=== PATIENT | female | born 1940 | race Caucasian/White ===

== ENCOUNTER 2018-11-09 15:07 | Inpatient (IN) | payer OTHER ==
[~2018-11-09] VITALS: Ht 152.4 cm; Wt 61.7 kg
[2018-11-09 15:10] VITALS: Ht 152.4 cm; Wt 61.7 kg
[2018-11-09] MEDS ORDERED: ONDANSETRON 4 MG INJ IV STA (15:19)
[2018-11-09] MEDS ORDERED: SOD CHLORIDE 0.9% 500 ML IV STA (15:19)
[2018-11-09] MEDS ORDERED: morphine 2 MG INJ IV STA (15:19)
[2018-11-09] MEDS ORDERED: CEFEPIME 2GM/50 ML (PMX) 50 ML IVPB STA (16:02)
[2018-11-09] MEDS ORDERED: VANCOMYCIN 1 GM (PMX) 250 ML IVPB STA (16:02)
[2018-11-09] MEDS ORDERED: APIX5TAB PO (16:21)
[2018-11-09] MEDS ORDERED: METO25TA4 PO (16:21)
[2018-11-09] MEDS ORDERED: CARV6.25 PO (16:21)
[2018-11-09] MEDS ORDERED: ACET-2047 PO (16:21)
[2018-11-09] MEDS ORDERED: GLIP5TAB13 PO (16:21)
[2018-11-09] MEDS ORDERED: ATOR40TA68 PO (16:21)
[2018-11-09] MEDS ORDERED: BISA-57 PO (16:21)
[2018-11-09] MEDS ORDERED: DOCU-159 PO (16:21)
[2018-11-09] MEDS ORDERED: DIPH25CA6 PO (16:21)
[2018-11-09] MEDS ORDERED: FURO-110 PO (16:21)
[2018-11-09] MEDS ORDERED: INSU100I12 SQ (16:21)
[2018-11-09] MEDS ORDERED: LANT3I SC (16:21)
[2018-11-09] MEDS ORDERED: MULT-876 PO (16:21)
[2018-11-09] MEDS ORDERED: HYDR-4011 PO (16:21)
[2018-11-09] MEDS ORDERED: ZINC220T PO (16:26)
[2018-11-09] MEDS ORDERED: SENN-120 PO (16:26)
[2018-11-09] MEDS ORDERED: CHOL100062 PO (16:26)
[2018-11-09] MEDS ORDERED: ACETAMINOPHEN 325 MG TAB PO PRN (17:30)
[2018-11-09] MEDS ORDERED: ONDANSETRON 4 MG INJ IV PRN (17:30)
[2018-11-09] MEDS: SOD CHLORIDE 0.9% 1,000 ML IV SCH ×2 (17:47→18:44)
[2018-11-09] MEDS ORDERED: NACL 0.9% 3 ML SYG IV SCH (18:00)
--- NOTE | 2018-11-09 19:24 | ERD ---
ER Documentation Chief Complaint Chief Complaint [facility]- ncreased heart rate, lower back pain HPI This is a 77-year-old female is brought into the emergency department by EMS from her nursing care facility, [facility]. Over the past several days the patient has been experiencing tachycardia. Her heart rate has been ranging between 110 230 according to nursing staff. The patient is receiving analgesic medication as she has a recent diagnosis of a displaced intertrochanteric fracture of the right femur with no surgical intervention. She is undergoing routine healing. She also has a known history of atrial fibrillation. She has had a nonproductive cough. There is been no fevers or shaking or chills. The patient is currently on Eliquis and denies any shortness of breath at rest or exertion. She was sent to the emergency department by her primary care physician for further evaluation Dr. Deutsch. ROS All systems reviewed and are negative except as per history of present illness. Medications Home Meds Reported Medications Zinc Sulfate* (Zinc Sulfate*) 220 Mg Tablet, 220 MG PO DAILY, TAB 11/09/18 Cholecalciferol* (Vitamin D3*) 1,000 Unit Tablet, 2000 UNIT PO DAILY, TAB 11/09/18 Sennosides* (Senna Lax*) 8.6 Mg Tablet, 1 TAB PO DAILY PRN for CONSTIPATION, TAB 11/09/18 Hydrocodone/Acetaminophen ([place] 5-325 Tablet) 1 Each Tablet, 1 TAB PO Q4 PRN for PAIN LEVEL 7-10, TAB 11/09/18 Multivit-Min/Iron Fum/Folic AC (Qsczg-Wgozmbl-Xsdgflfi Tablet) 1 Each Tablet, 1 TAB PO DAILY, TAB 11/09/18 Metoprolol Tartrate* (Lopressor*) 25 Mg Tablet, 25 MG PO BID, #60 TAB 11/09/18 Furosemide* (Lasix*) 20 Mg Tablet, 20 MG PO DAILY, TAB 11/09/18 Insulin Glargine* (Lantus*) 100 Unit/Ml Soln, 32 UNIT SC DAILY, #1 VIAL 11/09/18 Insulin Lispro (Humalog Kwikpen U-100) 100 Unit/1 Ml Insuln.pen, 1-12 UNIT SQ AC A for PER SLIDING SCALE, EA 11/09/18 Glipizide* (Glipizide*) 5 Mg Tablet, 5 MG PO BID, TAB 11/09/18 Apixaban* (Eliquis*) 5 Mg Tablet, 5 MG PO BID, TAB 11/09/18 Bisacodyl* (Dulcolax*) 5 Mg Tablet.dr, 10 MG PO DAILY PRN for CONSTIPATION, TAB 11/09/18 Docusate Sodium* (Docusate Sodium*) 100 Mg Capsule, 100 MG PO DAILY, #30 CAP 11/09/18 Diphenhydramine Hcl* (Diphenhydramine Hcl*) 25 Mg Capsule, 25 MG PO Q6 PRN for ITCHING, CAP 11/09/18 Carvedilol* (Coreg*) 6.25 Mg Tablet, 6.25 MG PO BID, #60 TAB 11/09/18 Atorvastatin* (Atorvastatin*) 40 Mg Tablet, 40 MG PO QHS, #30 TAB 11/09/18 Acetaminophen* (Acetaminophen*) 650 Mg Tablet, 650 MG PO Q4 PRN for PAIN AND OR ELEVATED TEMP, #30 TAB 11/09/18 Allergies Allergies: Coded Allergies: No Known Allergy (Unverified , 11/09/18) PMhx/Soc Hx Cardiac Disorders: Yes (htn, hypotenstion, cardiomegaly) Hx Miscellaneous Medical Probl: Yes (anemia, acidosis, gastroenteritis,acute kidnbey disease,uti,fall) Hx Alcohol Use: No Hx Substance Use: No Hx Tobacco Use: No Smoking Status: Never smoker Physical Exam Vitals Vital Signs Date Temp Pulse Resp B/P (MAP) Pulse Ox O2 O2 Flow FiO2 Time Delivery Rate 11/09/18 100 22 136/84 97 Room Air 18:58 (101) 11/09/18 95 20 143/74 97 Room Air 18:20 (97) 11/09/18 100 18 134/85 97 Room Air 17:30 (101) 11/09/18 95 18 134/87 96 Room Air 16:18 (103) 11/09/18 98.7 112 24 138/86 97 15:10 (103) Physical Exam Constitutional:Well-developed. Well-nourished. HEENT:Normocephalic. Atraumatic.Pupils were equal round reactive to light. Moist mucous membranes.No tonsillar exudates. Neck: No nuchal rigidity. No lymphadenopathy. No posterior cervical spine tenderness or step-offs. Respiratory: Not using accessory muscles of respiration. No rhonchi. No rales. Very mild wheezing with decreased breath sounds are bilaterally Cardiovascular: Tachycardic with irregular irregular rhythm.No murmurs. No rubs were appreciated.S1, S2 normal. Distal pulses are palpable 2+ bilaterally. GI: Abdomen was soft. Nontender. Non Distended. No pulsatile abdominal masses or bruits. No rebound. No guarding. Bowel sounds were present and normal. Muscle skeletal: Full range of motion of her lower extremities. Patient able to lift the left upper extremity against gravity. Patient unable to lift the right upper extremity against gravity due to intertrochanteric right femur fracture. Compartments are soft of the bilateral lower extremities no asymmetrical calf tenderness. Skin: No petechia, no purpura. No lesions on the palms or the soles of the feet. No maculopapular rash. NEURO: Patient was alert, awake, orientated x3.No facial droop. Gait not observed as patient is unable to ambulate. Result Diagram: 11/09/18 1525 11/09/18 1525 Results 24 hrs Laboratory Tests Test 11/09/18 15:25 White Blood Count 8.4 10^3/ul Red Blood Count 3.36 10^6/ul Hemoglobin 9.1 g/dl Hematocrit 28.8 % Mean Corpuscular Volume 85.7 fl Mean Corpuscular Hemoglobin 27.1 pg Mean Corpuscular Hemoglobin Concent 31.6 g/dl Red Cell Distribution Width 19.1 % Platelet Count 408 10^3/UL Mean Platelet Volume 9.0 fl Immature Granulocytes % 0.500 % Neutrophils % 63.6 % Lymphocytes % 18.5 % Monocytes % 10.8 % Eosinophils % 6.0 % Basophils % 0.6 % Nucleated Red Blood Cells % 0.0 /100WBC Immature Granulocytes # 0.040 10^3/ul Neutrophils # 5.3 10^3/ul Lymphocytes # 1.6 10^3/ul Monocytes # 0.9 10^3/ul Eosinophils # 0.5 10^3/ul Basophils # 0.1 10^3/ul Nucleated Red Blood Cells # 0.0 10^3/ul Prothrombin Time 21.7 Sec Prothrombin Time Ratio 1.7 INR International Normalized Ratio 1.88 Activated Partial Thromboplast Time 58.7 Sec Sodium Level 137 mmol/L Potassium Level 4.9 mmol/L Chloride Level 102 mmol/L Carbon Dioxide Level 28 mmol/L Anion Gap 7 Blood Urea Nitrogen 25 mg/dl Creatinine 1.06 mg/dl Est Glomerular Filtrat Rate mL/min mL/min Glucose Level 137 mg/dl Calcium Level 8.3 mg/dl Total Bilirubin 0.6 mg/dl Direct Bilirubin 0.00 mg/dl Indirect Bilirubin 0.6 mg/dl Aspartate Amino Transf (AST/SGOT) 100 IU/L Alanine Aminotransferase (ALT/SGPT) 76 IU/L Alkaline Phosphatase 171 IU/L Creatine Kinase 24 IU/L Creatine Kinase Index 1.4 Creatinine Kinase MB (Mass) 0.34 ng/ml Troponin I < 0.012 ng/ml B-Type Natriuretic Peptide 3910 PG/ML Total Protein 7.0 g/dl Albumin 3.0 g/dl Globulin 4.00 g/dl Albumin/Globulin Ratio 0.75 Current Medications Medications Dose Sig/Allen Start Time Status Last (Trade) Ordered Route PRN Stop Time Admin Dose Reason Admin Sodium 500 ml @ Q1H STAT 11/09/18 DC 11/09/18 Chloride 500 mls/hr IV 15:19 11/09/18 15:28 16:18 Morphine 2 mg ONCE STAT 11/09/18 DC 11/09/18 Sulfate IV 15:19 11/09/18 15:28 (morphine) 15:22 Ondansetron 4 mg ONCE STAT 11/09/18 DC 11/09/18 HCl (Zofran IV 15:19 11/09/18 15:28 Inj) 15:22 Vancomycin 250 ml @ ONCE STAT 11/09/18 DC 11/09/18 HCl 125 mls/hr IVPB 16:02 11/09/18 17:05 18:01 Cefepime HCl 50 ml @ ONCE STAT 11/09/18 DC 11/09/18 100 mls/hr IVPB 16:02 11/09/18 16:20 16:31 Ondansetron 4 mg ER BRIDGE 11/09/18 DC HCl (Zofran PRN IV 17:30 11/09/18 Inj) NAUSEA/VOMITI 18:06 NG 650 mg ER BRIDGE 11/09/18 DC Acetaminophen PRN PO 17:30 11/09/18 (Tylenol .MILD PAIN 18:04 Tab) 1-3 OR TEMP Sodium 1,000 ml @ [id number] IV 11/09/18 Chloride 75 mls/hr 17:47 IV Flush 3 ml PER 11/09/18 (NS 3 ml) PROTOCOL IV 18:00 Ondansetron 4 mg Q6H PRN 11/09/18 HCl (Zofran IV 18:00 Inj) NAUSEA/VOMITI NG 650 mg Q6H PRN 11/09/18 Acetaminophen PO .PAIN 1-3 18:00 (Tylenol OR TEMP Tab) Morphine 2 mg Q4H PRN 11/09/18 Sulfate IV .PAIN 18:00 (morphine) 7-10 Famotidine 20 mg Q12 IV 11/09/18 (Pepcid Iv) 21:00 Enoxaparin 30 mg DAILY SC 11/10/18 Sodium 09:00 (Lovenox) Cefepime HCl 50 ml @ Q12H IVPB 11/10/18 100 mls/hr 04:00 Procedures/MDM This is an 77-year-old female presented to the emergency department with inte rmittent tachycardia. Patient placed in a chronic monitor continuous pulse oximetry and IV access was established by nursing staff. The patient has atrial fibrillation but initially presented with A. fib with RVR however after receiving IV access the patient was no longer tachycardic and heart rate was 99. 12 Lead EKG tracing ordered and reviewed by myself showed: Irregular regular rhythm at 99 bpm and no arrhythmia. [place] interval normal. QRS duration normal. No ST segment elevation No ST segment depression. No changes consistent with acute ischemia. Patient had chest radiograph reviewed by myself the radiologist which indicated the following: Cardiomegaly with mild pulmonary vascular congestion. Small bilateral pleural effusions with adjacent bibasilar opacities Blood cultures and urine cultures were obtained. The patient's BNP was elevated 2440. The patient was not given Lasix as she was borderline hypotensive. She was given antibiotics which included vancomycin and cefepime. She was not hypoxic. She will be admitted under the care of Dr. Deutsch. I spoke with Dr. Drew who is taking call for Dr. Deutsch. Departure Diagnosis: Primary Impression: Atrial fibrillation Atrial fibrillation type: chronic Qualified Codes: I48.2 - Chronic atrial fibrillation Additional Impressions: Congestive heart failure Heart failure type: unspecified Heart failure chronicity: acute on chronic Qualified Codes: I50.9 - Heart failure, unspecified Pneumonia Pneumonia type: due to unspecified organism Laterality: bilateral Lung location: lower lobe of lung Qualified Codes: J18.1 - Lobar pneumonia, unspecified organism Condition: Serious ORESTES CASTRO MD Nov 09, 2018 19:24
[2018-11-09 20:00] VITALS: PULSE 99
[2018-11-09] MEDS: FAMOTIDINE 20 MG INJ IV SCH (21:30)
[2018-11-09 23:32] VITALS: BP 137/64; PULSE 117; RESP 18
[2018-11-10] VITALS (12 sets, daily range): BP systolic 118–157; BP diastolic 60–85; PULSE 92–135; RESP 18–19
[2018-11-10] MEDS: ACETAMINOPHEN 325 MG TAB PO PRN (00:57)
[2018-11-10] MEDS: CEFEPIME 2GM/50 ML (PMX) 50 ML IVPB SCH ×2 (06:12→16:09)
[2018-11-10] MEDS: SOD CHLORIDE 0.9% 1,000 ML IV SCH ×2 (06:12→16:41)
[2018-11-10] MEDS: morphine 2 MG INJ IV PRN ×4 (08:24→20:31)
[2018-11-10] MEDS: FAMOTIDINE 20 MG INJ IV SCH ×2 (08:24→20:29)
[2018-11-10] MEDS: ENOXAPARIN 30 MG/0.3 ML SYG SC SCH (08:25)
--- NOTE | 2018-11-10 10:53 | PN ---
Date/Time of Note Date/Time of Note DATE: 11/10/18 TIME: 10:52 Assessment/Plan VTE Prophylaxis Risk score (from [facility] [place])>0 risk: 11 SCD applied (from [facility] [place]): No SCD contraindicated: other Pharmacological prophylaxis: LMWH Lines/Catheters IV Catheter Type (from [facility]): [place]ine [place] Assessment/Plan Hospital Course 1) pneumonia - IV antibiotics 2) hypertension - continue meds 3) diabetes -continue medications - monitor blood sugars Result Diagram: 11/10/18 0602 11/10/18 0602 Results 24hrs Laboratory Tests Test 11/09/18 15:25 11/10/18 06:02 White Blood Count 8.4 7.4 Red Blood Count 3.36 L 3.20 L Hemoglobin 9.1 L 8.6 L Hematocrit 28.8 L 27.3 L Mean Corpuscular Volume 85.7 85.3 Mean Corpuscular Hemoglobin 27.1 L 26.9 L Mean Corpuscular Hemoglobin Concent 31.6 L 31.5 L Red Cell Distribution Width 19.1 H 19.2 H Platelet Count 408 379 Mean Platelet Volume 9.0 9.1 Immature Granulocytes % 0.500 H 0.700 H Neutrophils % 63.6 56.4 Lymphocytes % 18.5 20.1 Monocytes % 10.8 11.7 H Eosinophils % 6.0 10.4 H Basophils % 0.6 0.7 Nucleated Red Blood Cells % 0.0 0.0 Immature Granulocytes # 0.040 H 0.050 H Neutrophils # 5.3 4.2 Lymphocytes # 1.6 1.5 Monocytes # 0.9 0.9 Eosinophils # 0.5 0.8 H Basophils # 0.1 0.1 Nucleated Red Blood Cells # 0.0 0.0 Prothrombin Time 21.7 H Prothrombin Time Ratio 1.7 INR International Normalized Ratio 1.88 Activated Partial Thromboplast Time 58.7 H Sodium Level 137 140 Potassium Level 4.9 4.3 Chloride Level 102 106 Carbon Dioxide Level 28 29 Anion Gap 7 5 Blood Urea Nitrogen 25 H 20 Creatinine 1.06 H 1.03 H Est Glomerular Filtrat Rate mL/min Glucose Level 137 79 # Calcium Level 8.3 L 8.4 Total Bilirubin 0.6 0.7 Direct Bilirubin 0.00 0.00 Indirect Bilirubin 0.6 0.7 Aspartate Amino Transf (AST/SGOT) 100 H 99 H Alanine Aminotransferase (ALT/SGPT) 76 H 80 H Alkaline Phosphatase 171 H 154 H Creatine Kinase 24 Creatine Kinase Index 1.4 Creatinine Kinase MB (Mass) 0.34 Troponin I < 0.012 B-Type Natriuretic Peptide 3910 H Total Protein 7.0 6.1 Albumin 3.0 L 2.7 L Globulin 4.00 H 3.40 H Albumin/Globulin Ratio 0.75 0.79 Hemoglobin A1c 6.1 H Subjective 24 Hr Interval Summary Free Text/Dictation Patient with hypertension, hypercholesterolemia, diabetes mellitus comes from senior living where she was found to have tachycardia. Evaluatioin in the emergency found that she had pneumonia and so patient is admitted for further treatment. Exam/Review of Systems Exam Vitals Vital Signs Date Temp Pulse Resp B/P (MAP) Pulse Ox O2 O2 Flow FiO2 Time Delivery Rate 11/10/18 113 08:01 11/10/18 97.5 18 132/72 95 07:18 (92) 11/09/18 Room Air 18:58 Intake and Output 11/09/18 11/09/18 11/10/18 1515:00 23:00 07:00 IntakeIntake Total 250 ml BalanceBalance 250 ml Constitutional: well developed Head: normocephalic, atraumatic Neck: supple Respiratory: diminished breath sounds Cardiovascular: regular rate and rhythm Gastrointestinal: soft, non-tender Extremities: normal pulses Results Results 24hrs Laboratory Tests Test 11/09/18 15:25 11/10/18 06:02 White Blood Count 8.4 7.4 Red Blood Count 3.36 L 3.20 L Hemoglobin 9.1 L 8.6 L Hematocrit 28.8 L 27.3 L Mean Corpuscular Volume 85.7 85.3 Mean Corpuscular Hemoglobin 27.1 L 26.9 L Mean Corpuscular Hemoglobin Concent 31.6 L 31.5 L Red Cell Distribution Width 19.1 H 19.2 H Platelet Count 408 379 Mean Platelet Volume 9.0 9.1 Immature Granulocytes % 0.500 H 0.700 H Neutrophils % 63.6 56.4 Lymphocytes % 18.5 20.1 Monocytes % 10.8 11.7 H Eosinophils % 6.0 10.4 H Basophils % 0.6 0.7 Nucleated Red Blood Cells % 0.0 0.0 Immature Granulocytes # 0.040 H 0.050 H Neutrophils # 5.3 4.2 Lymphocytes # 1.6 1.5 Monocytes # 0.9 0.9 Eosinophils # 0.5 0.8 H Basophils # 0.1 0.1 Nucleated Red Blood Cells # 0.0 0.0 Prothrombin Time 21.7 H Prothrombin Time Ratio 1.7 INR International Normalized Ratio 1.88 Activated Partial Thromboplast Time 58.7 H Sodium Level 137 140 Potassium Level 4.9 4.3 Chloride Level 102 106 Carbon Dioxide Level 28 29 Anion Gap 7 5 Blood Urea Nitrogen 25 H 20 Creatinine 1.06 H 1.03 H Est Glomerular Filtrat Rate mL/min Glucose Level 137 79 # Calcium Level 8.3 L 8.4 Total Bilirubin 0.6 0.7 Direct Bilirubin 0.00 0.00 Indirect Bilirubin 0.6 0.7 Aspartate Amino Transf (AST/SGOT) 100 H 99 H Alanine Aminotransferase (ALT/SGPT) 76 H 80 H Alkaline Phosphatase 171 H 154 H Creatine Kinase 24 Creatine Kinase Index 1.4 Creatinine Kinase MB (Mass) 0.34 Troponin I < 0.012 B-Type Natriuretic Peptide 3910 H Total Protein 7.0 6.1 Albumin 3.0 L 2.7 L Globulin 4.00 H 3.40 H Albumin/Globulin Ratio 0.75 0.79 Hemoglobin A1c 6.1 H Medications Medication Current Medications Sodium Chloride 1,000 ml @ 75 mls/hr [id number] IV Last administered on 11/10/18at 06:12; Admin Dose 75 MLS/HR; Start 11/09/18 at 17:47 IV Flush (NS 3 ml) 3 ml PER PROTOCOL IV ; Start 11/09/18 at 18:00 Ondansetron HCl (Zofran Inj) 4 mg Q6H PRN IV NAUSEA/VOMITING; Start 11/09/18 at 18:00 Acetaminophen (Tylenol Tab) 650 mg Q6H PRN PO .PAIN 1-3 OR TEMP Last administered on 11/10/18at 00:57; Admin Dose 650 MG; Start 11/09/18 at 18:00 Morphine Sulfate (morphine) 2 mg Q4H PRN IV .PAIN 7-10 Last administered on 11/10/18at 08:24; Admin Dose 2 MG; Start 11/09/18 at 18:00 Famotidine (Pepcid Iv) 20 mg Q12 IV Last administered on 11/10/18at 08:24; Admin Dose 20 MG; Start 11/09/18 at 21:00 Enoxaparin Sodium (Lovenox) 30 mg DAILY SC Last administered on 11/10/18at 08:25; Admin Dose 30 MG; Start 11/10/18 at 09:00 Cefepime HCl 50 ml @ 100 mls/hr Q12H IVPB Last administered on 11/10/18at 06:12; Admin Dose 100 MLS/HR; Start 11/10/18 at 04:00 Atorvastatin Calcium (Lipitor) 40 mg QHS PO ; Start 11/10/18 at 21:00; Status UNV Bisacodyl (Dulcolax) 10 mg DAILY PRN PO CONSTIPATION; Start 11/10/18 at 11:00; Status UNV Carvedilol (Coreg) 6.25 mg BID PO ; Start 11/10/18 at 21:00; Status UNV Cholecalciferol (Vitamin D) 2,000 unit DAILY PO ; Start 11/11/18 at 09:00; Status UNV TENNILLE PEREIRA Nov 10, 2018 10:53
[2018-11-10] MEDS ORDERED: GLUCAGON 1 MG INJ IM PRN (11:30)
[2018-11-10] MEDS ORDERED: DEXTROSE 50% 50 ML SYRINGE IV PRN ×2 (11:30)
[2018-11-10] MEDS ORDERED: GLUCOSE GEL 15 GRAM TUBE BUCCAL PRN (11:30)
[2018-11-10] MEDS ORDERED: GLUCOSE GEL 15 GRAM TUBE PO PRN ×2 (11:30)
[2018-11-10] MEDS: glipiZIDE 5 MG TAB PO SCH (16:44)
[2018-11-10] MEDS: METOPROLOL 25 MG TAB PO SCH (20:30)
[2018-11-10] MEDS ORDERED: ATORVASTATIN 40 MG TAB PO SCH (21:00)
[2018-11-10] MEDS: SENNA TAB PO PRN (23:38)
[2018-11-11] VITALS (10 sets, daily range): BP systolic 116–150; BP diastolic 64–89; PULSE 96–115; RESP 17–22
[2018-11-11] MEDS: ONDANSETRON 4 MG INJ IV PRN (01:44)
[2018-11-11] MEDS ORDERED: ACCU-CHEK XX SCH (02:00)
[2018-11-11] MEDS: ACCU-CHEK XX SCH (02:00)
[2018-11-11] MEDS: CEFEPIME 2GM/50 ML (PMX) 50 ML IVPB SCH ×2 (03:37→15:30)
[2018-11-11] MEDS: FAMOTIDINE 20 MG INJ IV SCH (08:13)
[2018-11-11] MEDS: SOD CHLORIDE 0.9% 1,000 ML IV SCH (08:13)
[2018-11-11] MEDS: DOCUSATE SODIUM 100 MG CAP PO SCH (08:14)
[2018-11-11] MEDS: ZINC SULFATE 220 MG CAP PO SCH (08:14)
[2018-11-11] MEDS: FUROSEMIDE 20 MG TAB PO SCH (08:14)
[2018-11-11] MEDS: CHOLECALCIFEROL 1,000 UNIT TAB PO SCH (08:15)
[2018-11-11] MEDS: METOPROLOL 25 MG TAB PO SCH ×2 (08:15→20:45)
[2018-11-11] MEDS: glipiZIDE 5 MG TAB PO SCH (08:15)
[2018-11-11] MEDS: ENOXAPARIN 30 MG/0.3 ML SYG SC SCH (08:16)
[2018-11-11] MEDS: morphine 2 MG INJ IV PRN (09:09)
[2018-11-11] MEDS: INSULIN GLARGINE [LANTus] (100 UNITS/ML) SYG SC SCH (09:11)
--- NOTE | 2018-11-11 16:54 | PN ---
Date/Time of Note Date/Time of Note DATE: 11/11/18 TIME: 16:52 Assessment/Plan VTE Prophylaxis Risk score (from [facility] [place])>0 risk: 16 SCD applied (from [facility] [place]): Yes Pharmacological prophylaxis: apixaban Lines/Catheters IV Catheter Type (from [facility]): Peripheral IV Urinary Cath still in place: No Assessment/Plan Hospital Course The patient is a 77-year-old female was brought from [facility] for tachycardia. Patient was significantly diminished air entry bilaterally, currently is awake alert continues on supplemental oxygen. Assessment/Plan -Pneumonia, continue antibiotics, breathing treatment. -Atrial fibrillation, continue Eliquis and metoprolol -Transaminitis -Hypertension -Congestive heart failure, follow-up on 2D echo. -Cardiomegaly -Diabetes mellitus type 2 with hemoglobin A1c of 6.1. Continue Lantus and NovoLog. -Obesity with BMI of 35.3 Further recommendations based on clinical course. Plan of care discussed with Dr. Deutsch. Result Diagram: 11/10/18 0602 11/10/18 0602 Results 24hrs Laboratory Tests Test 11/10/18 20:58 11/11/18 01:56 11/11/18 07:51 11/11/18 11:46 Bedside Glucose 111 85 81 80 Test 11/11/18 13:11 11/11/18 13:18 11/11/18 13:27 11/11/18 16:48 Bedside Glucose 54 L 57 L 230 H 100 Exam/Review of Systems Exam Vitals Vital Signs Date Temp Pulse Resp B/P (MAP) Pulse Ox O2 O2 Flow FiO2 Time Delivery Rate 11/11/18 97.4 103 21 150/84 99 15:10 (106) 11/10/18 Room Air 15:57 Intake and Output 11/10/18 11/10/18 11/11/18 1515:00 23:00 07:00 IntakeIntake Total 800 ml 75 ml BalanceBalance 800 ml 75 ml Constitutional: alert, oriented Head: normocephalic Respiratory: diminished breath sounds Cardiovascular: irregular rhythm Gastrointestinal: soft, non-tender Musculoskeletal: nl extremities to inspection Extremities: normal pulses Results Results 24hrs Laboratory Tests Test 11/10/18 20:58 11/11/18 01:56 11/11/18 07:51 11/11/18 11:46 Bedside Glucose 111 85 81 80 Test 11/11/18 13:11 11/11/18 13:18 11/11/18 13:27 11/11/18 16:48 Bedside Glucose 54 L 57 L 230 H 100 Medications Medication Current Medications IV Flush (NS 3 ml) 3 ml PER PROTOCOL IV ; Start 11/09/18 at 18:00 Ondansetron HCl (Zofran Inj) 4 mg Q6H PRN IV NAUSEA/VOMITING Last administered on 11/11/18 01:44; Admin Dose 4 MG; Start 11/09/18 at 18:00 Acetaminophen (Tylenol Tab) 650 mg Q6H PRN PO .PAIN 1-3 OR TEMP Last administer ed on 11/10/18 00:57; Admin Dose 650 MG; Start 11/09/18 at 18:00 Morphine Sulfate (morphine) 2 mg Q4H PRN IV .PAIN 7-10 Last administered on 11/11/18 09:09; Admin Dose 2 MG; Start 11/09/18 at 18:00 Cefepime HCl 50 ml @ 100 mls/hr Q12H IVPB Last administered on 11/11/18 15:30; Admin Dose 100 MLS/HR; Start 11/10/18 at 04:00 Bisacodyl (Dulcolax) 10 mg DAILY PRN PO CONSTIPATION; Start 11/10/18 at 11:00 Cholecalciferol (Vitamin D) 2,000 unit DAILY PO Last administered on 11/11/18 08:15; Admin Dose 2,000 UNIT; Start 11/11/18 at 09:00 Docusate Sodium (Colace) 100 mg DAILY PO Last administered on 11/11/18 08:14; Admin Dose 100 MG; Start 11/11/18 at 09:00 Furosemide (Lasix) 20 mg DAILY PO Last administered on 11/11/18 08:14; Admin Dose 20 MG; Start 11/11/18 at 09:00 Insulin Glargine (Lantus) 32 units DAILY SC Last administered on 11/11/18 09:11; Admin Dose 32 UNITS; Start 11/11/18 at 09:00 Metoprolol Tartrate (Lopressor) 25 mg BID PO Last administered on 11/11/18 08:15; Admin Dose 25 MG; Start 11/10/18 at 21:00 Senna (Senokot) 1 tab DAILY PRN PO CONSTIPATION Last administered on 11/10/18at 23:38; Admin Dose 1 TAB; Start 11/10/18 at 11:00 Zinc Sulfate (Zinc Sulfate) 220 mg DAILY PO Last administered on 11/11/18at 08:14; Admin Dose 220 MG; Start 11/11/18 at 09:00 Diagnostic Test (Pha) (Accu-Chek) 1 ea 02 XX Last administered on 11/11/18at 02:00; Admin Dose 1 EA; Start 11/11/18 at 02:00 Miscellaneous Information 1 ea NOTE XX ; Start 11/10/18 at 11:30 Glucose (Glutose) 15 gm Q15M PRN PO DECREASED GLUCOSE; Start 11/10/18 at 11:30 Glucose (Glutose) 22.5 gm Q15M PRN PO DECREASED GLUCOSE; Start 11/10/18 at 11:30 Dextrose (D50w Syringe) 25 ml Q15M PRN IV DECREASED GLUCOSE Last administered on 11/11/18at 13:22; Admin Dose 25 ML; Start 11/10/18 at 11:30 Dextrose (D50w Syringe) 50 ml Q15M PRN IV DECREASED GLUCOSE; Start 11/10/18 at 11:30 Glucagon (Glucagen) 1 mg Q15M PRN IM DECREASED GLUCOSE; Start 11/10/18 at 11:30 Glucose (Glutose) 15 gm Q15M PRN BUCCAL DECREASED GLUCOSE; Start 11/10/18 at 11: 30 Atorvastatin Calcium (Lipitor) 20 mg QHS PO ; Start 11/11/18 at 21:00 Apixaban (Eliquis) 5 mg BID PO ; Start 11/11/18 at 21:00 Insulin Aspart (Novolog Insulin Pen) NOVOLOG *MILD* ALGORITHM WITH MEALS BEDTIME SC ; Start 11/11/18 at 17:55 JAYY SMITH Nov 11, 2018 16:54
[2018-11-11] MEDS: INSULIN ASPART [NOVOLOG] 3 ML PEN SC SCH ×2 (17:06→21:00)
[2018-11-11] MEDS: ATORVASTATIN 20 MG TAB PO SCH (20:44)
[2018-11-11] MEDS: APIXABAN 5 MG TABLET PO SCH (20:44)
[2018-11-11] MEDS ORDERED: FUROSEMIDE 40 MG INJ IV ONE (21:00)
[2018-11-11] MEDS: LORAZEPAM 0.5 MG TAB PO PRN (21:00)
[2018-11-12] VITALS (13 sets, daily range): BP systolic 126–154; BP diastolic 63–84; PULSE 100–113; RESP 16–20
[2018-11-12] MEDS ORDERED: ACCU-CHEK XX SCH (02:00)
[2018-11-12] MEDS: ACCU-CHEK XX SCH (02:33)
[2018-11-12] MEDS: CEFEPIME 2GM/50 ML (PMX) 50 ML IVPB SCH ×2 (03:45→16:21)
[2018-11-12] MEDS: LORAZEPAM 0.5 MG TAB PO PRN ×2 (06:21→18:24)
[2018-11-12] MEDS: ACETAMINOPHEN 325 MG TAB PO PRN (06:27)
[2018-11-12] MEDS: INSULIN ASPART [NOVOLOG] 3 ML PEN SC SCH ×4 (07:55→20:30)
[2018-11-12] MEDS: ZINC SULFATE 220 MG CAP PO SCH (08:41)
[2018-11-12] MEDS: FUROSEMIDE 20 MG TAB PO SCH (08:41)
[2018-11-12] MEDS: APIXABAN 5 MG TABLET PO SCH ×2 (08:41→20:28)
[2018-11-12] MEDS: CHOLECALCIFEROL 1,000 UNIT TAB PO SCH (08:41)
[2018-11-12] MEDS: DOCUSATE SODIUM 100 MG CAP PO SCH (08:41)
[2018-11-12] MEDS: METOPROLOL 25 MG TAB PO SCH (08:41)
[2018-11-12] MEDS: INSULIN GLARGINE [LANTus] (100 UNITS/ML) SYG SC SCH (08:41)
--- NOTE | 2018-11-12 16:13 | CONS ---
DATE OF ADMISSION: 11/09/2018 DATE OF CONSULTATION: 11/12/2018 TYPE OF CONSULTATION: Infectious disease. REASON FOR CONSULTATION: Antibiotic management. HISTORY OF PRESENT ILLNESS: Karishma Lopez is a 77-year-old female brought in by youth support worker s from convalescent home with increased heart rate and low back pain. Over the past several days, agustin mckeon has been experiencing tachycardia with heart rates between 110 and 230. She has a recent diagnosis of displaced intertrochanteric fracture of the right femur with no surgical intervention. She has a known history of atrial fibrillation and has a nonproductive cough. No fever or shaking chills. Agustin mckeon is on Eliquis. Denies any shortness of breath at rest or exertion. Her past problems include: 1. Hypertension. 2. Cardiomegaly. 3. Gastroenteritis. 4. Anemia. 5. Acute renal disease. 6. History of UTI. 7. Falls. PAST MEDICAL HISTORY: As outlined. FAMILY HISTORY: Noncontributory. SOCIAL HISTORY: She does not smoke, drink or abuse drugs. ALLERGIES: NONE TO PENICILLIN, SULFA OR FOODS. MEDICATIONS: Per chart. REVIEW OF SYSTEMS: Noncontributory. ANCILLARY LABORATORY DATA: White count of 8.4, H and H 9.1 and 28.8, platelet count 408,000. BUN an d creatinine is 25/1.06. Random blood glucose of 137. She has 64% neutrophils. PHYSICAL EXAMINATION: GENERAL: The patient is well-developed, well-nourished, in no acute distress. VITAL SIGNS: Stable. She is afebrile. SKIN: Without generalized rash. HEENT: Within normal limits. NECK: Supple. LYMPH NODES: None palpable. CHEST: Decreased breath sounds at the bases. HEART: Tachycardic with irregularly irregular rhythm. ABDOMEN: Soft, nontender without organosplenomegaly or masses. EXTREMITIES: Without cyanosis, clubbing or edema. She is unable to lift right lower extremities aga inst gravity due to intertrochanteric right femoral fracture. RECTAL AND GENITAL: Deferred. NEUROLOGIC: No focal neurological abnormality. HOSPITAL COURSE: Blood cultures are negative. MRSA screen is negative. White count on 11/10/2018 w as 7.2. The patient was placed on cefepime. Chest x-ray shows small bilateral pleural effusions wit h adjacent bibasilar opacities, cardiomegaly with mild pulmonary vascular congestion. She is thought to have pneumonitis though x-ray is not diagnostic for this; however she also has a problem with her right lower extremity with difficulty moving. We will continue her on cefepime. I will dictate my findings to Dr. Enriquez. Dictated By: CHAU MA MD, JD/NTS Conf#: [id number] DID#: [id number] CC: ELISABETH ENRIQUEZ MD;*EndCC*
[2018-11-12] MEDS ORDERED: DILTIAZEM 25 MG INJ IV PRN (16:30)
[2018-11-12] MEDS ORDERED: DIGOXIN 500 MCG INJ IV ONE (16:30)
[2018-11-12] MEDS ORDERED: FUROSEMIDE 20 MG INJ IV SCH (18:00)
[2018-11-12] MEDS: FUROSEMIDE 20 MG INJ IV SCH (18:26)
--- NOTE | 2018-11-12 19:18 | CONS ---
DATE OF ADMISSION: 11/09/2018 DATE OF CONSULTATION: 11/12/2018 TYPE OF CONSULTATION: Cardiology. REASON FOR CONSULTATION: Atrial fibrillation with rapid ventricular response. REQUESTING PHYSICIAN: Elisabeth Deutsch MD HISTORY OF PRESENT ILLNESS: Ms. Lopez is a 77-year-old female with a history of atrial fibrillat ion, hypertension, diabetes mellitus who was initially admitted 11/09/2018 with complaints of shortne ss of breath. Upon arrival in the emergency department, temperature 98.1, blood pressure 137/64, pul se 117, respiratory rate 18, satting 92%. The patient's labs were notable for white blood cell count of 8.4, hemoglobin 9.1, platelet count of 408, a sodium of 137, potassium 4.9, creatinine 1.0, BUN 2 5, AST 100, ALT 76. Troponin negative. BNP of 3910. The patient's electrocardiogram revealed atria l fibrillation at a rate of 99, normal axis with low voltage QRS and nonspecific ST abnormalities dif fusely. The patient subsequently admitted to the floor, and since admit to the floor, has additional ly undergone a chest x-ray that revealed cardiomegaly with mild pulmonary vascular congestion, small bilateral effusion with adjacent bibasilar opacities. The patient has been started on Eliquis, metop rolol for heart rate control and given Lasix diuresis and antibiotics with cefepime for possible pneu monia. ALLERGIES: NO KNOWN DRUG ALLERGIES. SOCIAL HISTORY: No current tobacco, ETOH or illicit drug use. FAMILY HISTORY: No sudden cardiac or early CAD. REVIEW OF SYSTEMS: As above in the HPI. CONSTITUTIONAL: No fevers, chills. PULMONARY: Shortness of breath. CARDIOVASCULAR: Atrial fibrillation, atrial flutter, rapid ventricular response. GASTROINTESTINAL: No vomiting. GENITOURINARY: No hematuria. MUSCULOSKELETAL: Degenerative joint disease. PSYCHIATRIC: The patient has depression. NEUROLOGIC: No documented history of CVA. ENDOCRINE: Diabetes mellitus. PHYSICAL EXAMINATION: VITAL SIGNS: Temperature 98.2, blood pressure 154/80, pulse 105, respiratory rate 20, satting 100%. GENERAL: The patient is alert, awake, in no acute distress. NECK: JVP approximately 9 cm of water. CHEST: Decreased breath sounds at bases bilaterally. HEART: Irregularly irregular, tachycardic, I/ systolic murmur. ABDOMEN: Positive bowel sounds, soft. EXTREMITIES: No significant pitting edema, 1+ pulses bilateral posterior tibial. LABORATORY DATA: Most recently from 11/10/2018, white blood cell count 7.4, platelet count of 379, h emoglobin 6.1. AST 99, ALT 80, INR 1.88. IMAGING STUDIES: As above in the HPI. No further imaging studies for my review at this time. ELECTROCARDIOGRAM: As above in the HPI. No further electrocardiograms for my review at this time. IMPRESSION: 1. Atrial fibrillation/atrial flutter with rapid ventricular response. 2. Hypertension, controlled. 3. Congestive heart failure, question systolic versus diastolic, likely acute on chronic. 4. Coagulopathy secondary to Eliquis. 5. Mild renal insufficiency. 6. Increased liver function tests. 7. Increased BNP. 8. Congestive heart failure. 9. Anemia, mild, worsening. RECOMMENDATIONS: 1. At this time, we would maintain patient on telemetry monitoring to follow rhythm and rate control closely. 2. We would double the patient's beta reji in order to improve heart rate and blood pressure cont rol. 3. Continue the patient's Eliquis for prevention of thromboembolic complications in the setting of e levated CHADS-VASc score and therefore benefit from systemic anticoagulation if possible. 4. Continue the patient's statin therapy and adjust it according to a fasting lipid panel to be chec ked. 5. Complete a rule out for myocardial infarction to ensure the patient's constellation of symptoms a re not the results of an acute coronary syndromes or acute myocardial infarction. 6. Continue the patient's antibiotics and follow up all culture data. We will get a sputum culture. Follow the patient's blood sugars closely and adjust insulin therapy as necessary. 7. Check a 2D echo for this patient's ejection fraction, wall motion, and major valve abnormalities. Thank you for allowing me to take part in the care of this patient. I will continue to follow along very closely with you with further recommendations to be made as the patient progresses through [facility] clinical course. Dictated By: CASSIE LLANES/PABLO Conf#: [id number] DID#: [id number] CC: ELISABETH DEUTSCH MD;*EndCC*
[2018-11-12] MEDS: METOPROLOL 50 MG TAB PO SCH (20:29)
[2018-11-12] MEDS: ATORVASTATIN 20 MG TAB PO SCH (20:29)
[2018-11-12] MEDS: MUPIROCIN 2% 22 GM OINT TOP SCH (21:49)
--- NOTE | 2018-11-12 23:38 | PN ---
Date/Time of Note Date/Time of Note DATE: 11/12/18 TIME: 23:34 Assessment/Plan VTE Prophylaxis Risk score (from Ns)>0 risk: 14 SCD applied (from [facility] [place] Yes Pharmacological prophylaxis: apixaban Lines/Catheters IV Catheter Type (from [facility]): [place] Urinary Cath still in place: No Assessment/Plan Hospital Course Pt with diminished lungs sounds, continues on supplemental oxygen, gets agitated at times, s/p Lasix. Assessment/Plan The patient is a 77-year-old female was brought from [facility] for tachycardia. -Pneumonia, continue antibiotics, breathing treatment. -Atrial fibrillation, continue Eliquis and metoprolol -Transaminitis -Hypertension -Congestive heart failure, follow-up on 2D echo. -Cardiomegaly MRSA of nares, Bactroban, contact isolation. -Diabetes mellitus type 2 with hemoglobin A1c of 6.1. Continue Lantus and NovoLog. -Obesity with BMI of 35.3 Further recommendations based on clinical course. Plan of care discussed with Dr. Deutsch. Result Diagram: 11/10/18 0602 11/12/18 1728 Results 24hrs Laboratory Tests Test 11/12/18 01:54 11/12/18 08:16 11/12/18 08:38 11/12/18 08:53 Bedside Glucose 76 67 L 87 103 Test 11/12/18 12:21 11/12/18 17:04 11/12/18 17:28 11/12/18 20:30 Bedside Glucose 78 136 138 Sodium Level 137 Potassium Level 4.0 Chloride Level 101 Carbon Dioxide Level 30 Anion Gap 6 Blood Urea Nitrogen 17 Creatinine 1.02 H Est Glomerular Filtrat Rate mL/min Glucose Level 148 Calcium Level 8.4 Troponin I < 0.012 Exam/Review of Systems Exam Vitals Vital Signs Date Temp Pulse Resp B/P (MAP) Pulse Ox O2 O2 Flow FiO2 Time Delivery Rate 11/12/18 98.5 106 20 126/84 100 23:27 (98) 11/12/18 Nasal 2.0 20:00 Cannula Intake and Output 11/11/18 11/11/18 11/12/18 1515:00 23:00 07:00 IntakeIntake Total 400 ml 350 ml BalanceBalance 400 ml 350 ml Exam Constitutional: alert, oriented Head: normocephalic Respiratory: diminished breath sounds Cardiovascular: irregular rhythm Gastrointestinal: soft, non-tender Musculoskeletal: nl extremities to inspection Extremities: normal pulses Results Results 24hrs Laboratory Tests Test 11/12/18 01:54 11/12/18 08:16 11/12/18 08:38 11/12/18 08:53 Bedside Glucose 76 67 L 87 103 Test 11/12/18 12:21 11/12/18 17:04 11/12/18 17:28 11/12/18 20:30 Bedside Glucose 78 136 138 Sodium Level 137 Potassium Level 4.0 Chloride Level 101 Carbon Dioxide Level 30 Anion Gap 6 Blood Urea Nitrogen 17 Creatinine 1.02 H Est Glomerular Filtrat Rate mL/min Glucose Level 148 Calcium Level 8.4 Troponin I < 0.012 Medications Medication Current Medications IV Flush (NS 3 ml) 3 ml PER PROTOCOL IV ; Start 11/09/18 at 18:00 Ondansetron HCl (Zofran Inj) 4 mg Q6H PRN IV NAUSEA/VOMITING Last administered on 11/11/18 01:44; Admin Dose 4 MG; Start 11/09/18 at 18:00 Acetaminophen (Tylenol Tab) 650 mg Q6H PRN PO .PAIN 1-3 OR TEMP Last administered on 11/12/18 06:27; Admin Dose 650 MG; Start 11/09/18 at 18:00 Morphine Sulfate (morphine) 2 mg Q4H PRN IV .PAIN 7-10 Last administered on 11/11/18 09:09; Admin Dose 2 MG; Start 11/09/18 at 18:00 Bisacodyl (Dulcolax) 10 mg DAILY PRN PO CONSTIPATION; Start 11/10/18 at 11:00 Cholecalciferol (Vitamin D) 2,000 unit DAILY PO Last administered on 11/12/18 08:41; Admin Dose 2,000 UNIT; Start 11/11/18 at 09:00 Docusate Sodium (Colace) 100 mg DAILY PO Last administered on 11/12/18 08:41; Admin Dose 100 MG; Start 11/11/18 at 09:00 Insulin Glargine (Lantus) 32 units DAILY SC Last administered on 11/11/18 09:11; Admin Dose 32 UNITS; Start 11/11/18 at 09:00 Senna (Senokot) 1 tab DAILY PRN PO CONSTIPATION Last administered on 11/10/18 23:38; Admin Dose 1 TAB; Start 11/10/18 at 11:00 Zinc Sulfate (Zinc Sulfate) 220 mg DAILY PO Last administered on 11/12/18 08:41; Admin Dose 220 MG; Start 11/11/18 at 09:00 Diagnostic Test (Pha) (Accu-Chek) 1 ea 02 XX Last administered on 11/12/18 02:33; Admin Dose 1 EA; Start 11/11/18 at 02:00 Miscellaneous Information 1 ea NOTE XX ; Start 11/10/18 at 11:30 Glucose (Glutose) 15 gm Q15M PRN PO DECREASED GLUCOSE; Start 11/10/18 at 11:30 Glucose (Glutose) 22.5 gm Q15M PRN PO DECREASED GLUCOSE; Start 11/10/18 at 11:30 Dextrose (D50w Syringe) 25 ml Q15M PRN IV DECREASED GLUCOSE Last administered on 11/11/18at 13:22; Admin Dose 25 ML; Start 11/10/18 at 11:30 Dextrose (D50w Syringe) 50 ml Q15M PRN IV DECREASED GLUCOSE; Start 11/10/18 at 11:30 Glucagon (Glucagen) 1 mg Q15M PRN IM DECREASED GLUCOSE; Start 11/10/18 at 11:30 Glucose (Glutose) 15 gm Q15M PRN BUCCAL DECREASED GLUCOSE; Start 11/10/18 at 11:30 Atorvastatin Calcium (Lipitor) 20 mg QHS PO Last administered on 11/12/18 20:29; Admin Dose 20 MG; Start 11/11/18 at 21:00 Apixaban (Eliquis) 5 mg BID PO Last administered on 11/12/18at 20:28; Admin Dose 5 MG; Start 11/11/18 at 21:00 Insulin Aspart (Novolog Insulin Pen) NOVOLOG *MILD* ALGORITHM WITH MEALS BEDTI ME SC ; Start 11/11/18 at 17:55 Lorazepam (Ativan) 0.5 mg Q6H PRN PO ANXIETY Last administered on 11/12/18 18:24; Admin Dose 0.5 MG; Start 11/11/18 at 21:00 Metoprolol Tartrate (Lopressor) 50 mg BID PO Last administered on 11/12/18 20:29; Admin Dose 50 MG; Start 11/12/18 at 21:00 Diltiazem HCl (Cardizem Iv) 5 mg Q4 PRN IV HR>110 Hold SBP<100; Start 11/12/18 at 16:30 Furosemide (Lasix) 20 mg BID DIURETICS IV Last administered on 11/12/18at 18:26; Admin Dose 20 MG; Start 11/12/18 at 18:00 Cefepime HCl 50 ml @ 100 mls/hr Q12H IVPB ; Start 11/13/18 at 04:00 Mupirocin (Bactroban) 1 applic BID TOP Last administered on 11/12/18at 21:49; Admin Dose 1 APPLIC; Start 11/12/18 at 21:00 JAYY SMITH Nov 12, 2018 23:38
[2018-11-13] VITALS (12 sets, daily range): BP systolic 126–171; BP diastolic 65–85; PULSE 87–117; RESP 18–20
[2018-11-13] MEDS ORDERED: METHYLPREDNISOLONE 125 MG INJ IV ONE
[2018-11-13] MEDS: LEVALBUTEROL (NEB) 0.63 MG/3 ML AMP HHN SCH ×4 (00:09→19:49)
[2018-11-13] MEDS ORDERED: LEVALBUTEROL (NEB) 0.63 MG/3 ML AMP ONE (00:09)
[2018-11-13] MEDS: LORAZEPAM 0.5 MG TAB PO PRN ×2 (01:44→21:59)
[2018-11-13] MEDS: ACCU-CHEK XX SCH (02:00)
[2018-11-13] MEDS: CEFEPIME 1GM/50 ML (PMX) 50 ML IVPB SCH ×2 (03:32→15:33)
[2018-11-13] MEDS: FUROSEMIDE 20 MG INJ IV SCH ×2 (06:25→17:35)
[2018-11-13] MEDS: INSULIN ASPART [NOVOLOG] 3 ML PEN SC SCH ×4 (07:52→20:22)
[2018-11-13] MEDS: MUPIROCIN 2% 22 GM OINT TOP SCH ×2 (08:57→21:03)
[2018-11-13] MEDS: ZINC SULFATE 220 MG CAP PO SCH (08:58)
[2018-11-13] MEDS: METOPROLOL 50 MG TAB PO SCH ×2 (08:58→21:01)
[2018-11-13] MEDS: DOCUSATE SODIUM 100 MG CAP PO SCH (08:58)
[2018-11-13] MEDS: APIXABAN 5 MG TABLET PO SCH ×2 (08:59→21:02)
[2018-11-13] MEDS: CHOLECALCIFEROL 1,000 UNIT TAB PO SCH (08:59)
[2018-11-13] MEDS: INSULIN GLARGINE [LANTus] (100 UNITS/ML) SYG SC SCH (09:05)
--- NOTE | 2018-11-13 13:31 | CONS ---
Assessment/Plan Assessment/Plan Hospital Course (Demo Recall) IMPRESSION: 1. Atrial fibrillation/atrial flutter still with rapid ventricular response.- neg trop x 3 2. Hypertension, controlled. 3. Congestive heart failure, question systolic versus diastolic, likely acute on chronic. 4. Coagulopathy secondary to Eliquis. 5. Mild renal insufficiency. 6. Increased liver function tests. 7. Increased BNP. 8. Congestive heart failure. 9. Anemia, mild, worsening. 10. 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 -Will f/u echo -Contneu abx's and f/u cx data Consultation Date/Type/Reason Admit Date/Time Nov 09, 2018 at 17:20 Initial Consult Date 11/12/18 Type of Consult Cardiology Reason for Consultation AF Requesting Provider: ELISABETH ENRIQUEZ MD Date/Time of Note DATE: 11/13/18 TIME: 13:26 Exam/Review of Systems Vital Signs Vitals Vital Signs Date Temp Pulse Resp B/P (MAP) Pulse Ox O2 O2 Flow FiO2 Time Delivery Rate 11/13/18 103 12:00 11/13/18 98.3 20 132/85 99 11:06 (101) 11/13/18 Nasal 2.0 09:00 Cannula Intake and Output 11/12/18 11/12/18 11/13/18 1515:00 23:00 07:00 IntakeIntake Total 350 ml 450 ml BalanceBalance 350 ml 450 ml Exam Exam Review of Systems: CONSTITUTIONAL: No fevers, chills. PULMONARY: No sob CARDIOVASCULAR: No chest pain/palpitations GASTROINTESTINAL:c/o abd pain GENITOURINARY: No hematuria/dysuria. MUSCULOSKELETAL: No myagias/arthalgias. PSYCHIATRIC: The patient denies depression. NEUROLOGIC: No weakness Constitutional: alert, oriented Psych: no complaints Head: normocephalic ENMT: mucosa pink and moist Neck: supple, jvd (9 cm water) Respiratory: diminished breath sounds Cardiovascular: regular rate and rhythm Gastrointestinal: soft, non-tender Musculoskeletal: muscle tone (normal) Extremities: edema (none) Labs Result Diagram: 11/13/18 0540 11/13/18 0540 Results 24hrs Laboratory Tests Test 11/12/18 17:04 11/12/18 17:28 11/12/18 20:30 11/13/18 00:36 Bedside Glucose 136 138 Sodium Level 137 Potassium Level 4.0 Chloride Level 101 Carbon Dioxide Level 30 Anion Gap 6 Blood Urea Nitrogen 17 Creatinine 1.02 H Est Glomerular Filtrat Rate mL/min Glucose Level 148 Calcium Level 8.4 Troponin I < 0.012 < 0.012 Test 11/13/18 05:40 11/13/18 07:24 11/13/18 11:28 White Blood Count 6.7 Red Blood Count 3.45 L Hemoglobin 9.3 L Hematocrit 29.4 L Mean Corpuscular Volume 85.2 Mean Corpuscular 27.0 L Hemoglobin Mean Corpuscular 31.6 L Hemoglobin Concent Red Cell Distribution 18.6 H Width Platelet Count 363 Mean Platelet Volume 9.3 Immature Granulocytes % 0.500 H Neutrophils % 89.8 H Lymphocytes % 7.7 L Monocytes % 1.5 Eosinophils % 0.2 Basophils % 0.3 Nucleated Red Blood 0.0 Cells % Immature Granulocytes # 0.030 Neutrophils # 6.0 Lymphocytes # 0.5 L Monocytes # 0.1 L Eosinophils # 0.0 Basophils # 0.0 Nucleated Red Blood 0.0 Cells # Sodium Level 140 Potassium Level 4.4 Chloride Level 102 Carbon Dioxide Level 33 H Anion Gap 5 Blood Urea Nitrogen 17 Creatinine 0.90 Est Glomerular Filtrat Rate mL/min Glucose Level 185 Calcium Level 8.4 Phosphorus Level 3.8 Magnesium Level 1.9 Total Bilirubin 0.7 Direct Bilirubin 0.00 Indirect Bilirubin 0.7 Aspartate Amino 119 H Transf (AST/SGOT) Alanine 101 H Aminotransferase (ALT/SG PT) Alkaline Phosphatase 171 H Troponin I < 0.012 Total Protein 6.6 Albumin 2.9 L Globulin 3.70 H Albumin/Globulin Ratio 0.78 Triglycerides Level 82 Cholesterol Level 84 L LDL Cholesterol, 40 Calculated HDL Cholesterol 28 L Cholesterol/HDL Ratio 3.0 Thyroid Stimulating < 0.015 L Hormone (TSH) Bedside Glucose 194 332 H Medications Medications Current Medications IV Flush (NS 3 ml) 3 ml PER PROTOCOL IV ; Start 11/09/18 at 18:00 Ondansetron HCl (Zofran Inj) 4 mg Q6H PRN IV NAUSEA/VOMITING Last administered on 11/11/18at 01:44; Admin Dose 4 MG; Start 11/09/18 at 18:00 Acetaminophen (Tylenol Tab) 650 mg Q6H PRN PO .PAIN 1-3 OR TEMP Last administered on 11/12/18 06:27; Admin Dose 650 MG; Start 11/09/18 at 18:00 Morphine Sulfate (morphine) 2 mg Q4H PRN IV .PAIN 7-10 Last administered on 11/11/18 09:09; Admin Dose 2 MG; Start 11/09/18 at 18:00 Bisacodyl (Dulcolax) 10 mg DAILY PRN PO CONSTIPATION; Start 11/10/18 at 11:00 Cholecalciferol (Vitamin D) 2,000 unit DAILY PO Last administered on 11/13/18 08:59; Admin Dose 2,000 UNIT; Start 11/11/18 at 09:00 Docusate Sodium (Colace) 100 mg DAILY PO Last administered on 11/13/18 08:58; Admin Dose 100 MG; Start 11/11/18 at 09:00 Insulin Glargine (Lantus) 32 units DAILY SC Last administered on 11/13/18 09:05; Admin Dose 32 UNITS; Start 11/11/18 at 09:00 Senna (Senokot) 1 tab DAILY PRN PO CONSTIPATION Last administered on 11/10/18 23:38; Admin Dose 1 TAB; Start 11/10/18 at 11:00 Zinc Sulfate (Zinc Sulfate) 220 mg DAILY PO Last administered on 11/13/18 08:58; Admin Dose 220 MG; Start 11/11/18 at 09:00 Diagnostic Test (Pha) (Accu-Chek) 1 ea 02 XX Last administered on 11/12/18 02:33; Admin Dose 1 EA; Start 11/11/18 at 02:00 Miscellaneous Information 1 ea NOTE XX ; Start 11/10/18 at 11:30 Glucose (Glutose) 15 gm Q15M PRN PO DECREASED GLUCOSE; Start 11/10/18 at 11:30 Glucose (Glutose) 22.5 gm Q15M PRN PO DECREASED GLUCOSE; Start 11/10/18 at 11:30 Dextrose (D50w Syringe) 25 ml Q15M PRN IV DECREASED GLUCOSE Last administered on 11/11/18 13:22; Admin Dose 25 ML; Start 11/10/18 at 11:30 Dextrose (D50w Syringe) 50 ml Q15M PRN IV DECREASED GLUCOSE; Start 11/10/18 at 11:30 Glucagon (Glucagen) 1 mg Q15M PRN IM DECREASED GLUCOSE; Start 11/10/18 at 11:30 Glucose (Glutose) 15 gm Q15M PRN BUCCAL DECREASED GLUCOSE; Start 11/10/18 at 11:30 Atorvastatin Calcium (Lipitor) 20 mg QHS PO Last administered on 11/12/18 20:29; Admin Dose 20 MG; Start 11/11/18 at 21:00 Apixaban (Eliquis) 5 mg BID PO Last administered on 11/13/18 08:59; Admin Dose 5 MG; Start 11/11/18 at 21:00 Insulin Aspart (Novolog Insulin Pen) NOVOLOG *MILD* ALGORITHM WITH MEALS BEDTIME SC Last administered on 11/13/18 11:33; Admin Dose 5 UNIT; Start 11/11/18 at 17:55 Lorazepam (Ativan) 0.5 mg Q6H PRN PO ANXIETY Last administered on 11/13/18 01:44; Admin Dose 0.5 MG; Start 11/11/18 at 21:00 Metoprolol Tartrate (Lopressor) 50 mg BID PO Last administered on 11/13/18 08:58; Admin Dose 50 MG; Start 11/12/18 at 21:00 Diltiazem HCl (Cardizem Iv) 5 mg Q4 PRN IV HR>110 Hold SBP<100; Start 11/12/18 at 16:30 Furosemide (Lasix) 20 mg BID DIURETICS IV Last administered on 11/13/18 06:25; Admin Dose 20 MG; Start 11/12/18 at 18:00 Cefepime HCl 50 ml @ 100 mls/hr Q12H IVPB Last administered on 11/13/18 03:32; Admin Dose 100 MLS/HR; Start 11/13/18 at 04:00 Mupirocin (Bactroban) 1 applic BID TOP Last administered on 11/13/18 08:57; Admin Dose 1 APPLIC; Start 11/12/18 at 21:00 Levalbuterol (Xopenex Neb) 0.63 mg Q6H RESP THERAPY HHN Last administered on 6/5/19at 08:19; Admin Dose 0.63 MG; Start 11/13/18 at 02:00 CASSIE URBINA Nov 13, 2018 13:31
[2018-11-13] MEDS ORDERED: DIGOXIN 500 MCG INJ IV ONE (14:00)
--- NOTE | 2018-11-13 16:10 | CONS ---
Assessment/Plan Assessment/Plan Hospital Course (Demo Recall) Patient is awake lying comfortably in bed no fevers overnight. WBC 6.7 H&H 9.3 and 29.4 platelets 363 neutrophils 89.8 BUN 17 creatinine 0.90 Chest x-ray this morning revealed increasing bilateral infiltrates and edema small bilateral pleural effusions. Antimicrobials cefepime Microbiology blood cultures remain negative MRSA swab positive Physical examination: Well-developed chronically ill-appearing elderly woman who is awake in no distress. Head atraumatic normocephalic sclera nonicteric vehicle mucosa dry neck is supple chest rise symmetrical breath sounds diminished bases. Heart: S1-S2 irregular abdomen soft bowel sounds present extremities without cyanosis Assessment: 1. Pneumonia, possible CHF exacerbation 2. Atrial fibrillation with rapid ventricular response 3. MRSA nares colonization 4. Diabetes 5. Hypertension 6. Transaminitis Plan: Patient is clinically stable, cardiology on case, will add doxycycline, check abdominal ultrasound Consultation Date/Type/Reason Admit Date/Time Nov 09, 2018 at 17:20 Initial Consult Date Type of Consult id Requesting Provider: ELISABETH ENRIQUEZ MD Date/Time of Note DATE: 11/13/18 TIME: 16:10 Exam/Review of Systems Exam Vitals Vital Signs Date Temp Pulse Resp B/P (MAP) Pulse Ox O2 O2 Flow FiO2 Time Delivery Rate 11/13/18 98.0 99 20 126/84 99 15:20 (98) 11/13/18 Nasal 2.0 13:59 Cannula Intake and Output 11/12/18 11/12/18 11/13/18 1515:00 23:00 07:00 IntakeIntake Total 350 ml 450 ml BalanceBalance 350 ml 450 ml Results Result Diagram: 11/13/18 0540 11/13/18 0540 Results 24hrs Laboratory Tests Test 11/12/18 17:04 11/12/18 17:28 11/12/18 20:30 11/13/18 00:36 Bedside Glucose 136 138 Sodium Level 137 Potassium Level 4.0 Chloride Level 101 Carbon Dioxide Level 30 Anion Gap 6 Blood Urea Nitrogen 17 Creatinine 1.02 H Est Glomerular Filtrat Rate mL/min Glucose Level 148 Calcium Level 8.4 Troponin I < 0.012 < 0.012 Test 11/13/18 05:40 11/13/18 07:24 11/13/18 11:28 White Blood Count 6.7 Red Blood Count 3.45 L Hemoglobin 9.3 L Hematocrit 29.4 L Mean Corpuscular Volume 85.2 Mean Corpuscular 27.0 L Hemoglobin Mean Corpuscular 31.6 L Hemoglobin Concent Red Cell Distribution 18.6 H Width Platelet Count 363 Mean Platelet Volume 9.3 Immature Granulocytes % 0.500 H Neutrophils % 89.8 H Lymphocytes % 7.7 L Monocytes % 1.5 Eosinophils % 0.2 Basophils % 0.3 Nucleated Red Blood 0.0 Cells % Immature Granulocytes # 0.030 Neutrophils # 6.0 Lymphocytes # 0.5 L Monocytes # 0.1 L Eosinophils # 0.0 Basophils # 0.0 Nucleated Red Blood 0.0 Cells # Sodium Level 140 Potassium Level 4.4 Chloride Level 102 Carbon Dioxide Level 33 H Anion Gap 5 Blood Urea Nitrogen 17 Creatinine 0.90 Est Glomerular Filtrat Rate mL/min Glucose Level 185 Calcium Level 8.4 Phosphorus Level 3.8 Magnesium Level 1.9 Total Bilirubin 0.7 Direct Bilirubin 0.00 Indirect Bilirubin 0.7 Aspartate Amino 119 H Transf (AST/SGOT) Alanine 101 H Aminotransferase (ALT/SG PT) Alkaline Phosphatase 171 H Troponin I < 0.012 Total Protein 6.6 Albumin 2.9 L Globulin 3.70 H Albumin/Globulin Ratio 0.78 Triglycerides Level 82 Cholesterol Level 84 L LDL Cholesterol, 40 Calculated HDL Cholesterol 28 L Cholesterol/HDL Ratio 3.0 Thyroid Stimulating < 0.015 L Hormone (TSH) Bedside Glucose 194 332 H Medications Medication Current Medications IV Flush (NS 3 ml) 3 ml PER PROTOCOL IV ; Start 11/09/18 at 18:00 Ondansetron HCl (Zofran Inj) 4 mg Q6H PRN IV NAUSEA/VOMITING Last administered on 11/11/18at 01:44; Admin Dose 4 MG; Start 11/09/18 at 18:00 Acetaminophen (Tylenol Tab) 650 mg Q6H PRN PO .PAIN 1-3 OR TEMP Last administered on 11/12/18at 06:27; Admin Dose 650 MG; Start 11/09/18 at 18:00 Morphine Sulfate (morphine) 2 mg Q4H PRN IV .PAIN 7-10 Last administered on 11/11/18at 09:09; Admin Dose 2 MG; Start 11/09/18 at 18:00 Bisacodyl (Dulcolax) 10 mg DAILY PRN PO CONSTIPATION; Start 11/10/18 at 11:00 Cholecalciferol (Vitamin D) 2,000 unit DAILY PO Last administered on 11/13/18 08:59; Admin Dose 2,000 UNIT; Start 11/11/18 at 09:00 Docusate Sodium (Colace) 100 mg DAILY PO Last administered on 11/13/18 08:58; Admin Dose 100 MG; Start 11/11/18 at 09:00 Insulin Glargine (Lantus) 32 units DAILY SC Last administered on 11/13/18 09:05; Admin Dose 32 UNITS; Start 11/11/18 at 09:00 Senna (Senokot) 1 tab DAILY PRN PO CONSTIPATION Last administered on 11/10/18 23:38; Admin Dose 1 TAB; Start 11/10/18 at 11:00 Zinc Sulfate (Zinc Sulfate) 220 mg DAILY PO Last administered on 11/13/18 08:58; Admin Dose 220 MG; Start 11/11/18 at 09:00 Diagnostic Test (Pha) (Accu-Chek) 1 ea 02 XX Last administered on 11/12/18at 02:33; Admin Dose 1 EA; Start 11/11/18 at 02:00 Miscellaneous Information 1 ea NOTE XX ; Start 11/10/18 at 11:30 Glucose (Glutose) 15 gm Q15M PRN PO DECREASED GLUCOSE; Start 11/10/18 at 11:30 Glucose (Glutose) 22.5 gm Q15M PRN PO DECREASED GLUCOSE; Start 11/10/18 at 11:30 Dextrose (D50w Syringe) 25 ml Q15M PRN IV DECREASED GLUCOSE Last administered on 11/11/18at 13:22; Admin Dose 25 ML; Start 11/10/18 at 11:30 Dextrose (D50w Syringe) 50 ml Q15M PRN IV DECREASED GLUCOSE; Start 11/10/18 at 11:30 Glucagon (Glucagen) 1 mg Q15M PRN IM DECREASED GLUCOSE; Start 11/10/18 at 11:30 Glucose (Glutose) 15 gm Q15M PRN BUCCAL DECREASED GLUCOSE; Start 11/10/18 at 11:30 Atorvastatin Calcium (Lipitor) 20 mg QHS PO Last administered on 11/12/18at 20:29; Admin Dose 20 MG; Start 11/11/18 at 21:00 Apixaban (Eliquis) 5 mg BID PO Last administered on 11/13/18 08:59; Admin Dose 5 MG; Start 11/11/18 at 21:00 Insulin Aspart (Novolog Insulin Pen) NOVOLOG *MILD* ALGORITHM WITH MEALS BEDTIME SC Last administered on 11/13/18 11:33; Admin Dose 5 UNIT; Start 11/11/18 at 17:55 Lorazepam (Ativan) 0.5 mg Q6H PRN PO ANXIETY Last administered on 11/13/18 01:44; Admin Dose 0.5 MG; Start 11/11/18 at 21:00 Metoprolol Tartrate (Lopressor) 50 mg BID PO Last administered on 11/13/18 08:58; Admin Dose 50 MG; Start 11/12/18 at 21:00 Diltiazem HCl (Cardizem Iv) 5 mg Q4 PRN IV HR>110 Hold SBP<100; Start 11/12/18 at 16:30 Furosemide (Lasix) 20 mg BID DIURETICS IV Last administered on 11/13/18 06:25; Admin Dose 20 MG; Start 11/12/18 at 18:00 Cefepime HCl 50 ml @ 100 mls/hr Q12H IVPB Last administered on 11/13/18 15:33; Admin Dose 100 MLS/HR; Start 11/13/18 at 04:00 Mupirocin (Bactroban) 1 applic BID TOP Last administered on 11/13/18 08:57; Admin Dose 1 APPLIC; Start 11/12/18 at 21:00 Levalbuterol (Xopenex Neb) 0.63 mg Q6H RESP THERAPY HHN Last administered on 11/13/18 13:49; Admin Dose 0.63 MG; Start 11/13/18 at 02:00 Diltiazem HCl (Cardizem Cd) 120 mg BID PO ; Start 11/13/18 at 21:00 ZHEN ROSS NP Nov 13, 2018 16:10
--- NOTE | 2018-11-13 16:15 | RADRPT ---
Echocardiogram Report Patient Name: JULIAN MCNEALPatient ID: [id number] : 1940 (77y 11m)Study Date: 11/12/2018 9:43:19 AM Gender: FAccession #: [id number] Tech: Tulio Lyle [facility] Location: 510-A Ref.Physician: ELISABETH ENRIQUEZ Height(Cm): BSA: Weight(Kg): Quality: AdequateOrder Physician: ELISABETH ENRIQUEZ Account #: Procedures: Echocardiographic Report: Transthoracic echocardiogram with complete 2D, M-Mode, and doppler examination. Indications: Shortness of breath. Measurements: 2D/M Mode Doppler Measurement Value Normal Range Measurement Value Normal Range LVIDd 2D 5.5 [ 3.8 - 5.2 ] cm AV Peak Pj 1.1 [ 100.0 - 170.0 ] cm/sec LVIDs 2D 3.7 [ 2.2 - 3.5 ] cm AV Peak PG 5.0 [ 2.0 - 9.0 ] mmHg LVPWd 2D 1.3 [ 0.6 - 0.9 ] cm LVOT Peak Pj 0.8 [ 70.0 - 110.0 ] cm/sec IVSd 2D 1.3 [ 0.6 - 0.9 ] cm LVOT Peak PG 3.0 [ 2.0 - 6.0 ] mmHg AoR Diam 2D 2.5 [ 2.3 - 3.1 ] cm MV E Peak Pj 1.5 [ 60.0 - 130.0 ] cm/sec EDV 2D 145.0 [ 46.0 - 106.0 ] ml MV A Peak Pj 0.6 [ 100.0 - 120.0 ] cm/sec ESV 2D 59.6 [ 14.0 - 42.0 ] ml MV E/A 2.6 [ 0.8 - 1.5 ] ratio EF 2D 58.9 [ 54.0 - 74.0 ] percent MV Decel Time 165 [ 104 - 258 ] msec LA Dimen 2D 4.5 [ 2.7 - 3.8 ] cm Lat E` Pj 0.1 [ 10.0 - 15.0 ] cm/sec LVOT Diam 2.0 [ 2.1 - 2.5 ] cm Lateral E/E` 16.8 [ 1.0 - 2.0 ] ratio MV E/A 2.6 [ 0.8 - 1.5 ] ratio TR Peak Pj 2.8 [ 100.0 - 280.0 ] cm/sec TR Peak PG 32.0 mmHg RVSP 47.0 [ 10.0 - 36.0 ] mmHg Findings: Left Ventricle: Normal left ventricular systolic function. Normal left ventricular cavity size. Mild concentric left ventricular hypertrophy. Ejection fraction is visually estimated at 60 %. Tissue Doppler/Mitral Doppler indices are consistent with pseudonormalization with mildly elevated left atrial pressure (Stage II diastolic dysfunction). Right Ventricle: Normal right ventricular size. Normal right ventricular systolic function. Left Atrium: There is mild enlargement of left atrium. Right Atrium: The right atrium is normal in size. Mitral Valve: Mild mitral leaflet calcification. Mild mitral annular calcification. Mild to moderate mitral valve regurgitation. Aortic Valve: Aortic sclerosis without significant stenosis. Tricuspid Valve: Normal appearance of the tricuspid valve. The estimated Peak RVSP is 47 mmHg. There is mild to moderate tricuspid regurgitation. Pericardium: Trivial pericardial effusion. Aorta: Normal aortic root. IVC: Dilated IVC without respiratory collapse consistent with elevated right atrial pressure. Conclusions: Normal left ventricular systolic function. Normal left ventricular cavity size. Mild concentric left ventricular hypertrophy. Ejection fraction is visually estimated at 60 %. Tissue Doppler/Mitral Doppler indices are consistent with pseudonormalization with mildly elevated left atrial pressure (Stage II diastolic dysfunction). There is mild enlargement of left atrium. Mild mitral leaflet calcification. Mild mitral annular calcification. Mild to moderate mitral valve regurgitation. Normal appearance of the tricuspid valve. The estimated Peak RVSP is 47 mmHg. There is mild to moderate tricuspid regurgitation. Trivial pericardial effusion. Electronically Signed By: Miguel Valenzuela 2018-11-13 16:15:23 PDT
--- NOTE | 2018-11-13 16:36 | RADRPT ---
Vent Rate: 106 bpm RR Interval: 544 msec [place] Interval: [id number] msec QRS Duration: 81 msec QT Interval: 345 msec QTC Interval: 468 msec P-R-T [place]: [id number] - -48 - 27 degrees Atrial fibrillation...? atrial activity Left anterior fascicular block...axis(240,-40), init forces inf Low voltage, extremity leads...all extremity leads <0.5mV Electronically Signed By: Miguel Valenzuela
--- NOTE | 2018-11-13 18:34 | PN ---
Date/Time of Note Date/Time of Note DATE: 11/13/18 TIME: 18:31 Assessment/Plan VTE Prophylaxis Risk score (from [facility])>0 risk: 14 SCD applied (from [facility]): Yes Pharmacological prophylaxis: apixaban Lines/Catheters IV Catheter Type (from [facility]): Sal[place] Lock Urinary Cath still in place: No Assessment/Plan Hospital Course Pt continues on supplemental oxygen, denies any chest pain at rest. Patient looks depressed, will obtain psychiatric consult. Discussed with RN. Assessment/Plan The patient is a 77-year-old female was brought from [facility] for tachycardia. -Pneumonia, continue antibiotics, breathing treatment. -Atrial fibrillation, continue Eliquis and metoprolol -Transaminitis -Hypertension -Stage I diastolic dysfunction congestive heart failure with preserved ejection fraction -Cardiomegaly -MRSA of nares, Bactroban, contact isolation. -Diabetes mellitus type 2 with hemoglobin A1c of 6.1. Continue Lantus and NovoLog. -Obesity with BMI of 35.3 Further recommendations based on clinical course. Plan of care discussed with Millie Deutsch. Result Diagram: 11/13/18 0540 11/13/18 0540 Results 24hrs Laboratory Tests Test 11/12/18 20:30 11/13/18 00:36 11/13/18 05:40 11/13/18 07:24 Bedside Glucose 138 194 Troponin I < 0.012 < 0.012 White Blood Count 6.7 Red Blood Count 3.45 L Hemoglobin 9.3 L Hematocrit 29.4 L Mean Corpuscular Volume 85.2 Mean Corpuscular 27.0 L Hemoglobin Mean Corpuscular 31.6 L Hemoglobin Concent Red Cell Distribution 18.6 H Width Platelet Count 363 Mean Platelet Volume 9.3 Immature Granulocytes % 0.500 H Neutrophils % 89.8 H Lymphocytes % 7.7 L Monocytes % 1.5 Eosinophils % 0.2 Basophils % 0.3 Nucleated Red Blood 0.0 Cells % Immature Granulocytes # 0.030 Neutrophils # 6.0 Lymphocytes # 0.5 L Monocytes # 0.1 L Eosinophils # 0.0 Basophils # 0.0 Nucleated Red Blood 0.0 Cells # Sodium Level 140 Potassium Level 4.4 Chloride Level 102 Carbon Dioxide Level 33 H Anion Gap 5 Blood Urea Nitrogen 17 Creatinine 0.90 Est Glomerular Filtrat Rate mL/min Glucose Level 185 Calcium Level 8.4 Phosphorus Level 3.8 Magnesium Level 1.9 Total Bilirubin 0.7 Direct Bilirubin 0.00 Indirect Bilirubin 0.7 Aspartate Amino 119 H Transf (AST/SGOT) Alanine 101 H Aminotransferase (ALT/SG PT) Alkaline Phosphatase 171 H Total Protein 6.6 Albumin 2.9 L Globulin 3.70 H Albumin/Globulin Ratio 0.78 Triglycerides Level 82 Cholesterol Level 84 L LDL Cholesterol, 40 Calculated HDL Cholesterol 28 L Cholesterol/HDL Ratio 3.0 Thyroid Stimulating < 0.015 L Hormone (TSH) Test 11/13/18 11:28 11/13/18 17:07 Bedside Glucose 332 H 214 Exam/Review of Systems Exam Vitals Vital Signs Date Temp Pulse Resp B/P (MAP) Pulse Ox O2 O2 Flow FiO2 Time Delivery Rate 11/13/18 92 16:00 11/13/18 98.0 20 126/84 99 15:20 (98) 11/13/18 Nasal 2.0 13:59 Cannula Intake and Output 11/12/18 11/12/18 11/13/18 1515:00 23:00 07:00 IntakeIntake Total 350 ml 450 ml BalanceBalance 350 ml 450 ml Exam Constitutional: alert, oriented Head: normocephalic Respiratory: diminished breath sounds Cardiovascular: irregular rhythm Gastrointestinal: soft, non-tender Musculoskeletal: nl extremities to inspection Extremities: normal pulses Results Results 24hrs Laboratory Tests Test 11/12/18 20:30 11/13/18 00:36 11/13/18 05:40 11/13/18 07:24 Bedside Glucose 138 194 Troponin I < 0.012 < 0.012 White Blood Count 6.7 Red Blood Count 3.45 L Hemoglobin 9.3 L Hematocrit 29.4 L Mean Corpuscular Volume 85.2 Mean Corpuscular 27.0 L Hemoglobin Mean Corpuscular 31.6 L Hemoglobin Concent Red Cell Distribution 18.6 H Width Platelet Count 363 Mean Platelet Volume 9.3 Immature Granulocytes % 0.500 H Neutrophils % 89.8 H Lymphocytes % 7.7 L Monocytes % 1.5 Eosinophils % 0.2 Basophils % 0.3 Nucleated Red Blood 0.0 Cells % Immature Granulocytes # 0.030 Neutrophils # 6.0 Lymphocytes # 0.5 L Monocytes # 0.1 L Eosinophils # 0.0 Basophils # 0.0 Nucleated Red Blood 0.0 Cells # Sodium Level 140 Potassium Level 4.4 Chloride Level 102 Carbon Dioxide Level 33 H Anion Gap 5 Blood Urea Nitrogen 17 Creatinine 0.90 Est Glomerular Filtrat Rate mL/min Glucose Level 185 Calcium Level 8.4 Phosphorus Level 3.8 Magnesium Level 1.9 Total Bilirubin 0.7 Direct Bilirubin 0.00 Indirect Bilirubin 0.7 Aspartate Amino 119 H Transf (AST/SGOT) Alanine 101 H Aminotransferase (ALT/SG PT) Alkaline Phosphatase 171 H Total Protein 6.6 Albumin 2.9 L Globulin 3.70 H Albumin/Globulin Ratio 0.78 Triglycerides Level 82 Cholesterol Level 84 L LDL Cholesterol, 40 Calculated HDL Cholesterol 28 L Cholesterol/HDL Ratio 3.0 Thyroid Stimulating < 0.015 L Hormone (TSH) Test 11/13/18 11:28 11/13/18 17:07 Bedside Glucose 332 H 214 Medications Medication Current Medications IV Flush (NS 3 ml) 3 ml PER PROTOCOL IV ; Start 11/09/18 at 18:00 Ondansetron HCl (Zofran Inj) 4 mg Q6H PRN IV NAUSEA/VOMITING Last administered on 11/11/18 01:44; Admin Dose 4 MG; Start 11/09/18 at 18:00 Acetaminophen (Tylenol Tab) 650 mg Q6H PRN PO .PAIN 1-3 OR TEMP Last administered on 11/12/18 06:27; Admin Dose 650 MG; Start 11/09/18 at 18:00 Morphine Sulfate (morphine) 2 mg Q4H PRN IV .PAIN 7-10 Last administered on 11/11/18 09:09; Admin Dose 2 MG; Start 11/09/18 at 18:00 Bisacodyl (Dulcolax) 10 mg DAILY PRN PO CONSTIPATION; Start 11/10/18 at 11:00 Cholecalciferol (Vitamin D) 2,000 unit DAILY PO Last administered on 11/13/18 08:59; Admin Dose 2,000 UNIT; Start 11/11/18 at 09:00 Docusate Sodium (Colace) 100 mg DAILY PO Last administered on 11/13/18 08:58; Admin Dose 100 MG; Start 11/11/18 at 09:00 Insulin Glargine (Lantus) 32 units DAILY SC Last administered on 11/13/18 09:05; Admin Dose 32 UNITS; Start 11/11/18 at 09:00 Senna (Senokot) 1 tab DAILY PRN PO CONSTIPATION Last administered on 11/10/18 23:38; Admin Dose 1 TAB; Start 11/10/18 at 11:00 Zinc Sulfate (Zinc Sulfate) 220 mg DAILY PO Last administered on 11/13/18 08:58; Admin Dose 220 MG; Start 11/11/18 at 09:00 Diagnostic Test (Pha) (Accu-Chek) 1 ea 02 XX Last administered on 11/12/18 02:33; Admin Dose 1 EA; Start 11/11/18 at 02:00 Miscellaneous Information 1 ea NOTE XX ; Start 11/10/18 at 11:30 Glucose (Glutose) 15 gm Q15M PRN PO DECREASED GLUCOSE; Start 11/10/18 at 11:30 Glucose (Glutose) 22.5 gm Q15M PRN PO DECREASED GLUCOSE; Start 11/10/18 at 11:30 Dextrose (D50w Syringe) 25 ml Q15M PRN IV DECREASED GLUCOSE Last administered on 11/11/18 13:22; Admin Dose 25 ML; Start 11/10/18 at 11:30 Dextrose (D50w Syringe) 50 ml Q15M PRN IV DECREASED GLUCOSE; Start 11/10/18 at 11:30 Glucagon (Glucagen) 1 mg Q15M PRN IM DECREASED GLUCOSE; Start 11/10/18 at 11:30 Glucose (Glutose) 15 gm Q15M PRN BUCCAL DECREASED GLUCOSE; Start 11/10/18 at 11:30 Atorvastatin Calcium (Lipitor) 20 mg QHS PO Last administered on 11/12/18 20:29; Admin Dose 20 MG; Start 11/11/18 at 21:00 Apixaban (Eliquis) 5 mg BID PO Last administered on 11/13/18 08:59; Admin Dose 5 MG; Start 11/11/18 at 21:00 Insulin Aspart (Novolog Insulin Pen) NOVOLOG *MILD* ALGORITHM WITH MEALS BE DTIME SC Last administered on 11/13/18 11:33; Admin Dose 5 UNIT; Start 11/11/18 at 17:55 Lorazepam (Ativan) 0.5 mg Q6H PRN PO ANXIETY Last administered on 11/13/18 01:44; Admin Dose 0.5 MG; Start 11/11/18 at 21:00 Metoprolol Tartrate (Lopressor) 50 mg BID PO Last administered on 11/13/18 08:58; Admin Dose 50 MG; Start 11/12/18 at 21:00 Diltiazem HCl (Cardizem Iv) 5 mg Q4 PRN IV HR>110 Hold SBP<100; Start 11/12/18 at 16:30 Furosemide (Lasix) 20 mg BID DIURETICS IV Last administered on 11/13/18at 17:35; Admin Dose 20 MG; Start 11/12/18 at 18:00 Cefepime HCl 50 ml @ 100 mls/hr Q12H IVPB Last administered on 11/13/18at 15:33; Admin Dose 100 MLS/HR; Start 11/13/18 at 04:00 Mupirocin (Bactroban) 1 applic BID TOP Last administered on 11/13/18 08:57; Admin Dose 1 APPLIC; Start 11/12/18 at 21:00 Levalbuterol (Xopenex Neb) 0.63 mg Q6H RESP THERAPY HHN Last administered on 11/13/18at 13:49; Admin Dose 0.63 MG; Start 11/13/18 at 02:00 Diltiazem HCl (Cardizem Cd) 120 mg BID PO ; Start 11/13/18 at 21:00 Doxycycline Hyclate (Vibramycin) 100 mg BID PO ; Start 11/13/18 at 21:00 JAYY SMITH Nov 13, 2018 18:34
[2018-11-13] MEDS: DOXYCYCLINE 100 MG TAB PO SCH (21:01)
[2018-11-13] MEDS: ATORVASTATIN 20 MG TAB PO SCH (21:01)
[2018-11-13] MEDS: DILTIAZEM (CD) 120 MG CAP PO SCH (21:02)
[2018-11-14] VITALS (11 sets, daily range): BP systolic 133–157; BP diastolic 66–79; PULSE 85–101; RESP 18–19
[2018-11-14] MEDS: ACCU-CHEK XX SCH (02:00)
[2018-11-14] MEDS: LEVALBUTEROL (NEB) 0.63 MG/3 ML AMP HHN SCH ×4 (02:17→19:59)
[2018-11-14] MEDS: CEFEPIME 1GM/50 ML (PMX) 50 ML IVPB SCH ×2 (03:48→17:23)
[2018-11-14] MEDS: FUROSEMIDE 20 MG INJ IV SCH ×2 (05:52→17:24)
[2018-11-14] MEDS: INSULIN ASPART [NOVOLOG] 3 ML PEN SC SCH ×7 (08:00→21:00)
[2018-11-14] MEDS: INSULIN GLARGINE [LANTus] (100 UNITS/ML) SYG SC SCH (08:18)
[2018-11-14] MEDS: DOCUSATE SODIUM 100 MG CAP PO SCH (09:00)
[2018-11-14] MEDS: MUPIROCIN 2% 22 GM OINT TOP SCH ×2 (09:29→21:16)
[2018-11-14] MEDS: CHOLECALCIFEROL 1,000 UNIT TAB PO SCH (09:30)
[2018-11-14] MEDS: ZINC SULFATE 220 MG CAP PO SCH (09:30)
[2018-11-14] MEDS: DOXYCYCLINE 100 MG TAB PO SCH ×2 (09:30→21:15)
[2018-11-14] MEDS: APIXABAN 5 MG TABLET PO SCH ×2 (09:30→21:15)
[2018-11-14] MEDS: METOPROLOL 50 MG TAB PO SCH ×2 (09:31→21:16)
[2018-11-14] MEDS: DILTIAZEM (CD) 120 MG CAP PO SCH (09:31)
[2018-11-14] MEDS: morphine 2 MG INJ IV PRN ×2 (09:36→16:12)
--- NOTE | 2018-11-14 12:54 | CONS ---
Assessment/Plan Assessment/Plan Hospital Course (Demo Recall) IMPRESSION: 1. Atrial fibrillation/atrial flutter- neg trop x 3. Now with improved rate control. NL EF by echo 2. Hypertension, controlled. 3. Congestive heart failure, question systolic versus diastolic, likely acute on chronic. 4. Coagulopathy secondary to Eliquis. 5. Mild renal insufficiency. 6. Increased liver function tests. 7. Increased BNP. 8. Congestive heart failure. 9. Anemia, mild, worsening. 10. abd pain Recc: -Tele -serial ecg's -Continiue BB and CCB with slight increase but overall improved HR -Contineu eliquis -Continue lasix diuresis and follow thiokol operator which is improving -Contneu abx's and f/u cx data Consultation Date/Type/Reason Admit Date/Time Nov 09, 2018 at 17:20 Initial Consult Date 11/12/18 Type of Consult Cardiology Reason for Consultation AF Requesting Provider: ELISABETH ENRIQUEZ MD Date/Time of Note DATE: 11/14/18 TIME: 12:52 Exam/Review of Systems Vital Signs Vitals Vital Signs Date Temp Pulse Resp B/P (MAP) Pulse Ox O2 O2 Flow FiO2 Time Delivery Rate 11/14/18 98.4 88 18 154/71 96 11:33 (98) 11/14/18 Nasal 2.0 08:02 Cannula Intake and Output 11/13/18 11/13/18 11/14/18 1515:00 23:00 07:00 IntakeIntake Total 1000 ml 400 ml BalanceBalance 1000 ml 400 ml Exam Exam Review of Systems: CONSTITUTIONAL: No fevers, chills. PULMONARY: No sob CARDIOVASCULAR: No chest pain/palpitations GASTROINTESTINAL: No nausea/vomiting. GENITOURINARY: No hematuria/dysuria. MUSCULOSKELETAL: No myagias/arthalgias. PSYCHIATRIC: The patient denies depression. NEUROLOGIC: No weakness Constitutional: alert Psych: no complaints Head: normocephalic ENMT: mucosa pink and moist Neck: supple, jvd (9 cm water) Respiratory: diminished breath sounds (at bases/B) Cardiovascular: irregular rhythm Gastrointestinal: soft, non-tender Musculoskeletal: muscle weakness (mild generalized) Extremities: edema (none) Labs Result Diagram: 11/13/18 0540 11/14/18 0529 Results 24hrs Laboratory Tests Test 11/13/18 17:07 11/13/18 20:11 11/14/18 02:30 11/14/18 05:29 Bedside Glucose 214 193 107 Sodium Level 138 Potassium Level 3.6 Chloride Level 98 Carbon Dioxide Level 34 H Anion Gap 6 Blood Urea Nitrogen 24 H Creatinine 0.95 Est Glomerular Filtrat Rate mL/min Glucose Level 91 # Calcium Level 8.5 Total Bilirubin 0.7 Direct Bilirubin 0.00 Indirect Bilirubin 0.7 Aspartate Amino 104 H Transf (AST/SGOT) Alanine 96 H Aminotransferase (ALT/SG PT) Alkaline Phosphatase 154 H Total Protein 6.4 Albumin 2.9 L Globulin 3.50 H Albumin/Globulin Ratio 0.82 Test 11/14/18 07:48 11/14/18 11:59 Bedside Glucose 104 99 Medications Medications Current Medications IV Flush (NS 3 ml) 3 ml PER PROTOCOL IV ; Start 11/09/18 at 18:00 Ondansetron HCl (Zofran Inj) 4 mg Q6H PRN IV NAUSEA/VOMITING Last administered on 11/11/18 01:44; Admin Dose 4 MG; Start 11/09/18 at 18:00 Acetaminophen (Tylenol Tab) 650 mg Q6H PRN PO .PAIN 1-3 OR TEMP Last administered on 11/12/18 06:27; Admin Dose 650 MG; Start 11/09/18 at 18:00 Morphine Sulfate (morphine) 2 mg Q4H PRN IV .PAIN 7-10 Last administered on 11/14/18 09:36; Admin Dose 2 MG; Start 11/09/18 at 18:00 Bisacodyl (Dulcolax) 10 mg DAILY PRN PO CONSTIPATION; Start 11/10/18 at 11:00 Cholecalciferol (Vitamin D) 2,000 unit DAILY PO Last administered on 11/14/18 09:30; Admin Dose 2,000 UNIT; Start 11/11/18 at 09:00 Docusate Sodium (Colace) 100 mg DAILY PO Last administered on 11/13/18 08:58; Admin Dose 100 MG; Start 11/11/18 at 09:00 Insulin Glargine (Lantus) 32 units DAILY SC Last administered on 11/14/18 08:18; Admin Dose 32 UNITS; Start 11/11/18 at 09:00 Senna (Senokot) 1 tab DAILY PRN PO CONSTIPATION Last administered on 11/10/18 23:38; Admin Dose 1 TAB; Start 11/10/18 at 11:00 Zinc Sulfate (Zinc Sulfate) 220 mg DAILY PO Last administered on 11/14/18 09:30; Admin Dose 220 MG; Start 11/11/18 at 09:00 Miscellaneous Information 1 ea NOTE XX ; Start 11/10/18 at 11:30 Glucose (Glutose) 15 gm Q15M PRN PO DECREASED GLUCOSE; Start 11/10/18 at 11:30 Glucose (Glutose) 22.5 gm Q15M PRN PO DECREASED GLUCOSE; Start 11/10/18 at 11:30 Dextrose (D50w Syringe) 25 ml Q15M PRN IV DECREASED GLUCOSE Last administered on 11/11/18 13:22; Admin Dose 25 ML; Start 11/10/18 at 11:30 Dextrose (D50w Syringe) 50 ml Q15M PRN IV DECREASED GLUCOSE; Start 11/10/18 at 11:30 Glucagon (Glucagen) 1 mg Q15M PRN IM DECREASED GLUCOSE; Start 11/10/18 at 11:30 Glucose (Glutose) 15 gm Q15M PRN BUCCAL DECREASED GLUCOSE; Start 11/10/18 at 11:30 Atorvastatin Calcium (Lipitor) 20 mg QHS PO Last administered on 11/13/18 21:01; Admin Dose 20 MG; Start 11/11/18 at 21:00 Apixaban (Eliquis) 5 mg BID PO Last administered on 11/14/18 09:30; Admin Dose 5 MG; Start 11/11/18 at 21:00 Insulin Aspart (Novolog Insulin Pen) NOVOLOG *MILD* ALGORITHM WITH MEALS BEDTIME SC Last administered on 11/13/18 20:22; Admin Dose 1 UNIT; Start 11/11/18 at 17:55 Lorazepam (Ativan) 0.5 mg Q6H PRN PO ANXIETY Last administered on 11/13/18 21:59; Admin Dose 0.5 MG; Start 11/11/18 at 21:00 Metoprolol Tartrate (Lopressor) 50 mg BID PO Last administered on 11/14/18 09:31; Admin Dose 50 MG; Start 11/12/18 at 21:00 Diltiazem HCl (Cardizem Iv) 5 mg Q4 PRN IV HR>110 Hold SBP<100; Start 11/12/18 at 16:30 Furosemide (Lasix) 20 mg BID DIURETICS IV Last administered on 11/14/18 05:52; Admin Dose 20 MG; Start 11/12/18 at 18:00 Cefepime HCl 50 ml @ 100 mls/hr Q12H IVPB Last administered on 11/14/18 03:48; Admin Dose 100 MLS/HR; Start 11/13/18 at 04:00 Mupirocin (Bactroban) 1 applic BID TOP Last administered on 11/14/18 09:29; Admin Dose 1 APPLIC; Start 11/12/18 at 21:00 Levalbuterol (Xopenex Neb) 0.63 mg Q6H RESP THERAPY HHN Last administered on 11/14/18 08:01; Admin Dose 0.63 MG; Start 11/13/18 at 02:00 Diltiazem HCl (Cardizem Cd) 120 mg BID PO Last administered on 11/14/18 09:31; Admin Dose 120 MG; Start 11/13/18 at 21:00 Doxycycline Hyclate (Vibramycin) 100 mg BID PO Last administered on 11/14/18 09:30; Admin Dose 100 MG; Start 11/13/18 at 21:00 Diagnostic Test (Pha) (Accu-Chek) 1 ea 02 XX Last administered on 11/14/18 02:00; Admin Dose 1 EA; Start 11/14/18 at 02:00 Insulin Aspart (Novolog Insulin Pen) 5 unit WITH MEALS SC Last administered on 11/14/18 08:18; Admin Dose 5 UNIT; Start 11/14/18 at 08:00 CASSIE URBINA Nov 14, 2018 12:54
--- NOTE | 2018-11-14 13:21 | PSY ---
Date/Time of Note Date/Time of Note DATE: 11/14/18 TIME: 13:20 Psychiatric Subjective Eval Subjective Evaluation Chief Complaint: [facility]- ncreased heart rate, lower back pain History of present illness Patient is a 77-year-old female with underlying medical history of atrial fibrillation, hypertension, diabetes mellitus who is admitted with complaints of shortness of breath. Patient is Czech-speaking only, translation done by his forensic social worker. Patient is disorganized and confused cannot process information, she she goes off on tangents about having 9 children, who we are not able to come to the hospital with her. Patient was asked why she was crying earlier and also asked if she was depressed, patient declined states she is not depressed and that the reason she was crying is because she wet herself. Patient however denies suicidal ideation and contracted for safety. Past psychiatric history Denies Hospitalization: other Medical history Problems Medical Problems: (1) Atrial fibrillation Status: Acute (2) Congestive heart failure Status: Acute (3) Pneumonia Status: Acute Allergies: Coded Allergies: No Known Allergy (Unverified , 11/09/18) Substance Abuse Substance abuse history: No Prior substance abuse treatmen: No Social History Marital status: other DPA/Conservatorship: No Psychiatric Objective Eval Review of Systems: Review of Systems: Not Applicable Physical Examination: Physical Examination: Not Applicable Energy: Adequate Interest: Adequate Mental Status Examination: Appearance: Poor Hygiene Eye Contact: Fair Behavior: Cooperative Speech: Clear AFFECT: Constricted Thought Content: Delusions Suicidal: No Homicidal: No On 72 hour hold: No Attention Span: Distractible Laboratory Results Laboratory Tests Test 11/12/18 17:04 11/12/18 17:28 11/12/18 20:30 11/13/18 00:36 Bedside Glucose 136 mg/dL 138 mg/dL Sodium Level 137 mmol/L Potassium Level 4.0 mmol/L Chloride Level 101 mmol/L Carbon Dioxide 30 mmol/L Level Anion Gap 6 Blood Urea 17 mg/dl Nitrogen Creatinine 1.02 mg/dl Est Glomerular mL/min Filtrat Rate mL/min Glucose Level 148 mg/dl Calcium Level 8.4 mg/dl Troponin I < 0.012 ng/ml < 0.012 ng/ml Test 11/13/18 05:40 11/13/18 07:24 11/13/18 11:28 11/13/18 17:07 White Blood Count 6.7 10^3/ul Red Blood Count 3.45 10^6/ul Hemoglobin 9.3 g/dl Hematocrit 29.4 % Mean Corpuscular 85.2 fl Volume Mean Corpuscular 27.0 pg Hemoglobin Mean Corpuscular 31.6 g/dl Hemoglobin Concen t Red Cell 18.6 % Distribution Width Platelet Count 363 10^3/UL Mean Platelet 9.3 fl Volume Immature 0.500 % Granulocytes % Neutrophils % 89.8 % Lymphocytes % 7.7 % Monocytes % 1.5 % Eosinophils % 0.2 % Basophils % 0.3 % Nucleated Red 0.0 /100WBC Blood Cells % Immature 0.030 10^3/ul Granulocytes # Neutrophils # 6.0 10^3/ul Lymphocytes # 0.5 10^3/ul Monocytes # 0.1 10^3/ul Eosinophils # 0.0 10^3/ul Basophils # 0.0 10^3/ul Nucleated Red 0.0 10^3/ul Blood Cells # Sodium Level 140 mmol/L Potassium Level 4.4 mmol/L Chloride Level 102 mmol/L Carbon Dioxide 33 mmol/L Level Anion Gap 5 Blood Urea 17 mg/dl Nitrogen Creatinine 0.90 mg/dl Est Glomerular mL/min Filtrat Rate mL/min Glucose Level 185 mg/dl Calcium Level 8.4 mg/dl Phosphorus Level 3.8 mg/dl Magnesium Level 1.9 mg/dl Total Bilirubin 0.7 mg/dl Direct Bilirubin 0.00 mg/dl Indirect 0.7 mg/dl Bilirubin Aspartate Amino 119 IU/L Transf (AST/SGOT) Alanine 101 IU/L Aminotransferase (ALT/SGPT) Alkaline 171 IU/L Phosphatase Troponin I < 0.012 ng/ml Total Protein 6.6 g/dl Albumin 2.9 g/dl Globulin 3.70 g/dl Albumin/Globulin 0.78 Ratio Triglycerides 82 mg/dl Level Cholesterol Level 84 mg/dl LDL Cholesterol, 40 mg/dl Calculated HDL Cholesterol 28 mg/dl Cholesterol/HDL 3.0 RATIO Ratio Thyroid < 0.015 MIU/L Stimulating Hormone (TSH) Bedside Glucose 194 mg/dL 332 mg/dL 214 mg/dL Test 11/13/18 20:11 11/14/18 02:30 11/14/18 05:29 11/14/18 07:48 Bedside Glucose 193 mg/dL 107 mg/dL 104 mg/dL Sodium Level 138 mmol/L Potassium Level 3.6 mmol/L Chloride Level 98 mmol/L Carbon Dioxide 34 mmol/L Level Anion Gap 6 Blood Urea 24 mg/dl Nitrogen Creatinine 0.95 mg/dl Est Glomerular mL/min Filtrat Rate mL/min Glucose Level 91 mg/dl Calcium Level 8.5 mg/dl Total Bilirubin 0.7 mg/dl Direct Bilirubin 0.00 mg/dl Indirect 0.7 mg/dl Bilirubin Aspartate Amino 104 IU/L Transf (AST/SGOT) Alanine 96 IU/L Aminotransferase (ALT/SGPT) Alkaline 154 IU/L Phosphatase Total Protein 6.4 g/dl Albumin 2.9 g/dl Globulin 3.50 g/dl Albumin/Globulin 0.82 Ratio Test 11/14/18 11:59 Bedside Glucose 99 mg/dL Assessment and Plan Assessment/Diagnosis Diagnosis Neurocognitive disorder with depressed mood Recommendation/Plan Medication Management No medication ordered Multiple antipsychotics: No Discharge Disposition: Other Legal Status: Voluntary (Does not meet criteria for 5150 hold) NELLIE RAZA NP Nov 14, 2018 13:21
--- NOTE | 2018-11-14 15:24 | CONS ---
Assessment/Plan Assessment/Plan Hospital Course (Demo Recall) No acute changes, looks comfortable, no fevers Chest x-ray revealed increasing bilateral infiltrates and edema small bilateral pleural effusions. Antimicrobials cefepime Microbiology blood cultures remain negative MRSA swab positive Abx: Cefepime, Doxycycline Physical examination: Well-developed chronically ill-appearing elderly woman who is awake in no distress. Head atraumatic normocephalic sclera nonicteric vehicle mucosa dry neck is supple chest rise symmetrical breath sounds dim inished bases. Heart: S1-S2 irregular abdomen soft bowel sounds present extremities without cyanosis Assessment: 1. Pneumonia, possible CHF exacerbation 2. Atrial fibrillation with rapid ventricular response 3. MRSA nares colonization 4. Diabetes 5. Hypertension 6. Transaminitis ?acute chetna Plan: Patient is clinically stable, continue present care, abx Consultation Date/Type/Reason Admit Date/Time Nov 09, 2018 at 17:20 Initial Consult Date Type of Consult id Requesting Provider: ELISABETH ENRIQUEZ MD Date/Time of Note DATE: 11/14/18 TIME: 15:22 Exam/Review of Systems Exam Vitals Vital Signs Date Temp Pulse Resp B/P (MAP) Pulse Ox O2 O2 Flow FiO2 Time Delivery Rate 11/14/18 98.2 92 19 151/74 96 Nasal 15:02 (99) Cannula 11/14/18 2.0 14:12 Intake and Output 11/13/18 11/13/18 11/14/18 1515:00 23:00 07:00 IntakeIntake Total 1000 ml 400 ml BalanceBalance 1000 ml 400 ml Results Result Diagram: 11/13/18 0540 11/14/18 0529 Results 24hrs Laboratory Tests Test 11/13/18 17:07 11/13/18 20:11 11/14/18 02:30 11/14/18 05:29 Bedside Glucose 214 193 107 Sodium Level 138 Potassium Level 3.6 Chloride Level 98 Carbon Dioxide Level 34 H Anion Gap 6 Blood Urea Nitrogen 24 H Creatinine 0.95 Est Glomerular Filtrat Rate mL/min Glucose Level 91 # Calcium Level 8.5 Total Bilirubin 0.7 Direct Bilirubin 0.00 Indirect Bilirubin 0.7 Aspartate Amino 104 H Transf (AST/SGOT) Alanine 96 H Aminotransferase (ALT/SG PT) Alkaline Phosphatase 154 H Total Protein 6.4 Albumin 2.9 L Globulin 3.50 H Albumin/Globulin Ratio 0.82 Test 11/14/18 07:48 11/14/18 11:59 Bedside Glucose 104 99 Medications Medication Current Medications IV Flush (NS 3 ml) 3 ml PER PROTOCOL IV ; Start 11/09/18 at 18:00 Ondansetron HCl (Zofran Inj) 4 mg Q6H PRN IV NAUSEA/VOMITING Last administered on 11/11/18 01:44; Admin Dose 4 MG; Start 11/09/18 at 18:00 Acetaminophen (Tylenol Tab) 650 mg Q6H PRN PO .PAIN 1-3 OR TEMP Last administe red on 11/12/18 06:27; Admin Dose 650 MG; Start 11/09/18 at 18:00 Morphine Sulfate (morphine) 2 mg Q4H PRN IV .PAIN 7-10 Last administered on 11/14/18 09:36; Admin Dose 2 MG; Start 11/09/18 at 18:00 Bisacodyl (Dulcolax) 10 mg DAILY PRN PO CONSTIPATION; Start 11/10/18 at 11:00 Cholecalciferol (Vitamin D) 2,000 unit DAILY PO Last administered on 11/14/18 09:30; Admin Dose 2,000 UNIT; Start 11/11/18 at 09:00 Docusate Sodium (Colace) 100 mg DAILY PO Last administered on 11/13/18 08:58; Admin Dose 100 MG; Start 11/11/18 at 09:00 Insulin Glargine (Lantus) 32 units DAILY SC Last administered on 11/14/18 08:18; Admin Dose 32 UNITS; Start 11/11/18 at 09:00 Senna (Senokot) 1 tab DAILY PRN PO CONSTIPATION Last administered on 11/10/18 23:38; Admin Dose 1 TAB; Start 11/10/18 at 11:00 Zinc Sulfate (Zinc Sulfate) 220 mg DAILY PO Last administered on 11/14/18 09:30; Admin Dose 220 MG; Start 11/11/18 at 09:00 Miscellaneous Information 1 ea NOTE XX ; Start 11/10/18 at 11:30 Glucose (Glutose) 15 gm Q15M PRN PO DECREASED GLUCOSE; Start 11/10/18 at 11:30 Glucose (Glutose) 22.5 gm Q15M PRN PO DECREASED GLUCOSE; Start 11/10/18 at 11:30 Dextrose (D50w Syringe) 25 ml Q15M PRN IV DECREASED GLUCOSE Last administered on 11/11/18 13:22; Admin Dose 25 ML; Start 11/10/18 at 11:30 Dextrose (D50w Syringe) 50 ml Q15M PRN IV DECREASED GLUCOSE; Start 11/10/18 at 11:30 Glucagon (Glucagen) 1 mg Q15M PRN IM DECREASED GLUCOSE; Start 11/10/18 at 11:30 Glucose (Glutose) 15 gm Q15M PRN BUCCAL DECREASED GLUCOSE; Start 11/10/18 at 11:30 Atorvastatin Calcium (Lipitor) 20 mg QHS PO Last administered on 11/13/18 21:01; Admin Dose 20 MG; Start 11/11/18 at 21:00 Apixaban (Eliquis) 5 mg BID PO Last administered on 11/14/18 09:30; Admin Dose 5 MG; Start 11/11/18 at 21:00 Insulin Aspart (Novolog Insulin Pen) NOVOLOG *MILD* ALGORITHM WITH MEALS BEDTIME SC Last administered on 11/13/18 20:22; Admin Dose 1 UNIT; Start 11/11/18 at 17:55 Lorazepam (Ativan) 0.5 mg Q6H PRN PO ANXIETY Last administered on 11/13/18 21:59; Admin Dose 0.5 MG; Start 11/11/18 at 21:00 Metoprolol Tartrate (Lopressor) 50 mg BID PO Last administered on 11/14/18 09:31; Admin Dose 50 MG; Start 11/12/18 at 21:00 Diltiazem HCl (Cardizem Iv) 5 mg Q4 PRN IV HR>110 Hold SBP<100; Start 11/12/18 at 16:30 Furosemide (Lasix) 20 mg BID DIURETICS IV Last administered on 11/14/18 05:52; Admin Dose 20 MG; Start 11/12/18 at 18:00 Mupirocin (Bactroban) 1 applic BID TOP Last administered on 11/14/18 09:29; Admin Dose 1 APPLIC; Start 11/12/18 at 21:00 Levalbuterol (Xopenex Neb) 0.63 mg Q6H RESP THERAPY HHN Last administered on 11/14/18 14:12; Admin Dose 0.63 MG; Start 11/13/18 at 02:00 Doxycycline Hyclate (Vibramycin) 100 mg BID PO Last administered on 11/14/18at 09:30; Admin Dose 100 MG; Start 11/13/18 at 21:00 Diagnostic Test (Pha) (Accu-Chek) 1 ea 02 XX Last administered on 11/14/18at 02:00; Admin Dose 1 EA; Start 11/14/18 at 02:00 Insulin Aspart (Novolog Insulin Pen) 5 unit WITH MEALS SC Last administered on 11/14/18at 08:18; Admin Dose 5 UNIT; Start 11/14/18 at 08:00 Diltiazem HCl (Cardizem Cd) 180 mg BID PO ; Start 11/14/18 at 21:00 Cefepime HCl 50 ml @ 100 mls/hr Q12H IVPB ; Start 11/14/18 at 18:00 ZHEN ROSS NP Nov 14, 2018 15:24
--- NOTE | 2018-11-14 20:05 | PN ---
Date/Time of Note Date/Time of Note DATE: 11/14/18 TIME: 20:03 Assessment/Plan VTE Prophylaxis Risk score (from Ns)>0 risk: 14 SCD applied (from Ns): Yes Pharmacological prophylaxis: apixaban Lines/Catheters IV Catheter Type (from Nrs): Saline Lock Urinary Cath still in place: No Assessment/Plan Hospital Course Pt continues on supplemental oxygen, denies any chest pain at rest. Tr ansaminitis is not resolved resolved, KUB noted Dr. Chicas is asked to see patient in gastroenterology consultation. Assessment/Plan The patient is a 77-year-old female was brought from [facility] for tachycardia. -Pneumonia, continue antibiotics, breathing treatment. -Atrial fibrillation, continue Eliquis and metoprolol -Transaminitis, KUB with Sludge within the gallbladder. There is thickening of the gallbladder wall and questionable trace pericholecystic fluid. In the right clinical setting, this may suggest acute cholecystitis. Dr. Chicas, gastroenterology consultation 2. No biliary duct dilatation. -Hypertension -Stage I diastolic dysfunction congestive heart failure with preserved ejection fraction -Cardiomegaly -MRSA of nares, Bactroban, contact isolation. -Diabetes mellitus type 2 with hemoglobin A1c of 6.1. Continue Lantus and NovoLog. -Neurocognitive disorder with depressed mood status post psychiatric evaluation. -Obesity with BMI of 35.3 Further recommendations based on clinical course. Plan of care discussed with Dr. Deutsch. Result Diagram: 11/13/18 0540 11/14/18 0529 Results 24hrs Laboratory Tests Test 11/13/18 20:11 11/14/18 02:30 11/14/18 05:29 11/14/18 07:48 Bedside Glucose 193 107 104 Sodium Level 138 Potassium Level 3.6 Chloride Level 98 Carbon Dioxide Level 34 H Anion Gap 6 Blood Urea Nitrogen 24 H Creatinine 0.95 Est Glomerular Filtrat Rate mL/min Glucose Level 91 # Calcium Level 8.5 Total Bilirubin 0.7 Direct Bilirubin 0.00 Indirect Bilirubin 0.7 Aspartate Amino 104 H Transf (AST/SGOT) Alanine 96 H Aminotransferase (ALT/SG PT) Alkaline Phosphatase 154 H Total Protein 6.4 Albumin 2.9 L Globulin 3.50 H Albumin/Globulin Ratio 0.82 Test 11/14/18 11:59 11/14/18 17:22 Bedside Glucose 99 78 Exam/Review of Systems Exam Vitals Vital Signs Date Temp Pulse Resp B/P (MAP) Pulse Ox O2 O2 Flow FiO2 Time Delivery Rate 11/14/18 90 18 99 Nasal 2.0 19:59 Cannula 11/14/18 98.4 143/67 19:42 (92) Intake and Output 11/13/18 11/13/18 11/14/18 1515:00 23:00 07:00 IntakeIntake Total 1000 ml 400 ml BalanceBalance 1000 ml 400 ml Exam Constitutional: alert, oriented Head: normocephalic Respiratory: diminished breath sounds Cardiovascular: irregular rhythm Gastrointestinal: soft, non-tender Musculoskeletal: nl extremities to inspection Extremities: normal pulses Results Results 24hrs Laboratory Tests Test 11/13/18 20:11 11/14/18 02:30 11/14/18 05:29 11/14/18 07:48 Bedside Glucose 193 107 104 Sodium Level 138 Potassium Level 3.6 Chloride Level 98 Carbon Dioxide Level 34 H Anion Gap 6 Blood Urea Nitrogen 24 H Creatinine 0.95 Est Glomerular Filtrat Rate mL/min Glucose Level 91 # Calcium Level 8.5 Total Bilirubin 0.7 Direct Bilirubin 0.00 Indirect Bilirubin 0.7 Aspartate Amino 104 H Transf (AST/SGOT) Alanine 96 H Aminotransferase (ALT/SG PT) Alkaline Phosphatase 154 H Total Protein 6.4 Albumin 2.9 L Globulin 3.50 H Albumin/Globulin Ratio 0.82 Test 11/14/18 11:59 11/14/18 17:22 Bedside Glucose 99 78 Medications Medication Current Medications IV Flush (NS 3 ml) 3 ml PER PROTOCOL IV ; Start 11/09/18 at 18:00 Ondansetron HCl (Zofran Inj) 4 mg Q6H PRN IV NAUSEA/VOMITING Last administered on 11/11/18at 01:44; Admin Dose 4 MG; Start 11/09/18 at 18:00 Acetaminophen (Tylenol Tab) 650 mg Q6H PRN PO .PAIN 1-3 OR TEMP Last administered on 11/12/18at 06:27; Admin Dose 650 MG; Start 11/09/18 at 18:00 Morphine Sulfate (morphine) 2 mg Q4H PRN IV .PAIN 7-10 Last administered on 11/14/18at 16:12; Admin Dose 2 MG; Start 11/09/18 at 18:00 Bisacodyl (Dulcolax) 10 mg DAILY PRN PO CONSTIPATION; Start 11/10/18 at 11:00 Cholecalciferol (Vitamin D) 2,000 unit DAILY PO Last administered on 11/14/18 09:30; Admin Dose 2,000 UNIT; Start 11/11/18 at 09:00 Docusate Sodium (Colace) 100 mg DAILY PO Last administered on 11/13/18 08:58; Admin Dose 100 MG; Start 11/11/18 at 09:00 Insulin Glargine (Lantus) 32 units DAILY SC Last administered on 11/14/18 08:18; Admin Dose 32 UNITS; Start 11/11/18 at 09:00 Senna (Senokot) 1 tab DAILY PRN PO CONSTIPATION Last administered on 11/10/18 23:38; Admin Dose 1 TAB; Start 11/10/18 at 11:00 Zinc Sulfate (Zinc Sulfate) 220 mg DAILY PO Last administered on 11/14/18 09:30; Admin Dose 220 MG; Start 11/11/18 at 09:00 Miscellaneous Information 1 ea NOTE XX ; Start 11/10/18 at 11:30 Glucose (Glutose) 15 gm Q15M PRN PO DECREASED GLUCOSE; Start 11/10/18 at 11:30 Glucose (Glutose) 22.5 gm Q15M PRN PO DECREASED GLUCOSE; Start 11/10/18 at 11:30 Dextrose (D50w Syringe) 25 ml Q15M PRN IV DECREASED GLUCOSE Last administered on 11/11/18at 13:22; Admin Dose 25 ML; Start 11/10/18 at 11:30 Dextrose (D50w Syringe) 50 ml Q15M PRN IV DECREASED GLUCOSE; Start 11/10/18 at 11:30 Glucagon (Glucagen) 1 mg Q15M PRN IM DECREASED GLUCOSE; Start 11/10/18 at 11:30 Glucose (Glutose) 15 gm Q15M PRN BUCCAL DECREASED GLUCOSE; Start 11/10/18 at 11: 30 Atorvastatin Calcium (Lipitor) 20 mg QHS PO Last administered on 11/13/18at 21:01; Admin Dose 20 MG; Start 11/11/18 at 21:00 Apixaban (Eliquis) 5 mg BID PO Last administered on 11/14/18 09:30; Admin Dose 5 MG; Start 11/11/18 at 21:00 Insulin Aspart (Novolog Insulin Pen) NOVOLOG *MILD* ALGORITHM WITH MEALS BEDTIME SC Last administered on 11/13/18 20:22; Admin Dose 1 UNIT; Start 11/11/18 at 17:55 Lorazepam (Ativan) 0.5 mg Q6H PRN PO ANXIETY Last administered on 11/13/18 21:59; Admin Dose 0.5 MG; Start 11/11/18 at 21:00 Metoprolol Tartrate (Lopressor) 50 mg BID PO Last administered on 11/14/18 09:31; Admin Dose 50 MG; Start 11/12/18 at 21:00 Diltiazem HCl (Cardizem Iv) 5 mg Q4 PRN IV HR>110 Hold SBP<100; Start 11/12/18 at 16:30 Furosemide (Lasix) 20 mg BID DIURETICS IV Last administered on 11/14/18 17:24; Admin Dose 20 MG; Start 11/12/18 at 18:00 Mupirocin (Bactroban) 1 applic BID TOP Last administered on 11/14/18 09:29; Admin Dose 1 APPLIC; Start 11/12/18 at 21:00 Levalbuterol (Xopenex Neb) 0.63 mg Q6H RESP THERAPY HHN Last administered on 11/14/18 19:59; Admin Dose 0.63 MG; Start 11/13/18 at 02:00 Doxycycline Hyclate (Vibramycin) 100 mg BID PO Last administered on 11/14/18 09:30; Admin Dose 100 MG; Start 11/13/18 at 21:00 Diagnostic Test (Pha) (Accu-Chek) 1 ea 02 XX Last administered on 11/14/18 02:00; Admin Dose 1 EA; Start 11/14/18 at 02:00 Insulin Aspart (Novolog Insulin Pen) 5 unit WITH MEALS SC Last administered on 11/14/18 08:18; Admin Dose 5 UNIT; Start 11/14/18 at 08:00 Diltiazem HCl (Cardizem Cd) 180 mg BID PO ; Start 11/14/18 at 21:00 Cefepime HCl 50 ml @ 100 mls/hr Q12H IVPB Last administered on 11/14/18 17:23; Admin Dose 100 MLS/HR; Start 11/14/18 at 18:00 JAYY SMITH Nov 14, 2018 20:05
[2018-11-14] MEDS: DILTIAZEM (CD) 180 MG CAP PO SCH (21:15)
[2018-11-14] MEDS: ATORVASTATIN 20 MG TAB PO SCH (21:15)
[2018-11-15] VITALS (10 sets, daily range): BP systolic 123–155; BP diastolic 64–74; PULSE 69–104; RESP 17–20
--- NOTE | 2018-11-15 00:18 | CONS ---
DATE OF ADMISSION: 11/09/2018 DATE OF CONSULTATION: REASON FOR CONSULT: Abnormal LFT. HISTORY OF PRESENT ILLNESS: A 77-year-old female [facility] because of [facility]. The patient was recently diagnosed to have a right hip fracture. No surgic al intervention was done. She is also known to have atrial fibrillation and patient is on Eliquis. The patient also was found to have pneumonia, was started on appropriate antibiotic. GI consult was called in for abnormal LFT. Sonogram showed sludge in the gallbladder. Bile duct was of normal jared david. The patient denies of any abdominal pain. No nausea. No vomiting. Discussed with the son bridgett huber. PAST MEDICAL HISTORY: Diabetes mellitus, hypertension, atrial fibrillation, right hip fracture. SOCIAL HISTORY: Does not smoke or drink. Resident of penitent[facility]. ALLERGIES: NONE. PHYSICAL EXAMINATION: VITAL SIGNS: Stable. GENERAL: Alert, awake, not in distress. CARDIOVASCULAR SYSTEM: No murmur, gallop or click. LUNGS: Clear. ABDOMEN: Totally benign. EXTREMITIES: No edema. CENTRAL NERVOUS SYSTEM: Grossly within normal limit. LABORATORY DATA: Hematocrit is 29.4, WBC is 6.4. Alkaline phosphatase mildly elevated at 154, SGOT and SGPT 96 and 104. Globulin is mildly elevated to 3.50. IMAGING STUDY: Ultrasound showed a fatty liver and a sludge in the gallbladder without biliary dilat ation. MEDICATIONS: All her medications are reviewed. She is also on a statin. IMPRESSION: 1. Abnormal LFT most probably related to fatty liver. I doubt statin is the cause of her abnormal L FT. 2. Atrial fibrillation. 3. Pneumonia. 4. Diabetes mellitus. 5. Hypertension. 6. Sludge in the gallbladder without dilatation of the biliary tree. 7. Pneumonia. PLAN: To continue present care. We will monitor LFT. If it keeps going up 3 times the upper limit of present value, then only we will stop statin. Otherwise, continue statin. Dictated By: JASMIN ARCEO/PABLO Conf#: [id number] DID#: [id number]
[2018-11-15] MEDS: ACCU-CHEK XX SCH (01:37)
[2018-11-15] MEDS: LEVALBUTEROL (NEB) 0.63 MG/3 ML AMP HHN SCH ×4 (01:48→19:45)
--- NOTE | 2018-11-15 04:51 | PN ---
Date/Time of Note Date/Time of Note DATE: 11/15/18 TIME: 04:51 Assessment/Plan VTE Prophylaxis Risk score (from [facility])>0 risk: 14 SCD applied (from [facility]): Yes SCD contraindicated: other Pharmacological prophylaxis: other Pharm contraindication: other Lines/Catheters IV [facility]ter Type [facility]from [facility] Saline Lock Urinary Cath still in place: No Assessment/Plan Assessment/Plan The patient is a 77-year-old female was brought from [facility] for tachycardia. -Pneumonia, continue antibiotics, breathing treatment. -Atrial fibrillation, continue Eliquis and metoprolol -Transaminitis - KUB with Sludge within the gallbladder. There is thickening of the gallbladder wall and questionable trace pericholecystic fluid. In the right clinical setting, this may suggest acute cholecystitis. No biliary duct dilatation. - Dr. Chicas, gastroenterology consultation -Hypertension -Stage I diastolic dysfunction congestive heart failure with preserved ejection fraction -Cardiomegaly -MRSA of nares, Bactroban, contact isolation. -Diabetes mellitus type 2 with hemoglobin A1c of 6.1. Continue Lantus and NovoLog. -Neurocognitive disorder with depressed mood status post psychiatric evaluation. -Obesity with BMI of 35.3 Further recommendations based on clinical course. Plan of care discussed with Dr. Deutsch. Result Diagram: 11/13/18 0540 11/14/18 0529 Results 24hrs Laboratory Tests Test 11/14/18 05:29 11/14/18 07:48 11/14/18 11:59 11/14/18 17:22 Sodium Level 138 Potassium Level 3.6 Chloride Level 98 Carbon Dioxide Level 34 H Anion Gap 6 Blood Urea Nitrogen 24 H Creatinine 0.95 Est Glomerular Filtrat Rate mL/min Glucose Level 91 # Calcium Level 8.5 Total Bilirubin 0.7 Direct Bilirubin 0.00 Indirect Bilirubin 0.7 Aspartate Amino 104 H Transf (AST/SGOT) Alanine 96 H Aminotransferase (ALT/SG PT) Alkaline Phosphatase 154 H Total Protein 6.4 Albumin 2.9 L Globulin 3.50 H Albumin/Globulin Ratio 0.82 Bedside Glucose 104 99 78 Test 11/14/18 21:17 Bedside Glucose 95 Subjective 24 Hr Interval Summary Eyes: no complaints ENT: no complaints Respiratory: no complaints Cardiovascular: no complaints Gastrointestinal: no complaints Genitourinary: no complaints Musculoskeletal: no complaints Exam/Review of Systems Exam Vitals Vital Signs Date Temp Pulse Resp B/P (MAP) Pulse Ox O2 O2 Flow FiO2 Time Delivery Rate 11/15/18 98.4 98 20 142/68 98 04:00 (92) 11/15/18 2.0 01:48 11/15/18 Nasal 01:48 Cannula Intake and Output 11/14/18 11/14/18 11/15/18 1515:00 23:00 07:00 IntakeIntake Total 150 ml 100 ml BalanceBalance 150 ml 100 ml Constitutional: alert, well developed, obese Psych: nl mood/affect Eyes: nl lids, nl sclera ENMT: nl external ears & nose Neck: non-tender Respiratory: clear to auscultation Cardiovascular: nl pulses, other (s1s2) Gastrointestinal: soft, non-tender Musculoskeletal: nl extremities to inspection Extremities: normal pulses Neurological: other (alert/reponsive) Lymph: nontender Results Results 24hrs Laboratory Tests Test 11/14/18 05:29 11/14/18 07:48 11/14/18 11:59 11/14/18 17:22 Sodium Level 138 Potassium Level 3.6 Chloride Level 98 Carbon Dioxide Level 34 H Anion Gap 6 Blood Urea Nitrogen 24 H Creatinine 0.95 Est Glomerular Filtrat Rate mL/min Glucose Level 91 # Calcium Level 8.5 Total Bilirubin 0.7 Direct Bilirubin 0.00 Indirect Bilirubin 0.7 Aspartate Amino 104 H Transf (AST/SGOT) Alanine 96 H Aminotransferase (ALT/SG PT) Alkaline Phosphatase 154 H Total Protein 6.4 Albumin 2.9 L Globulin 3.50 H Albumin/Globulin Ratio 0.82 Bedside Glucose 104 99 78 Test 11/14/18 21:17 Bedside Glucose 95 Medications Medication Current Medications IV Flush (NS 3 ml) 3 ml PER PROTOCOL IV ; Start 11/09/18 at 18:00 Ondansetron HCl (Zofran Inj) 4 mg Q6H PRN IV NAUSEA/VOMITING Last administered on 11/11/18at 01:44; Admin Dose 4 MG; Start 11/09/18 at 18:00 Acetaminophen (Tylenol Tab) 650 mg Q6H PRN PO .PAIN 1-3 OR TEMP Last administer ed on 11/12/18at 06:27; Admin Dose 650 MG; Start 11/09/18 at 18:00 Morphine Sulfate (morphine) 2 mg Q4H PRN IV .PAIN 7-10 Last administered on 11/14/18 16:12; Admin Dose 2 MG; Start 11/09/18 at 18:00 Bisacodyl (Dulcolax) 10 mg DAILY PRN PO CONSTIPATION; Start 11/10/18 at 11:00 Cholecalciferol (Vitamin D) 2,000 unit DAILY PO Last administered on 11/14/18 09:30; Admin Dose 2,000 UNIT; Start 11/11/18 at 09:00 Docusate Sodium (Colace) 100 mg DAILY PO Last administered on 11/13/18 08:58; Admin Dose 100 MG; Start 11/11/18 at 09:00 Insulin Glargine (Lantus) 32 units DAILY SC Last administered on 11/14/18 08:18; Admin Dose 32 UNITS; Start 11/11/18 at 09:00 Senna (Senokot) 1 tab DAILY PRN PO CONSTIPATION Last administered on 11/10/18 23:38; Admin Dose 1 TAB; Start 11/10/18 at 11:00 Zinc Sulfate (Zinc Sulfate) 220 mg DAILY PO Last administered on 11/14/18 09:30; Admin Dose 220 MG; Start 11/11/18 at 09:00 Miscellaneous Information 1 ea NOTE XX ; Start 11/10/18 at 11:30 Glucose (Glutose) 15 gm Q15M PRN PO DECREASED GLUCOSE; Start 11/10/18 at 11:30 Glucose (Glutose) 22.5 gm Q15M PRN PO DECREASED GLUCOSE; Start 11/10/18 at 11:30 Dextrose (D50w Syringe) 25 ml Q15M PRN IV DECREASED GLUCOSE Last administered on 11/11/18at 13:22; Admin Dose 25 ML; Start 11/10/18 at 11:30 Dextrose (D50w Syringe) 50 ml Q15M PRN IV DECREASED GLUCOSE; Start 11/10/18 at 11:30 Glucagon (Glucagen) 1 mg Q15M PRN IM DECREASED GLUCOSE; Start 11/10/18 at 11:30 Glucose (Glutose) 15 gm Q15M PRN BUCCAL DECREASED GLUCOSE; Start 11/10/18 at 11:30 Atorvastatin Calcium (Lipitor) 20 mg QHS PO Last administered on 11/14/18at 21:15; Admin Dose 20 MG; Start 11/11/18 at 21:00 Apixaban (Eliquis) 5 mg BID PO Last administered on 11/14/18 21:15; Admin Dose 5 MG; Start 11/11/18 at 21:00 Insulin Aspart (Novolog Insulin Pen) NOVOLOG *MILD* ALGORITHM WITH MEALS BEDTIME SC Last administered on 11/13/18 20:22; Admin Dose 1 UNIT; Start 11/11 at 17:55 Lorazepam (Ativan) 0.5 mg Q6H PRN PO ANXIETY Last administered on 11/13/18 21:59; Admin Dose 0.5 MG; Start 11/11/18 at 21:00 Metoprolol Tartrate (Lopressor) 50 mg BID PO Last administered on 11/14/18 21:16; Admin Dose 50 MG; Start 11/12/18 at 21:00 Diltiazem HCl (Cardizem Iv) 5 mg Q4 PRN IV HR>110 Hold SBP<100; Start 11/12/18 at 16:30 Furosemide (Lasix) 20 mg BID DIURETICS IV Last administered on 11/14/18 17:24; Admin Dose 20 MG; Start 11/12/18 at 18:00 Mupirocin (Bactroban) 1 applic BID TOP Last administered on 11/14/18 21:16; Admin Dose 1 APPLIC; Start 11/12/18 at 21:00 Levalbuterol (Xopenex Neb) 0.63 mg Q6H RESP THERAPY HHN Last administered on 11/15/18 01:48; Admin Dose 0.63 MG; Start 11/13/18 at 02:00 Doxycycline Hyclate (Vibramycin) 100 mg BID PO Last administered on 11/14/18 21:15; Admin Dose 100 MG; Start 11/13/18 at 21:00 Diagnostic Test (Pha) (Accu-Chek) 1 ea 02 XX Last administered on 11/14/18 02:00; Admin Dose 1 EA; Start 11/14/18 at 02:00 Insulin Aspart (Novolog Insulin Pen) 5 unit WITH MEALS SC Last administered on 11/14/18 08:18; Admin Dose 5 UNIT; Start 11/14/18 at 08:00 Diltiazem HCl (Cardizem Cd) 180 mg BID PO Last administered on 11/14/18 21:15; Admin Dose 180 MG; Start 11/14/18 at 21:00 Cefepime HCl 50 ml @ 100 mls/hr Q12H IVPB Last administered on 11/14/18at 17:23; Admin Dose 100 MLS/HR; Start 11/14/18 at 18:00 TARIK CONTEH Nov 15, 2018 04:51
[2018-11-15] MEDS: CEFEPIME 1GM/50 ML (PMX) 50 ML IVPB SCH ×2 (05:07→17:20)
[2018-11-15] MEDS: FUROSEMIDE 20 MG INJ IV SCH ×2 (05:08→17:20)
[2018-11-15] MEDS: INSULIN ASPART [NOVOLOG] 3 ML PEN SC SCH ×7 (07:28→20:01)
[2018-11-15] MEDS: APIXABAN 5 MG TABLET PO SCH ×2 (09:40→20:03)
[2018-11-15] MEDS: ZINC SULFATE 220 MG CAP PO SCH (09:40)
[2018-11-15] MEDS: CHOLECALCIFEROL 1,000 UNIT TAB PO SCH (09:40)
[2018-11-15] MEDS: DOXYCYCLINE 100 MG TAB PO SCH ×2 (09:40→20:02)
[2018-11-15] MEDS: DOCUSATE SODIUM 100 MG CAP PO SCH (09:40)
[2018-11-15] MEDS: DILTIAZEM (CD) 180 MG CAP PO SCH ×2 (09:41→20:03)
[2018-11-15] MEDS: METOPROLOL 50 MG TAB PO SCH (09:41)
[2018-11-15] MEDS: INSULIN GLARGINE [LANTus] (100 UNITS/ML) SYG SC SCH (09:49)
[2018-11-15] MEDS: MUPIROCIN 2% 22 GM OINT TOP SCH ×2 (09:49→20:01)
[2018-11-15] MEDS: LORAZEPAM 0.5 MG TAB PO PRN (10:11)
--- NOTE | 2018-11-15 14:58 | CONS ---
Assessment/Plan Assessment/Plan Hospital Course (Demo Recall) IMPRESSION: 1. Atrial fibrillation/atrial flutter- neg trop x 3. Now with improved rate control. NL EF by echo 2. Hypertension, controlled. 3. Congestive heart failure, question systolic versus diastolic, likely acute on chronic. 4. Coagulopathy secondary to Eliquis. 5. Mild renal insufficiency-improved 6. Increased liver function tests. 7. Increased BNP. 8. Congestive heart failure. 9. Anemia, mild, worsening. 10. abd pain Recc: -Tele -serial ecg's -Continiue BB and CCB with further slight increase but overall improved HR to improve BP -Contineu eliquis -Continue lasix diuresis and follow volume status -Contneu abx's and f/u cx data Consultation Date/Type/Reason Admit Date/Time Nov 09, 2018 at 17:20 Initial Consult Date 11/12/18 Type of Consult Cardiology Reason for Consultation AF Requesting Provider: ELISABETH ENRIQUEZ MD Date/Time of Note DATE: 11/15/18 TIME: 14:56 Exam/Review of Systems Vital Signs Vitals Vital Signs Date Temp Pulse Resp B/P (MAP) Pulse Ox O2 O2 Flow FiO2 Time Delivery Rate 11/15/18 Nasal 2.0 13:45 Cannula 11/15/18 73 18 99 13:41 11/15/18 98.0 155/70 11:00 (98) Intake and Output 11/14/18 11/14/18 11/15/18 1515:00 23:00 07:00 IntakeIntake Total 150 ml 100 ml 350 ml BalanceBalance 150 ml 100 ml 350 ml Exam Exam Review of Systems: CONSTITUTIONAL: No fevers, chills. PULMONARY: No sob CARDIOVASCULAR: No chest pain/palpitations GASTROINTESTINAL: No nausea/vomiting. GENITOURINARY: No hematuria/dysuria. MUSCULOSKELETAL: No myagias/arthalgias. PSYCHIATRIC: The patient denies depression. NEUROLOGIC: sleeping, arousable Constitutional: alert, oriented Psych: no complaints Head: normocephalic ENMT: mucosa pink and moist Neck: supple, jvd (9 cm water) Respiratory: diminished breath sounds (at bases/B) Cardiovascular: regular rate and rhythm Gastrointestinal: soft, non-tender Musculoskeletal: muscle tone (normal) Extremities: edema (none) Labs Result Diagram: 11/13/18 0540 11/14/18 0529 Results 24hrs Laboratory Tests Test 11/14/18 17:22 11/14/18 21:17 11/15/18 05:19 11/15/18 07:21 Bedside Glucose 78 95 66 L Hepatitis B Surface NEGATIVE Antigen Hepatitis B Core NEGATIVE Total Antibody Hepatitis C Antibody NEGATIVE Test 11/15/18 07:33 11/15/18 07:58 11/15/18 10:17 11/15/18 11:52 Bedside Glucose 77 96 123 68 L Test 11/15/18 12:23 11/15/18 12:30 11/15/18 12:38 11/15/18 13:21 Bedside Glucose 62 L 64 L 88 95 Medications Medications Current Medications IV Flush (NS 3 ml) 3 ml PER PROTOCOL IV ; Start 11/09/18 at 18:00 Ondansetron HCl (Zofran Inj) 4 mg Q6H PRN IV NAUSEA/VOMITING Last administered on 11/11/18 01:44; Admin Dose 4 MG; Start 11/09/18 at 18:00 Acetaminophen (Tylenol Tab) 650 mg Q6H PRN PO .PAIN 1-3 OR TEMP Last administered on 11/12/18 06:27; Admin Dose 650 MG; Start 11/09/18 at 18:00 Morphine Sulfate (morphine) 2 mg Q4H PRN IV .PAIN 7-10 Last administered on 11/14/18 16:12; Admin Dose 2 MG; Start 11/09/18 at 18:00 Bisacodyl (Dulcolax) 10 mg DAILY PRN PO CONSTIPATION; Start 11/10/18 at 11:00 Cholecalciferol (Vitamin D) 2,000 unit DAILY PO Last administered on 11/15/18 09:40; Admin Dose 2,000 UNIT; Start 11/11/18 at 09:00 Docusate Sodium (Colace) 100 mg DAILY PO Last administered on 11/15/18 09:40; Admin Dose 100 MG; Start 11/11/18 at 09:00 Insulin Glargine (Lantus) 32 units DAILY SC Last administered on 11/15/18 09:49; Admin Dose 32 UNITS; Start 11/11/18 at 09:00 Senna (Senokot) 1 tab DAILY PRN PO CONSTIPATION Last administered on 11/10/18 23:38; Admin Dose 1 TAB; Start 11/10/18 at 11:00 Zinc Sulfate (Zinc Sulfate) 220 mg DAILY PO Last administered on 11/15/18 09:40; Admin Dose 220 MG; Start 11/11/18 at 09:00 Miscellaneous Information 1 ea NOTE XX Last administered on 11/15/18 12:00; Admin Dose 1 EA; Start 11/10/18 at 11:30 Glucose (Glutose) 15 gm Q15M PRN PO DECREASED GLUCOSE; Start 11/10/18 at 11:30 Glucose (Glutose) 22.5 gm Q15M PRN PO DECREASED GLUCOSE; Start 11/10/18 at 11:30 Dextrose (D50w Syringe) 25 ml Q15M PRN IV DECREASED GLUCOSE Last administered on 11/11/18 13:22; Admin Dose 25 ML; Start 11/10/18 at 11:30 Dextrose (D50w Syringe) 50 ml Q15M PRN IV DECREASED GLUCOSE; Start 11/10/18 at 11:30 Glucagon (Glucagen) 1 mg Q15M PRN IM DECREASED GLUCOSE; Start 11/10/18 at 11:30 Glucose (Glutose) 15 gm Q15M PRN BUCCAL DECREASED GLUCOSE; Start 11/10/18 at 11:30 Atorvastatin Calcium (Lipitor) 20 mg QHS PO Last administered on 11/14/18 2 1:15; Admin Dose 20 MG; Start 11/11/18 at 21:00 Apixaban (Eliquis) 5 mg BID PO Last administered on 11/15/18 09:40; Admin Dose 5 MG; Start 11/11/18 at 21:00 Insulin Aspart (Novolog Insulin Pen) NOVOLOG *MILD* ALGORITHM WITH MEALS BEDTIME SC Last administered on 11/13/18 20:22; Admin Dose 1 UNIT; Start 11/11/18 at 17:55 Lorazepam (Ativan) 0.5 mg Q6H PRN PO ANXIETY Last administered on 11/15/18 10: 11; Admin Dose 0.5 MG; Start 11/11/18 at 21:00 Metoprolol Tartrate (Lopressor) 50 mg BID PO Last administered on 11/15/18 09:41; Admin Dose 50 MG; Start 11/12/18 at 21:00 Diltiazem HCl (Cardizem Iv) 5 mg Q4 PRN IV HR>110 Hold SBP<100; Start 11/12/18 at 16:30 Furosemide (Lasix) 20 mg BID DIURETICS IV Last administered on 11/15/18 05:08; Admin Dose 20 MG; Start 11/12/18 at 18:00 Mupirocin (Bactroban) 1 applic BID TOP Last administered on 11/15/18 09:49; Admin Dose 1 APPLIC; Start 11/12/18 at 21:00 Levalbuterol (Xopenex Neb) 0.63 mg Q6H RESP THERAPY HHN Last administered on 11/15/18 13:41; Admin Dose 0.63 MG; Start 11/13/18 at 02:00 Doxycycline Hyclate (Vibramycin) 100 mg BID PO Last administered on 11/15/18 09:40; Admin Dose 100 MG; Start 11/13/18 at 21:00 Diagnostic Test (Pha) (Accu-Chek) 1 ea 02 XX Last administered on 11/14/18 02:00; Admin Dose 1 EA; Start 11/14/18 at 02:00 Insulin Aspart (Novolog Insulin Pen) 5 unit WITH MEALS SC Last administered on 11/14/18 08:18; Admin Dose 5 UNIT; Start 11/14/18 at 08:00 Diltiazem HCl (Cardizem Cd) 180 mg BID PO Last administered on 11/15/18 09:41; Admin Dose 180 MG; Start 11/14/18 at 21:00 Cefepime HCl 50 ml @ 100 mls/hr Q12H IVPB Last administered on 11/15/18 05:07; Admin Dose 100 MLS/HR; Start 11/14/18 at 18:00 CASSIE URBINA Nov 15, 2018 14:58
[2018-11-15] MEDS: ONDANSETRON 4 MG INJ IV PRN (17:19)
[2018-11-15] MEDS: morphine 2 MG INJ IV PRN (17:19)
--- NOTE | 2018-11-15 17:26 | CONS ---
Assessment/Plan Assessment/Plan Assessment/Plan (Daily) IMPRESSION: 1. Abnormal LFT most probably related to fatty liver. I doubt statin is the cause of her abnormal LFT. 2. Atrial fibrillation. 3. Pneumonia. 4. Diabetes mellitus. 5. Hypertension. 6. Sludge in the gallbladder without dilatation of the biliary tree. 7. Pneumonia. Plan Patient's abnormal LFTs related to fatty liver., Her hepatitis serology was negative, will continue statin Consultation Date/Type/Reason Admit Date/Time Nov 09, 2018 at 17:20 Initial Consult Date Requesting Provider: ELISABETH ENRIQUEZ MD Date/Time of Note DATE: 11/15/18 TIME: 17:25 24 HR Interval Summary Constitutional: no complaints, improved Exam/Review of Systems Exam Vitals Vital Signs Date Temp Pulse Resp B/P (MAP) Pulse Ox O2 O2 Flow FiO2 Time Delivery Rate 11/15/18 Nasal 2.0 16:38 Cannula 11/15/18 98.2 69 18 123/69 96 15:34 (87) Intake and Output 11/14/18 11/14/18 11/15/18 1515:00 23:00 07:00 IntakeIntake Total 150 ml 100 ml 350 ml BalanceBalance 150 ml 100 ml 350 ml Constitutional: alert, oriented, well developed Psych: no complaints, nl mood/affect Head: normocephalic, atraumatic Eyes: nl conjunctiva, EOMI, nl lids, nl sclera, PERRL ENMT: nl external ears & nose, nl lips & teeth, nl nasal mucosa & septum Neck: supple, non-tender Respiratory: clear to auscultation, normal air movement Cardiovascular: regular rate and rhythm, nl pulses Gastrointestinal: soft, nl liver, spleen, non-tender Musculoskeletal: nl extremities to inspection, nl gait and stance Extremities: normal pulses Neurological: METAL MOLDER II-XII intact, nl mental status, nl speech, nl strength Skin: nl turgor; No rash or lesions Lymph: nl lymph nodes Results Result Diagram: 11/13/18 0540 11/14/18 0529 Results 24hrs Laboratory Tests Test 11/14/18 21:17 11/15/18 05:19 11/15/18 07:21 11/15/18 07:33 Bedside Glucose 95 66 L 77 Hepatitis B Surface NEGATIVE Antigen Hepatitis B Core NEGATIVE Total Antibody Hepatitis C Antibody NEGATIVE Test 11/15/18 07:58 11/15/18 10:17 11/15/18 11:52 11/15/18 12:23 Bedside Glucose 96 123 68 L 62 L Test 11/15/18 12:30 11/15/18 12:38 11/15/18 13:21 Bedside Glucose 64 L 88 95 Medications Medication Current Medications IV Flush (NS 3 ml) 3 ml PER PROTOCOL IV ; Start 11/09/18 at 18:00 Ondansetron HCl (Zofran Inj) 4 mg Q6H PRN IV NAUSEA/VOMITING Last administered on 11/11/18 01:44; Admin Dose 4 MG; Start 11/09/18 at 18:00 Acetaminophen (Tylenol Tab) 650 mg Q6H PRN PO .PAIN 1-3 OR TEMP Last a dministered on 11/12/18 06:27; Admin Dose 650 MG; Start 11/09/18 at 18:00 Morphine Sulfate (morphine) 2 mg Q4H PRN IV .PAIN 7-10 Last administered on 11/14/18 16:12; Admin Dose 2 MG; Start 11/09/18 at 18:00 Bisacodyl (Dulcolax) 10 mg DAILY PRN PO CONSTIPATION; Start 11/10/18 at 11:00 Cholecalciferol (Vitamin D) 2,000 unit DAILY PO Last administered on 11/15/18 09:40; Admin Dose 2,000 UNIT; Start 11/11/18 at 09:00 Docusate Sodium (Colace) 100 mg DAILY PO Last administered on 11/15/18 09:40; Admin Dose 100 MG; Start 11/11/18 at 09:00 Insulin Glargine (Lantus) 32 units DAILY SC Last administered on 11/15/18 09:49; Admin Dose 32 UNITS; Start 11/11/18 at 09:00 Senna (Senokot) 1 tab DAILY PRN PO CONSTIPATION Last administered on 11/10/18 23:38; Admin Dose 1 TAB; Start 11/10/18 at 11:00 Zinc Sulfate (Zinc Sulfate) 220 mg DAILY PO Last administered on 11/15/18 09:40; Admin Dose 220 MG; Start 11/11/18 at 09:00 Miscellaneous Information 1 ea NOTE XX Last administered on 11/15/18 12:00; Admin Dose 1 EA; Start 11/10/18 at 11:30 Glucose (Glutose) 15 gm Q15M PRN PO DECREASED GLUCOSE; Start 11/10/18 at 11:30 Glucose (Glutose) 22.5 gm Q15M PRN PO DECREASED GLUCOSE; Start 11/10/18 at 11:30 Dextrose (D50w Syringe) 25 ml Q15M PRN IV DECREASED GLUCOSE Last administered on 11/11/18 13:22; Admin Dose 25 ML; Start 11/10/18 at 11:30 Dextrose (D50w Syringe) 50 ml Q15M PRN IV DECREASED GLUCOSE; Start 11/10/18 at 11:30 Glucagon (Glucagen) 1 mg Q15M PRN IM DECREASED GLUCOSE; Start 11/10/18 at 11:30 Glucose (Glutose) 15 gm Q15M PRN BUCCAL DECREASED GLUCOSE; Start 11/10/18 at 11:30 Atorvastatin Calcium (Lipitor) 20 mg QHS PO Last administered on 11/14/18 21:15; Admin Dose 20 MG; Start 11/11/18 at 21:00 Apixaban (Eliquis) 5 mg BID PO Last administered on 11/15/18 09:40; Admin Dose 5 MG; Start 11/11/18 at 21:00 Insulin Aspart (Novolog Insulin Pen) NOVOLOG *MILD* ALGORITHM WITH MEALS BEDTIME SC Last administered on 11/13/18 20:22; Admin Dose 1 UNIT; Start 11/11/18 at 17:55 Lorazepam (Ativan) 0.5 mg Q6H PRN PO ANXIETY Last administered on 11/15/18 10:11; Admin Dose 0.5 MG; Start 11/11/18 at 21:00 Diltiazem HCl (Cardizem Iv) 5 mg Q4 PRN IV HR>110 Hold SBP<100; Start 11/12/18 at 16:30 Furosemide (Lasix) 20 mg BID DIURETICS IV Last administered on 11/15/18 05:08; Admin Dose 20 MG; Start 11/12/18 at 18:00 Mupirocin (Bactroban) 1 applic BID TOP Last administered on 11/15/18 09:49; Admin Dose 1 APPLIC; Start 11/12/18 at 21:00 Levalbuterol (Xopenex Neb) 0.63 mg Q6H RESP THERAPY HHN Last administered on 11/15/18 13:41; Admin Dose 0.63 MG; Start 11/13/18 at 02:00 Doxycycline Hyclate (Vibramycin) 100 mg BID PO Last administered on 11/15/18 09:40; Admin Dose 100 MG; Start 11/13/18 at 21:00 Diagnostic Test (Pha) (Accu-Chek) 1 ea 02 XX Last administered on 11/14/18 02:00; Admin Dose 1 EA; Start 11/14/18 at 02:00 Insulin Aspart (Novolog Insulin Pen) 5 unit WITH MEALS SC Last administered on 11/14/18 08:18; Admin Dose 5 UNIT; Start 11/14/18 at 08:00 Diltiazem HCl (Cardizem Cd) 180 mg BID PO Last administered on 11/15/18 09:41; Admin Dose 180 MG; Start 11/14/18 at 21:00 Cefepime HCl 50 ml @ 100 mls/hr Q12H IVPB Last administered on 11/15/18 05:07; Admin Dose 100 MLS/HR; Start 11/14/18 at 18:00 Metoprolol Tartrate (Lopressor) 75 mg BID PO ; Start 11/15/18 at 21:00 JASMIN MARTINEZ MD Nov 15, 2018 17:26
--- NOTE | 2018-11-15 19:11 | CONS ---
Assessment/Plan Assessment/Plan Hospital Course (Demo Recall) 1200 No acute changes, looks comfortable, no fevers Chest x-ray revealed increasing bilateral infiltrates and edema small bilateral pleural effusions. Antimicrobials cefepime Microbiology blood cultures remain negative MRSA swab positive Abx: Cefepime, Doxycycline Physical examination: Well-developed chronically ill-appearing elderly woman who is awake in no distress. Head atraumatic normocephalic sclera nonicteric vehicle mucosa dry neck is supple chest rise symmetrical breath sounds diminished bases. Heart: S1-S2 irregular abdomen soft bowel sounds present extremities without cyanosis Assessment: 1. Pneumonia, possible CHF exacerbation 2. Atrial fibrillation with rapid ventricular response 3. MRSA nares colonization 4. Diabetes 5. Hypertension 6. Transaminitis ?acute chetna Plan: Patient is clinically stable, continue present care, repeat chest x-ray in a.m. Consultation Date/Type/Reason Admit Date/Time Nov 09, 2018 at 17:20 Initial Consult Date Type of Consult id Requesting Provider: ELISABETH ENRIQUEZ MD Date/Time of Note DATE: 11/15/18 TIME: 19:10 Exam/Review of Systems Exam Vitals Vital Signs Date Temp Pulse Resp B/P (MAP) Pulse Ox O2 O2 Flow FiO2 Time Delivery Rate 11/15/18 Nasal 2.0 16:38 Cannula 11/15/18 98.2 69 18 123/69 96 15:34 (87) Intake and Output 11/14/18 11/14/18 11/15/18 1515:00 23:00 07:00 IntakeIntake Total 150 ml 100 ml 350 ml BalanceBalance 150 ml 100 ml 350 ml Results Result Diagram: 11/13/18 0540 11/14/18 0529 Results 24hrs Laboratory Tests Test 11/14/18 21:17 11/15/18 05:19 11/15/18 07:21 11/15/18 07:33 Bedside Glucose 95 66 L 77 Hepatitis B Surface NEGATIVE Antigen Hepatitis B Core NEGATIVE Total Antibody Hepatitis C Antibody NEGATIVE Test 11/15/18 07:58 11/15/18 10:17 11/15/18 11:52 11/15/18 12:23 Bedside Glucose 96 123 68 L 62 L Test 11/15/18 12:30 11/15/18 12:38 11/15/18 13:21 11/15/18 17:26 Bedside Glucose 64 L 88 95 105 Medications Medication Current Medications IV Flush (NS 3 ml) 3 ml PER PROTOCOL IV ; Start 11/09/18 at 18:00 Ondansetron HCl (Zofran Inj) 4 mg Q6H PRN IV NAUSEA/VOMITING Last administered on 11/15/18 17:19; Admin Dose 4 MG; Start 11/09/18 at 18:00 Acetaminophen (Tylenol Tab) 650 mg Q6H PRN PO .PAIN 1-3 OR TEMP Last administ ered on 11/12/18 06:27; Admin Dose 650 MG; Start 11/09/18 at 18:00 Morphine Sulfate (morphine) 2 mg Q4H PRN IV .PAIN 7-10 Last administered on 11/15/18 17:19; Admin Dose 2 MG; Start 11/09/18 at 18:00 Bisacodyl (Dulcolax) 10 mg DAILY PRN PO CONSTIPATION; Start 11/10/18 at 11:00 Cholecalciferol (Vitamin D) 2,000 unit DAILY PO Last administered on 11/15/18 09:40; Admin Dose 2,000 UNIT; Start 11/11/18 at 09:00 Docusate Sodium (Colace) 100 mg DAILY PO Last administered on 11/15/18 09:40; Admin Dose 100 MG; Start 11/11/18 at 09:00 Insulin Glargine (Lantus) 32 units DAILY SC Last administered on 11/15/18 09:49; Admin Dose 32 UNITS; Start 11/11/18 at 09:00 Senna (Senokot) 1 tab DAILY PRN PO CONSTIPATION Last administered on 11/10/18 23:38; Admin Dose 1 TAB; Start 11/10/18 at 11:00 Zinc Sulfate (Zinc Sulfate) 220 mg DAILY PO Last administered on 11/15/18 09:40; Admin Dose 220 MG; Start 11/11/18 at 09:00 Miscellaneous Information 1 ea NOTE XX Last administered on 11/15/18 12:00; Admin Dose 1 EA; Start 11/10/18 at 11:30 Glucose (Glutose) 15 gm Q15M PRN PO DECREASED GLUCOSE; Start 11/10/18 at 11:30 Glucose (Glutose) 22.5 gm Q15M PRN PO DECREASED GLUCOSE; Start 11/10/18 at 11:30 Dextrose (D50w Syringe) 25 ml Q15M PRN IV DECREASED GLUCOSE Last administered on 11/11/18 13:22; Admin Dose 25 ML; Start 11/10/18 at 11:30 Dextrose (D50w Syringe) 50 ml Q15M PRN IV DECREASED GLUCOSE; Start 11/10/18 at 11:30 Glucagon (Glucagen) 1 mg Q15M PRN IM DECREASED GLUCOSE; Start 11/10/18 at 11:30 Glucose (Glutose) 15 gm Q15M PRN BUCCAL DECREASED GLUCOSE; Start 11/10/18 at 11:30 Atorvastatin Calcium (Lipitor) 20 mg QHS PO Last administered on 11/14/18 21:15; Admin Dose 20 MG; Start 11/11/18 at 21:00 Apixaban (Eliquis) 5 mg BID PO Last administered on 11/15/18 09:40; Admin Dose 5 MG; Start 11/11/18 at 21:00 Insulin Aspart (Novolog Insulin Pen) NOVOLOG *MILD* ALGORITHM WITH MEALS BEDTIME SC Last administered on 11/13/18 20:22; Admin Dose 1 UNIT; Start 11/11/18 at 17:55 Lorazepam (Ativan) 0.5 mg Q6H PRN PO ANXIETY Last administered on 11/15/18 10:11; Admin Dose 0.5 MG; Start 11/11/18 at 21:00 Diltiazem HCl (Cardizem Iv) 5 mg Q4 PRN IV HR>110 Hold SBP<100; Start 11/12/18 at 16:30 Furosemide (Lasix) 20 mg BID DIURETICS IV Last administered on 11/15/18 17:20; Admin Dose 20 MG; Start 11/12/18 at 18:00 Mupirocin (Bactroban) 1 applic BID TOP Last administered on 11/15/18 09:49; Admin Dose 1 APPLIC; Start 11/12/18 at 21:00 Levalbuterol (Xopenex Neb) 0.63 mg Q6H RESP THERAPY HHN Last administered on 11/15/18 13:41; Admin Dose 0.63 MG; Start 11/13/18 at 02:00 Doxycycline Hyclate (Vibramycin) 100 mg BID PO Last administered on 11/15/18 09:40; Admin Dose 100 MG; Start 11/13/18 at 21:00 Diagnostic Test (Pha) (Accu-Chek) 1 ea 02 XX Last administered on 11/14/18at 02:00; Admin Dose 1 EA; Start 11/14/18 at 02:00 Insulin Aspart (Novolog Insulin Pen) 5 unit WITH MEALS SC Last administered on 11/14/18at 08:18; Admin Dose 5 UNIT; Start 11/14/18 at 08:00 Diltiazem HCl (Cardizem Cd) 180 mg BID PO Last administered on 11/15/18at 09:41; Admin Dose 180 MG; Start 11/14/18 at 21:00 Cefepime HCl 50 ml @ 100 mls/hr Q12H IVPB Last administered on 11/15/18at 17:20; Admin Dose 100 MLS/HR; Start 11/14/18 at 18:00 Metoprolol Tartrate (Lopressor) 75 mg BID PO ; Start 11/15/18 at 21:00 ZHEN ROSS NP Nov 15, 2018 19:11
[2018-11-15] MEDS: ATORVASTATIN 20 MG TAB PO SCH (20:02)
[2018-11-15] MEDS: METOPROLOL 25 MG TAB PO SCH (20:06)
[2018-11-15] MEDS ORDERED: METOPROLOL 50 MG TAB PO SCH (21:00)
[2018-11-15] MEDS: hydrOXYzine HCL 25 MG TAB PO PRN (23:06)
[2018-11-16] VITALS (11 sets, daily range): BP systolic 126–148; BP diastolic 62–79; PULSE 72–84; RESP 18–20
[2018-11-16] MEDS: ACCU-CHEK XX SCH (01:12)
[2018-11-16] MEDS: LEVALBUTEROL (NEB) 0.63 MG/3 ML AMP HHN SCH ×4 (01:39→20:19)
[2018-11-16] MEDS: CEFEPIME 1GM/50 ML (PMX) 50 ML IVPB SCH ×2 (05:21→17:40)
[2018-11-16] MEDS: FUROSEMIDE 20 MG INJ IV SCH (05:21)
[2018-11-16] MEDS: INSULIN ASPART [NOVOLOG] 3 ML PEN SC SCH ×7 (08:00→20:38)
[2018-11-16] MEDS: APIXABAN 5 MG TABLET PO SCH ×2 (09:03→20:40)
[2018-11-16] MEDS: CHOLECALCIFEROL 1,000 UNIT TAB PO SCH (09:04)
[2018-11-16] MEDS: DOXYCYCLINE 100 MG TAB PO SCH ×2 (09:04→20:42)
[2018-11-16] MEDS: METOPROLOL 25 MG TAB PO SCH ×2 (09:04→20:41)
[2018-11-16] MEDS: DOCUSATE SODIUM 100 MG CAP PO SCH (09:05)
[2018-11-16] MEDS: DILTIAZEM (CD) 180 MG CAP PO SCH ×2 (09:05→20:41)
[2018-11-16] MEDS: ZINC SULFATE 220 MG CAP PO SCH (09:05)
[2018-11-16] MEDS: INSULIN GLARGINE [LANTus] (100 UNITS/ML) SYG SC SCH (09:09)
[2018-11-16] MEDS: MUPIROCIN 2% 22 GM OINT TOP SCH ×2 (09:51→20:42)
--- NOTE | 2018-11-16 11:19 | PN ---
Date/Time of Note Date/Time of Note DATE: 11/16/18 TIME: 11:17 Assessment/Plan VTE Prophylaxis Risk score (from [facility] [place]0 risk: 10 SCD applied (from [facility] [place]): Yes SCD contraindicated: other Pharmacological prophylaxis: other Pharm contraindication: surgical contra Lines/Catheters IV Catheter Type (from [place]): [facility] Urinary Cath still in place: No Assessment/Plan Assessment/Plan The patient is a 77-year-old female was brought from [facility] for tachycardia. - KADEN - Nephro consult -Pneumonia, continue antibiotics, breathing treatment. -Atrial fibrillation, continue Eliquis and metoprolol -Transaminitis - KUB with Sludge within the gallbladder. There is thickening of the gallbladder wall and questionable trace pericholecystic fluid. In the right clinical setting, this may suggest acute cholecystitis. No biliary duct dilatation. - Dr. Chicas, gastroenterology consultation -Hypertension -Stage I diastolic dysfunction congestive heart failure with preserved ejection fraction -Cardiomegaly -MRSA of nares, Bactroban, contact isolation. -Diabetes mellitus type 2 with hemoglobin A1c of 6.1. Continue Lantus and NovoLog. -Neurocognitive disorder with depressed mood status post psychiatric evaluation. -Obesity with BMI of 35.3 Further recommendations based on clinical course. Plan of care discussed with Dr. Deutsch. Result Diagram: 11/16/18 0544 11/16/18 0544 Results 24hrs Laboratory Tests Test 11/15/18 11:52 11/15/18 12:23 11/15/18 12:30 11/15/18 12:38 Bedside Glucose 68 L 62 L 64 L 88 Test 11/15/18 13:21 11/15/18 17:26 11/15/18 20:01 11/16/18 05:44 Bedside Glucose 95 105 116 White Blood Count 10.9 #H Red Blood Count 3.58 L Hemoglobin 9.6 L Hematocrit 30.2 L Mean Corpuscular Volume 84.4 Mean Corpuscular 26.8 L Hemoglobin Mean Corpuscular 31.8 L Hemoglobin Concent Red Cell Distribution 18.5 H Width Platelet Count 368 Mean Platelet Volume 9.2 Immature Granulocytes % 0.900 H Neutrophils % 60.8 Lymphocytes % 21.1 Monocytes % 10.4 Eosinophils % 6.4 Basophils % 0.4 Nucleated Red Blood 0.0 Cells % Immature Granulocytes # 0.100 H Neutrophils # 6.6 Lymphocytes # 2.3 Monocytes # 1.1 H Eosinophils # 0.7 H Basophils # 0.0 Nucleated Red Blood 0.0 Cells # Sodium Level 138 Potassium Level 3.9 Chloride Level 98 Carbon Dioxide Level 34 H Anion Gap 6 Blood Urea Nitrogen 25 H Creatinine 1.13 H Est Glomerular Filtrat Rate mL/min Glucose Level 79 Calcium Level 8.3 L Test 11/16/18 09:02 Bedside Glucose 88 Subjective 24 Hr Interval Summary Free Text/Dictation nad vss; comfortable on supplement oxygen Cr elevated - nephro consult appreciated no events reported last night dw saff Subjective hx not possible: pt non-verbal Constitutional: requiring O2 Exam/Review of Systems Exam Vitals Vital Signs Date Temp Pulse Resp B/P (MAP) Pulse Ox O2 O2 Flow FiO2 Time Delivery Rate 11/16/18 Nasal 2.0 09:00 Cannula 11/16/18 98.4 77 18 129/67 97 08:42 (87) 11/16/18 28 07:20 Intake and Output 11/15/18 11/15/18 11/16/18 1515:00 23:00 07:00 IntakeIntake Total 650 ml 150 ml 350 ml BalanceBalance 650 ml 150 ml 350 ml Constitutional: alert, well developed, non-verbal Psych: nl mood/affect Eyes: nl lids ENMT: nl external ears & nose Neck: non-tender Respiratory: clear to auscultation Cardiovascular: nl pulses, other (s1s2) Gastrointestinal: soft, non-tender, other (gt intact) Musculoskeletal: muscle weakness Neurological: confused, lethargic Results Results 24hrs Laboratory Tests Test 11/15/18 11:52 11/15/18 12:23 11/15/18 12:30 11/15/18 12:38 Bedside Glucose 68 L 62 L 64 L 88 Test 11/15/18 13:21 11/15/18 17:26 11/15/18 20:01 11/16/18 05:44 Bedside Glucose 95 105 116 White Blood Count 10.9 #H Red Blood Count 3.58 L Hemoglobin 9.6 L Hematocrit 30.2 L Mean Corpuscular Volume 84.4 Mean Corpuscular 26.8 L Hemoglobin Mean Corpuscular 31.8 L Hemoglobin Concent Red Cell Distribution 18.5 H Width Platelet Count 368 Mean Platelet Volume 9.2 Immature Granulocytes % 0.900 H Neutrophils % 60.8 Lymphocytes % 21.1 Monocytes % 10.4 Eosinophils % 6.4 Basophils % 0.4 Nucleated Red Blood 0.0 Cells % Immature Granulocytes # 0.100 H Neutrophils # 6.6 Lymphocytes # 2.3 Monocytes # 1.1 H Eosinophils # 0.7 H Basophils # 0.0 Nucleated Red Blood 0.0 Cells # Sodium Level 138 Potassium Level 3.9 Chloride Level 98 Carbon Dioxide Level 34 H Anion Gap 6 Blood Urea Nitrogen 25 H Creatinine 1.13 H Est Glomerular Filtrat Rate mL/min Glucose Level 79 Calcium Level 8.3 L Test 11/16/18 09:02 Bedside Glucose 88 Medications Medication Current Medications IV Flush (NS 3 ml) 3 ml PER PROTOCOL IV ; Start 11/09/18 at 18:00 Ondansetron HCl (Zofran Inj) 4 mg Q6H PRN IV NAUSEA/VOMITING Last administered on 11/15/18 17:19; Admin Dose 4 MG; Start 11/09/18 at 18:00 Acetaminophen (Tylenol Tab) 650 mg Q6H PRN PO .PAIN 1-3 OR TEMP Last administered on 11/12/18 06:27; Admin Dose 650 MG; Start 11/09/18 at 18:00 Morphine Sulfate (morphine) 2 mg Q4H PRN IV .PAIN 7-10 Last administered on 11/15/18 17:19; Admin Dose 2 MG; Start 11/09/18 at 18:00 Bisacodyl (Dulcolax) 10 mg DAILY PRN PO CONSTIPATION; Start 11/10/18 at 11:00 Cholecalciferol (Vitamin D) 2,000 unit DAILY PO Last administered on 11/16/18 09:04; Admin Dose 2,000 UNIT; Start 11/11/18 at 09:00 Docusate Sodium (Colace) 100 mg DAILY PO Last administered on 11/16/18 09:05; Admin Dose 100 MG; Start 11/11/18 at 09:00 Senna (Senokot) 1 tab DAILY PRN PO CONSTIPATION Last administered on 11/10/18 23:38; Admin Dose 1 TAB; Start 11/10/18 at 11:00 Zinc Sulfate (Zinc Sulfate) 220 mg DAILY PO Last administered on 11/16/18 09:05; Admin Dose 220 MG; Start 11/11/18 at 09:00 Miscellaneous Information 1 ea NOTE XX Last administered on 11/15/18 12:00; Admin Dose 1 EA; Start 11/10/18 at 11:30 Glucose (Glutose) 15 gm Q15M PRN PO DECREASED GLUCOSE; Start 11/10/18 at 11:30 Glucose (Glutose) 22.5 gm Q15M PRN PO DECREASED GLUCOSE; Start 11/10/18 at 11:30 Dextrose (D50w Syringe) 25 ml Q15M PRN IV DECREASED GLUCOSE Last administered on 11/11/18 13:22; Admin Dose 25 ML; Start 11/10/18 at 11:30 Dextrose (D50w Syringe) 50 ml Q15M PRN IV DECREASED GLUCOSE; Start 11/10/18 at 11:30 Glucagon (Glucagen) 1 mg Q15M PRN IM DECREASED GLUCOSE; Start 11/10/18 at 11:30 Glucose (Glutose) 15 gm Q15M PRN BUCCAL DECREASED GLUCOSE; Start 11/10/18 at 11:30 Atorvastatin Calcium (Lipitor) 20 mg QHS PO Last administered on 11/15/18 20:02; Admin Dose 20 MG; Start 11/11/18 at 21:00 Apixaban (Eliquis) 5 mg BID PO Last administered on 11/16/18 09:03; Admin Dose 5 MG; Start 11/11/18 at 21:00 Insulin Aspart (Novolog Insulin Pen) NOVOLOG *MILD* ALGORITHM WITH MEALS BEDTIME SC Last administered on 11/13/18 20:22; Admin Dose 1 UNIT; Start 11/11/18 at 17:55 Lorazepam (Ativan) 0.5 mg Q6H PRN PO ANXIETY Last administered on 11/15/18 10:11; Admin Dose 0.5 MG; Start 11/11/18 at 21:00 Diltiazem HCl (Cardizem Iv) 5 mg Q4 PRN IV HR>110 Hold SBP<100; Start 11/12/18 at 16:30 Furosemide (Lasix) 20 mg BID DIURETICS IV Last administered on 11/16/18 05:21; Admin Dose 20 MG; Start 11/12/18 at 18:00 Mupirocin (Bactroban) 1 applic BID TOP Last administered on 11/16/18 09:51; Admin Dose 1 APPLIC; Start 11/12/18 at 21:00 Levalbuterol (Xopenex Neb) 0.63 mg Q6H RESP THERAPY HHN Last administered on 11/16/18 07:20; Admin Dose 0.63 MG; Start 11/13/18 at 02:00 Doxycycline Hyclate (Vibramycin) 100 mg BID PO Last administered on 11/16/18 09:04; Admin Dose 100 MG; Start 11/13/18 at 21:00 Diagnostic Test (Pha) (Accu-Chek) 1 ea 02 XX Last administered on 11/14/18 02:00; Admin Dose 1 EA; Start 11/14/18 at 02:00 Diltiazem HCl (Cardizem Cd) 180 mg BID PO Last administered on 11/16/18 09:05; Admin Dose 180 MG; Start 11/14/18 at 21:00 Cefepime HCl 50 ml @ 100 mls/hr Q12H IVPB Last administered on 11/16/18 05:21; Admin Dose 100 MLS/HR; Start 11/14/18 at 18:00 Metoprolol Tartrate (Lopressor) 75 mg BID PO Last administered on 11/16/18 09:04; Admin Dose 75 MG; Start 11/15/18 at 21:00 Insulin Aspart (Novolog Insulin Pen) 3 unit WITH MEALS SC Last administered on 11/16/18 09:53; Admin Dose 3 UNIT; Start 11/16/18 at 08:00 Insulin Glargine (Lantus) 30 units DAILY SC Last administered on 11/16/18 09:09; Admin Dose 30 UNITS; Start 11/16/18 at 09:00 Hydroxyzine HCl (Atarax) 25 mg Q6H PRN PO ITCHING Last administered on 11/15/18 23:06; Admin Dose 25 MG; Start 11/15/18 at 23:00 TRAIK CONTEH Nov 16, 2018 11:19
--- NOTE | 2018-11-16 13:00 | CONS ---
Assessment/Plan Assessment/Plan Hospital Course (Demo Recall) ID PROGRESS NOTE CURRENT ABX: DAY # =>Doxycycline + Cefepime 24H INTERVAL SUMMARY * Napping on her left side without distress, no fevers, no dyspnea, awakens, no c/o * 11/16/2018 CXR: 1. Moderate cardiomegaly. 2. Mild pulmonary edema. This appears improved. Underlying infiltrate is not distinctly identified, although not excluded. 3. Mild to moderate aortic calcification. MICRO/OTHER * 11/09/18 BCx (-) * (+)MRSA Nares PHYSICAL EXAMINATION: GENERAL: VSS, NAD HEENT: AT, NC, anicteric, NECK: Supple, CHEST: Equal chest rise bilaterally, without dyspnea on observation HEART: Pulse RRR ABDOMEN: Soft - obese : deferred EXTREMITIES: Warm, dry, no edema, moves all ext SKIN: No rash, no diaphoresis ID ASSESSMENT 77 yo F admit with: 1. Pneumonia, 2. Pulmonary edema due to #2 vs possible CHF exacerbation 3. Atrial fibrillation with rapid ventricular response 4. Diabetes 5. Hypertension 6. Transaminitis ?acute chetna (+)MRSA Nares ABX ALLERGIES: None to ABX INVASIVES: PIV CURRENT ABX: DAY # => Doxycycline + Cefepime ID RECOMMENDATIONS/PLAN: 1. Continue current ABX over the weekend . Consultation Date/Type/Reason Admit Date/Time Nov 09, 2018 at 17:20 Initial Consult Date Requesting Provider: ELISABETH ENRIQUEZ MD Date/Time of Note DATE: 11/16/18 TIME: 12:59 Exam/Review of Systems Exam Vitals Vital Signs Date Temp Pulse Resp B/P (MAP) Pulse Ox O2 O2 Flow FiO2 Time Delivery Rate 11/16/18 98.0 76 19 145/79 96 12:40 (101) 11/16/18 Nasal 2.0 09:00 Cannula 11/16/18 28 07:20 Intake and Output 11/15/18 11/15/18 11/16/18 1515:00 23:00 07:00 IntakeIntake Total 650 ml 150 ml 350 ml BalanceBalance 650 ml 150 ml 350 ml Results Result Diagram: 11/16/18 0544 11/16/18 0544 Results 24hrs Laboratory Tests Test 11/15/18 13:21 11/15/18 17:26 11/15/18 20:01 11/16/18 05:44 Bedside Glucose 95 105 116 White Blood Count 10.9 #H Red Blood Count 3.58 L Hemoglobin 9.6 L Hematocrit 30.2 L Mean Corpuscular Volume 84.4 Mean Corpuscular 26.8 L Hemoglobin Mean Corpuscular 31.8 L Hemoglobin Concent Red Cell Distribution 18.5 H Width Platelet Count 368 Mean Platelet Volume 9.2 Immature Granulocytes % 0.900 H Neutrophils % 60.8 Lymphocytes % 21.1 Monocytes % 10.4 Eosinophils % 6.4 Basophils % 0.4 Nucleated Red Blood 0.0 Cells % Immature Granulocytes # 0.100 H Neutrophils # 6.6 Lymphocytes # 2.3 Monocytes # 1.1 H Eosinophils # 0.7 H Basophils # 0.0 Nucleated Red Blood 0.0 Cells # Sodium Level 138 Potassium Level 3.9 Chloride Level 98 Carbon Dioxide Level 34 H Anion Gap 6 Blood Urea Nitrogen 25 H Creatinine 1.13 H Est Glomerular Filtrat Rate mL/min Glucose Level 79 Calcium Level 8.3 L Test 11/16/18 09:02 11/16/18 11:51 Bedside Glucose 88 107 Medications Medication Current Medications IV Flush (NS 3 ml) 3 ml PER PROTOCOL IV ; Start 11/09/18 at 18:00 Ondansetron HCl (Zofran Inj) 4 mg Q6H PRN IV NAUSEA/VOMITING Last administered on 11/15/18 17:19; Admin Dose 4 MG; Start 11/09/18 at 18:00 Acetaminophen (Tylenol Tab) 650 mg Q6H PRN PO .PAIN 1-3 OR TEMP Last administered on 11/12/18at 06:27; Admin Dose 650 MG; Start 11/09/18 at 18:00 Morphine Sulfate (morphine) 2 mg Q4H PRN IV .PAIN 7-10 Last administered on 11/15/18 17:19; Admin Dose 2 MG; Start 11/09/18 at 18:00 Bisacodyl (Dulcolax) 10 mg DAILY PRN PO CONSTIPATION; Start 11/10/18 at 11:00 Cholecalciferol (Vitamin D) 2,000 unit DAILY PO Last administered on 11/16/18at 09:04; Admin Dose 2,000 UNIT; Start 11/11/18 at 09:00 Docusate Sodium (Colace) 100 mg DAILY PO Last administered on 11/16/18 09:05; Admin Dose 100 MG; Start 11/11/18 at 09:00 Senna (Senokot) 1 tab DAILY PRN PO CONSTIPATION Last administered on 11/10/18 23:38; Admin Dose 1 TAB; Start 11/10/18 at 11:00 Zinc Sulfate (Zinc Sulfate) 220 mg DAILY PO Last administered on 11/16/18 09:05; Admin Dose 220 MG; Start 11/11/18 at 09:00 Miscellaneous Information 1 ea NOTE XX Last administered on 11/15/18 12:00; Admin Dose 1 EA; Start 11/10/18 at 11:30 Glucose (Glutose) 15 gm Q15M PRN PO DECREASED GLUCOSE; Start 11/10/18 at 11:30 Glucose (Glutose) 22.5 gm Q15M PRN PO DECREASED GLUCOSE; Start 11/10/18 at 11:30 Dextrose (D50w Syringe) 25 ml Q15M PRN IV DECREASED GLUCOSE Last administered on 11/11/18 13:22; Admin Dose 25 ML; Start 11/10/18 at 11:30 Dextrose (D50w Syringe) 50 ml Q15M PRN IV DECREASED GLUCOSE; Start 11/10/18 at 11:30 Glucagon (Glucagen) 1 mg Q15M PRN IM DECREASED GLUCOSE; Start 11/10/18 at 11:30 Glucose (Glutose) 15 gm Q15M PRN BUCCAL DECREASED GLUCOSE; Start 11/10/18 at 11:30 Atorvastatin Calcium (Lipitor) 20 mg QHS PO Last administered on 11/15/18 20:02; Admin Dose 20 MG; Start 11/11/18 at 21:00 Apixaban (Eliquis) 5 mg BID PO Last administered on 11/16/18 09:03; Admin Dose 5 MG; Start 11/11/18 at 21:00 Insulin Aspart (Novolog Insulin Pen) NOVOLOG *MILD* ALGORITHM WITH MEALS BEDTIME SC Last administered on 11/13/18 20:22; Admin Dose 1 UNIT; Start 11/11/18 at 17:55 Lorazepam (Ativan) 0.5 mg Q6H PRN PO ANXIETY Last administered on 11/15/18 10 :11; Admin Dose 0.5 MG; Start 11/11/18 at 21:00 Diltiazem HCl (Cardizem Iv) 5 mg Q4 PRN IV HR>110 Hold SBP<100; Start 11/12/18 at 16:30 Furosemide (Lasix) 20 mg BID DIURETICS IV Last administered on 11/16/18 05:21; Admin Dose 20 MG; Start 11/12/18 at 18:00 Mupirocin (Bactroban) 1 applic BID TOP Last administered on 11/16/18 09:51; Admin Dose 1 APPLIC; Start 11/12/18 at 21:00 Levalbuterol (Xopenex Neb) 0.63 mg Q6H RESP THERAPY HHN Last administered on 11/16/18 07:20; Admin Dose 0.63 MG; Start 11/13/18 at 02:00 Doxycycline Hyclate (Vibramycin) 100 mg BID PO Last administered on 11/16/18 09:04; Admin Dose 100 MG; Start 11/13/18 at 21:00 Diagnostic Test (Pha) (Accu-Chek) 1 ea 02 XX Last administered on 11/14/18 02:00; Admin Dose 1 EA; Start 11/14/18 at 02:00 Diltiazem HCl (Cardizem Cd) 180 mg BID PO Last administered on 11/16/18 09:05; Admin Dose 180 MG; Start 11/14/18 at 21:00 Cefepime HCl 50 ml @ 100 mls/hr Q12H IVPB Last administered on 11/16/18 05:21; Admin Dose 100 MLS/HR; Start 11/14/18 at 18:00 Metoprolol Tartrate (Lopressor) 75 mg BID PO Last administered on 11/16/18 09:04; Admin Dose 75 MG; Start 11/15/18 at 21:00 Insulin Aspart (Novolog Insulin Pen) 3 unit WITH MEALS SC Last administered on 11/16/18 12:02; Admin Dose 3 UNIT; Start 11/16/18 at 08:00 Insulin Glargine (Lantus) 30 units DAILY SC Last administered on 11/16/18 09:09; Admin Dose 30 UNITS; Start 11/16/18 at 09:00 Hydroxyzine HCl (Atarax) 25 mg Q6H PRN PO ITCHING Last administered on 11/15/18 23:06; Admin Dose 25 MG; Start 11/15/18 at 23:00 SHAMIKA RODRIGUEZ NP Nov 16, 2018 13:00
--- NOTE | 2018-11-16 13:42 | CONS ---
Assessment/Plan Assessment/Plan Hospital Course (Demo Recall) IMPRESSION: 1. Atrial fibrillation/atrial flutter- neg trop x 3. Now with improved rate control. NL EF by echo 2. Hypertension, controlled. 3. Congestive heart failure, question systolic versus diastolic, likely acute on chronic. 4. Coagulopathy secondary to Eliquis. 5. Mild renal insufficiency-improved 6. Increased liver function tests. 7. Increased BNP. 8. Congestive heart failure. 9. Anemia, mild, worsening. 10. abd pain Recc: -Tele -serial ecg's -Continiue BB and CCB and current doses and follow HR/BP closely -Contineu eliquis -Continue lasix diuresisbut decrease to daily given development of mild renal insuff and follow volume status -Contneu abx's and f/u cx data Consultation Date/Type/Reason Admit Date/Time Nov 09, 2018 at 17:20 Initial Consult Date 11/12/18 Type of Consult Cardiology Reason for Consultation AF/CHF Requesting Provider: ELISABETH ENRIQUEZ MD Date/Time of Note DATE: 11/16/18 TIME: 13:40 Exam/Review of Systems Vital Signs Vitals Vital Signs Date Temp Pulse Resp B/P (MAP) Pulse Ox O2 O2 Flow FiO2 Time Delivery Rate 11/16/18 77 16 100 Nasal 2.0 28 13:27 Cannula 11/16/18 98.0 145/79 12:40 (101) Intake and Output 11/15/18 11/15/18 11/16/18 1515:00 23:00 07:00 IntakeIntake Total 650 ml 150 ml 350 ml BalanceBalance 650 ml 150 ml 350 ml Exam Exam Review of Systems: CONSTITUTIONAL: No fevers, chills. PULMONARY: mild sob CARDIOVASCULAR: No chest pain/palpitations GASTROINTESTINAL: No nausea/vomiting. GENITOURINARY: No hematuria/dysuria. MUSCULOSKELETAL: No myagias/arthalgias. PSYCHIATRIC: The patient denies depression. NEUROLOGIC: No weakness Constitutional: alert Psych: no complaints Head: normocephalic ENMT: mucosa pink and moist Neck: supple, jvd (9 cm water) Respiratory: diminished breath sounds (at bases/B) Cardiovascular: irregular rhythm Gastrointestinal: non-tender Musculoskeletal: muscle tone (normal) Extremities: edema (none) Neurological: other (NO focal deficits) Labs Result Diagram: 11/16/18 0544 11/16/18 0544 Results 24hrs Laboratory Tests Test 11/15/18 17:26 11/15/18 20:01 11/16/18 05:44 11/16/18 09:02 Bedside Glucose 105 116 88 White Blood Count 10.9 #H Red Blood Count 3.58 L Hemoglobin 9.6 L Hematocrit 30.2 L Mean Corpuscular Volume 84.4 Mean Corpuscular 26.8 L Hemoglobin Mean Corpuscular 31.8 L Hemoglobin Concent Red Cell Distribution 18.5 H Width Platelet Count 368 Mean Platelet Volume 9.2 Immature Granulocytes % 0.900 H Neutrophils % 60.8 Lymphocytes % 21.1 Monocytes % 10.4 Eosinophils % 6.4 Basophils % 0.4 Nucleated Red Blood 0.0 Cells % Immature Granulocytes # 0.100 H Neutrophils # 6.6 Lymphocytes # 2.3 Monocytes # 1.1 H Eosinophils # 0.7 H Basophils # 0.0 Nucleated Red Blood 0.0 Cells # Sodium Level 138 Potassium Level 3.9 Chloride Level 98 Carbon Dioxide Level 34 H Anion Gap 6 Blood Urea Nitrogen 25 H Creatinine 1.13 H Est Glomerular Filtrat Rate mL/min Glucose Level 79 Calcium Level 8.3 L Test 11/16/18 11:51 Bedside Glucose 107 Medications Medications Current Medications IV Flush (NS 3 ml) 3 ml PER PROTOCOL IV ; Start 11/09/18 at 18:00 Ondansetron HCl (Zofran Inj) 4 mg Q6H PRN IV NAUSEA/VOMITING Last administered on 11/15/18 17:19; Admin Dose 4 MG; Start 11/09/18 at 18:00 Acetaminophen (Tylenol Tab) 650 mg Q6H PRN PO .PAIN 1-3 OR TEMP Last administered on 11/12/18at 06:27; Admin Dose 650 MG; Start 11/09/18 at 18:00 Morphine Sulfate (morphine) 2 mg Q4H PRN IV .PAIN 7-10 Last administered on 11/15/18 17:19; Admin Dose 2 MG; Start 11/09/18 at 18:00 Bisacodyl (Dulcolax) 10 mg DAILY PRN PO CONSTIPATION; Start 11/10/18 at 11:00 Cholecalciferol (Vitamin D) 2,000 unit DAILY PO Last administered on 11/16/18at 09:04; Admin Dose 2,000 UNIT; Start 11/11/18 at 09:00 Docusate Sodium (Colace) 100 mg DAILY PO Last administered on 11/16/18 09:05; Admin Dose 100 MG; Start 11/11/18 at 09:00 Senna (Senokot) 1 tab DAILY PRN PO CONSTIPATION Last administered on 11/10/18 23:38; Admin Dose 1 TAB; Start 11/10/18 at 11:00 Zinc Sulfate (Zinc Sulfate) 220 mg DAILY PO Last administered on 11/16/18 09:05; Admin Dose 220 MG; Start 11/11/18 at 09:00 Miscellaneous Information 1 ea NOTE XX Last administered on 11/15/18 12:00; Admin Dose 1 EA; Start 11/10/18 at 11:30 Glucose (Glutose) 15 gm Q15M PRN PO DECREASED GLUCOSE; Start 11/10/18 at 11:30 Glucose (Glutose) 22.5 gm Q15M PRN PO DECREASED GLUCOSE; Start 11/10/18 at 11:30 Dextrose (D50w Syringe) 25 ml Q15M PRN IV DECREASED GLUCOSE Last administered on 11/11/18 13:22; Admin Dose 25 ML; Start 11/10/18 at 11:30 Dextrose (D50w Syringe) 50 ml Q15M PRN IV DECREASED GLUCOSE; Start 11/10/18 at 11:30 Glucagon (Glucagen) 1 mg Q15M PRN IM DECREASED GLUCOSE; Start 11/10/18 at 11:30 Glucose (Glutose) 15 gm Q15M PRN BUCCAL DECREASED GLUCOSE; Start 11/10/18 at 11:30 Atorvastatin Calcium (Lipitor) 20 mg QHS PO Last administered on 11/15/18 20:02; Admin Dose 20 MG; Start 11/11/18 at 21:00 Apixaban (Eliquis) 5 mg BID PO Last administered on 11/16/18 09:03; Admin Dose 5 MG; Start 11/11/18 at 21:00 Insulin Aspart (Novolog Insulin Pen) NOVOLOG *MILD* ALGORITHM WITH MEALS BE DTIME SC Last administered on 11/13/18 20:22; Admin Dose 1 UNIT; Start 11/11/18 at 17:55 Lorazepam (Ativan) 0.5 mg Q6H PRN PO ANXIETY Last administered on 11/15/18 10:11; Admin Dose 0.5 MG; Start 11/11/18 at 21:00 Diltiazem HCl (Cardizem Iv) 5 mg Q4 PRN IV HR>110 Hold SBP<100; Start 11/12/18 at 16:30 Furosemide (Lasix) 20 mg BID DIURETICS IV Last administered on 11/16/18 05:21; Admin Dose 20 MG; Start 11/12/18 at 18:00 Mupirocin (Bactroban) 1 applic BID TOP Last administered on 11/16/18 09:51; Admin Dose 1 APPLIC; Start 11/12/18 at 21:00 Levalbuterol (Xopenex Neb) 0.63 mg Q6H RESP THERAPY HHN Last administered on 11/16/18 13:25; Admin Dose 0.63 MG; Start 11/13/18 at 02:00 Doxycycline Hyclate (Vibramycin) 100 mg BID PO Last administered on 11/16/18 09:04; Admin Dose 100 MG; Start 11/13/18 at 21:00 Diagnostic Test (Pha) (Accu-Chek) 1 ea 02 XX Last administered on 11/14/18 02:00; Admin Dose 1 EA; Start 11/14/18 at 02:00 Diltiazem HCl (Cardizem Cd) 180 mg BID PO Last administered on 11/16/18 09:05; Admin Dose 180 MG; Start 11/14/18 at 21:00 Cefepime HCl 50 ml @ 100 mls/hr Q12H IVPB Last administered on 11/16/18 05:21; Admin Dose 100 MLS/HR; Start 11/14/18 at 18:00 Metoprolol Tartrate (Lopressor) 75 mg BID PO Last administered on 11/16/18 09:04; Admin Dose 75 MG; Start 11/15/18 at 21:00 Insulin Aspart (Novolog Insulin Pen) 3 unit WITH MEALS SC Last administered on 11/16/18 12:02; Admin Dose 3 UNIT; Start 11/16/18 at 08:00 Insulin Glargine (Lantus) 30 units DAILY SC Last administered on 11/16/18 09:09; Admin Dose 30 UNITS; Start 11/16/18 at 09:00 Hydroxyzine HCl (Atarax) 25 mg Q6H PRN PO ITCHING Last administered on 11/15/18at 23:06; Admin Dose 25 MG; Start 11/15/18 at 23:00 CASSIE URBINA Nov 16, 2018 13:42
--- NOTE | 2018-11-16 14:10 | CONS ---
Assessment/Plan Assessment/Plan Assessment/Plan (Daily) Assessment/Plan Assessment/Plan (Daily) IMPRESSION: 1. Abnormal LFT most probably related to fatty liver. I doubt statin is the cause of her abnormal LFT. 2. Atrial fibrillation. 3. Pneumonia. 4. Diabetes mellitus. 5. Hypertension. 6. Sludge in the gallbladder without dilatation of the biliary tree. 7. Pneumonia. Plan Patient's abnormal LFTs related to fatty liver., Her hepatitis serology was negative, will continue statin Consultation Date/Type/Reason Admit Date/Time Nov 09, 2018 at 17:20 Initial Consult Date Requesting Provider: ELISABETH ENRIQUEZ MD Date/Time of Note DATE: 11/16/18 TIME: 14:09 24 HR Interval Summary Constitutional: no complaints, improved Exam/Review of Systems Exam Vitals Vital Signs Date Temp Pulse Resp B/P (MAP) Pulse Ox O2 O2 Flow FiO2 Time Delivery Rate 11/16/18 77 16 100 Nasal 2.0 28 13:27 Cannula 11/16/18 98.0 145/79 12:40 (101) Intake and Output 11/15/18 11/15/18 11/16/18 1515:00 23:00 07:00 IntakeIntake Total 650 ml 150 ml 350 ml BalanceBalance 650 ml 150 ml 350 ml Constitutional: alert, oriented, well developed Psych: no complaints, nl mood/affect Head: normocephalic, atraumatic Eyes: nl conjunctiva, EOMI, nl lids, nl sclera, PERRL ENMT: nl external ears & nose, nl lips & teeth, nl nasal mucosa & septum Neck: supple, non-tender Respiratory: clear to auscultation, normal air movement Cardiovascular: regular rate and rhythm, nl pulses Gastrointestinal: soft, nl liver, spleen, non-tender Musculoskeletal: nl extremities to inspection, nl gait and stance Extremities: normal pulses Neurological: MIXER RUNNER II-XII intact, nl mental status, nl speech, nl strength Skin: nl turgor; No rash or lesions Lymph: nl lymph nodes Results Result Diagram: 11/16/18 0544 11/16/18 0544 Results 24hrs Laboratory Tests Test 11/15/18 17:26 11/15/18 20:01 11/16/18 05:44 11/16/18 09:02 Bedside Glucose 105 116 88 White Blood Count 10.9 #H Red Blood Count 3.58 L Hemoglobin 9.6 L Hematocrit 30.2 L Mean Corpuscular Volume 84.4 Mean Corpuscular 26.8 L Hemoglobin Mean Corpuscular 31.8 L Hemoglobin Concent Red Cell Distribution 18.5 H Width Platelet Count 368 Mean Platelet Volume 9.2 Immature Granulocytes % 0.900 H Neutrophils % 60.8 Lymphocytes % 21.1 Monocytes % 10.4 Eosinophils % 6.4 Basophils % 0.4 Nucleated Red Blood 0.0 Cells % Immature Granulocytes # 0.100 H Neutrophils # 6.6 Lymphocytes # 2.3 Monocytes # 1.1 H Eosinophils # 0.7 H Basophils # 0.0 Nucleated Red Blood 0.0 Cells # Sodium Level 138 Potassium Level 3.9 Chloride Level 98 Carbon Dioxide Level 34 H Anion Gap 6 Blood Urea Nitrogen 25 H Creatinine 1.13 H Est Glomerular Filtrat Rate mL/min Glucose Level 79 Calcium Level 8.3 L Test 11/16/18 11:51 Bedside Glucose 107 Medications Medication Current Medications IV Flush (NS 3 ml) 3 ml PER PROTOCOL IV ; Start 11/09/18 at 18:00 Ondansetron HCl (Zofran Inj) 4 mg Q6H PRN IV NAUSEA/VOMITING Last administered on 11/15/18 17:19; Admin Dose 4 MG; Start 11/09/18 at 18:00 Acetaminophen (Tylenol Tab) 650 mg Q6H PRN PO .PAIN 1-3 OR TEMP Last administered on 11/12/18 06:27; Admin Dose 650 MG; Start 11/09/18 at 18:00 Morphine Sulfate (morphine) 2 mg Q4H PRN IV .PAIN 7-10 Last administered on 11/15/18 17:19; Admin Dose 2 MG; Start 11/09/18 at 18:00 Bisacodyl (Dulcolax) 10 mg DAILY PRN PO CONSTIPATION; Start 11/10/18 at 11:00 Cholecalciferol (Vitamin D) 2,000 unit DAILY PO Last administered on 11/16/18at 09:04; Admin Dose 2,000 UNIT; Start 11/11/18 at 09:00 Docusate Sodium (Colace) 100 mg DAILY PO Last administered on 11/16/18 09:05; Admin Dose 100 MG; Start 11/11/18 at 09:00 Senna (Senokot) 1 tab DAILY PRN PO CONSTIPATION Last administered on 11/10/18 23:38; Admin Dose 1 TAB; Start 11/10/18 at 11:00 Zinc Sulfate (Zinc Sulfate) 220 mg DAILY PO Last administered on 11/16/18 09:05; Admin Dose 220 MG; Start 11/11/18 at 09:00 Miscellaneous Information 1 ea NOTE XX Last administered on 11/15/18 12:00; Admin Dose 1 EA; Start 11/10/18 at 11:30 Glucose (Glutose) 15 gm Q15M PRN PO DECREASED GLUCOSE; Start 11/10/18 at 11:30 Glucose (Glutose) 22.5 gm Q15M PRN PO DECREASED GLUCOSE; Start 11/10/18 at 11:30 Dextrose (D50w Syringe) 25 ml Q15M PRN IV DECREASED GLUCOSE Last administered on 11/11/18 13:22; Admin Dose 25 ML; Start 11/10/18 at 11:30 Dextrose (D50w Syringe) 50 ml Q15M PRN IV DECREASED GLUCOSE; Start 11/10/18 at 11:30 Glucagon (Glucagen) 1 mg Q15M PRN IM DECREASED GLUCOSE; Start 11/10/18 at 11:30 Glucose (Glutose) 15 gm Q15M PRN BUCCAL DECREASED GLUCOSE; Start 11/10/18 at 11:30 Atorvastatin Calcium (Lipitor) 20 mg QHS PO Last administered on 11/15/18 20:02; Admin Dose 20 MG; Start 11/11/18 at 21:00 Apixaban (Eliquis) 5 mg BID PO Last administered on 11/16/18 09:03; Admin Dose 5 MG; Start 11/11/18 at 21:00 Insulin Aspart (Novolog Insulin Pen) NOVOLOG *MILD* ALGORITHM WITH MEALS BEDTIME SC Last administered on 11/13/18 20:22; Admin Dose 1 UNIT; Start 11/11/18 at 17:55 Lorazepam (Ativan) 0.5 mg Q6H PRN PO ANXIETY Last administered on 11/15/18 10:11; Admin Dose 0.5 MG; Start 11/11/18 at 21:00 Diltiazem HCl (Cardizem Iv) 5 mg Q4 PRN IV HR>110 Hold SBP<100; Start 11/12/18 at 16:30 Mupirocin (Bactroban) 1 applic BID TOP Last administered on 11/16/18 09:51; Admin Dose 1 APPLIC; Start 11/12/18 at 21:00 Levalbuterol (Xopenex Neb) 0.63 mg Q6H RESP THERAPY HHN Last administered on 11/16/18 13:25; Admin Dose 0.63 MG; Start 11/13/18 at 02:00 Doxycycline Hyclate (Vibramycin) 100 mg BID PO Last administered on 11/16/18 09:04; Admin Dose 100 MG; Start 11/13/18 at 21:00 Diagnostic Test (Pha) (Accu-Chek) 1 ea 02 XX Last administered on 11/14/18 02:00; Admin Dose 1 EA; Start 11/14/18 at 02:00 Diltiazem HCl (Cardizem Cd) 180 mg BID PO Last administered on 11/16/18 09:05; Admin Dose 180 MG; Start 11/14/18 at 21:00 Cefepime HCl 50 ml @ 100 mls/hr Q12H IVPB Last administered on 11/16/18 05:21; Admin Dose 100 MLS/HR; Start 11/14/18 at 18:00 Metoprolol Tartrate (Lopressor) 75 mg BID PO Last administered on 11/16/18 09:04; Admin Dose 75 MG; Start 11/15/18 at 21:00 Insulin Aspart (Novolog Insulin Pen) 3 unit WITH MEALS SC Last administered on 11/16/18 12:02; Admin Dose 3 UNIT; Start 11/16/18 at 08:00 Insulin Glargine (Lantus) 30 units DAILY SC Last administered on 11/16/18 09:09; Admin Dose 30 UNITS; Start 11/16/18 at 09:00 Hydroxyzine HCl (Atarax) 25 mg Q6H PRN PO ITCHING Last administered on 11/15/18 23:06; Admin Dose 25 MG; Start 11/15/18 at 23:00 Furosemide (Lasix) 20 mg DAILY IV ; Start 11/17/18 at 09:00 JASMIN MARTINEZ MD Nov 16, 2018 14:10
[2018-11-16] MEDS: morphine 2 MG INJ IV PRN (17:40)
[2018-11-16] MEDS: BISACODYL (EC) 5 MG TAB PO PRN (17:40)
[2018-11-16] MEDS: ATORVASTATIN 20 MG TAB PO SCH (20:40)
[2018-11-16] MEDS: LORAZEPAM 0.5 MG TAB PO PRN (20:48)
[2018-11-16] MEDS: hydrOXYzine HCL 25 MG TAB PO PRN (21:33)
[2018-11-17] VITALS (10 sets, daily range): BP systolic 115–126; BP diastolic 56–60; PULSE 68–86; RESP 18
[2018-11-17] MEDS: SENNA TAB PO PRN (00:07)
[2018-11-17] MEDS: LEVALBUTEROL (NEB) 0.63 MG/3 ML AMP HHN SCH ×4 (02:05→20:21)
[2018-11-17] MEDS: ACCU-CHEK XX SCH (02:58)
[2018-11-17] MEDS: CEFEPIME 1GM/50 ML (PMX) 50 ML IVPB SCH ×2 (04:36→17:29)
[2018-11-17] MEDS: BISACODYL (EC) 5 MG TAB PO PRN (04:36)
--- NOTE | 2018-11-17 07:13 | PN ---
Date/Time of Note Date/Time of Note DATE: 11/17/18 TIME: 07:09 Assessment/Plan VTE [place]axis [place] [facility] [place]: 7 [place] [facility] [place] SCD contraindicated: other Pharmacological prophylaxis: other Pharm contraindication: other Lines/Catheters IV [facility] Type [facility] Saline Lock Urinary Cath still in place: No Assessment/Plan Assessment/Plan The patient is a 77-year-old female was brought from [facility] for tachycardia. - KADEN - Nephro consult -Pneumonia, continue antibiotics, breathing treatment. -Atrial fibrillation, continue Eliquis and metoprolol -Transaminitis - KUB with Sludge within the gallbladder. There is thickening of the gallbladder wall and questionable trace pericholecystic fluid. In the right clinical setting, this may suggest acute cholecystitis. No biliary duct dilatation. - Dr. Chicas, gastroenterology consultation -Hypertension -Stage I diastolic dysfunction congestive heart failure with preserved ejection fraction -Cardiomegaly -MRSA of nares, Bactroban, contact isolation. -Diabetes mellitus type 2 with hemoglobin A1c of 6.1. Continue Lantus and NovoLog. -Neurocognitive disorder with depressed mood status post psychiatric evaluation. -Obesity with BMI of 35.3 Further recommendations based on clinical course. Plan of care discussed with Dr. Deutsch. Result Diagram: 11/17/18 0516 11/16/18 0544 Results 24hrs Laboratory Tests Test 11/16/18 09:02 11/16/18 11:51 11/16/18 17:40 11/16/18 20:37 Bedside Glucose 88 107 143 94 Test 11/17/18 02:44 11/17/18 05:16 Bedside Glucose 123 White Blood Count 10.8 Red Blood Count 3.69 L Hemoglobin 9.9 L Hematocrit 31.1 L Mean Corpuscular Volume 84.3 Mean Corpuscular 26.8 L Hemoglobin Mean Corpuscular 31.8 L Hemoglobin Concent Red Cell Distribution 18.5 H Width Platelet Count 383 Mean Platelet Volume 9.7 Immature Granulocytes % 1.000 H Neutrophils % 57.4 Lymphocytes % 24.6 Monocytes % 9.8 Eosinophils % 6.6 Basophils % 0.6 Nucleated Red Blood 0.0 Cells % Immature Granulocytes # 0.110 H Neutrophils # 6.2 Lymphocytes # 2.7 Monocytes # 1.1 H Eosinophils # 0.7 H Basophils # 0.1 Nucleated Red Blood 0.0 Cells # Subjective 24 Hr Interval Summary Free Text/Dictation afebrile seems comfortable KADEN- will get nephro consult no events reported last night dw staff Constitutional: requiring O2 Exam/Review of Systems Exam Vitals Vital Signs Date Temp Pulse Resp B/P (MAP) Pulse Ox O2 O2 Flow FiO2 Time Delivery Rate 11/17/18 97.6 75 18 122/58 95 Room Air 04:00 (79) 11/17/18 21 02:07 11/16/18 2.0 20:25 Intake and Output 11/16/18 11/16/18 11/17/18 1515:00 23:00 07:00 IntakeIntake Total 600 ml 750 ml BalanceBalance 600 ml 750 ml Constitutional: alert Psych: nl mood/affect Eyes: nl lids, nl sclera ENMT: nl external ears & nose Neck: non-tender Respiratory: clear to auscultation Cardiovascular: nl pulses, other (s1s2) Gastrointestinal: soft, non-tender Musculoskeletal: muscle weakness Extremities: normal pulses Neurological: other (alert) Lymph: nontender Results Results 24hrs Laboratory Tests Test 11/16/18 09:02 11/16/18 11:51 11/16/18 17:40 11/16/18 20:37 Bedside Glucose 88 107 143 94 Test 11/17/18 02:44 11/17/18 05:16 Bedside Glucose 123 White Blood Count 10.8 Red Blood Count 3.69 L Hemoglobin 9.9 L Hematocrit 31.1 L Mean Corpuscular Volume 84.3 Mean Corpuscular 26.8 L Hemoglobin Mean Corpuscular 31.8 L Hemoglobin Concent Red Cell Distribution 18.5 H Width Platelet Count 383 Mean Platelet Volume 9.7 Immature Granulocytes % 1.000 H Neutrophils % 57.4 Lymphocytes % 24.6 Monocytes % 9.8 Eosinophils % 6.6 Basophils % 0.6 Nucleated Red Blood 0.0 Cells % Immature Granulocytes # 0.110 H Neutrophils # 6.2 Lymphocytes # 2.7 Monocytes # 1.1 H Eosinophils # 0.7 H Basophils # 0.1 Nucleated Red Blood 0.0 Cells # Medications Medication Current Medications IV Flush (NS 3 ml) 3 ml PER PROTOCOL IV ; Start 11/09/18 at 18:00 Ondansetron HCl (Zofran Inj) 4 mg Q6H PRN IV NAUSEA/VOMITING Last administered on 11/15/18 17:19; Admin Dose 4 MG; Start 11/09/18 at 18:00 Acetaminophen (Tylenol Tab) 650 mg Q6H PRN PO .PAIN 1-3 OR TEMP Last administered on 11/12/18 06:27; Admin Dose 650 MG; Start 11/09/18 at 18:00 Morphine Sulfate (morphine) 2 mg Q4H PRN IV .PAIN 7-10 Last administered on 11/17/18 00:00; Admin Dose 2 MG; Start 11/09/18 at 18:00 Bisacodyl (Dulcolax) 10 mg DAILY PRN PO CONSTIPATION Last administered on 04:36; Admin Dose 10 MG; Start 11/10/18 at 11:00 Cholecalciferol (Vitamin D) 2,000 unit DAILY PO Last administered on 11/16/18 09:04; Admin Dose 2,000 UNIT; Start 11/11/18 at 09:00 Docusate Sodium (Colace) 100 mg DAILY PO Last administered on 11/16/18 09:05; Admin Dose 100 MG; Start 11/11/18 at 09:00 Senna (Senokot) 1 tab DAILY PRN PO CONSTIPATION Last administered on 11/17/18 00:07; Admin Dose 1 TAB; Start 11/10/18 at 11:00 Zinc Sulfate (Zinc Sulfate) 220 mg DAILY PO Last administered on 11/16/18 09:05; Admin Dose 220 MG; Start 11/11/18 at 09:00 Miscellaneous Information 1 ea NOTE XX Last administered on 11/15/18 12:00; Admin Dose 1 EA; Start 11/10/18 at 11:30 Glucose (Glutose) 15 gm Q15M PRN PO DECREASED GLUCOSE; Start 11/10/18 at 11:30 Glucose (Glutose) 22.5 gm Q15M PRN PO DECREASED GLUCOSE; Start 11/10/18 at 11:30 Dextrose (D50w Syringe) 25 ml Q15M PRN IV DECREASED GLUCOSE Last administered on 11/11/18 13:22; Admin Dose 25 ML; Start 11/10/18 at 11:30 Dextrose (D50w Syringe) 50 ml Q15M PRN IV DECREASED GLUCOSE; Start 11/10/18 at 11:30 Glucagon (Glucagen) 1 mg Q15M PRN IM DECREASED GLUCOSE; Start 11/10/18 at 11:30 Glucose (Glutose) 15 gm Q15M PRN BUCCAL DECREASED GLUCOSE; Start 11/10/18 at 11:30 Atorvastatin Calcium (Lipitor) 20 mg QHS PO Last administered on 11/16/18 2 0:40; Admin Dose 20 MG; Start 11/11/18 at 21:00 Apixaban (Eliquis) 5 mg BID PO Last administered on 11/16/18 20:40; Admin Dose 5 MG; Start 11/11/18 at 21:00 Insulin Aspart (Novolog Insulin Pen) NOVOLOG *MILD* ALGORITHM WITH MEALS BEDTIME SC Last administered on 11/16/18 18:00; Admin Dose 1 UNIT; Start 11/11/18 at 17:55 Lorazepam (Ativan) 0.5 mg Q6H PRN PO ANXIETY Last administered on 11/16/18 20: 48; Admin Dose 0.5 MG; Start 11/11/18 at 21:00 Diltiazem HCl (Cardizem Iv) 5 mg Q4 PRN IV HR>110 Hold SBP<100; Start 11/12/18 at 16:30 Mupirocin (Bactroban) 1 applic BID TOP Last administered on 11/16/18 20:42; Admin Dose 1 APPLIC; Start 11/12/18 at 21:00 Levalbuterol (Xopenex Neb) 0.63 mg Q6H RESP THERAPY HHN Last administered on 11/17/18 02:05; Admin Dose 0.63 MG; Start 11/13/18 at 02:00 Doxycycline Hyclate (Vibramycin) 100 mg BID PO Last administered on 11/16/18 20:42; Admin Dose 100 MG; Start 11/13/18 at 21:00 Diagnostic Test (Pha) (Accu-Chek) 1 ea 02 XX Last administered on 11/17/18 02:5 8; Admin Dose 1 EA; Start 11/14/18 at 02:00 Diltiazem HCl (Cardizem Cd) 180 mg BID PO Last administered on 11/16/18 20:41; Admin Dose 180 MG; Start 11/14/18 at 21:00 Cefepime HCl 50 ml @ 100 mls/hr Q12H IVPB Last administered on 11/17/18 04:36; Admin Dose 100 MLS/HR; Start 11/14/18 at 18:00 Metoprolol Tartrate (Lopressor) 75 mg BID PO Last administered on 11/16/18 20:41; Admin Dose 75 MG; Start 11/15/18 at 21:00 Insulin Aspart (Novolog Insulin Pen) 3 unit WITH MEALS SC Last administered on 11/16/18 17:59; Admin Dose 3 UNIT; Start 11/16/18 at 08:00 Insulin Glargine (Lantus) 30 units DAILY SC Last administered on 11/16/18 09:09; Admin Dose 30 UNITS; Start 11/16/18 at 09:00 Hydroxyzine HCl (Atarax) 25 mg Q6H PRN PO ITCHING Last administered on 11/16/18 21:33; Admin Dose 25 MG; Start 11/15/18 at 23:00 Furosemide (Lasix) 20 mg DAILY IV ; Start 11/17/18 at 09:00 TARIK CONTEH Nov 17, 2018 07:13
[2018-11-17] MEDS: INSULIN ASPART [NOVOLOG] 3 ML PEN SC SCH ×7 (08:00→20:52)
[2018-11-17] MEDS: DEXTROSE 5%-0.45% NACL 1,000 ML IV SCH (08:52)
[2018-11-17] MEDS: APIXABAN 5 MG TABLET PO SCH ×2 (08:53→20:51)
[2018-11-17] MEDS: MUPIROCIN 2% 22 GM OINT TOP SCH ×2 (08:53→20:53)
[2018-11-17] MEDS: METOPROLOL 25 MG TAB PO SCH ×2 (08:54→20:51)
[2018-11-17] MEDS: CHOLECALCIFEROL 1,000 UNIT TAB PO SCH (08:54)
[2018-11-17] MEDS: ZINC SULFATE 220 MG CAP PO SCH (08:54)
[2018-11-17] MEDS: DOXYCYCLINE 100 MG TAB PO SCH ×2 (08:54→20:51)
[2018-11-17] MEDS: DILTIAZEM (CD) 180 MG CAP PO SCH ×2 (08:54→20:51)
[2018-11-17] MEDS: DOCUSATE SODIUM 100 MG CAP PO SCH (08:55)
[2018-11-17] MEDS: hydrOXYzine HCL 25 MG TAB PO PRN ×2 (08:55→17:31)
[2018-11-17] MEDS: FUROSEMIDE 20 MG INJ IV SCH (08:55)
[2018-11-17] MEDS: INSULIN GLARGINE [LANTus] (100 UNITS/ML) SYG SC SCH (08:56)
[2018-11-17] MEDS: morphine 2 MG INJ IV PRN ×2 (12:27)
--- NOTE | 2018-11-17 13:29 | CONS ---
Assessment/Plan Assessment/Plan Hospital Course (Demo Recall) IMPRESSION: 1. Atrial fibrillation/atrial flutter- neg trop x 3. Now with improved rate control. NL EF by echo 2. Hypertension, controlled. 3. Congestive heart failure, question systolic versus diastolic, likely acute on chronic. 4. Coagulopathy secondary to Eliquis. 5. Mild renal insufficiency-improved 6. Increased liver function tests. 7. Increased BNP. 8. Congestive heart failure. 9. Anemia, mild, worsening. 10. abd pain Recc: -Tele -serial ecg's -Continiue BB and CCB and current doses and follow HR/BP closely -Contineu eliquis -Continue lasix diuresis s/p decrease to daily given development of mild renal insuff and follow volume status clsoely -Contneu abx's and f/u cx data Consultation Date/Type/Reason Admit Date/Time Nov 09, 2018 at 17:20 Initial Consult Date 11/12/18 Type of Consult Cardiology Reason for Consultation AF/HTN Requesting Provider: ELISABETH ENRIQUEZ MD Date/Time of Note DATE: 11/17/18 TIME: 13:28 Exam/Review of Systems Vital Signs Vitals Vital Signs Date Temp Pulse Resp B/P (MAP) Pulse Ox O2 O2 Flow FiO2 Time Delivery Rate 11/17/18 74 18 100 Nasal 2.0 13:02 Cannula 11/17/18 98.0 126/59 11:18 (81) 11/17/18 21 02:07 Intake and Output 11/16/18 11/16/18 11/17/18 1515:00 23:00 07:00 IntakeIntake Total 600 ml 750 ml BalanceBalance 600 ml 750 ml Exam Exam Review of Systems: CONSTITUTIONAL: No fevers, chills. PULMONARY: No sob CARDIOVASCULAR: No chest pain/palpitations GASTROINTESTINAL: No nausea/vomiting. GENITOURINARY: No hematuria/dysuria. MUSCULOSKELETAL: No myagias/arthalgias. PSYCHIATRIC: The patient denies depression. NEUROLOGIC: No weakness Constitutional: alert, oriented Psych: no complaints Head: normocephalic ENMT: mucosa pink and moist Neck: supple, jvd (9 cm water) Respiratory: diminished breath sounds (at bases/B) Cardiovascular: regular rate and rhythm Gastrointestinal: soft, non-tender Musculoskeletal: muscle tone (normal) Extremities: edema (none) Labs Result Diagram: 11/17/18 0516 11/17/18 0516 Results 24hrs Laboratory Tests Test 11/16/18 17:40 11/16/18 20:37 11/17/18 02:44 11/17/18 05:16 Bedside Glucose 143 94 123 White Blood Count 10.8 Red Blood Count 3.69 L Hemoglobin 9.9 L Hematocrit 31.1 L Mean Corpuscular Volume 84.3 Mean Corpuscular 26.8 L Hemoglobin Mean Corpuscular 31.8 L Hemoglobin Concent Red Cell Distribution 18.5 H Width Platelet Count 383 Mean Platelet Volume 9.7 Immature Granulocytes % 1.000 H Neutrophils % 57.4 Lymphocytes % 24.6 Monocytes % 9.8 Eosinophils % 6.6 Basophils % 0.6 Nucleated Red Blood 0.0 Cells % Immature Granulocytes # 0.110 H Neutrophils # 6.2 Lymphocytes # 2.7 Monocytes # 1.1 H Eosinophils # 0.7 H Basophils # 0.1 Nucleated Red Blood 0.0 Cells # Sodium Level 135 Potassium Level 3.9 Chloride Level 97 Carbon Dioxide Level 32 H Anion Gap 6 Blood Urea Nitrogen 32 H Creatinine 1.22 H Est Glomerular Filtrat Rate mL/min Glucose Level 80 Calcium Level 8.4 Test 11/17/18 08:51 11/17/18 12:31 Bedside Glucose 104 135 Medications Medications Current Medications IV Flush (NS 3 ml) 3 ml PER PROTOCOL IV ; Start 11/09/18 at 18:00 Ondansetron HCl (Zofran Inj) 4 mg Q6H PRN IV NAUSEA/VOMITING Last administered on 11/15/18at 17:19; Admin Dose 4 MG; Start 11/09/18 at 18:00 Acetaminophen (Tylenol Tab) 650 mg Q6H PRN PO .PAIN 1-3 OR TEMP Last administered on 11/12/18at 06:27; Admin Dose 650 MG; Start 11/09/18 at 18:00 Morphine Sulfate (morphine) 2 mg Q4H PRN IV .PAIN 7-10 Last administered on 11/17/18at 12:27; Admin Dose 2 MG; Start 11/09/18 at 18:00 Bisacodyl (Dulcolax) 10 mg DAILY PRN PO CONSTIPATION Last administered on 11/17/18at 04:36; Admin Dose 10 MG; Start 11/10/18 at 11:00 Cholecalciferol (Vitamin D) 2,000 unit DAILY PO Last administered on 11/17/18 08:54; Admin Dose 2,000 UNIT; Start 11/11/18 at 09:00 Docusate Sodium (Colace) 100 mg DAILY PO Last administered on 11/16/18 09:05; Admin Dose 100 MG; Start 11/11/18 at 09:00 Senna (Senokot) 1 tab DAILY PRN PO CONSTIPATION Last administered on 11/17/18 00:07; Admin Dose 1 TAB; Start 11/10/18 at 11:00 Zinc Sulfate (Zinc Sulfate) 220 mg DAILY PO Last administered on 11/17/18 08:54; Admin Dose 220 MG; Start 11/11/18 at 09:00 Miscellaneous Information 1 ea NOTE XX Last administered on 11/15/18 12:00; Admin Dose 1 EA; Start 11/10/18 at 11:30 Glucose (Glutose) 15 gm Q15M PRN PO DECREASED GLUCOSE; Start 11/10/18 at 11:30 Glucose (Glutose) 22.5 gm Q15M PRN PO DECREASED GLUCOSE; Start 11/10/18 at 11:30 Dextrose (D50w Syringe) 25 ml Q15M PRN IV DECREASED GLUCOSE Last administered on 11/11/18 13:22; Admin Dose 25 ML; Start 11/10/18 at 11:30 Dextrose (D50w Syringe) 50 ml Q15M PRN IV DECREASED GLUCOSE; Start 11/10/18 at 11:30 Glucagon (Glucagen) 1 mg Q15M PRN IM DECREASED GLUCOSE; Start 11/10/18 at 11:30 Glucose (Glutose) 15 gm Q15M PRN BUCCAL DECREASED GLUCOSE; Start 11/10/18 at 11:30 Atorvastatin Calcium (Lipitor) 20 mg QHS PO Last administered on 11/16/18 20:40; Admin Dose 20 MG; Start 11/11/18 at 21:00 Apixaban (Eliquis) 5 mg BID PO Last administered on 11/17/18 08:53; Admin Dose 5 MG; Start 11/11/18 at 21:00 Insulin Aspart (Novolog Insulin Pen) NOVOLOG *MILD* ALGORITHM WITH MEALS BEDTIME SC Last administered on 11/16/18 18:00; Admin Dose 1 UNIT; Start 11/11/18 at 17:55 Lorazepam (Ativan) 0.5 mg Q6H PRN PO ANXIETY Last administered on 11/16/18 20:48; Admin Dose 0.5 MG; Start 11/11/18 at 21:00 Diltiazem HCl (Cardizem Iv) 5 mg Q4 PRN IV HR>110 Hold SBP<100; Start 11/12/18 at 16:30 Mupirocin (Bactroban) 1 applic BID TOP Last administered on 11/17/18 08:53; Admin Dose 1 APPLIC; Start 11/12/18 at 21:00 Levalbuterol (Xopenex Neb) 0.63 mg Q6H RESP THERAPY HHN Last administered on 11/17/18 13:02; Admin Dose 0.63 MG; Start 11/13/18 at 02:00 Doxycycline Hyclate (Vibramycin) 100 mg BID PO Last administered on 11/17/18 08:54; Admin Dose 100 MG; Start 11/13/18 at 21:00 Diagnostic Test (Pha) (Accu-Chek) 1 ea 02 XX Last administered on 11/17/18 02:58; Admin Dose 1 EA; Start 11/14/18 at 02:00 Diltiazem HCl (Cardizem Cd) 180 mg BID PO Last administered on 11/17/18 08:54; Admin Dose 180 MG; Start 11/14/18 at 21:00 Cefepime HCl 50 ml @ 100 mls/hr Q12H IVPB Last administered on 11/17/18 04:36; Admin Dose 100 MLS/HR; Start 11/14/18 at 18:00 Metoprolol Tartrate (Lopressor) 75 mg BID PO Last administered on 11/17/18 08:54; Admin Dose 75 MG; Start 11/15/18 at 21:00 Insulin Aspart (Novolog Insulin Pen) 3 unit WITH MEALS SC Last administered on 11/17/18 12:33; Admin Dose 3 UNIT; Start 11/16/18 at 08:00 Insulin Glargine (Lantus) 30 units DAILY SC Last administered on 11/17/18 08:56; Admin Dose 30 UNITS; Start 11/16/18 at 09:00 Hydroxyzine HCl (Atarax) 25 mg Q6H PRN PO ITCHING Last administered on 11/17/18at 08:55; Admin Dose 25 MG; Start 11/15/18 at 23:00 Furosemide (Lasix) 20 mg DAILY IV Last administered on 11/17/18 08:55; Admin Dose 20 MG; Start 11/17/18 at 09:00 Dextrose/Sodium Chloride 1,000 ml @ 50 mls/hr Q20H IV Last administered on 11/17/18 08:52; Admin Dose 50 MLS/HR; Start 11/17/18 at 07:30 CASSIE URBINA Nov 17, 2018 13:29
--- NOTE | 2018-11-17 15:02 | CONS ---
Assessment/Plan Assessment/Plan Hospital Course (Demo Recall) ID PROGRESS NOTE CURRENT ABX: DAY # =>Doxycycline + Cefepime 24H INTERVAL SUMMARY * Clinically status quo -- VSS, on diuretics for pulm edema, NAD, without dyspnea, no fevers, no c/o * 11/16/2018 CXR: 1. Moderate cardiomegaly. 2. Mild pulmonary edema. This appears improved. Underlying infiltrate is not distinctly identified, although not excluded. 3. Mild to moderate aortic calcification. MICRO/OTHER * 11/09/18 BCx (-) * (+)MRSA Nares PHYSICAL EXAMINATION: GENERAL: VSS, NAD HEENT: AT, NC, anicteric, NECK: Supple, CHEST: Equal chest rise bilaterally, without dyspnea on observation HEART: Pulse RRR ABDOMEN: Soft - obese : deferred EXTREMITIES: Warm, dry, no edema, moves all ext SKIN: No rash, no diaphoresis ID ASSESSMENT 77 yo F admit with: 1. Pneumonia, 2. Pulmonary edema due to #2 vs possible CHF exacerbation 3. Atrial fibrillation with rapid ventricular response 4. Diabetes 5. Hypertension 6. Transaminitis ?acute chetna (+)MRSA Nares ABX ALLERGIES: None to ABX INVASIVES: PIV CURRENT ABX: DAY # => Doxycycline + Cefepime ID RECOMMENDATIONS/PLAN: 1. Continue current ABX over the weekend . Consultation Date/Type/Reason Admit Date/Time Nov 09, 2018 at 17:20 Initial Consult Date Requesting Provider: ELISABETH ENRIQUEZ MD Date/Time of Note DATE: 11/17/18 TIME: 15:01 Exam/Review of Systems Exam Vitals Vital Signs Date Temp Pulse Resp B/P (MAP) Pulse Ox O2 O2 Flow FiO2 Time Delivery Rate 11/17/18 74 18 100 Nasal 2.0 13:02 Cannula 11/17/18 98.0 126/59 11:18 (81) 11/17/18 21 02:07 Intake and Output 11/16/18 11/16/18 11/17/18 1515:00 23:00 07:00 IntakeIntake Total 600 ml 750 ml BalanceBalance 600 ml 750 ml Results Result Diagram: 11/17/18 0516 11/17/18 0516 Results 24hrs Laboratory Tests Test 11/16/18 17:40 11/16/18 20:37 11/17/18 02:44 11/17/18 05:16 Bedside Glucose 143 94 123 White Blood Count 10.8 Red Blood Count 3.69 L Hemoglobin 9.9 L Hematocrit 31.1 L Mean Corpuscular Volume 84.3 Mean Corpuscular 26.8 L Hemoglobin Mean Corpuscular 31.8 L Hemoglobin Concent Red Cell Distribution 18.5 H Width Platelet Count 383 Mean Platelet Volume 9.7 Immature Granulocytes % 1.000 H Neutrophils % 57.4 Lymphocytes % 24.6 Monocytes % 9.8 Eosinophils % 6.6 Basophils % 0.6 Nucleated Red Blood 0.0 Cells % Immature Granulocytes # 0.110 H Neutrophils # 6.2 Lymphocytes # 2.7 Monocytes # 1.1 H Eosinophils # 0.7 H Basophils # 0.1 Nucleated Red Blood 0.0 Cells # Sodium Level 135 Potassium Level 3.9 Chloride Level 97 Carbon Dioxide Level 32 H Anion Gap 6 Blood Urea Nitrogen 32 H Creatinine 1.22 H Est Glomerular Filtrat Rate mL/min Glucose Level 80 Calcium Level 8.4 Test 11/17/18 08:51 11/17/18 12:31 Bedside Glucose 104 135 Medications Medication Current Medications IV Flush (NS 3 ml) 3 ml PER PROTOCOL IV ; Start 11/09/18 at 18:00 Ondansetron HCl (Zofran Inj) 4 mg Q6H PRN IV NAUSEA/VOMITING Last administered on 11/15/18 17:19; Admin Dose 4 MG; Start 11/09/18 at 18:00 Acetaminophen (Tylenol Tab) 650 mg Q6H PRN PO .PAIN 1-3 OR TEMP Last administered on 11/12/18 06:27; Admin Dose 650 MG; Start 11/09/18 at 18:00 Morphine Sulfate (morphine) 2 mg Q4H PRN IV .PAIN 7-10 Last administered on 11/17/18 12:27; Admin Dose 2 MG; Start 11/09/18 at 18:00 Bisacodyl (Dulcolax) 10 mg DAILY PRN PO CONSTIPATION Last administered on 11/17/18 04:36; Admin Dose 10 MG; Start 11/10/18 at 11:00 Cholecalciferol (Vitamin D) 2,000 unit DAILY PO Last administered on 11/17/18 08:54; Admin Dose 2,000 UNIT; Start 11/11/18 at 09:00 Docusate Sodium (Colace) 100 mg DAILY PO Last administered on 11/16/18 09:05; Admin Dose 100 MG; Start 11/11/18 at 09:00 Senna (Senokot) 1 tab DAILY PRN PO CONSTIPATION Last administered on 11/17/18 00:07; Admin Dose 1 TAB; Start 11/10/18 at 11:00 Zinc Sulfate (Zinc Sulfate) 220 mg DAILY PO Last administered on 11/17/18 08:54; Admin Dose 220 MG; Start 11/11/18 at 09:00 Miscellaneous Information 1 ea NOTE XX Last administered on 11/15/18 12:00; Admin Dose 1 EA; Start 11/10/18 at 11:30 Glucose (Glutose) 15 gm Q15M PRN PO DECREASED GLUCOSE; Start 11/10/18 at 11:30 Glucose (Glutose) 22.5 gm Q15M PRN PO DECREASED GLUCOSE; Start 11/10/18 at 11:30 Dextrose (D50w Syringe) 25 ml Q15M PRN IV DECREASED GLUCOSE Last administered on 11/11/18 13:22; Admin Dose 25 ML; Start 11/10/18 at 11:30 Dextrose (D50w Syringe) 50 ml Q15M PRN IV DECREASED GLUCOSE; Start 11/10/18 at 11:30 Glucagon (Glucagen) 1 mg Q15M PRN IM DECREASED GLUCOSE; Start 11/10/18 at 11:30 Glucose (Glutose) 15 gm Q15M PRN BUCCAL DECREASED GLUCOSE; Start 11/10/18 at 11:30 Atorvastatin Calcium (Lipitor) 20 mg QHS PO Last administered on 11/16/18 20:40; Admin Dose 20 MG; Start 11/11/18 at 21:00 Apixaban (Eliquis) 5 mg BID PO Last administered on 11/17/18 08:53; Admin Dose 5 MG; Start 11/11/18 at 21:00 Insulin Aspart (Novolog Insulin Pen) NOVOLOG *MILD* ALGORITHM WITH MEALS BEDTIME SC Last administered on 11/16/18 18:00; Admin Dose 1 UNIT; Start 11/11/18 at 17:55 Lorazepam (Ativan) 0.5 mg Q6H PRN PO ANXIETY Last administered on 11/16/18 20:48; Admin Dose 0.5 MG; Start 11/11/18 at 21:00 Diltiazem HCl (Cardizem Iv) 5 mg Q4 PRN IV HR>110 Hold SBP<100; Start 11/12/18 at 16:30 Mupirocin (Bactroban) 1 applic BID TOP Last administered on 11/17/18 08:53; Admin Dose 1 APPLIC; Start 11/12/18 at 21:00 Levalbuterol (Xopenex Neb) 0.63 mg Q6H RESP THERAPY HHN Last administered on 11/17/18 13:02; Admin Dose 0.63 MG; Start 11/13/18 at 02:00 Doxycycline Hyclate (Vibramycin) 100 mg BID PO Last administered on 11/17/18 08:54; Admin Dose 100 MG; Start 11/13/18 at 21:00 Diagnostic Test (Pha) (Accu-Chek) 1 ea 02 XX Last administered on 11/17/18 02:58; Admin Dose 1 EA; Start 11/14/18 at 02:00 Diltiazem HCl (Cardizem Cd) 180 mg BID PO Last administered on 11/17/18 08:54; Admin Dose 180 MG; Start 11/14/18 at 21:00 Cefepime HCl 50 ml @ 100 mls/hr Q12H IVPB Last administered on 11/17/18 04:36; Admin Dose 100 MLS/HR; Start 11/14/18 at 18:00 Metoprolol Tartrate (Lopressor) 75 mg BID PO Last administered on 11/17/18 08:54; Admin Dose 75 MG; Start 11/15/18 at 21:00 Insulin Aspart (Novolog Insulin Pen) 3 unit WITH MEALS SC Last administered on 11/17/18 12:33; Admin Dose 3 UNIT; Start 11/16/18 at 08:00 Insulin Glargine (Lantus) 30 units DAILY SC Last administered on 11/17/18 08:56; Admin Dose 30 UNITS; Start 11/16/18 at 09:00 Hydroxyzine HCl (Atarax) 25 mg Q6H PRN PO ITCHING Last administered on 11/17/18 08:55; Admin Dose 25 MG; Start 11/15/18 at 23:00 Furosemide (Lasix) 20 mg DAILY IV Last administered on 6/9/19at 08:55; Admin Dose 20 MG; Start 11/17/18 at 09:00 Dextrose/Sodium Chloride 1,000 ml @ 50 mls/hr Q20H IV Last administered on 11/17/18 08:52; Admin Dose 50 MLS/HR; Start 11/17/18 at 07:30 SHAMIKA RODRIGUEZ NP Nov 17, 2018 15:02
--- NOTE | 2018-11-17 16:37 | CONS ---
Assessment/Plan Assessment/Plan Assessment/Plan (Daily) 1. acute Kidney injury 2. Pneumonia, 3. Pulmonary edema due to possible CHF exacerbation 4. Atrial fibrillation with rapid ventricular response 5. Diabetes 6. Hypertension 7. Transaminitis ?acute chetna Plan: seen in tele floor, IV abx cefepime IVF D51/2 NS atr 50 cc.hr IV lasix 20 mg daiy BNP in AM, CXR in AM to assess for congestion Renally dose all abx and monitor electrolytes, replace as needed Thanks for consultation, I will follow up . Consultation Date/Type/Reason Admit Date/Time Nov 09, 2018 at 17:20 Date of Consultation: Nov 17, 2018 Type of Consult NEPHROLOGY Reason for Consultation Acute kidney injury, Hyponatremia Requesting Provider: ELISABETH ENRIQUEZ MD Date/Time of Note DATE: 11/17/18 TIME: 16:36 Hx of Present Illness 77-year-old female brought in by paramedics from convalescent home with increased heart rate and low back pain. Over the past several days, she has been experiencing tachycardia with heart rates between 110 and 230. She has a recent diagnosis of displaced intertrochanteric fracture of the right femur with no surgical intervention. She has a known history of atrial fibrillation and has a nonproductive cough.pt gets admitted for sepsis has been gettign iV cefepime, BUN/Cr today was 25/1.13- renal has been consulted for acute kidney injury, Electrolyte imbalance. Past Medical History Home Meds Reported Medications Zinc Sulfate* (Zinc Sulfate*) 220 Mg Tablet, 220 MG PO DAILY, TAB 11/09/18 Cholecalciferol* (Vitamin D3*) 1,000 Unit Tablet, 2000 UNIT PO DAILY, TAB 11/09/18 Sennosides* (Senna Lax*) 8.6 Mg Tablet, 1 TAB PO DAILY PRN for CONSTIPATION, TAB 11/09/18 Hydrocodone/Acetaminophen ([place] 5-325 Tablet) 1 Each Tablet, 1 TAB PO Q4 PRN for PAIN LEVEL 7-10, TAB 11/09/18 Multivit-Min/Iron Fum/Folic AC (Qlqlt-Pytfsmv-Oatfqdty Tablet) 1 Each Tablet, 1 TAB PO DAILY, TAB 11/09/18 Metoprolol Tartrate* (Lopressor*) 25 Mg Tablet, 25 MG PO BID, #60 TAB 11/09/18 Furosemide* (Lasix*) 20 Mg Tablet, 20 MG PO DAILY, TAB 11/09/18 Insulin Glargine* (Lantus*) 100 Unit/Ml Soln, 32 UNIT SC DAILY, #1 VIAL 11/09/18 Insulin Lispro (Humalog Kwikpen U-100) 100 Unit/1 Ml Insuln.pen, 1-12 UNIT SQ AC A for PER SLIDING SCALE, EA 11/09/18 Glipizide* (Glipizide*) 5 Mg Tablet, 5 MG PO BID, TAB 11/09/18 Apixaban* (Eliquis*) 5 Mg Tablet, 5 MG PO BID, TAB 11/09/18 Bisacodyl* (Dulcolax*) 5 Mg Tablet.dr, 10 MG PO DAILY PRN for CONSTIPATION, TAB 11/09/18 Docusate Sodium* (Docusate Sodium*) 100 Mg Capsule, 100 MG PO DAILY, #30 CAP 11/09/18 Diphenhydramine Hcl* (Diphenhydramine Hcl*) 25 Mg Capsule, 25 MG PO Q6 PRN for ITCHING, CAP 11/09/18 Carvedilol* (Coreg*) 6.25 Mg Tablet, 6.25 MG PO BID, #60 TAB 11/09/18 Atorvastatin* (Atorvastatin*) 40 Mg Tablet, 40 MG PO QHS, #30 TAB 11/09/18 Acetaminophen* (Acetaminophen*) 650 Mg Tablet, 650 MG PO Q4 PRN for PAIN AND OR ELEVATED TEMP, #30 TAB 11/09/18 Medications Current Medications IV Flush (NS 3 ml) 3 ml PER PROTOCOL IV ; Start 11/09/18 at 18:00 Ondansetron HCl (Zofran Inj) 4 mg Q6H PRN IV NAUSEA/VOMITING Last administered on 11/15/18at 17:19; Admin Dose 4 MG; Start 11/09/18 at 18:00 Acetaminophen (Tylenol Tab) 650 mg Q6H PRN PO .PAIN 1-3 OR TEMP Last administered on 11/12/18at 06:27; Admin Dose 650 MG; Start 11/09/18 at 18:00 Morphine Sulfate (morphine) 2 mg Q4H PRN IV .PAIN 7-10 Last administered on 11/17/18at 12:27; Admin Dose 2 MG; Start 11/09/18 at 18:00 Bisacodyl (Dulcolax) 10 mg DAILY PRN PO CONSTIPATION Last administered on 04:36; Admin Dose 10 MG; Start 11/10/18 at 11:00 Cholecalciferol (Vitamin D) 2,000 unit DAILY PO Last administered on 11/17/18 08:54; Admin Dose 2,000 UNIT; Start 11/11/18 at 09:00 Docusate Sodium (Colace) 100 mg DAILY PO Last administered on 11/16/18 09:05; Admin Dose 100 MG; Start 11/11/18 at 09:00 Senna (Senokot) 1 tab DAILY PRN PO CONSTIPATION Last administered on 11/17/18 00:07; Admin Dose 1 TAB; Start 11/10/18 at 11:00 Zinc Sulfate (Zinc Sulfate) 220 mg DAILY PO Last administered on 11/17/18 08:54; Admin Dose 220 MG; Start 11/11/18 at 09:00 Miscellaneous Information 1 ea NOTE XX Last administered on 11/15/18 12:00; Admin Dose 1 EA; Start 11/10/18 at 11:30 Glucose (Glutose) 15 gm Q15M PRN PO DECREASED GLUCOSE; Start 11/10/18 at 11:30 Glucose (Glutose) 22.5 gm Q15M PRN PO DECREASED GLUCOSE; Start 11/10/18 at 11:30 Dextrose (D50w Syringe) 25 ml Q15M PRN IV DECREASED GLUCOSE Last administered on 11/11/18 13:22; Admin Dose 25 ML; Start 11/10/18 at 11:30 Dextrose (D50w Syringe) 50 ml Q15M PRN IV DECREASED GLUCOSE; Start 11/10/18 at 11:30 Glucagon (Glucagen) 1 mg Q15M PRN IM DECREASED GLUCOSE; Start 11/10/18 at 11:30 Glucose (Glutose) 15 gm Q15M PRN BUCCAL DECREASED GLUCOSE; Start 11/10/18 at 11:30 Atorvastatin Calcium (Lipitor) 20 mg QHS PO Last administered on 11/16/18 2 0:40; Admin Dose 20 MG; Start 11/11/18 at 21:00 Apixaban (Eliquis) 5 mg BID PO Last administered on 11/17/18 08:53; Admin Dose 5 MG; Start 11/11/18 at 21:00 Insulin Aspart (Novolog Insulin Pen) NOVOLOG *MILD* ALGORITHM WITH MEALS BEDTIME SC Last administered on 11/16/18 18:00; Admin Dose 1 UNIT; Start 11/11/18 at 17:55 Lorazepam (Ativan) 0.5 mg Q6H PRN PO ANXIETY Last administered on 11/16/18 20: 48; Admin Dose 0.5 MG; Start 11/11/18 at 21:00 Diltiazem HCl (Cardizem Iv) 5 mg Q4 PRN IV HR>110 Hold SBP<100; Start 11/12/18 at 16:30 Mupirocin (Bactroban) 1 applic BID TOP Last administered on 11/17/18 08:53; Admin Dose 1 APPLIC; Start 11/12/18 at 21:00 Levalbuterol (Xopenex Neb) 0.63 mg Q6H RESP THERAPY HHN Last administered on 11/17/18 13:02; Admin Dose 0.63 MG; Start 11/13/18 at 02:00 Doxycycline Hyclate (Vibramycin) 100 mg BID PO Last administered on 11/17/18 08:54; Admin Dose 100 MG; Start 11/13/18 at 21:00 Diagnostic Test (Pha) (Accu-Chek) 1 ea 02 XX Last administered on 11/17/18 02:5 8; Admin Dose 1 EA; Start 11/14/18 at 02:00 Diltiazem HCl (Cardizem Cd) 180 mg BID PO Last administered on 11/17/18 08:54; Admin Dose 180 MG; Start 11/14/18 at 21:00 Cefepime HCl 50 ml @ 100 mls/hr Q12H IVPB Last administered on 11/17/18 04:36; Admin Dose 100 MLS/HR; Start 11/14/18 at 18:00 Metoprolol Tartrate (Lopressor) 75 mg BID PO Last administered on 11/17/18 08:54; Admin Dose 75 MG; Start 11/15/18 at 21:00 Insulin Aspart (Novolog Insulin Pen) 3 unit WITH MEALS SC Last administered on 11/17/18 12:33; Admin Dose 3 UNIT; Start 11/16/18 at 08:00 Insulin Glargine (Lantus) 30 units DAILY SC Last administered on 11/17/18at 08:56; Admin Dose 30 UNITS; Start 11/16/18 at 09:00 Hydroxyzine HCl (Atarax) 25 mg Q6H PRN PO ITCHING Last administered on 11/17/18at 08:55; Admin Dose 25 MG; Start 11/15/18 at 23:00 Furosemide (Lasix) 20 mg DAILY IV Last administered on 11/17/18at 08:55; Admin Dose 20 MG; Start 11/17/18 at 09:00 Dextrose/Sodium Chloride 1,000 ml @ 50 mls/hr Q20H IV Last administered on 11/17/18at 08:52; Admin Dose 50 MLS/HR; Start 11/17/18 at 07:30 Allergies: Coded Allergies: No Known Allergy (Unverified , 11/16/18) Social History Smoking Status: Never smoker Exam/Review of Systems Exam Vitals Vital Signs Date Temp Pulse Resp B/P (MAP) Pulse Ox O2 O2 Flow FiO2 Time Delivery Rate 11/17/18 98.2 83 18 123/60 99 15:12 (81) 11/17/18 Nasal 2.0 13:02 Cannula 11/17/18 21 02:07 Intake and Output 11/16/18 11/16/18 11/17/18 1515:00 23:00 07:00 IntakeIntake Total 600 ml 750 ml BalanceBalance 600 ml 750 ml Results Result Diagram: 11/17/18 0516 11/17/18 0516 Results 24hrs Laboratory Tests Test 11/16/18 17:40 11/16/18 20:37 11/17/18 02:44 11/17/18 05:16 Bedside Glucose 143 94 123 White Blood Count 10.8 Red Blood Count 3.69 L Hemoglobin 9.9 L Hematocrit 31.1 L Mean Corpuscular Volume 84.3 Mean Corpuscular 26.8 L Hemoglobin Mean Corpuscular 31.8 L Hemoglobin Concent Red Cell Distribution 18.5 H Width Platelet Count 383 Mean Platelet Volume 9.7 Immature Granulocytes % 1.000 H Neutrophils % 57.4 Lymphocytes % 24.6 Monocytes % 9.8 Eosinophils % 6.6 Basophils % 0.6 Nucleated Red Blood 0.0 Cells % Immature Granulocytes # 0.110 H Neutrophils # 6.2 Lymphocytes # 2.7 Monocytes # 1.1 H Eosinophils # 0.7 H Basophils # 0.1 Nucleated Red Blood 0.0 Cells # Sodium Level 135 Potassium Level 3.9 Chloride Level 97 Carbon Dioxide Level 32 H Anion Gap 6 Blood Urea Nitrogen 32 H Creatinine 1.22 H Est Glomerular Filtrat Rate mL/min Glucose Level 80 Calcium Level 8.4 Test 11/17/18 08:51 11/17/18 12:31 Bedside Glucose 104 135 Medications Medication Current Medications IV Flush (NS 3 ml) 3 ml PER PROTOCOL IV ; Start 11/09/18 at 18:00 Ondansetron HCl (Zofran Inj) 4 mg Q6H PRN IV NAUSEA/VOMITING Last administered on 11/15/18 17:19; Admin Dose 4 MG; Start 11/09/18 at 18:00 Acetaminophen (Tylenol Tab) 650 mg Q6H PRN PO .PAIN 1-3 OR TEMP Last administered on 11/12/18 06:27; Admin Dose 650 MG; Start 11/09/18 at 18:00 Morphine Sulfate (morphine) 2 mg Q4H PRN IV .PAIN 7-10 Last administered on 11/17/18 12:27; Admin Dose 2 MG; Start 11/09/18 at 18:00 Bisacodyl (Dulcolax) 10 mg DAILY PRN PO CONSTIPATION Last administered on 11/17/18 04:36; Admin Dose 10 MG; Start 11/10/18 at 11:00 Cholecalciferol (Vitamin D) 2,000 unit DAILY PO Last administered on 11/17/18 08:54; Admin Dose 2,000 UNIT; Start 11/11/18 at 09:00 Docusate Sodium (Colace) 100 mg DAILY PO Last administered on 11/16/18 09:05; Admin Dose 100 MG; Start 11/11/18 at 09:00 Senna (Senokot) 1 tab DAILY PRN PO CONSTIPATION Last administered on 11/17/18 00:07; Admin Dose 1 TAB; Start 11/10/18 at 11:00 Zinc Sulfate (Zinc Sulfate) 220 mg DAILY PO Last administered on 11/17/18 08:54; Admin Dose 220 MG; Start 11/11/18 at 09:00 Miscellaneous Information 1 ea NOTE XX Last administered on 11/15/18 12:00; Admin Dose 1 EA; Start 11/10/18 at 11:30 Glucose (Glutose) 15 gm Q15M PRN PO DECREASED GLUCOSE; Start 11/10/18 at 11:30 Glucose (Glutose) 22.5 gm Q15M PRN PO DECREASED GLUCOSE; Start 11/10/18 at 11:30 Dextrose (D50w Syringe) 25 ml Q15M PRN IV DECREASED GLUCOSE Last administered on 11/11/18at 13:22; Admin Dose 25 ML; Start 11/10/18 at 11:30 Dextrose (D50w Syringe) 50 ml Q15M PRN IV DECREASED GLUCOSE; Start 11/10/18 at 11:30 Glucagon (Glucagen) 1 mg Q15M PRN IM DECREASED GLUCOSE; Start 11/10/18 at 11:30 Glucose (Glutose) 15 gm Q15M PRN BUCCAL DECREASED GLUCOSE; Start 11/10/18 at 11:30 Atorvastatin Calcium (Lipitor) 20 mg QHS PO Last administered on 11/16/18at 20:40; Admin Dose 20 MG; Start 11/11/18 at 21:00 Apixaban (Eliquis) 5 mg BID PO Last administered on 11/17/18 08:53; Admin Dose 5 MG; Start 11/11/18 at 21:00 Insulin Aspart (Novolog Insulin Pen) NOVOLOG *MILD* ALGORITHM WITH MEALS BEDT MARJORIE SC Last administered on 11/16/18 18:00; Admin Dose 1 UNIT; Start 11/11/18 at 17:55 Lorazepam (Ativan) 0.5 mg Q6H PRN PO ANXIETY Last administered on 11/16/18 20:48; Admin Dose 0.5 MG; Start 11/11/18 at 21:00 Diltiazem HCl (Cardizem Iv) 5 mg Q4 PRN IV HR>110 Hold SBP<100; Start 11/12/18 at 16:30 Mupirocin (Bactroban) 1 applic BID TOP Last administered on 11/17/18 08:53; Admin Dose 1 APPLIC; Start 11/12/18 at 21:00 Levalbuterol (Xopenex Neb) 0.63 mg Q6H RESP THERAPY HHN Last administered on 11/17/18at 13:02; Admin Dose 0.63 MG; Start 11/13/18 at 02:00 Doxycycline Hyclate (Vibramycin) 100 mg BID PO Last administered on 11/17/18 08:54; Admin Dose 100 MG; Start 11/13/18 at 21:00 Diagnostic Test (Pha) (Accu-Chek) 1 ea 02 XX Last administered on 11/17/18 02:58; Admin Dose 1 EA; Start 11/14/18 at 02:00 Diltiazem HCl (Cardizem Cd) 180 mg BID PO Last administered on 11/17/18 08:54; Admin Dose 180 MG; Start 11/14/18 at 21:00 Cefepime HCl 50 ml @ 100 mls/hr Q12H IVPB Last administered on 11/17/18 04:36; Admin Dose 100 MLS/HR; Start 11/14/18 at 18:00 Metoprolol Tartrate (Lopressor) 75 mg BID PO Last administered on 11/17/18 08:54; Admin Dose 75 MG; Start 11/15/18 at 21:00 Insulin Aspart (Novolog Insulin Pen) 3 unit WITH MEALS SC Last administered on 11/17/18 12:33; Admin Dose 3 UNIT; Start 11/16/18 at 08:00 Insulin Glargine (Lantus) 30 units DAILY SC Last administered on 11/17/18 08:5 6; Admin Dose 30 UNITS; Start 11/16/18 at 09:00 Hydroxyzine HCl (Atarax) 25 mg Q6H PRN PO ITCHING Last administered on 11/17/18 08:55; Admin Dose 25 MG; Start 11/15/18 at 23:00 Furosemide (Lasix) 20 mg DAILY IV Last administered on 11/17/18 08:55; Admin Dose 20 MG; Start 11/17/18 at 09:00 Dextrose/Sodium Chloride 1,000 ml @ 50 mls/hr Q20H IV Last administered on 11/17/18 08:52; Admin Dose 50 MLS/HR; Start 11/17/18 at 07:30 TERESA HERNANDEZ MD Nov 17, 2018 16:37
--- NOTE | 2018-11-17 19:36 | CONS ---
Assessment/Plan Assessment/Plan Assessment/Plan (Daily) IMPRESSION: 1. Abnormal LFT most probably related to fatty liver. I doubt statin is the cause of her abnormal LFT. 2. Atrial fibrillation. 3. Pneumonia. 4. Diabetes mellitus. 5. Hypertension. 6. Sludge in the gallbladder without dilatation of the biliary tree. 7. Pneumonia. Plan Patient's abnormal LFTs related to fatty liver., Her hepatitis serology was negative, will continue statin Liver function test in a.m. Consultation Date/Type/Reason Admit Date/Time Nov 09, 2018 at 17:20 Initial Consult Date Requesting Provider: ELISABETH ENRIQUEZ MD Date/Time of Note DATE: 11/17/18 TIME: 19:35 24 HR Interval Summary Constitutional: no complaints, improved Exam/Review of Systems Exam Vitals Vital Signs Date Temp Pulse Resp B/P (MAP) Pulse Ox O2 O2 Flow FiO2 Time Delivery Rate 11/17/18 68 16:00 11/17/18 98.2 18 123/60 99 15:12 (81) 11/17/18 Nasal 2.0 13:02 Cannula 11/17/18 21 02:07 Intake and Output 11/16/18 11/16/18 11/17/18 1515:00 23:00 07:00 IntakeIntake Total 600 ml 750 ml BalanceBalance 600 ml 750 ml Constitutional: alert, oriented, well developed Psych: no complaints, nl mood/affect Head: normocephalic, atraumatic Eyes: nl conjunctiva, EOMI, nl lids, nl sclera, PERRL ENMT: nl external ears & nose, nl lips & teeth, nl nasal mucosa & septum Neck: supple, non-tender Respiratory: clear to auscultation, normal air movement Cardiovascular: regular rate and rhythm, nl pulses Gastrointestinal: soft, nl liver, spleen, non-tender Musculoskeletal: nl extremities to inspection, nl gait and stance Extremities: normal pulses Neurological: DENTAL AMALGAM PROCESSOR II-XII intact, nl mental status, nl speech, nl strength Skin: nl turgor; No rash or lesions Lymph: nl lymph nodes Results Result Diagram: 11/17/18 0516 11/17/18 0516 Results 24hrs Laboratory Tests Test 11/16/18 20:37 11/17/18 02:44 11/17/18 05:16 11/17/18 08:51 Bedside Glucose 94 123 104 White Blood Count 10.8 Red Blood Count 3.69 L Hemoglobin 9.9 L Hematocrit 31.1 L Mean Corpuscular Volume 84.3 Mean Corpuscular 26.8 L Hemoglobin Mean Corpuscular 31.8 L Hemoglobin Concent Red Cell Distribution 18.5 H Width Platelet Count 383 Mean Platelet Volume 9.7 Immature Granulocytes % 1.000 H Neutrophils % 57.4 Lymphocytes % 24.6 Monocytes % 9.8 Eosinophils % 6.6 Basophils % 0.6 Nucleated Red Blood 0.0 Cells % Immature Granulocytes # 0.110 H Neutrophils # 6.2 Lymphocytes # 2.7 Monocytes # 1.1 H Eosinophils # 0.7 H Basophils # 0.1 Nucleated Red Blood 0.0 Cells # Sodium Level 135 Potassium Level 3.9 Chloride Level 97 Carbon Dioxide Level 32 H Anion Gap 6 Blood Urea Nitrogen 32 H Creatinine 1.22 H Est Glomerular Filtrat Rate mL/min Glucose Level 80 Calcium Level 8.4 Test 11/17/18 12:31 11/17/18 17:30 Bedside Glucose 135 147 Medications Medication Current Medications IV Flush (NS 3 ml) 3 ml PER PROTOCOL IV ; Start 11/09/18 at 18:00 Ondansetron HCl (Zofran Inj) 4 mg Q6H PRN IV NAUSEA/VOMITING Last administered on 11/15/18 17:19; Admin Dose 4 MG; Start 11/09/18 at 18:00 Acetaminophen (Tylenol Tab) 650 mg Q6H PRN PO .PAIN 1-3 OR TEMP Last administered on 11/12/18 06:27; Admin Dose 650 MG; Start 11/09/18 at 18:00 Morphine Sulfate (morphine) 2 mg Q4H PRN IV .PAIN 7-10 Last administered on 11/17/18at 12:27; Admin Dose 2 MG; Start 11/09/18 at 18:00 Bisacodyl (Dulcolax) 10 mg DAILY PRN PO CONSTIPATION Last administered on 11/17/18at 04:36; Admin Dose 10 MG; Start 11/10/18 at 11:00 Cholecalciferol (Vitamin D) 2,000 unit DAILY PO Last administered on 11/17/18at 08:54; Admin Dose 2,000 UNIT; Start 11/11/18 at 09:00 Docusate Sodium (Colace) 100 mg DAILY PO Last administered on 11/16/18 09:05; Admin Dose 100 MG; Start 11/11/18 at 09:00 Senna (Senokot) 1 tab DAILY PRN PO CONSTIPATION Last administered on 11/17/18 00:07; Admin Dose 1 TAB; Start 11/10/18 at 11:00 Zinc Sulfate (Zinc Sulfate) 220 mg DAILY PO Last administered on 11/17/18 08:54; Admin Dose 220 MG; Start 11/11/18 at 09:00 Miscellaneous Information 1 ea NOTE XX Last administered on 11/15/18 12:00; Admin Dose 1 EA; Start 11/10/18 at 11:30 Glucose (Glutose) 15 gm Q15M PRN PO DECREASED GLUCOSE; Start 11/10/18 at 11:30 Glucose (Glutose) 22.5 gm Q15M PRN PO DECREASED GLUCOSE; Start 11/10/18 at 11:30 Dextrose (D50w Syringe) 25 ml Q15M PRN IV DECREASED GLUCOSE Last administered on 11/11/18 13:22; Admin Dose 25 ML; Start 11/10/18 at 11:30 Dextrose (D50w Syringe) 50 ml Q15M PRN IV DECREASED GLUCOSE; Start 11/10/18 at 11:30 Glucagon (Glucagen) 1 mg Q15M PRN IM DECREASED GLUCOSE; Start 11/10/18 at 11:30 Glucose (Glutose) 15 gm Q15M PRN BUCCAL DECREASED GLUCOSE; Start 11/10/18 at 11:30 Atorvastatin Calcium (Lipitor) 20 mg QHS PO Last administered on 11/16/18 20:40; Admin Dose 20 MG; Start 11/11/18 at 21:00 Apixaban (Eliquis) 5 mg BID PO Last administered on 11/17/18 08:53; Admin Dose 5 MG; Start 11/11/18 at 21:00 Insulin Aspart (Novolog Insulin Pen) NOVOLOG *MILD* ALGORITHM WITH MEALS BEDTIME SC Last administered on 11/17/18 17:31; Admin Dose 1 UNIT; Start 11/11/18 at 17:55 Lorazepam (Ativan) 0.5 mg Q6H PRN PO ANXIETY Last administered on 11/16/18 20:48; Admin Dose 0.5 MG; Start 11/11/18 at 21:00 Diltiazem HCl (Cardizem Iv) 5 mg Q4 PRN IV HR>110 Hold SBP<100; Start 11/12/18 at 16:30 Mupirocin (Bactroban) 1 applic BID TOP Last administered on 11/17/18 08:53; Admin Dose 1 APPLIC; Start 11/12/18 at 21:00 Levalbuterol (Xopenex Neb) 0.63 mg Q6H RESP THERAPY HHN Last administered on 11/17/18 13:02; Admin Dose 0.63 MG; Start 11/13/18 at 02:00 Doxycycline Hyclate (Vibramycin) 100 mg BID PO Last administered on 11/17/18 08:54; Admin Dose 100 MG; Start 11/13/18 at 21:00 Diagnostic Test (Pha) (Accu-Chek) 1 ea 02 XX Last administered on 11/17/18 02:58; Admin Dose 1 EA; Start 11/14/18 at 02:00 Diltiazem HCl (Cardizem Cd) 180 mg BID PO Last administered on 11/17/18 08:54; Admin Dose 180 MG; Start 11/14/18 at 21:00 Cefepime HCl 50 ml @ 100 mls/hr Q12H IVPB Last administered on 11/17/18 17:29; Admin Dose 100 MLS/HR; Start 11/14/18 at 18:00 Metoprolol Tartrate (Lopressor) 75 mg BID PO Last administered on 11/17/18 08:54; Admin Dose 75 MG; Start 11/15/18 at 21:00 Insulin Aspart (Novolog Insulin Pen) 3 unit WITH MEALS SC Last administered on 11/17/18 17:32; Admin Dose 3 UNIT; Start 11/16/18 at 08:00 Insulin Glargine (Lantus) 30 units DAILY SC Last administered on 11/17/18 08:56; Admin Dose 30 UNITS; Start 11/16/18 at 09:00 Hydroxyzine HCl (Atarax) 25 mg Q6H PRN PO ITCHING Last administered on 11/17/18 17:31; Admin Dose 25 MG; Start 11/15/18 at 23:00 Furosemide (Lasix) 20 mg DAILY IV Last administered on 11/17/18 08:55; Admin Dose 20 MG; Start 11/17/18 at 09:00 Dextrose/Sodium Chloride 1,000 ml @ 50 mls/hr Q20H IV Last administered on 11/17/18at 08:52; Admin Dose 50 MLS/HR; Start 11/17/18 at 07:30 JASMIN MARTINEZ MD Nov 17, 2018 19:36
[2018-11-17] MEDS: ATORVASTATIN 20 MG TAB PO SCH (20:51)
[2018-11-17] MEDS: LORAZEPAM 0.5 MG TAB PO PRN (20:51)
[2018-11-17] MEDS: ACETAMINOPHEN 325 MG TAB PO PRN (20:51)
[2018-11-18] VITALS (11 sets, daily range): BP systolic 106–130; BP diastolic 46–66; PULSE 64–78; RESP 16–20
[2018-11-18] MEDS: ACCU-CHEK XX SCH (02:00)
[2018-11-18] MEDS: LEVALBUTEROL (NEB) 0.63 MG/3 ML AMP HHN SCH ×4 (02:02→21:13)
[2018-11-18] MEDS: hydrOXYzine HCL 25 MG TAB PO PRN ×3 (02:50→19:39)
[2018-11-18] MEDS: BISACODYL (EC) 5 MG TAB PO PRN (02:50)
[2018-11-18] MEDS: DEXTROSE 5%-0.45% NACL 1,000 ML IV SCH ×3 (03:30→23:30)
[2018-11-18] MEDS: CEFEPIME 1GM/50 ML (PMX) 50 ML IVPB SCH (04:58)
[2018-11-18] MEDS: ACETAMINOPHEN 325 MG TAB PO PRN ×2 (04:58→19:39)
[2018-11-18] MEDS: INSULIN ASPART [NOVOLOG] 3 ML PEN SC SCH ×7 (08:00→20:44)
[2018-11-18] MEDS: METOPROLOL 25 MG TAB PO SCH ×2 (09:00→20:43)
[2018-11-18] MEDS: DILTIAZEM (CD) 180 MG CAP PO SCH ×2 (09:00→20:43)
[2018-11-18] MEDS: DOCUSATE SODIUM 100 MG CAP PO SCH (09:00)
[2018-11-18] MEDS: ZINC SULFATE 220 MG CAP PO SCH (10:07)
[2018-11-18] MEDS: FUROSEMIDE 20 MG INJ IV SCH (10:08)
[2018-11-18] MEDS: DOXYCYCLINE 100 MG TAB PO SCH (10:14)
[2018-11-18] MEDS: INSULIN GLARGINE [LANTus] (100 UNITS/ML) SYG SC SCH (10:15)
[2018-11-18] MEDS: MUPIROCIN 2% 22 GM OINT TOP SCH ×2 (10:15→20:44)
[2018-11-18] MEDS: CHOLECALCIFEROL 1,000 UNIT TAB PO SCH (10:16)
[2018-11-18] MEDS: APIXABAN 5 MG TABLET PO SCH ×2 (10:17→20:43)
--- NOTE | 2018-11-18 11:33 | CONS ---
Assessment/Plan Assessment/Plan Assessment/Plan (Daily) 1. acute Kidney injury 2. Pneumonia, 3. Pulmonary edema due to possible CHF exacerbation 4. Atrial fibrillation with rapid ventricular response 5. Diabetes 6. Hypertension 7. Transaminitis ?acute chetna Plan: BUN/Cr improved to 47/1.3 IV abx cefepime IVF D51/2 NS atr 50 cc.hr IV lasix 20 mg daiy Renally dose all abx and monitor electrolytes, replace as needed will follow up Consultation Date/Type/Reason Admit Date/Time Nov 09, 2018 at 17:20 Initial Consult Date 11/17/18 Type of Consult NEPHROLOGY Requesting Provider: ELISABETH ENRIQUEZ MD Date/Time of Note DATE: 11/18/18 TIME: 11:32 Exam/Review of Systems Exam Vitals Vital Signs Date Temp Pulse Resp B/P (MAP) Pulse Ox O2 O2 Flow FiO2 Time Delivery Rate 11/18/18 Nasal 2.0 07:41 Cannula 11/18/18 78 18 100 07:40 11/18/18 98.0 106/46 07:19 (66) 11/17/18 21 02:07 Intake and Output 11/17/18 11/17/18 11/18/18 1515:00 23:00 07:00 IntakeIntake Total 750 ml 1450 ml BalanceBalance 750 ml 1450 ml Results Result Diagram: 11/18/18 0526 11/18/18525 Results 24hrs Laboratory Tests Test 11/17/18 12:31 11/17/18 17:30 11/17/18 20:48 11/18/18 05:26 Bedside Glucose 135 147 89 White Blood Count 10.5 Red Blood Count 3.52 L Hemoglobin 9.4 L Hematocrit 29.2 L Mean Corpuscular 83.0 Volume Mean Corpuscular 26.7 L Hemoglobin Mean Corpuscular 32.2 Hemoglobin Concent Red Cell Distribution 18.6 H Width Platelet Count 340 Mean Platelet Volume 9.8 Immature Granulocytes 0.900 H % Neutrophils % 56.4 Lymphocytes % 23.7 Monocytes % 11.3 H Eosinophils % 7.3 H Basophils % 0.4 Nucleated Red Blood 0.0 Cells % Immature Granulocytes 0.090 H # Neutrophils # 6.0 Lymphocytes # 2.5 Monocytes # 1.2 H Eosinophils # 0.8 H Basophils # 0.0 Nucleated Red Blood 0.0 Cells # Prothrombin Time 23.8 H Prothrombin Time Ratio 1.9 INR International 2.12 Normalized Ratio Activated 62.0 H Partial Thromboplast Time Sodium Level 133 L Potassium Level 4.2 Chloride Level 96 L Carbon Dioxide Level 30 Anion Gap 7 Blood Urea Nitrogen 47 #H Creatinine 1.43 H Est Glomerular Filtrat Rate mL/min Glucose Level 130 # Calcium Level 7.9 L Magnesium Level 2.2 Total Bilirubin 0.5 Direct Bilirubin 0.00 Indirect Bilirubin 0.5 Aspartate Amino 94 H Transf (AST/SGOT) Alanine 113 H Aminotransferase (ALT/ SGPT) Alkaline Phosphatase 154 H B-Type Natriuretic 2600 H Peptide Total Protein 6.1 Albumin 2.6 L Globulin 3.50 H Albumin/Globulin Ratio 0.74 Test 11/18/18 10:05 Bedside Glucose 116 Medications Medication Current Medications IV Flush (NS 3 ml) 3 ml PER PROTOCOL IV ; Start 11/09/18 at 18:00 Ondansetron HCl (Zofran Inj) 4 mg Q6H PRN IV NAUSEA/VOMITING Last administered on 11/15/18 17:19; Admin Dose 4 MG; Start 11/09/18 at 18:00 Acetaminophen (Tylenol Tab) 650 mg Q6H PRN PO .PAIN 1-3 OR TEMP Last administered on 11/18/18 04:58; Admin Dose 650 MG; Start 11/09/18 at 18:00 Morphine Sulfate (morphine) 2 mg Q4H PRN IV .PAIN 7-10 Last administered on 11/17/18 12:27; Admin Dose 2 MG; Start 11/09/18 at 18:00 Bisacodyl (Dulcolax) 10 mg DAILY PRN PO CONSTIPATION Last administered on 11/18/18at 02:50; Admin Dose 10 MG; Start 11/10/18 at 11:00 Cholecalciferol (Vitamin D) 2,000 unit DAILY PO Last administered on 11/18/18 10:16; Admin Dose 2,000 UNIT; Start 11/11/18 at 09:00 Docusate Sodium (Colace) 100 mg DAILY PO Last administered on 11/16/18 09:05; Admin Dose 100 MG; Start 11/11/18 at 09:00 Senna (Senokot) 1 tab DAILY PRN PO CONSTIPATION Last administered on 11/17/18 00:07; Admin Dose 1 TAB; Start 11/10/18 at 11:00 Zinc Sulfate (Zinc Sulfate) 220 mg DAILY PO Last administered on 11/18/18 10:07; Admin Dose 220 MG; Start 11/11/18 at 09:00 Miscellaneous Information 1 ea NOTE XX Last administered on 11/15/18 12:00; Admin Dose 1 EA; Start 11/10/18 at 11:30 Glucose (Glutose) 15 gm Q15M PRN PO DECREASED GLUCOSE; Start 11/10/18 at 11:30 Glucose (Glutose) 22.5 gm Q15M PRN PO DECREASED GLUCOSE; Start 11/10/18 at 11:30 Dextrose (D50w Syringe) 25 ml Q15M PRN IV DECREASED GLUCOSE Last administered on 11/11/18 13:22; Admin Dose 25 ML; Start 11/10/18 at 11:30 Dextrose (D50w Syringe) 50 ml Q15M PRN IV DECREASED GLUCOSE; Start 11/10/18 at 11:30 Glucagon (Glucagen) 1 mg Q15M PRN IM DECREASED GLUCOSE; Start 11/10/18 at 11:30 Glucose (Glutose) 15 gm Q15M PRN BUCCAL DECREASED GLUCOSE; Start 11/10/18 at 11:30 Atorvastatin Calcium (Lipitor) 20 mg QHS PO Last administered on 11/17/18 20:51; Admin Dose 20 MG; Start 11/11/18 at 21:00 Apixaban (Eliquis) 5 mg BID PO Last administered on 11/18/18 10:17; Admin Dose 5 MG; Start 11/11/18 at 21:00 Insulin Aspart (Novolog Insulin Pen) NOVOLOG *MILD* ALGORITHM WITH MEALS BEDTIME SC Last administered on 11/17/18 17:31; Admin Dose 1 UNIT; Start 11/11/18 at 17:55 Lorazepam (Ativan) 0.5 mg Q6H PRN PO ANXIETY Last administered on 11/17/18 20:51; Admin Dose 0.5 MG; Start 11/11/18 at 21:00 Diltiazem HCl (Cardizem Iv) 5 mg Q4 PRN IV HR>110 Hold SBP<100; Start 11/12/18 at 16:30 Mupirocin (Bactroban) 1 applic BID TOP Last administered on 11/18/18 10:15; Admin Dose 1 APPLIC; Start 11/12/18 at 21:00 Levalbuterol (Xopenex Neb) 0.63 mg Q6H RESP THERAPY HHN Last administered on 11/18/18 07:40; Admin Dose 0.63 MG; Start 11/13/18 at 02:00 Doxycycline Hyclate (Vibramycin) 100 mg BID PO Last administered on 11/18/18 10:14; Admin Dose 100 MG; Start 11/13/18 at 21:00 Diagnostic Test (Pha) (Accu-Chek) 1 ea 02 XX Last administered on 11/17/18 02:58; Admin Dose 1 EA; Start 11/14/18 at 02:00 Diltiazem HCl (Cardizem Cd) 180 mg BID PO Last administered on 11/17/18 20:51; Admin Dose 180 MG; Start 11/14/18 at 21:00 Cefepime HCl 50 ml @ 100 mls/hr Q12H IVPB Last administered on 11/18/18 04:58; Admin Dose 100 MLS/HR; Start 11/14/18 at 18:00 Metoprolol Tartrate (Lopressor) 75 mg BID PO Last administered on 11/17/18 20:51; Admin Dose 75 MG; Start 11/15/18 at 21:00 Insulin Aspart (Novolog Insulin Pen) 3 unit WITH MEALS SC Last administered on 11/18/18 10:13; Admin Dose 3 UNIT; Start 11/16/18 at 08:00 Insulin Glargine (Lantus) 30 units DAILY SC Last administered on 11/18/18 10:15; Admin Dose 30 UNITS; Start 11/16/18 at 09:00 Hydroxyzine HCl (Atarax) 25 mg Q6H PRN PO ITCHING Last administered on 10:14; Admin Dose 25 MG; Start 11/15/18 at 23:00 Furosemide (Lasix) 20 mg DAILY IV Last administered on 11/18/18 10:08; Admin Dose 20 MG; Start 11/17/18 at 09:00 Dextrose/Sodium Chloride 1,000 ml @ 50 mls/hr Q20H IV Last administered on 11/17/18 08:52; Admin Dose 50 MLS/HR; Start 11/17/18 at 07:30 TERESA HERNANDEZ MD Nov 18, 2018 11:32
--- NOTE | 2018-11-18 11:57 | CONS ---
Assessment/Plan Assessment/Plan Hospital Course (Demo Recall) IMPRESSION: 1. Atrial fibrillation/atrial flutter- neg trop x 3. Now with improved rate control. NL EF by echo 2. Hypertension, controlled. 3. Congestive heart failure, diastolic, acute on chronic. 4. Coagulopathy secondary to Eliquis. 5. ARF-worsening 6. Increased liver function tests. 7. Increased BNP. 8. Anemia, mild, worsening. 9. abd pain Recc: -Tele -serial ecg's -Continiue BB and CCB and current doses and follow HR/BP closely -Contineu eliquis -Contneu abx's and f/u cx data -ON IVF. Will hold lasix and follow volume status given worsening renal failure -Renal following Consultation Date/Type/Reason Admit Date/Time Nov 09, 2018 at 17:20 Initial Consult Date 11/12/18 Type of Consult Cardiology Reason for Consultation AF Requesting Provider: ELISABETH ENRIQUEZ MD Date/Time of Note DATE: 11/18/18 TIME: 11:54 Exam/Review of Systems Vital Signs Vitals Vital Signs Date Temp Pulse Resp B/P (MAP) Pulse Ox O2 O2 Flow FiO2 Time Delivery Rate 11/18/18 98.2 68 16 119/66 96 11:34 (83) 11/18/18 Nasal 2.0 07:41 Cannula 11/17/18 21 02:07 Intake and Output 11/17/18 11/17/18 11/18/18 1515:00 23:00 07:00 IntakeIntake Total 750 ml 1450 ml BalanceBalance 750 ml 1450 ml Exam Exam Review of Systems: CONSTITUTIONAL: No fevers, chills. PULMONARY: No sob CARDIOVASCULAR: No chest pain/palpitations GASTROINTESTINAL: No nausea/vomiting. GENITOURINARY: No hematuria/dysuria. MUSCULOSKELETAL: No myagias/arthalgias. PSYCHIATRIC: The patient denies depression. NEUROLOGIC: somewhat lethargic Constitutional: other (sleeping, arousable) Psych: no complaints Head: normocephalic ENMT: mucosa pink and moist Neck: supple, jvd Respiratory: diminished breath sounds (at bases/B) Cardiovascular: regular rate and rhythm Gastrointestinal: soft, non-tender Musculoskeletal: muscle weakness (mild generalized) Extremities: edema (none) Labs Result Diagram: 11/18/1852511/18/18525 Results 24hrs Laboratory Tests Test 11/17/18 12:31 11/17/18 17:30 11/17/18 20:48 11/18/18 05:26 Bedside Glucose 135 147 89 White Blood Count 10.5 Red Blood Count 3.52 L Hemoglobin 9.4 L Hematocrit 29.2 L Mean Corpuscular 83.0 Volume Mean Corpuscular 26.7 L Hemoglobin Mean Corpuscular 32.2 Hemoglobin Concent Red Cell Distribution 18.6 H Width Platelet Count 340 Mean Platelet Volume 9.8 Immature Granulocytes 0.900 H % Neutrophils % 56.4 Lymphocytes % 23.7 Monocytes % 11.3 H Eosinophils % 7.3 H Basophils % 0.4 Nucleated Red Blood 0.0 Cells % Immature Granulocytes 0.090 H # Neutrophils # 6.0 Lymphocytes # 2.5 Monocytes # 1.2 H Eosinophils # 0.8 H Basophils # 0.0 Nucleated Red Blood 0.0 Cells # Prothrombin Time 23.8 H Prothrombin Time Ratio 1.9 INR International 2.12 Normalized Ratio Activated 62.0 H Partial Thromboplast Time Sodium Level 133 L Potassium Level 4.2 Chloride Level 96 L Carbon Dioxide Level 30 Anion Gap 7 Blood Urea Nitrogen 47 #H Creatinine 1.43 H Est Glomerular Filtrat Rate mL/min Glucose Level 130 # Calcium Level 7.9 L Magnesium Level 2.2 Total Bilirubin 0.5 Direct Bilirubin 0.00 Indirect Bilirubin 0.5 Aspartate Amino 94 H Transf (AST/SGOT) Alanine 113 H Aminotransferase (ALT/ SGPT) Alkaline Phosphatase 154 H B-Type Natriuretic 2600 H Peptide Total Protein 6.1 Albumin 2.6 L Globulin 3.50 H Albumin/Globulin Ratio 0.74 Test 11/18/18 10:05 Bedside Glucose 116 Medications Medications Current Medications IV Flush (NS 3 ml) 3 ml PER PROTOCOL IV ; Start 11/09/18 at 18:00 Ondansetron HCl (Zofran Inj) 4 mg Q6H PRN IV NAUSEA/VOMITING Last administered on 11/15/18at 17:19; Admin Dose 4 MG; Start 11/09/18 at 18:00 Acetaminophen (Tylenol Tab) 650 mg Q6H PRN PO .PAIN 1-3 OR TEMP Last admi nistered on 11/18/18at 04:58; Admin Dose 650 MG; Start 11/09/18 at 18:00 Morphine Sulfate (morphine) 2 mg Q4H PRN IV .PAIN 7-10 Last administered on 11/17/18 12:27; Admin Dose 2 MG; Start 11/09/18 at 18:00 Bisacodyl (Dulcolax) 10 mg DAILY PRN PO CONSTIPATION Last administered on 11/18/18 02:50; Admin Dose 10 MG; Start 11/10/18 at 11:00 Cholecalciferol (Vitamin D) 2,000 unit DAILY PO Last administered on 11/18/18 10:16; Admin Dose 2,000 UNIT; Start 11/11/18 at 09:00 Docusate Sodium (Colace) 100 mg DAILY PO Last administered on 11/16/18 09:05; Admin Dose 100 MG; Start 11/11/18 at 09:00 Senna (Senokot) 1 tab DAILY PRN PO CONSTIPATION Last administered on 11/17/18 00:07; Admin Dose 1 TAB; Start 11/10/18 at 11:00 Zinc Sulfate (Zinc Sulfate) 220 mg DAILY PO Last administered on 11/18/18 10:07; Admin Dose 220 MG; Start 11/11/18 at 09:00 Miscellaneous Information 1 ea NOTE XX Last administered on 11/15/18 12:00; Admin Dose 1 EA; Start 11/10/18 at 11:30 Glucose (Glutose) 15 gm Q15M PRN PO DECREASED GLUCOSE; Start 11/10/18 at 11:30 Glucose (Glutose) 22.5 gm Q15M PRN PO DECREASED GLUCOSE; Start 11/10/18 at 11:30 Dextrose (D50w Syringe) 25 ml Q15M PRN IV DECREASED GLUCOSE Last administered o n 11/11/18 13:22; Admin Dose 25 ML; Start 11/10/18 at 11:30 Dextrose (D50w Syringe) 50 ml Q15M PRN IV DECREASED GLUCOSE; Start 11/10/18 at 11:30 Glucagon (Glucagen) 1 mg Q15M PRN IM DECREASED GLUCOSE; Start 11/10/18 at 11:30 Glucose (Glutose) 15 gm Q15M PRN BUCCAL DECREASED GLUCOSE; Start 11/10/18 at 11:30 Atorvastatin Calcium (Lipitor) 20 mg QHS PO Last administered on 11/17/18at 20:51; Admin Dose 20 MG; Start 11/11/18 at 21:00 Apixaban (Eliquis) 5 mg BID PO Last administered on 11/18/18 10:17; Admin Dose 5 MG; Start 11/11/18 at 21:00 Insulin Aspart (Novolog Insulin Pen) NOVOLOG *MILD* ALGORITHM WITH MEALS BEDTIME SC Last administered on 11/17/18 17:31; Admin Dose 1 UNIT; Start 11/11/18 at 17:55 Lorazepam (Ativan) 0.5 mg Q6H PRN PO ANXIETY Last administered on 11/17/18 20:51; Admin Dose 0.5 MG; Start 11/11/18 at 21:00 Diltiazem HCl (Cardizem Iv) 5 mg Q4 PRN IV HR>110 Hold SBP<100; Start 11/12/18 at 16:30 Mupirocin (Bactroban) 1 applic BID TOP Last administered on 11/18/18 10:15; Admin Dose 1 APPLIC; Start 11/12/18 at 21:00 Levalbuterol (Xopenex Neb) 0.63 mg Q6H RESP THERAPY HHN Last administered on 11/18/18 07:40; Admin Dose 0.63 MG; Start 11/13/18 at 02:00 Doxycycline Hyclate (Vibramycin) 100 mg BID PO Last administered on 11/18/18 10:14; Admin Dose 100 MG; Start 11/13/18 at 21:00 Diagnostic Test (Pha) (Accu-Chek) 1 ea 02 XX Last administered on 11/17/18 02:58; Admin Dose 1 EA; Start 11/14/18 at 02:00 Diltiazem HCl (Cardizem Cd) 180 mg BID PO Last administered on 11/17/18 20:51; Admin Dose 180 MG; Start 11/14/18 at 21:00 Cefepime HCl 50 ml @ 100 mls/hr Q12H IVPB Last administered on 11/18/18 04:58; Admin Dose 100 MLS/HR; Start 11/14/18 at 18:00 Metoprolol Tartrate (Lopressor) 75 mg BID PO Last administered on 11/17/18 20:51; Admin Dose 75 MG; Start 11/15/18 at 21:00 Insulin Aspart (Novolog Insulin Pen) 3 unit WITH MEALS SC Last administered on 11/18/18 10:13; Admin Dose 3 UNIT; Start 11/16/18 at 08:00 Insulin Glargine (Lantus) 30 units DAILY SC Last administered on 11/18/18 10:15; Admin Dose 30 UNITS; Start 11/16/18 at 09:00 Hydroxyzine HCl (Atarax) 25 mg Q6H PRN PO ITCHING Last administered on 11/18/18 10:14; Admin Dose 25 MG; Start 11/15/18 at 23:00 Furosemide (Lasix) 20 mg DAILY IV Last administered on 11/18/18 10:08; Admin Dose 20 MG; Start 11/17/18 at 09:00 Dextrose/Sodium Chloride 1,000 ml @ 50 mls/hr Q20H IV Last administered on 11/17/18 08:52; Admin Dose 50 MLS/HR; Start 11/17/18 at 07:30 Zinc Acetate/ Diphenhydramine (Benadryl 2% Cr) 1 applic BID PRN TOP ITCHING; Start 11/18/18 at 12:00 CASSIE URBINA Nov 18, 2018 11:57
[2018-11-18] MEDS: DIPHENHYDRAMINE 2%/ZINC 28.4 GM CR TOP PRN ×2 (12:20→19:40)
[2018-11-18] MEDS: morphine 2 MG INJ IV PRN (12:22)
--- NOTE | 2018-11-18 14:37 | CONS ---
Assessment/Plan Assessment/Plan Hospital Course (Demo Recall) No acute changes, looks comfortable, no fevers Microbiology blood cultures remain negative MRSA swab positive Abx: Cefepime, Doxycycline Physical examination: Well-developed chronically ill-appearing elderly woman who is awake in no distress. Head atraumatic normocephalic sclera nonicteric vehicle mucosa dry neck is supple chest rise symmetrical breath sounds diminished bases. Heart: S1-S2 irregular abdomen soft bowel sounds present extremities without cyanosis Assessment: 1. S/p pneumonia, possible CHF exacerbation 2. Atrial fibrillation with rapid ventricular response 3. MRSA nares colonization 4. Diabetes 5. Hypertension 6. Transaminitis ?acute chetna Plan: Patient is clinically stable, will dc abx, continue topical Bactroban Consultation Date/Type/Reason Admit Date/Time Nov 09, 2018 at 17:20 Initial Consult Date Type of Consult id Requesting Provider: ELISABETH ENRIQUEZ MD Date/Time of Note DATE: 11/18/18 TIME: 14:35 Exam/Review of Systems Exam Vitals Vital Signs Date Temp Pulse Resp B/P (MAP) Pulse Ox O2 O2 Flow FiO2 Time Delivery Rate 11/18/18 68 17 99 Nasal 2.0 13:42 Cannula 11/18/18 98.2 119/66 11:34 (83) 11/17/18 21 02:07 Intake and Output 11/17/18 11/17/18 11/18/18 1515:00 23:00 07:00 IntakeIntake Total 750 ml 1450 ml BalanceBalance 750 ml 1450 ml Results Result Diagram: 11/18/18 0526 11/18/18 0526 Results 24hrs Laboratory Tests Test 11/17/18 17:30 11/17/18 20:48 11/18/18 05:26 11/18/18 10:05 Bedside Glucose 147 89 116 White Blood Count 10.5 Red Blood Count 3.52 L Hemoglobin 9.4 L Hematocrit 29.2 L Mean Corpuscular 83.0 Volume Mean Corpuscular 26.7 L Hemoglobin Mean Corpuscular 32.2 Hemoglobin Concent Red Cell Distribution 18.6 H Width Platelet Count 340 Mean Platelet Volume 9.8 Immature Granulocytes 0.900 H % Neutrophils % 56.4 Lymphocytes % 23.7 Monocytes % 11.3 H Eosinophils % 7.3 H Basophils % 0.4 Nucleated Red Blood 0.0 Cells % Immature Granulocytes 0.090 H # Neutrophils # 6.0 Lymphocytes # 2.5 Monocytes # 1.2 H Eosinophils # 0.8 H Basophils # 0.0 Nucleated Red Blood 0.0 Cells # Prothrombin Time 23.8 H Prothrombin Time 1.9 Ratio INR International 2.12 Normalized Ratio Activated 62.0 H Partial Thromboplast Time Sodium Level 133 L Potassium Level 4.2 Chloride Level 96 L Carbon Dioxide Level 30 Anion Gap 7 Blood Urea Nitrogen 47 #H Creatinine 1.43 H Est Glomerular Filtrat Rate mL/min Glucose Level 130 # Calcium Level 7.9 L Magnesium Level 2.2 Total Bilirubin 0.5 Direct Bilirubin 0.00 Indirect Bilirubin 0.5 Aspartate Amino 94 H Transf (AST/SGOT) Alanine 113 H Aminotransferase (ALT /SGPT) Alkaline Phosphatase 154 H B-Type Natriuretic 2600 H Peptide Total Protein 6.1 Albumin 2.6 L Globulin 3.50 H Albumin/Globulin 0.74 Ratio Test 11/18/18 12:18 Bedside Glucose 159 Medications Medication Current Medications IV Flush (NS 3 ml) 3 ml PER PROTOCOL IV ; Start 11/09/18 at 18:00 Ondansetron HCl (Zofran Inj) 4 mg Q6H PRN IV NAUSEA/VOMITING Last administered on 11/15/18 17:19; Admin Dose 4 MG; Start 11/09/18 at 18:00 Acetaminophen (Tylenol Tab) 650 mg Q6H PRN PO .PAIN 1-3 OR TEMP Last administered on 11/18/18 04:58; Admin Dose 650 MG; Start 11/09/18 at 18:00 Morphine Sulfate (morphine) 2 mg Q4H PRN IV .PAIN 7-10 Last administered on 11/18/18 12:22; Admin Dose 2 MG; Start 11/09/18 at 18:00 Bisacodyl (Dulcolax) 10 mg DAILY PRN PO CONSTIPATION Last administered on 11/18/18 02:50; Admin Dose 10 MG; Start 11/10/18 at 11:00 Cholecalciferol (Vitamin D) 2,000 unit DAILY PO Last administered on 11/18/18 10:16; Admin Dose 2,000 UNIT; Start 11/11/18 at 09:00 Docusate Sodium (Colace) 100 mg DAILY PO Last administered on 11/16/18 09:05; Admin Dose 100 MG; Start 11/11/18 at 09:00 Senna (Senokot) 1 tab DAILY PRN PO CONSTIPATION Last administered on 11/17/18 00:07; Admin Dose 1 TAB; Start 11/10/18 at 11:00 Zinc Sulfate (Zinc Sulfate) 220 mg DAILY PO Last administered on 11/18/18 10:07; Admin Dose 220 MG; Start 11/11/18 at 09:00 Miscellaneous Information 1 ea NOTE XX Last administered on 11/15/18 12:00; Admin Dose 1 EA; Start 11/10/18 at 11:30 Glucose (Glutose) 15 gm Q15M PRN PO DECREASED GLUCOSE; Start 11/10/18 at 11:30 Glucose (Glutose) 22.5 gm Q15M PRN PO DECREASED GLUCOSE; Start 11/10/18 at 11:30 Dextrose (D50w Syringe) 25 ml Q15M PRN IV DECREASED GLUCOSE Last administered on 11/11/18 13:22; Admin Dose 25 ML; Start 11/10/18 at 11:30 Dextrose (D50w Syringe) 50 ml Q15M PRN IV DECREASED GLUCOSE; Start 11/10/18 at 11:30 Glucagon (Glucagen) 1 mg Q15M PRN IM DECREASED GLUCOSE; Start 11/10/18 at 11:30 Glucose (Glutose) 15 gm Q15M PRN BUCCAL DECREASED GLUCOSE; Start 11/10/18 at 11:30 Atorvastatin Calcium (Lipitor) 20 mg QHS PO Last administered on 11/17/18 20:51; Admin Dose 20 MG; Start 11/11/18 at 21:00 Apixaban (Eliquis) 5 mg BID PO Last administered on 11/18/18 10:17; Admin Dose 5 MG; Start 11/11/18 at 21:00 Insulin Aspart (Novolog Insulin Pen) NOVOLOG *MILD* ALGORITHM WITH MEALS BED TIME SC Last administered on 11/18/18 12:21; Admin Dose 1 UNIT; Start 11/11/18 at 17:55 Lorazepam (Ativan) 0.5 mg Q6H PRN PO ANXIETY Last administered on 11/17/18 20:51; Admin Dose 0.5 MG; Start 11/11/18 at 21:00 Diltiazem HCl (Cardizem Iv) 5 mg Q4 PRN IV HR>110 Hold SBP<100; Start 11/12/18 at 16:30 Mupirocin (Bactroban) 1 applic BID TOP Last administered on 11/18/18 10:15; Admin Dose 1 APPLIC; Start 11/12/18 at 21:00 Levalbuterol (Xopenex Neb) 0.63 mg Q6H RESP THERAPY HHN Last administered on 11/18/18 13:42; Admin Dose 0.63 MG; Start 11/13/18 at 02:00 Doxycycline Hyclate (Vibramycin) 100 mg BID PO Last administered on 11/18/18 10:14; Admin Dose 100 MG; Start 11/13/18 at 21:00 Diagnostic Test (Pha) (Accu-Chek) 1 ea 02 XX Last administered on 11/17/18 02:58; Admin Dose 1 EA; Start 11/14/18 at 02:00 Diltiazem HCl (Cardizem Cd) 180 mg BID PO Last administered on 11/17/18 20:51; Admin Dose 180 MG; Start 11/14/18 at 21:00 Cefepime HCl 50 ml @ 100 mls/hr Q12H IVPB Last administered on 11/18/18 04:58; Admin Dose 100 MLS/HR; Start 11/14/18 at 18:00 Metoprolol Tartrate (Lopressor) 75 mg BID PO Last administered on 11/17/18 20:51; Admin Dose 75 MG; Start 11/15/18 at 21:00 Insulin Aspart (Novolog Insulin Pen) 3 unit WITH MEALS SC Last administered on 11/18/18 12:21; Admin Dose 3 UNIT; Start 11/16/18 at 08:00 Insulin Glargine (Lantus) 30 units DAILY SC Last administered on 11/18/18 10:15; Admin Dose 30 UNITS; Start 11/16/18 at 09:00 Hydroxyzine HCl (Atarax) 25 mg Q6H PRN PO ITCHING Last administered on 11/18/18 10:14; Admin Dose 25 MG; Start 11/15/18 at 23:00 Furosemide (Lasix) 20 mg DAILY IV Last administered on 11/18/18 10:08; Admin Dose 20 MG; Start 11/17/18 at 09:00; Status Hold Dextrose/Sodium Chloride 1,000 ml @ 50 mls/hr Q20H IV Last administered on 11/17/18at 08:52; Admin Dose 50 MLS/HR; Start 11/17/18 at 07:30 Zinc Acetate/ Diphenhydramine (Benadryl 2% Cr) 1 applic BID PRN TOP ITCHING Last administered on 11/18/18at 12:20; Admin Dose 1 APPLIC; Start 11/18/18 at 12:00 ZHEN ROSS NP Nov 18, 2018 14:37
--- NOTE | 2018-11-18 15:21 | PN ---
Date/Time of Note Date/Time of Note DATE: 11/18/18 TIME: 15:12 Assessment/Plan VTE Prophylaxis Risk score (from [facility])>0 risk: 8 SCD applied (from [facility]): Yes Pharmacological prophylaxis: apixaban Lines/Catheters IV Catheter Type (from [facility]): Peripheral IV Urinary Cath still in place: No Assessment/Plan Hospital Course Patient with persistent transaminitis, continued on supplemental oxygen, chest x-ray as noted, atrial fibrillation at controlled rate. Assessment/Plan The patient is a 77-year-old female was brought from [facility] for tachycardia. -Pneumonia, continue antibiotics, breathing treatment. -Atrial fibrillation, continue Eliquis and metoprolol -Transaminitis, abdominal ultrasound with Sludge within the gallbladder, thickening of the gallbladder wall and questionable trace pericholecystic fluid. In the right clinical setting, this may suggest acute cholecystitis. No biliary duct dilatation, fatty liver. Dr. Chicas, gastroenterology consultation -Hypertension -Stage I diastolic dysfunction congestive heart failure with preserved ejection fraction -Cardiomegaly -MRSA of nares, Bactroban, contact isolation. -Diabetes mellitus type 2 with hemoglobin A1c of 6.1. Continue Lantus and NovoLog. -Neurocognitive disorder with depressed mood status post psychiatric evaluation. -Obesity with BMI of 35.3 Further recommendations based on clinical course. Plan of care discussed with Dr. Deutsch. Result Diagram: 11/18/1852511/18/18 05 Results 24hrs Laboratory Tests Test 11/17/18 17:30 11/17/18 20:48 11/18/18 05:26 11/18/18 10:05 Bedside Glucose 147 89 116 White Blood Count 10.5 Red Blood Count 3.52 L Hemoglobin 9.4 L Hematocrit 29.2 L Mean Corpuscular 83.0 Volume Mean Corpuscular 26.7 L Hemoglobin Mean Corpuscular 32.2 Hemoglobin Concent Red Cell Distribution 18.6 H Width Platelet Count 340 Mean Platelet Volume 9.8 Immature Granulocytes 0.900 H % Neutrophils % 56.4 Lymphocytes % 23.7 Monocytes % 11.3 H Eosinophils % 7.3 H Basophils % 0.4 Nucleated Red Blood 0.0 Cells % Immature Granulocytes 0.090 H # Neutrophils # 6.0 Lymphocytes # 2.5 Monocytes # 1.2 H Eosinophils # 0.8 H Basophils # 0.0 Nucleated Red Blood 0.0 Cells # Prothrombin Time 23.8 H Prothrombin Time 1.9 Ratio INR International 2.12 Normalized Ratio Activated 62.0 H Partial Thromboplast Time Sodium Level 133 L Potassium Level 4.2 Chloride Level 96 L Carbon Dioxide Level 30 Anion Gap 7 Blood Urea Nitrogen 47 #H Creatinine 1.43 H Est Glomerular Filtrat Rate mL/min Glucose Level 130 # Calcium Level 7.9 L Magnesium Level 2.2 Total Bilirubin 0.5 Direct Bilirubin 0.00 Indirect Bilirubin 0.5 Aspartate Amino 94 H Transf (AST/SGOT) Alanine 113 H Aminotransferase (ALT /SGPT) Alkaline Phosphatase 154 H B-Type Natriuretic 2600 H Peptide Total Protein 6.1 Albumin 2.6 L Globulin 3.50 H Albumin/Globulin 0.74 Ratio Test 11/18/18 12:18 Bedside Glucose 159 Exam/Review of Systems Exam Vitals Vital Signs Date Temp Pulse Resp B/P (MAP) Pulse Ox O2 O2 Flow FiO2 Time Delivery Rate 11/18/18 68 17 99 Nasal 2.0 13:42 Cannula 11/18/18 98.2 119/66 11:34 (83) 11/17/18 21 02:07 Intake and Output 11/17/18 11/17/18 11/18/18 1515:00 23:00 07:00 IntakeIntake Total 750 ml 1450 ml BalanceBalance 750 ml 1450 ml Exam Constitutional: alert, oriented Head: normocephalic Respiratory: diminished breath sounds Cardiovascular: irregular rhythm Gastrointestinal: soft, non-tender Musculoskeletal: nl extremities to inspection Extremities: normal pulses Results Results 24hrs Laboratory Tests Test 11/17/18 17:30 11/17/18 20:48 11/18/18 05:26 11/18/18 10:05 Bedside Glucose 147 89 116 White Blood Count 10.5 Red Blood Count 3.52 L Hemoglobin 9.4 L Hematocrit 29.2 L Mean Corpuscular 83.0 Volume Mean Corpuscular 26.7 L Hemoglobin Mean Corpuscular 32.2 Hemoglobin Concent Red Cell Distribution 18.6 H Width Platelet Count 340 Mean Platelet Volume 9.8 Immature Granulocytes 0.900 H % Neutrophils % 56.4 Lymphocytes % 23.7 Monocytes % 11.3 H Eosinophils % 7.3 H Basophils % 0.4 Nucleated Red Blood 0.0 Cells % Immature Granulocytes 0.090 H # Neutrophils # 6.0 Lymphocytes # 2.5 Monocytes # 1.2 H Eosinophils # 0.8 H Basophils # 0.0 Nucleated Red Blood 0.0 Cells # Prothrombin Time 23.8 H Prothrombin Time 1.9 Ratio INR International 2.12 Normalized Ratio Activated 62.0 H Partial Thromboplast Time Sodium Level 133 L Potassium Level 4.2 Chloride Level 96 L Carbon Dioxide Level 30 Anion Gap 7 Blood Urea Nitrogen 47 #H Creatinine 1.43 H Est Glomerular Filtrat Rate mL/min Glucose Level 130 # Calcium Level 7.9 L Magnesium Level 2.2 Total Bilirubin 0.5 Direct Bilirubin 0.00 Indirect Bilirubin 0.5 Aspartate Amino 94 H Transf (AST/SGOT) Alanine 113 H Aminotransferase (ALT /SGPT) Alkaline Phosphatase 154 H B-Type Natriuretic 2600 H Peptide Total Protein 6.1 Albumin 2.6 L Globulin 3.50 H Albumin/Globulin 0.74 Ratio Test 11/18/18 12:18 Bedside Glucose 159 Medications Medication Current Medications IV Flush (NS 3 ml) 3 ml PER PROTOCOL IV ; Start 11/09/18 at 18:00 Ondansetron HCl (Zofran Inj) 4 mg Q6H PRN IV NAUSEA/VOMITING Last administered on 11/15/18 17:19; Admin Dose 4 MG; Start 11/09/18 at 18:00 Acetaminophen (Tylenol Tab) 650 mg Q6H PRN PO .PAIN 1-3 OR TEMP Last administered on 11/18/18at 04:58; Admin Dose 650 MG; Start 11/09/18 at 18:00 Morphine Sulfate (morphine) 2 mg Q4H PRN IV .PAIN 7-10 Last administered on 11/18/18 12:22; Admin Dose 2 MG; Start 11/09/18 at 18:00 Bisacodyl (Dulcolax) 10 mg DAILY PRN PO CONSTIPATION Last administered on 11/18/18 02:50; Admin Dose 10 MG; Start 11/10/18 at 11:00 Cholecalciferol (Vitamin D) 2,000 unit DAILY PO Last administered on 11/18/18 10:16; Admin Dose 2,000 UNIT; Start 11/11/18 at 09:00 Docusate Sodium (Colace) 100 mg DAILY PO Last administered on 11/16/18 09:05; Admin Dose 100 MG; Start 11/11/18 at 09:00 Senna (Senokot) 1 tab DAILY PRN PO CONSTIPATION Last administered on 11/17/18 00:07; Admin Dose 1 TAB; Start 11/10/18 at 11:00 Zinc Sulfate (Zinc Sulfate) 220 mg DAILY PO Last administered on 11/18/18 10:07; Admin Dose 220 MG; Start 11/11/18 at 09:00 Miscellaneous Information 1 ea NOTE XX Last administered on 11/15/18 12:00; Admin Dose 1 EA; Start 11/10/18 at 11:30 Glucose (Glutose) 15 gm Q15M PRN PO DECREASED GLUCOSE; Start 11/10/18 at 11:30 Glucose (Glutose) 22.5 gm Q15M PRN PO DECREASED GLUCOSE; Start 11/10/18 at 11:30 Dextrose (D50w Syringe) 25 ml Q15M PRN IV DECREASED GLUCOSE Last administered on 11/11/18 13:22; Admin Dose 25 ML; Start 11/10/18 at 11:30 Dextrose (D50w Syringe) 50 ml Q15M PRN IV DECREASED GLUCOSE; Start 11/10/18 at 11:30 Glucagon (Glucagen) 1 mg Q15M PRN IM DECREASED GLUCOSE; Start 11/10/18 at 11:30 Glucose (Glutose) 15 gm Q15M PRN BUCCAL DECREASED GLUCOSE; Start 11/10/18 at 11:30 Atorvastatin Calcium (Lipitor) 20 mg QHS PO Last administered on 11/17/18 20:51; Admin Dose 20 MG; Start 11/11/18 at 21:00 Apixaban (Eliquis) 5 mg BID PO Last administered on 11/18/18 10:17; Admin Dose 5 MG; Start 11/11/18 at 21:00 Insulin Aspart (Novolog Insulin Pen) NOVOLOG *MILD* ALGORITHM WITH MEALS BEDTIME SC Last administered on 11/18/18 12:21; Admin Dose 1 UNIT; Start at 17:55 Lorazepam (Ativan) 0.5 mg Q6H PRN PO ANXIETY Last administered on 11/17/18 20:51; Admin Dose 0.5 MG; Start 11/11/18 at 21:00 Diltiazem HCl (Cardizem Iv) 5 mg Q4 PRN IV HR>110 Hold SBP<100; Start 11/12/18 at 16:30 Mupirocin (Bactroban) 1 applic BID TOP Last administered on 11/18/18 10:15; Admin Dose 1 APPLIC; Start 11/12/18 at 21:00 Levalbuterol (Xopenex Neb) 0.63 mg Q6H RESP THERAPY HHN Last administered on 11/18/18 13:42; Admin Dose 0.63 MG; Start 11/13/18 at 02:00 Diagnostic Test (Pha) (Accu-Chek) 1 ea 02 XX Last administered on 11/17/18 02:58; Admin Dose 1 EA; Start 11/14/18 at 02:00 Diltiazem HCl (Cardizem Cd) 180 mg BID PO Last administered on 11/17/18 20:51; Admin Dose 180 MG; Start 11/14/18 at 21:00 Metoprolol Tartrate (Lopressor) 75 mg BID PO Last administered on 11/17/18 20:51; Admin Dose 75 MG; Start 11/15/18 at 21:00 Insulin Aspart (Novolog Insulin Pen) 3 unit WITH MEALS SC Last administered on 11/18/18 12:21; Admin Dose 3 UNIT; Start 11/16/18 at 08:00 Insulin Glargine (Lantus) 30 units DAILY SC Last administered on 11/18/18 10:15; Admin Dose 30 UNITS; Start 11/16/18 at 09:00 Hydroxyzine HCl (Atarax) 25 mg Q6H PRN PO ITCHING Last administered on 11/09 10:14; Admin Dose 25 MG; Start 11/15/18 at 23:00 Furosemide (Lasix) 20 mg DAILY IV Last administered on 11/18/18 10:08; Admin Dose 20 MG; Start 11/17/18 at 09:00; Status Hold Dextrose/Sodium Chloride 1,000 ml @ 50 mls/hr Q20H IV Last administered on 11/17/18 08:52; Admin Dose 50 MLS/HR; Start 11/17/18 at 07:30 Zinc Acetate/ Diphenhydramine (Benadryl 2% Cr) 1 applic BID PRN TOP ITCHING [place] [facility] administered on 11/18/18 12:20; Admin Dose 1 APPLIC; Start 11/18/18 at 12:00 JAYY SMITH Nov 18, 2018 15:21
--- NOTE | 2018-11-18 17:41 | CONS ---
Assessment/Plan Assessment/Plan Assessment/Plan (Daily) Assessment/Plan (Daily) IMPRESSION: 1. Abnormal LFT most probably related to fatty liver. I doubt statin is the cause of her abnormal LFT. 2. Atrial fibrillation. 3. Pneumonia. 4. Diabetes mellitus. 5. Hypertension. 6. Sludge in the gallbladder without dilatation of the biliary tree. 7. Pneumonia. Plan Patient's abnormal LFTs related to fatty liver., Her hepatitis serology was negative, will continue statin Liver function test remained stable Consultation Date/Type/Reason Admit Date/Time Nov 09, 2018 at 17:20 Initial Consult Date Requesting Provider: ELISABETH ENRIQUEZ MD Date/Time of Note DATE: 11/18/18 TIME: 17:41 24 HR Interval Summary Constitutional: no complaints, improved Exam/Review of Systems Exam Vitals Vital Signs Date Temp Pulse Resp B/P (MAP) Pulse Ox O2 O2 Flow FiO2 Time Delivery Rate 11/18/18 65 16:00 11/18/18 98.1 18 107/58 99 15:38 (74) 11/18/18 Nasal 2.0 13:42 Cannula 11/17/18 21 02:07 Intake and Output 11/17/18 11/17/18 11/18/18 1515:00 23:00 07:00 IntakeIntake Total 750 ml 1450 ml BalanceBalance 750 ml 1450 ml Constitutional: alert, oriented, well developed Psych: no complaints, nl mood/affect Head: normocephalic, atraumatic Eyes: nl conjunctiva, EOMI, nl lids, nl sclera, PERRL ENMT: nl external ears & nose, nl lips & teeth, nl nasal mucosa & septum Neck: supple, non-tender Respiratory: clear to auscultation, normal air movement Cardiovascular: regular rate and rhythm, nl pulses Gastrointestinal: soft, nl liver, spleen, non-tender Musculoskeletal: nl extremities to inspection, nl gait and stance Extremities: normal pulses Neurological: PHYSICAL MEDICINE PHYSICIAN II-XII intact, nl mental status, nl speech, nl strength Skin: nl turgor; No rash or lesions Lymph: nl lymph nodes Results Result Diagram: 11/18/18 0526 11/18/18 05 Results 24hrs Laboratory Tests Test 11/17/18 20:48 11/18/18 05:26 11/18/18 10:05 11/18/18 12:18 Bedside Glucose 89 116 159 White Blood Count 10.5 Red Blood Count 3.52 L Hemoglobin 9.4 L Hematocrit 29.2 L Mean Corpuscular 83.0 Volume Mean Corpuscular 26.7 L Hemoglobin Mean Corpuscular 32.2 Hemoglobin Concent Red Cell 18.6 H Distribution Width Platelet Count 340 Mean Platelet Volume 9.8 Immature 0.900 H Granulocytes % Neutrophils % 56.4 Lymphocytes % 23.7 Monocytes % 11.3 H Eosinophils % 7.3 H Basophils % 0.4 Nucleated Red Blood 0.0 Cells % Immature 0.090 H Granulocytes # Neutrophils # 6.0 Lymphocytes # 2.5 Monocytes # 1.2 H Eosinophils # 0.8 H Basophils # 0.0 Nucleated Red Blood 0.0 Cells # Prothrombin Time 23.8 H Prothrombin Time 1.9 Ratio INR International 2.12 Normalized Ratio Activated 62.0 H Partial Thromboplast Time Sodium Level 133 L Potassium Level 4.2 Chloride Level 96 L Carbon Dioxide Level 30 Anion Gap 7 Blood Urea Nitrogen 47 #H Creatinine 1.43 H Est Glomerular Filtrat Rate mL/min Glucose Level 130 # Calcium Level 7.9 L Magnesium Level 2.2 Total Bilirubin 0.5 Direct Bilirubin 0.00 Indirect Bilirubin 0.5 Aspartate Amino 94 H Transf (AST/SGOT) Alanine 113 H Aminotransferase (AL T/SGPT) Alkaline Phosphatase 154 H B-Type Natriuretic 2600 H Peptide Total Protein 6.1 Albumin 2.6 L Globulin 3.50 H Albumin/Globulin 0.74 Ratio Test 11/18/18 17:31 Bedside Glucose 90 Medications Medication Current Medications IV Flush (NS 3 ml) 3 ml PER PROTOCOL IV ; Start 11/09/18 at 18:00 Ondansetron HCl (Zofran Inj) 4 mg Q6H PRN IV NAUSEA/VOMITING Last administered on 11/15/18 17:19; Admin Dose 4 MG; Start 11/09/18 at 18:00 Acetaminophen (Tylenol Tab) 650 mg Q6H PRN PO .PAIN 1-3 OR TEMP Last administered on 11/18/18at 04:58; Admin Dose 650 MG; Start 11/09/18 at 18:00 Morphine Sulfate (morphine) 2 mg Q4H PRN IV .PAIN 7-10 Last administered on 11/18/18at 12:22; Admin Dose 2 MG; Start 11/09/18 at 18:00 Bisacodyl (Dulcolax) 10 mg DAILY PRN PO CONSTIPATION Last administered on 11/18/18 02:50; Admin Dose 10 MG; Start 11/10/18 at 11:00 Cholecalciferol (Vitamin D) 2,000 unit DAILY PO Last administered on 11/18/18 10:16; Admin Dose 2,000 UNIT; Start 11/11/18 at 09:00 Docusate Sodium (Colace) 100 mg DAILY PO Last administered on 11/16/18 09:05; Admin Dose 100 MG; Start 11/11/18 at 09:00 Senna (Senokot) 1 tab DAILY PRN PO CONSTIPATION Last administered on 11/17/18 00:07; Admin Dose 1 TAB; Start 11/10/18 at 11:00 Zinc Sulfate (Zinc Sulfate) 220 mg DAILY PO Last administered on 11/18/18 10:07; Admin Dose 220 MG; Start 11/11/18 at 09:00 Miscellaneous Information 1 ea NOTE XX Last administered on 11/15/18 12:00; Admin Dose 1 EA; Start 11/10/18 at 11:30 Glucose (Glutose) 15 gm Q15M PRN PO DECREASED GLUCOSE; Start 11/10/18 at 11:30 Glucose (Glutose) 22.5 gm Q15M PRN PO DECREASED GLUCOSE; Start 11/10/18 at 11:30 Dextrose (D50w Syringe) 25 ml Q15M PRN IV DECREASED GLUCOSE Last administered on 11/11/18 13:22; Admin Dose 25 ML; Start 11/10/18 at 11:30 Dextrose (D50w Syringe) 50 ml Q15M PRN IV DECREASED GLUCOSE; Start 11/10/18 at 11:30 Glucagon (Glucagen) 1 mg Q15M PRN IM DECREASED GLUCOSE; Start 11/10/18 at 11:30 Glucose (Glutose) 15 gm Q15M PRN BUCCAL DECREASED GLUCOSE; Start 11/10/18 at 11:30 Atorvastatin Calcium (Lipitor) 20 mg QHS PO Last administered on 11/17/18 20:51; Admin Dose 20 MG; Start 11/11/18 at 21:00 Apixaban (Eliquis) 5 mg BID PO Last administered on 11/18/18 10:17; Admin Dose 5 MG; Start 11/11/18 at 21:00 Insulin Aspart (Novolog Insulin Pen) NOVOLOG *MILD* ALGORITHM WITH MEALS BEDTIME SC Last administered on 11/18/18 12:21; Admin Dose 1 UNIT; Start 11/11/18 at 17:55 Lorazepam (Ativan) 0.5 mg Q6H PRN PO ANXIETY Last administered on 11/17/18 20:51; Admin Dose 0.5 MG; Start 11/11/18 at 21:00 Diltiazem HCl (Cardizem Iv) 5 mg Q4 PRN IV HR>110 Hold SBP<100; Start 11/12/18 at 16:30 Mupirocin (Bactroban) 1 applic BID TOP Last administered on 11/18/18 10:15; Admin Dose 1 APPLIC; Start 11/12/18 at 21:00 Levalbuterol (Xopenex Neb) 0.63 mg Q6H RESP THERAPY HHN Last administered on 11/18/18 13:42; Admin Dose 0.63 MG; Start 11/13/18 at 02:00 Diagnostic Test (Pha) (Accu-Chek) 1 ea 02 XX Last administered on 11/17/18 02:58; Admin Dose 1 EA; Start 11/14/18 at 02:00 Diltiazem HCl (Cardizem Cd) 180 mg BID PO Last administered on 11/17/18 20:51; Admin Dose 180 MG; Start 11/14/18 at 21:00 Metoprolol Tartrate (Lopressor) 75 mg BID PO Last administered on 11/17/18 20:51; Admin Dose 75 MG; Start 11/15/18 at 21:00 Insulin Aspart (Novolog Insulin Pen) 3 unit WITH MEALS SC Last administered on 11/18/18 17:35; Admin Dose 3 UNIT; Start 11/16/18 at 08:00 Insulin Glargine (Lantus) 30 units DAILY SC Last administered on 11/18/18 10:15; Admin Dose 30 UNITS; Start 11/16/18 at 09:00 Hydroxyzine HCl (Atarax) 25 mg Q6H PRN PO ITCHING Last administered on 11/18/18 10:14; Admin Dose 25 MG; Start 11/15/18 at 23:00 Furosemide (Lasix) 20 mg DAILY IV Last administered on 6/10/19at 10:08; Admin Dose 20 MG; Start 11/17/18 at 09:00; Status Hold Dextrose/Sodium Chloride 1,000 ml @ 50 mls/hr Q20H IV Last administered on 11/18/18at 15:44; Admin Dose 50 MLS/HR; Start 11/17/18 at 07:30 Zinc Acetate/ Diphenhydramine (Benadryl 2% Cr) 1 applic BID PRN TOP ITCHING Last administered on 11/18/18 12:20; Admin Dose 1 APPLIC; Start 11/18/18 at 12:00 JASMIN MARTINEZ MD Nov 18, 2018 17:41
[2018-11-18] MEDS: ATORVASTATIN 20 MG TAB PO SCH (20:42)
[2018-11-19] VITALS (12 sets, daily range): BP systolic 112–130; BP diastolic 52–66; PULSE 66–91; RESP 19–20
[2018-11-19] MEDS: LORAZEPAM 0.5 MG TAB PO PRN ×2 (00:25→20:06)
[2018-11-19] MEDS: ACCU-CHEK XX SCH (02:00)
[2018-11-19] MEDS: LEVALBUTEROL (NEB) 0.63 MG/3 ML AMP HHN SCH ×4 (02:17→21:10)
[2018-11-19] MEDS: hydrOXYzine HCL 25 MG TAB PO PRN ×2 (05:34→19:18)
[2018-11-19] MEDS: INSULIN ASPART [NOVOLOG] 3 ML PEN SC SCH ×7 (08:00→20:10)
[2018-11-19] MEDS: INSULIN GLARGINE [LANTus] (100 UNITS/ML) SYG SC SCH (09:00)
[2018-11-19] MEDS: MUPIROCIN 2% 22 GM OINT TOP SCH ×2 (09:00→21:27)
--- NOTE | 2018-11-19 09:00 | CONS ---
Consult Date/Type/Reason Admit Date/Time Nov 09, 2018 at 17:20 Initial Consult Date 11/17/18 Requesting Provider: ELISABETH ENRIQUEZ MD Date/Time of Note DATE: 11/19/18 TIME: 08:57 Subjective NO acute events - pt in a. fib - rete controlled - will monitor clinically now. ROS: No fever, no chills, no nausea, no vomiting, no diarrhea/constipation - mild SOB Objective Vitals Vital Signs Date Temp Pulse Resp B/P (MAP) Pulse Ox O2 O2 Flow FiO2 Time Delivery Rate 11/19/18 76 24 96 21 08:25 11/19/18 97.7 126/63 Room Air 07:16 (84) 11/18/18 2.0 20:32 Intake and Output 11/18/18 11/18/18 11/19/18 1515:00 23:00 07:00 IntakeIntake Total 450 ml 1210 ml BalanceBalance 450 ml 1210 ml Exam General: WN/WD/NAD, AOx 2-3 [place] HEENT: Unicetric/atraumatic/EOMI (follows commands) NECK: JVD elevated, no thyromegaly Lymph: no lymphadenopathy HEART: irregular with no S3, II/ systolic murmur at apex LUNGS: Coarse sounds ABD: soft, NT, ND, +BS : Intact Neuro: non focal SKIN: chronic changes EXT: trace edema Results/Medications Result Diagram: 11/19/18 0505 11/19/18 0505 Results 24 hrs Laboratory Tests Test 11/18/18 10:05 11/18/18 12:18 11/18/18 17:31 11/18/18 20:42 Bedside Glucose 116 159 90 124 Test 11/19/18 05:05 11/19/18 07:56 White Blood Count 10.0 Red Blood Count 3.70 L Hemoglobin 9.7 L Hematocrit 30.5 L Mean Corpuscular 82.4 Volume Mean Corpuscular 26.2 L Hemoglobin Mean Corpuscular 31.8 L Hemoglobin Concent Red Cell 18.6 H Distribution Width Platelet Count 338 Mean Platelet Volume 9.9 Immature 0.900 H Granulocytes % Neutrophils % 59.6 Lymphocytes % 20.7 Monocytes % 9.8 Eosinophils % 8.4 H Basophils % 0.6 Nucleated Red Blood 0.0 Cells % Immature 0.090 H Granulocytes # Neutrophils # 6.0 Lymphocytes # 2.1 Monocytes # 1.0 H Eosinophils # 0.8 H Basophils # 0.1 Nucleated Red Blood 0.0 Cells # Sodium Level 133 L Potassium Level 4.0 Chloride Level 97 Carbon Dioxide Level 30 Anion Gap 6 Blood Urea Nitrogen 41 H Creatinine 1.34 H Est Glomerular Filtrat Rate mL/min Glucose Level 83 # Calcium Level 8.6 Bedside Glucose 92 Home Meds Reported Medications Zinc Sulfate* (Zinc Sulfate*) 220 Mg Tablet, 220 MG PO DAILY, TAB 11/09/18 Cholecalciferol* (Vitamin D3*) 1,000 Unit Tablet, 2000 UNIT PO DAILY, TAB 11/09/18 Sennosides* (Senna Lax*) 8.6 Mg Tablet, 1 TAB PO DAILY PRN for CONSTIPATION, TAB 11/09/18 Hydrocodone/Acetaminophen ([place] 5-325 Tablet) 1 Each Tablet, 1 TAB PO Q4 PRN for PAIN LEVEL 7-10, TAB 11/09/18 Multivit-Min/Iron Fum/Folic AC (Bcdcc-Yqanzpx-Byuwgspk Tablet) 1 Each Tablet, 1 TAB PO DAILY, TAB 11/09/18 Metoprolol Tartrate* (Lopressor*) 25 Mg Tablet, 25 MG PO BID, #60 TAB 11/09/18 Furosemide* (Lasix*) 20 Mg Tablet, 20 MG PO DAILY, TAB 11/09/18 Insulin Glargine* (Lantus*) 100 Unit/Ml Soln, 32 UNIT SC DAILY, #1 VIAL 11/09/18 Insulin Lispro (Humalog Kwikpen U-100) 100 Unit/1 Ml Insuln.pen, 1-12 UNIT SQ AC A for PER SLIDING SCALE, EA 11/09/18 Glipizide* (Glipizide*) 5 Mg Tablet, 5 MG PO BID, TAB 11/09/18 Apixaban* (Eliquis*) 5 Mg Tablet, 5 MG PO BID, TAB 11/09/18 Bisacodyl* (Dulcolax*) 5 Mg Tablet.dr, 10 MG PO DAILY PRN for CONSTIPATION, TAB 11/09/18 Docusate Sodium* (Docusate Sodium*) 100 Mg Capsule, 100 MG PO DAILY, #30 CAP 11/09/18 Diphenhydramine Hcl* (Diphenhydramine Hcl*) 25 Mg Capsule, 25 MG PO Q6 PRN for ITCHING, CAP 11/09/18 Carvedilol* (Coreg*) 6.25 Mg Tablet, 6.25 MG PO BID, #60 TAB 11/09/18 Atorvastatin* (Atorvastatin*) 40 Mg Tablet, 40 MG PO QHS, #30 TAB 11/09/18 Acetaminophen* (Acetaminophen*) 650 Mg Tablet, 650 MG PO Q4 PRN for PAIN AND OR ELEVATED TEMP, #30 TAB 11/09/18 Medications Current Medications IV Flush (NS 3 ml) 3 ml PER PROTOCOL IV ; Start 11/09/18 at 18:00 Ondansetron HCl (Zofran Inj) 4 mg Q6H PRN IV NAUSEA/VOMITING Last administered on 11/15/18 17:19; Admin Dose 4 MG; Start 11/09/18 at 18:00 Acetaminophen (Tylenol Tab) 650 mg Q6H PRN PO .PAIN 1-3 OR TEMP Last administered on 11/18/18 19:39; Admin Dose 650 MG; Start 11/09/18 at 18:00 Morphine Sulfate (morphine) 2 mg Q4H PRN IV .PAIN 7-10 Last administered on 11/18/18 12:22; Admin Dose 2 MG; Start 11/09/18 at 18:00 Bisacodyl (Dulcolax) 10 mg DAILY PRN PO CONSTIPATION Last administered on 11/18/18 02:50; Admin Dose 10 MG; Start 11/10/18 at 11:00 Cholecalciferol (Vitamin D) 2,000 unit DAILY PO Last administered on 11/18/18 10:16; Admin Dose 2,000 UNIT; Start 11/11/18 at 09:00 Docusate Sodium (Colace) 100 mg DAILY PO Last administered on 11/16/18 09:05; Admin Dose 100 MG; Start 11/11/18 at 09:00 Senna (Senokot) 1 tab DAILY PRN PO CONSTIPATION Last administered on 11/17/18 00:07; Admin Dose 1 TAB; Start 11/10/18 at 11:00 Zinc Sulfate (Zinc Sulfate) 220 mg DAILY PO Last administered on 11/18/18 10:07; Admin Dose 220 MG; Start 11/11/18 at 09:00 Miscellaneous Information 1 ea NOTE XX Last administered on 6/7/19at 12:00; Admin Dose 1 EA; Start 11/10/18 at 11:30 Glucose (Glutose) 15 gm Q15M PRN PO DECREASED GLUCOSE; Start 11/10/18 at 11:30 Glucose (Glutose) 22.5 gm Q15M PRN PO DECREASED GLUCOSE; Start 11/10/18 at 11:30 Dextrose (D50w Syringe) 25 ml Q15M PRN IV DECREASED GLUCOSE Last administered on 11/11/18 13:22; Admin Dose 25 ML; Start 11/10/18 at 11:30 Dextrose (D50w Syringe) 50 ml Q15M PRN IV DECREASED GLUCOSE; Start 11/10/18 at 11:30 Glucagon (Glucagen) 1 mg Q15M PRN IM DECREASED GLUCOSE; Start 11/10/18 at 11:30 Glucose (Glutose) 15 gm Q15M PRN BUCCAL DECREASED GLUCOSE; Start 11/10/18 at 11:30 Atorvastatin Calcium (Lipitor) 20 mg QHS PO Last administered on 11/18/18 20:42; Admin Dose 20 MG; Start 11/11/18 at 21:00 Apixaban (Eliquis) 5 mg BID PO Last administered on 11/18/18 20:43; Admin Dose 5 MG; Start 11/11/18 at 21:00 Insulin Aspart (Novolog Insulin Pen) NOVOLOG *MILD* ALGORITHM WITH MEALS BEDT MARJORIE SC Last administered on 11/18/18 12:21; Admin Dose 1 UNIT; Start 11/11/18 at 17:55 Lorazepam (Ativan) 0.5 mg Q6H PRN PO ANXIETY Last administered on 11/19/18 00:25; Admin Dose 0.5 MG; Start 11/11/18 at 21:00 Diltiazem HCl (Cardizem Iv) 5 mg Q4 PRN IV HR>110 Hold SBP<100; Start 11/12/18 at 16:30 Mupirocin (Bactroban) 1 applic BID TOP Last administered on 11/18/18 20:44; Admin Dose 1 APPLIC; Start 11/12/18 at 21:00 Levalbuterol (Xopenex Neb) 0.63 mg Q6H RESP THERAPY HHN Last administered on 11/19/18 08:25; Admin Dose 0.63 MG; Start 11/13/18 at 02:00 Diagnostic Test (Pha) (Accu-Chek) 1 ea 02 XX Last administered on 11/17/18 02:58; Admin Dose 1 EA; Start 11/14/18 at 02:00 Diltiazem HCl (Cardizem Cd) 180 mg BID PO Last administered on 11/18/18 20:43; Admin Dose 180 MG; Start 11/14/18 at 21:00 Metoprolol Tartrate (Lopressor) 75 mg BID PO Last administered on 11/18/18 20:43; Admin Dose 75 MG; Start 11/15/18 at 21:00 Insulin Aspart (Novolog Insulin Pen) 3 unit WITH MEALS SC Last administered on 11/18/18 17:35; Admin Dose 3 UNIT; Start 11/16/18 at 08:00 Insulin Glargine (Lantus) 30 units DAILY SC Last administered on 11/18/18 10:15; Admin Dose 30 UNITS; Start 11/16/18 at 09:00 Hydroxyzine HCl (Atarax) 25 mg Q6H PRN PO ITCHING Last administered on 11/19/18 05:34; Admin Dose 25 MG; Start 11/15/18 at 23:00 Furosemide (Lasix) 20 mg DAILY IV Last administered on 11/18/18 10:08; Admin Dose 20 MG; Start 11/17/18 at 09:00; Status Hold Dextrose/Sodium Chloride 1,000 ml @ 50 mls/hr Q20H IV Last administered on 11/18/18 15:44; Admin Dose 50 MLS/HR; Start 11/17/18 at 07:30 Zinc Acetate/ Diphenhydramine (Benadryl 2% Cr) 1 applic BID PRN TOP ITCHING Last administered on 11/18/18 19:40; Admin Dose 1 APPLIC; Start 11/18/18 at 12:00 Assessment/Plan Hospital Course (Demo Recall) 1. Atrial fibrillation/atrial flutter- neg trop x 3. Now with improved rate control. NL EF by echo - rate controlled on tele. 2. Hypertension, controlled - con;t med thearpy. 3. Congestive heart failure, diastolic, acute on chronic - gentle diuresis, close to euvolemic by exam. 4. Coagulopathy secondary to Eliquis - stable - no active bleeding. 5. ARF- Cr 1.34 - avoid nephrotoxic meds. 6. Increased liver function tests. 7. Increased BNP- with CHF. 8. Anemia, mild, worsening - no active bleeding now. 9. abd pain - defer to WARNER REYNA MD Nov 19, 2018 09:00
[2018-11-19] MEDS: DOCUSATE SODIUM 100 MG CAP PO SCH (09:01)
[2018-11-19] MEDS: METOPROLOL 25 MG TAB PO SCH ×2 (09:01→20:05)
[2018-11-19] MEDS: ZINC SULFATE 220 MG CAP PO SCH (09:01)
[2018-11-19] MEDS: APIXABAN 5 MG TABLET PO SCH ×2 (09:01→20:06)
[2018-11-19] MEDS: CHOLECALCIFEROL 1,000 UNIT TAB PO SCH (09:01)
[2018-11-19] MEDS: DILTIAZEM (CD) 180 MG CAP PO SCH ×2 (09:01→20:05)
--- NOTE | 2018-11-19 12:29 | CONS ---
Assessment/Plan Assessment/Plan Hospital Course (Demo Recall) No acute changes Microbiology blood cultures remain negative MRSA swab positive Physical examination: Well-developed chronically ill-appearing elderly woman who is awake in no distress. Head atraumatic normocephalic sclera nonicteric vehicle mucosa dry neck is supple chest rise symmetrical breath sounds diminished bases. Heart: S1-S2 irregular abdomen soft bowel sounds present extremities without cyanosis Assessment: 1. S/p pneumonia, possible CHF exacerbation 2. Atrial fibrillation with rapid ventricular response 3. MRSA nares colonization 4. Diabetes 5. Hypertension 6. Transaminitis ?acute chetna Plan: Patient is clinically stable, off abx, repeat MRSA Consultation Date/Type/Reason Admit Date/Time Nov 09, 2018 at 17:20 Initial Consult Date Type of Consult id Requesting Provider: ELISABETH ENRIQUEZ MD Date/Time of Note DATE: 11/19/18 TIME: 12:28 Exam/Review of Systems Exam Vitals Vital Signs Date Temp Pulse Resp B/P (MAP) Pulse Ox O2 O2 Flow FiO2 Time Delivery Rate 11/19/18 66 12:12 11/19/18 97.9 19 130/61 98 Room Air 11:14 (84) 11/19/18 21 08:25 11/18/18 2.0 20:32 Intake and Output 11/18/18 11/18/18 11/19/18 1515:00 23:00 07:00 IntakeIntake Total 450 ml 1210 ml BalanceBalance 450 ml 1210 ml Results Result Diagram: 11/19/18 0505 11/19/18 0505 Results 24hrs Laboratory Tests Test 11/18/18 17:31 11/18/18 20:42 11/19/18 05:05 11/19/18 07:56 Bedside Glucose 90 124 92 White Blood Count 10.0 Red Blood Count 3.70 L Hemoglobin 9.7 L Hematocrit 30.5 L Mean Corpuscular 82.4 Volume Mean Corpuscular 26.2 L Hemoglobin Mean Corpuscular 31.8 L Hemoglobin Concent Red Cell 18.6 H Distribution Width Platelet Count 338 Mean Platelet Volume 9.9 Immature 0.900 H Granulocytes % Neutrophils % 59.6 Lymphocytes % 20.7 Monocytes % 9.8 Eosinophils % 8.4 H Basophils % 0.6 Nucleated Red Blood 0.0 Cells % Immature 0.090 H Granulocytes # Neutrophils # 6.0 Lymphocytes # 2.1 Monocytes # 1.0 H Eosinophils # 0.8 H Basophils # 0.1 Nucleated Red Blood 0.0 Cells # Sodium Level 133 L Potassium Level 4.0 Chloride Level 97 Carbon Dioxide Level 30 Anion Gap 6 Blood Urea Nitrogen 41 H Creatinine 1.34 H Est Glomerular Filtrat Rate mL/min Glucose Level 83 # Calcium Level 8.6 Test 11/19/18 12:00 Bedside Glucose 93 Medications Medication Current Medications IV Flush (NS 3 ml) 3 ml PER PROTOCOL IV ; Start 11/09/18 at 18:00 Ondansetron HCl (Zofran Inj) 4 mg Q6H PRN IV NAUSEA/VOMITING Last administered on 11/15/18 17:19; Admin Dose 4 MG; Start 11/09/18 at 18:00 Acetaminophen (Tylenol Tab) 650 mg Q6H PRN PO .PAIN 1-3 OR TEMP Last administered on 11/18/18 19:39; Admin Dose 650 MG; Start 11/09/18 at 18:00 Morphine Sulfate (morphine) 2 mg Q4H PRN IV .PAIN 7-10 Last administered on 11/18/18 12:22; Admin Dose 2 MG; Start 11/09/18 at 18:00 Bisacodyl (Dulcolax) 10 mg DAILY PRN PO CONSTIPATION Last administered on 11/18/18 02:50; Admin Dose 10 MG; Start 11/10/18 at 11:00 Cholecalciferol (Vitamin D) 2,000 unit DAILY PO Last administered on 11/19/18 09:01; Admin Dose 2,000 UNIT; Start 11/11/18 at 09:00 Docusate Sodium (Colace) 100 mg DAILY PO Last administered on 11/19/18 09:01; Admin Dose 100 MG; Start 11/11/18 at 09:00 Senna (Senokot) 1 tab DAILY PRN PO CONSTIPATION Last administered on 11/17/18 00:07; Admin Dose 1 TAB; Start 11/10/18 at 11:00 Zinc Sulfate (Zinc Sulfate) 220 mg DAILY PO Last administered on 11/19/18 09:01; Admin Dose 220 MG; Start 11/11/18 at 09:00 Miscellaneous Information 1 ea NOTE XX Last administered on 11/15/18 12:00; Admin Dose 1 EA; Start 11/10/18 at 11:30 Glucose (Glutose) 15 gm Q15M PRN PO DECREASED GLUCOSE; Start 11/10/18 at 11:30 Glucose (Glutose) 22.5 gm Q15M PRN PO DECREASED GLUCOSE; Start 11/10/18 at 11:30 Dextrose (D50w Syringe) 25 ml Q15M PRN IV DECREASED GLUCOSE Last administered on 11/11/18at 13:22; Admin Dose 25 ML; Start 11/10/18 at 11:30 Dextrose (D50w Syringe) 50 ml Q15M PRN IV DECREASED GLUCOSE; Start 11/10/18 at 11:30 Glucagon (Glucagen) 1 mg Q15M PRN IM DECREASED GLUCOSE; Start 11/10/18 at 11:30 Glucose (Glutose) 15 gm Q15M PRN BUCCAL DECREASED GLUCOSE; Start 11/10/18 at 11:30 Atorvastatin Calcium (Lipitor) 20 mg QHS PO Last administered on 11/18/18at 20:42; Admin Dose 20 MG; Start 11/11/18 at 21:00 Apixaban (Eliquis) 5 mg BID PO Last administered on 11/19/18at 09:01; Admin Dose 5 MG; Start 11/11/18 at 21:00 Insulin Aspart (Novolog Insulin Pen) NOVOLOG *MILD* ALGORITHM WITH MEALS BEDTIME SC Last administered on 11/18/18 12:21; Admin Dose 1 UNIT; Start 11/11/18 at 17:55 Lorazepam (Ativan) 0.5 mg Q6H PRN PO ANXIETY Last administered on 11/19/18at 00:25; Admin Dose 0.5 MG; Start 11/11/18 at 21:00 Diltiazem HCl (Cardizem Iv) 5 mg Q4 PRN IV HR>110 Hold SBP<100; Start 11/12/18 at 16:30 Mupirocin (Bactroban) 1 applic BID TOP Last administered on 11/19/18at 09:00; Admin Dose 1 APPLIC; Start 11/12/18 at 21:00 Levalbuterol (Xopenex Neb) 0.63 mg Q6H RESP THERAPY HHN Last administered on 11/19/18at 08:25; Admin Dose 0.63 MG; Start 11/13/18 at 02:00 Diagnostic Test (Pha) (Accu-Chek) 1 ea 02 XX Last administered on 11/17/18 02:58; Admin Dose 1 EA; Start 11/14/18 at 02:00 Diltiazem HCl (Cardizem Cd) 180 mg BID PO Last administered on 11/19/18 09:01; Admin Dose 180 MG; Start 11/14/18 at 21:00 Metoprolol Tartrate (Lopressor) 75 mg BID PO Last administered on 11/19/18 09:01; Admin Dose 75 MG; Start 11/15/18 at 21:00 Insulin Aspart (Novolog Insulin Pen) 3 unit WITH MEALS SC Last administered on 11/19/18 09:00; Admin Dose 3 UNIT; Start 11/16/18 at 08:00 Insulin Glargine (Lantus) 30 units DAILY SC Last administered on 11/19/18 09:00; Admin Dose 30 UNITS; Start 11/16/18 at 09:00 Hydroxyzine HCl (Atarax) 25 mg Q6H PRN PO ITCHING Last administered on 11/19/18 05:34; Admin Dose 25 MG; Start 11/15/18 at 23:00 Furosemide (Lasix) 20 mg DAILY IV Last administered on 11/18/18 10:08; Admin Dose 20 MG; Start 11/17/18 at 09:00; Status Hold Dextrose/Sodium Chloride 1,000 ml @ 50 mls/hr Q20H IV Last administered on 11/18/18 15:44; Admin Dose 50 MLS/HR; Start 11/17/18 at 07:30 Zinc Acetate/ Diphenhydramine (Benadryl 2% Cr) 1 applic BID PRN TOP ITCHING Last administered on 11/18/18 19:40; Admin Dose 1 APPLIC; Start 11/18/18 at 12:00 ZHEN ROSS NP Nov 19, 2018 12:29
[2018-11-19] MEDS: morphine 2 MG INJ IV PRN ×2 (13:07→23:08)
--- NOTE | 2018-11-19 15:47 | PN ---
Date/Time of Note Date/Time of Note DATE: 11/19/18 TIME: 15:43 Assessment/Plan VTE Prophylaxis Risk score (from Ns)>0 risk: 9 SCD applied (from Ns): Yes Pharmacological prophylaxis: apixaban Lines/Catheters IV Catheter Type (from [facility]): Peripheral IV Urinary Cath still in place: No Assessment/Plan Hospital Course Patient with urinary incontinence and refused Kaur catheter insertion, patient denies any chest pain denies shortness of breath at rest, atrial fibrillation at controlled rate. Assessment/Plan The patient is a 77-year-old female was brought from [facility] for tachycardia. -Pneumonia, continue antibiotics, breathing treatment. -Atrial fibrillation, continue Eliquis and metoprolol -Transaminitis, abdominal ultrasound with Sludge within the gallbladder, thickening of the gallbladder wall and questionable trace pericholecystic fluid. In the right clinical setting, this may suggest acute cholecystitis. No biliary duct dilatation, fatty liver. Dr. Chicas, gastroenterology consultation -Hypertension -Stage I diastolic dysfunction congestive heart failure with preserved ejection fraction -Cardiomegaly -MRSA of nares, Bactroban, contact isolation. -Diabetes mellitus type 2 with hemoglobin A1c of 6.1. Continue Lantus and NovoLog. -Neurocognitive disorder with depressed mood status post psychiatric evaluation. -Obesity with BMI of 35.3 Further recommendations based on clinical course. Plan of care discussed with Dr. Deutsch. Result Diagram: 11/19/18 0505 11/19/18 0505 Results 24hrs Laboratory Tests Test 11/18/18 17:31 11/18/18 20:42 11/19/18 05:05 11/19/18 07:56 Bedside Glucose 90 124 92 White Blood Count 10.0 Red Blood Count 3.70 L Hemoglobin 9.7 L Hematocrit 30.5 L Mean Corpuscular 82.4 Volume Mean Corpuscular 26.2 L Hemoglobin Mean Corpuscular 31.8 L Hemoglobin Concent Red Cell 18.6 H Distribution Width Platelet Count 338 Mean Platelet Volume 9.9 Immature 0.900 H Granulocytes % Neutrophils % 59.6 Lymphocytes % 20.7 Monocytes % 9.8 Eosinophils % 8.4 H Basophils % 0.6 Nucleated Red Blood 0.0 Cells % Immature 0.090 H Granulocytes # Neutrophils # 6.0 Lymphocytes # 2.1 Monocytes # 1.0 H Eosinophils # 0.8 H Basophils # 0.1 Nucleated Red Blood 0.0 Cells # Sodium Level 133 L Potassium Level 4.0 Chloride Level 97 Carbon Dioxide Level 30 Anion Gap 6 Blood Urea Nitrogen 41 H Creatinine 1.34 H Est Glomerular Filtrat Rate mL/min Glucose Level 83 # Calcium Level 8.6 Test 11/19/18 12:00 Bedside Glucose 93 Exam/Review of Systems Exam Vitals Vital Signs Date Temp Pulse Resp B/P (MAP) Pulse Ox O2 O2 Flow FiO2 Time Delivery Rate 11/19/18 98.0 68 19 121/66 98 Room Air 15:06 (84) 11/19/18 21 13:39 11/19/18 2.0 08:07 Intake and Output 11/18/18 11/18/18 11/19/18 1515:00 23:00 07:00 IntakeIntake Total 450 ml 1210 ml BalanceBalance 450 ml 1210 ml Exam Constitutional: alert, oriented Head: normocephalic Respiratory: diminished breath sounds Cardiovascular: irregular rhythm Gastrointestinal: soft, non-tender Musculoskeletal: nl extremities to inspection Extremities: normal pulses Results Results 24hrs Laboratory Tests Test 11/18/18 17:31 11/18/18 20:42 11/19/18 05:05 11/19/18 07:56 Bedside Glucose 90 124 92 White Blood Count 10.0 Red Blood Count 3.70 L Hemoglobin 9.7 L Hematocrit 30.5 L Mean Corpuscular 82.4 Volume Mean Corpuscular 26.2 L Hemoglobin Mean Corpuscular 31.8 L Hemoglobin Concent Red Cell 18.6 H Distribution Width Platelet Count 338 Mean Platelet Volume 9.9 Immature 0.900 H Granulocytes % Neutrophils % 59.6 Lymphocytes % 20.7 Monocytes % 9.8 Eosinophils % 8.4 H Basophils % 0.6 Nucleated Red Blood 0.0 Cells % Immature 0.090 H Granulocytes # Neutrophils # 6.0 Lymphocytes # 2.1 Monocytes # 1.0 H Eosinophils # 0.8 H Basophils # 0.1 Nucleated Red Blood 0.0 Cells # Sodium Level 133 L Potassium Level 4.0 Chloride Level 97 Carbon Dioxide Level 30 Anion Gap 6 Blood Urea Nitrogen 41 H Creatinine 1.34 H Est Glomerular Filtrat Rate mL/min Glucose Level 83 # Calcium Level 8.6 Test 11/19/18 12:00 Bedside Glucose 93 Medications Medication Current Medications IV Flush (NS 3 ml) 3 ml PER PROTOCOL IV ; Start 11/09/18 at 18:00 Ondansetron HCl (Zofran Inj) 4 mg Q6H PRN IV NAUSEA/VOMITING Last administered on 11/15/18 17:19; Admin Dose 4 MG; Start 11/09/18 at 18:00 Acetaminophen (Tylenol Tab) 650 mg Q6H PRN PO .PAIN 1-3 OR TEMP Last administered on 11/18/18 19:39; Admin Dose 650 MG; Start 11/09/18 at 18:00 Morphine Sulfate (morphine) 2 mg Q4H PRN IV .PAIN 7-10 Last administered on 11/19/18 13:07; Admin Dose 2 MG; Start 11/09/18 at 18:00 Bisacodyl (Dulcolax) 10 mg DAILY PRN PO CONSTIPATION Last administered on 11/18/18 02:50; Admin Dose 10 MG; Start 11/10/18 at 11:00 Cholecalciferol (Vitamin D) 2,000 unit DAILY PO Last administered on 11/19/18 09:01; Admin Dose 2,000 UNIT; Start 11/11/18 at 09:00 Docusate Sodium (Colace) 100 mg DAILY PO Last administered on 11/19/18 09:01; Admin Dose 100 MG; Start 11/11/18 at 09:00 Senna (Senokot) 1 tab DAILY PRN PO CONSTIPATION Last administered on 11/17/18 00:07; Admin Dose 1 TAB; Start 11/10/18 at 11:00 Zinc Sulfate (Zinc Sulfate) 220 mg DAILY PO Last administered on 11/19/18 09:01; Admin Dose 220 MG; Start 11/11/18 at 09:00 Miscellaneous Information 1 ea NOTE XX Last administered on 11/15/18 12:00; Admin Dose 1 EA; Start 11/10/18 at 11:30 Glucose (Glutose) 15 gm Q15M PRN PO DECREASED GLUCOSE; Start 11/10/18 at 11:30 Glucose (Glutose) 22.5 gm Q15M PRN PO DECREASED GLUCOSE; Start 11/10/18 at 11:30 Dextrose (D50w Syringe) 25 ml Q15M PRN IV DECREASED GLUCOSE Last administered on 11/11/18 13:22; Admin Dose 25 ML; Start 11/10/18 at 11:30 Dextrose (D50w Syringe) 50 ml Q15M PRN IV DECREASED GLUCOSE; Start 11/10/18 at 11:30 Glucagon (Glucagen) 1 mg Q15M PRN IM DECREASED GLUCOSE; Start 11/10/18 at 11:30 Glucose (Glutose) 15 gm Q15M PRN BUCCAL DECREASED GLUCOSE; Start 11/10/18 at 11:30 Atorvastatin Calcium (Lipitor) 20 mg QHS PO Last administered on 11/18/18 20:42; Admin Dose 20 MG; Start 11/11/18 at 21:00 Apixaban (Eliquis) 5 mg BID PO Last administered on 11/19/18 09:01; Admin Dose 5 MG; Start 11/11/18 at 21:00 Insulin Aspart (Novolog Insulin Pen) NOVOLOG *MILD* ALGORITHM WITH MEALS BEDTIME SC Last administered on 11/18/18 12:21; Admin Dose 1 UNIT; Start 11/11/18 at 17:55 Lorazepam (Ativan) 0.5 mg Q6H PRN PO ANXIETY Last administered on 11/19/18 00:25; Admin Dose 0.5 MG; Start 11/11/18 at 21:00 Diltiazem HCl (Cardizem Iv) 5 mg Q4 PRN IV HR>110 Hold SBP<100; Start 11/12/18 at 16:30 Mupirocin (Bactroban) 1 applic BID TOP Last administered on 11/19/18 09:00; Admin Dose 1 APPLIC; Start 11/12/18 at 21:00 Levalbuterol (Xopenex Neb) 0.63 mg Q6H RESP THERAPY HHN Last administered on 11/19/18 13:39; Admin Dose 0.63 MG; Start 11/13/18 at 02:00 Diagnostic Test (Pha) (Accu-Chek) 1 ea 02 XX Last administered on 11/17/18 02:58; Admin Dose 1 EA; Start 11/14/18 at 02:00 Diltiazem HCl (Cardizem Cd) 180 mg BID PO Last administered on 11/19/18 09:01; Admin Dose 180 MG; Start 11/14/18 at 21:00 Metoprolol Tartrate (Lopressor) 75 mg BID PO Last administered on 11/19/18 09:01; Admin Dose 75 MG; Start 11/15/18 at 21:00 Insulin Aspart (Novolog Insulin Pen) 3 unit WITH MEALS SC Last administered on 11/19/18 13:00; Admin Dose 3 UNIT; Start 11/16/18 at 08:00 Insulin Glargine (Lantus) 30 units DAILY SC Last administered on 11/19/18 09:0 0; Admin Dose 30 UNITS; Start 11/16/18 at 09:00 Hydroxyzine HCl (Atarax) 25 mg Q6H PRN PO ITCHING Last administered on 11/19/18 05:34; Admin Dose 25 MG; Start 11/15/18 at 23:00 Furosemide (Lasix) 20 mg DAILY IV Last administered on 11/18/18 10:08; Admin Dose 20 MG; Start 11/17/18 at 09:00; Status Hold Dextrose/Sodium Chloride 1,000 ml @ 50 mls/hr Q20H IV Last administered on 11/18/18 15:44; Admin Dose 50 MLS/HR; Start 11/17/18 at 07:30 Zinc Acetate/ Diphenhydramine (Benadryl 2% Cr) 1 applic BID PRN TOP ITCHING Last administered on 11/18/18 19:40; Admin Dose 1 APPLIC; Start 11/18/18 at 12 :00 JAYY SMITH Nov 19, 2018 15:47
--- NOTE | 2018-11-19 17:51 | CONS ---
Assessment/Plan Assessment/Plan Assessment/Plan (Daily) Assessment/Plan Assessment/Plan (Daily) Assessment/Plan (Daily) IMPRESSION: 1. Abnormal LFT most probably related to fatty liver. I doubt statin is the cause of her abnormal LFT. 2. Atrial fibrillation. 3. Pneumonia. 4. Diabetes mellitus. 5. Hypertension. 6. Sludge in the gallbladder without dilatation of the biliary tree. 7. Pneumonia. 8. Anemia Plan Patient's abnormal LFTs related to fatty liver., Her hepatitis serology was negative, will continue statin Liver function test remained stable Work-up for anemia Consultation Date/Type/Reason Admit Date/Time Nov 09, 2018 at 17:20 Initial Consult Date Requesting Provider: ELISABETH ENRIQUEZ MD Date/Time of Note DATE: 11/19/18 TIME: 17:51 24 HR Interval Summary Constitutional: no complaints, improved Exam/Review of Systems Exam Vitals Vital Signs Date Temp Pulse Resp B/P (MAP) Pulse Ox O2 O2 Flow FiO2 Time Delivery Rate 11/19/18 70 16:13 11/19/18 98.0 19 121/66 98 Room Air 15:06 (84) 11/19/18 21 13:39 11/19/18 2.0 08:07 Intake and Output 11/18/18 11/18/18 11/19/18 1515:00 23:00 07:00 IntakeIntake Total 450 ml 1210 ml BalanceBalance 450 ml 1210 ml Constitutional: alert, oriented, well developed Psych: no complaints, nl mood/affect Head: normocephalic, atraumatic Eyes: nl conjunctiva, EOMI, nl lids, nl sclera, PERRL ENMT: nl external ears & nose, nl lips & teeth, nl nasal mucosa & septum Neck: supple, non-tender Respiratory: clear to auscultation, normal air movement Cardiovascular: regular rate and rhythm, nl pulses Gastrointestinal: soft, nl liver, spleen, non-tender Musculoskeletal: nl extremities to inspection, nl gait and stance Extremities: normal pulses Neurological: FIELD LOGISTICS COORDINATOR II-XII intact, nl mental status, nl speech, nl strength Skin: nl turgor; No rash or lesions Lymph: nl lymph nodes Results Result Diagram: 11/19/18 0505 11/19/18 0505 Results 24hrs Laboratory Tests Test 11/18/18 20:42 11/19/18 05:05 11/19/18 07:56 11/19/18 12:00 Bedside Glucose 124 92 93 White Blood Count 10.0 Red Blood Count 3.70 L Hemoglobin 9.7 L Hematocrit 30.5 L Mean Corpuscular 82.4 Volume Mean Corpuscular 26.2 L Hemoglobin Mean Corpuscular 31.8 L Hemoglobin Concent Red Cell 18.6 H Distribution Width Platelet Count 338 Mean Platelet Volume 9.9 Immature 0.900 H Granulocytes % Neutrophils % 59.6 Lymphocytes % 20.7 Monocytes % 9.8 Eosinophils % 8.4 H Basophils % 0.6 Nucleated Red Blood 0.0 Cells % Immature 0.090 H Granulocytes # Neutrophils # 6.0 Lymphocytes # 2.1 Monocytes # 1.0 H Eosinophils # 0.8 H Basophils # 0.1 Nucleated Red Blood 0.0 Cells # Sodium Level 133 L Potassium Level 4.0 Chloride Level 97 Carbon Dioxide Level 30 Anion Gap 6 Blood Urea Nitrogen 41 H Creatinine 1.34 H Est Glomerular Filtrat Rate mL/min Glucose Level 83 # Calcium Level 8.6 Test 11/19/18 17:17 11/19/18 17:38 Bedside Glucose 60 L 100 Medications Medication Current Medications IV Flush (NS 3 ml) 3 ml PER PROTOCOL IV ; Start 11/09/18 at 18:00 Ondansetron HCl (Zofran Inj) 4 mg Q6H PRN IV NAUSEA/VOMITING Last administered on 11/15/18 17:19; Admin Dose 4 MG; Start 11/09/18 at 18:00 Acetaminophen (Tylenol Tab) 650 mg Q6H PRN PO .PAIN 1-3 OR TEMP Last administered on 11/18/18 19:39; Admin Dose 650 MG; Start 11/09/18 at 18:00 Morphine Sulfate (morphine) 2 mg Q4H PRN IV .PAIN 7-10 Last administered on 11/19/18 13:07; Admin Dose 2 MG; Start 11/09/18 at 18:00 Bisacodyl (Dulcolax) 10 mg DAILY PRN PO CONSTIPATION Last administered on 11/18/18 02:50; Admin Dose 10 MG; Start 11/10/18 at 11:00 Cholecalciferol (Vitamin D) 2,000 unit DAILY PO Last administered on 11/19/18 09:01; Admin Dose 2,000 UNIT; Start 11/11/18 at 09:00 Docusate Sodium (Colace) 100 mg DAILY PO Last administered on 11/19/18 09:01; Admin Dose 100 MG; Start 11/11/18 at 09:00 Senna (Senokot) 1 tab DAILY PRN PO CONSTIPATION Last administered on 11/17/18 00:07; Admin Dose 1 TAB; Start 11/10/18 at 11:00 Zinc Sulfate (Zinc Sulfate) 220 mg DAILY PO Last administered on 11/19/18 09:01; Admin Dose 220 MG; Start 11/11/18 at 09:00 Miscellaneous Information 1 ea NOTE XX Last administered on 11/15/18 12:00; Admin Dose 1 EA; Start 11/10/18 at 11:30 Glucose (Glutose) 15 gm Q15M PRN PO DECREASED GLUCOSE; Start 11/10/18 at 11:30 Glucose (Glutose) 22.5 gm Q15M PRN PO DECREASED GLUCOSE; Start 11/10/18 at 11:30 Dextrose (D50w Syringe) 25 ml Q15M PRN IV DECREASED GLUCOSE Last administered on 11/11/18 13:22; Admin Dose 25 ML; Start 11/10/18 at 11:30 Dextrose (D50w Syringe) 50 ml Q15M PRN IV DECREASED GLUCOSE; Start 11/10/18 at 11:30 Glucagon (Glucagen) 1 mg Q15M PRN IM DECREASED GLUCOSE; Start 11/10/18 at 11:30 Glucose (Glutose) 15 gm Q15M PRN BUCCAL DECREASED GLUCOSE; Start 11/10/18 at 11:30 Atorvastatin Calcium (Lipitor) 20 mg QHS PO Last administered on 11/18/18at 20:42; Admin Dose 20 MG; Start 11/11/18 at 21:00 Apixaban (Eliquis) 5 mg BID PO Last administered on 11/19/18 09:01; Admin Dose 5 MG; Start 11/11/18 at 21:00 Insulin Aspart (Novolog Insulin Pen) NOVOLOG *MILD* ALGORITHM WITH MEALS BEDTIME SC Last administered on 11/18/18 12:21; Admin Dose 1 UNIT; Start 11/11/18 at 17:55 Lorazepam (Ativan) 0.5 mg Q6H PRN PO ANXIETY Last administered on 11/19/18 00:25; Admin Dose 0.5 MG; Start 11/11/18 at 21:00 Diltiazem HCl (Cardizem Iv) 5 mg Q4 PRN IV HR>110 Hold SBP<100; Start 11/12/18 at 16:30 Mupirocin (Bactroban) 1 applic BID TOP Last administered on 11/19/18 09:00; Admin Dose 1 APPLIC; Start 11/12/18 at 21:00 Levalbuterol (Xopenex Neb) 0.63 mg Q6H RESP THERAPY HHN Last administered on 11/19/18 13:39; Admin Dose 0.63 MG; Start 11/13/18 at 02:00 Diagnostic Test (Pha) (Accu-Chek) 1 ea 02 XX Last administered on 11/17/18 02:58; Admin Dose 1 EA; Start 11/14/18 at 02:00 Diltiazem HCl (Cardizem Cd) 180 mg BID PO Last administered on 11/19/18 09:01; Admin Dose 180 MG; Start 11/14/18 at 21:00 Metoprolol Tartrate (Lopressor) 75 mg BID PO Last administered on 11/19/18 09:01; Admin Dose 75 MG; Start 11/15/18 at 21:00 Insulin Aspart (Novolog Insulin Pen) 3 unit WITH MEALS SC Last administered on 11/19/18 13:00; Admin Dose 3 UNIT; Start 11/16/18 at 08:00 Insulin Glargine (Lantus) 30 units DAILY SC Last administered on 11/19/18 09:00; Admin Dose 30 UNITS; Start 11/16/18 at 09:00 Hydroxyzine HCl (Atarax) 25 mg Q6H PRN PO ITCHING Last administered on 11/19/18 05:34; Admin Dose 25 MG; Start 11/15/18 at 23:00 Furosemide (Lasix) 20 mg DAILY IV Last administered on 11/18/18 10:08; Admin Dose 20 MG; Start 11/17/18 at 09:00; Status Hold Dextrose/Sodium Chloride 1,000 ml @ 50 mls/hr Q20H IV Last administered on 11/18/18 15:44; Admin Dose 50 MLS/HR; Start 11/17/18 at 07:30 Zinc Acetate/ Diphenhydramine (Benadryl 2% Cr) 1 applic BID PRN TOP ITCHING Last administered on 11/18/18at 19:40; Admin Dose 1 APPLIC; Start 11/18/18 at 12:00 JASMIN MARTINEZ MD Nov 19, 2018 17:51
--- NOTE | 2018-11-19 18:17 | CONS ---
Assessment/Plan Assessment/Plan Assessment/Plan (Daily) 1. acute Kidney injury 2. Pneumonia, 3. Pulmonary edema due to possible CHF exacerbation 4. Atrial fibrillation with rapid ventricular response 5. Diabetes 6. Hypertension 7. Transaminitis ?acute chetna Plan: BUN/Cr improved to 41/1.34 IV abx cefepime IVF D51/2 NS atr 50 cc.hr pt is nearing euvolemic, change lasix to 20mg pO BID( from IV lasix) Renally dose all abx and monitor electrolytes, replace as needed will follow up Consultation Date/Type/Reason Admit Date/Time Nov 09, 2018 at 17:20 Initial Consult Date 11/17/18 Type of Consult NEPHROLOGY Requesting Provider: ELISABETH ENRIQUEZ MD Date/Time of Note DATE: 11/19/18 TIME: 18:17 24 HR Interval Summary Free Text/Dictation c/o mild SOB Exam/Review of Systems Exam Vitals Vital Signs Date Temp Pulse Resp B/P (MAP) Pulse Ox O2 O2 Flow FiO2 Time Delivery Rate 11/19/18 70 16:13 11/19/18 98.0 19 121/66 98 Room Air 15:06 (84) 11/19/18 21 13:39 11/19/18 2.0 08:07 Intake and Output 11/18/18 11/18/18 11/19/18 1515:00 23:00 07:00 IntakeIntake Total 450 ml 1210 ml BalanceBalance 450 ml 1210 ml Constitutional: alert Head: normocephalic Eyes: nl conjunctiva Neck: supple Respiratory: congested cough, diminished breath sounds Cardiovascular: regular rate and rhythm, nl pulses Gastrointestinal: soft, non-tender Neurological: HEAD OF QUALITY II-XII intact, nl mental status Results Result Diagram: 11/19/18 0505 11/19/18 0505 Results 24hrs Laboratory Tests Test 11/18/18 20:42 11/19/18 05:05 11/19/18 07:56 11/19/18 12:00 Bedside Glucose 124 92 93 White Blood Count 10.0 Red Blood Count 3.70 L Hemoglobin 9.7 L Hematocrit 30.5 L Mean Corpuscular 82.4 Volume Mean Corpuscular 26.2 L Hemoglobin Mean Corpuscular 31.8 L Hemoglobin Concent Red Cell 18.6 H Distribution Width Platelet Count 338 Mean Platelet Volume 9.9 Immature 0.900 H Granulocytes % Neutrophils % 59.6 Lymphocytes % 20.7 Monocytes % 9.8 Eosinophils % 8.4 H Basophils % 0.6 Nucleated Red Blood 0.0 Cells % Immature 0.090 H Granulocytes # Neutrophils # 6.0 Lymphocytes # 2.1 Monocytes # 1.0 H Eosinophils # 0.8 H Basophils # 0.1 Nucleated Red Blood 0.0 Cells # Sodium Level 133 L Potassium Level 4.0 Chloride Level 97 Carbon Dioxide Level 30 Anion Gap 6 Blood Urea Nitrogen 41 H Creatinine 1.34 H Est Glomerular Filtrat Rate mL/min Glucose Level 83 # Calcium Level 8.6 Test 11/19/18 17:17 11/19/18 17:38 Bedside Glucose 60 L 100 Medications Medication Current Medications IV Flush (NS 3 ml) 3 ml PER PROTOCOL IV ; Start 11/09/18 at 18:00 Ondansetron HCl (Zofran Inj) 4 mg Q6H PRN IV NAUSEA/VOMITING Last administered on 11/15/18 17:19; Admin Dose 4 MG; Start 11/09/18 at 18:00 Acetaminophen (Tylenol Tab) 650 mg Q6H PRN PO .PAIN 1-3 OR TEMP Last administered on 11/18/18 19:39; Admin Dose 650 MG; Start 11/09/18 at 18:00 Morphine Sulfate (morphine) 2 mg Q4H PRN IV .PAIN 7-10 Last administered on 11/19/18 13:07; Admin Dose 2 MG; Start 11/09/18 at 18:00 Bisacodyl (Dulcolax) 10 mg DAILY PRN PO CONSTIPATION Last administered on 11/18/18 02:50; Admin Dose 10 MG; Start 11/10/18 at 11:00 Cholecalciferol (Vitamin D) 2,000 unit DAILY PO Last administered on 11/19/18 09:01; Admin Dose 2,000 UNIT; Start 11/11/18 at 09:00 Docusate Sodium (Colace) 100 mg DAILY PO Last administered on 11/19/18 09:01; Admin Dose 100 MG; Start 11/11/18 at 09:00 Senna (Senokot) 1 tab DAILY PRN PO CONSTIPATION Last administered on 11/17/18 00:07; Admin Dose 1 TAB; Start 11/10/18 at 11:00 Zinc Sulfate (Zinc Sulfate) 220 mg DAILY PO Last administered on 11/19/18 09:01; Admin Dose 220 MG; Start 11/11/18 at 09:00 Miscellaneous Information 1 ea NOTE XX Last administered on 11/15/18 12:00; Admin Dose 1 EA; Start 11/10/18 at 11:30 Glucose (Glutose) 15 gm Q15M PRN PO DECREASED GLUCOSE; Start 11/10/18 at 11:30 Glucose (Glutose) 22.5 gm Q15M PRN PO DECREASED GLUCOSE; Start 11/10/18 at 11:30 Dextrose (D50w Syringe) 25 ml Q15M PRN IV DECREASED GLUCOSE Last administered on 11/11/18 13:22; Admin Dose 25 ML; Start 11/10/18 at 11:30 Dextrose (D50w Syringe) 50 ml Q15M PRN IV DECREASED GLUCOSE; Start 11/10/18 at 11:30 Glucagon (Glucagen) 1 mg Q15M PRN IM DECREASED GLUCOSE; Start 11/10/18 at 11:30 Glucose (Glutose) 15 gm Q15M PRN BUCCAL DECREASED GLUCOSE; Start 11/10/18 at 11:30 Atorvastatin Calcium (Lipitor) 20 mg QHS PO Last administered on 11/18/18 20:42; Admin Dose 20 MG; Start 11/11/18 at 21:00 Apixaban (Eliquis) 5 mg BID PO Last administered on 11/19/18 09:01; Admin Dose 5 MG; Start 11/11/18 at 21:00 Insulin Aspart (Novolog Insulin Pen) NOVOLOG *MILD* ALGORITHM WITH MEALS BEDTIME SC Last administered on 11/18/18 12:21; Admin Dose 1 UNIT; Start 11/11/18 at 17:55 Lorazepam (Ativan) 0.5 mg Q6H PRN PO ANXIETY Last administered on 11/19/18 00:25; Admin Dose 0.5 MG; Start 11/11/18 at 21:00 Diltiazem HCl (Cardizem Iv) 5 mg Q4 PRN IV HR>110 Hold SBP<100; Start 11/12/18 at 16:30 Mupirocin (Bactroban) 1 applic BID TOP Last administered on 11/19/18 09:00; Admin Dose 1 APPLIC; Start 11/12/18 at 21:00 Levalbuterol (Xopenex Neb) 0.63 mg Q6H RESP THERAPY HHN Last administered on 11/19/18 13:39; Admin Dose 0.63 MG; Start 11/13/18 at 02:00 Diagnostic Test (Pha) (Accu-Chek) 1 ea 02 XX Last administered on 11/17/18 02:58; Admin Dose 1 EA; Start 11/14/18 at 02:00 Diltiazem HCl (Cardizem Cd) 180 mg BID PO Last administered on 11/19/18 09:01; Admin Dose 180 MG; Start 11/14/18 at 21:00 Metoprolol Tartrate (Lopressor) 75 mg BID PO Last administered on 11/19/18 09 :01; Admin Dose 75 MG; Start 11/15/18 at 21:00 Insulin Aspart (Novolog Insulin Pen) 3 unit WITH MEALS SC Last administered on 11/19/18 13:00; Admin Dose 3 UNIT; Start 11/16/18 at 08:00 Insulin Glargine (Lantus) 30 units DAILY SC Last administered on 11/19/18 09:00; Admin Dose 30 UNITS; Start 11/16/18 at 09:00 Hydroxyzine HCl (Atarax) 25 mg Q6H PRN PO ITCHING Last administered on 11/19/18 05:34; Admin Dose 25 MG; Start 11/15/18 at 23:00 Furosemide (Lasix) 20 mg DAILY IV Last administered on 11/18/18 10:08; Admin Dose 20 MG; Start 11/17/18 at 09:00; Status Hold Dextrose/Sodium Chloride 1,000 ml @ 50 mls/hr Q20H IV Last administered on 11/18/18 15:44; Admin Dose 50 MLS/HR; Start 11/17/18 at 07:30 Zinc Acetate/ Diphenhydramine (Benadryl 2% Cr) 1 applic BID PRN TOP ITCHING Last administered on 11/18/18 19:40; Admin Dose 1 APPLIC; Start 11/18/18 at 12:00 TERESA HERNANDEZ MD Nov 19, 2018 18:17
[2018-11-19] MEDS: DEXTROSE 5%-0.45% NACL 1,000 ML IV SCH (18:53)
[2018-11-19] MEDS: SENNA TAB PO PRN (20:06)
[2018-11-19] MEDS: ATORVASTATIN 20 MG TAB PO SCH (20:06)
[2018-11-19] MEDS: ACETAMINOPHEN 325 MG TAB PO PRN (20:06)
[2018-11-19] MEDS: BISACODYL (EC) 5 MG TAB PO PRN (21:27)
[2018-11-19] MEDS: DIPHENHYDRAMINE 2%/ZINC 28.4 GM CR TOP PRN (21:27)
[2018-11-20] VITALS (8 sets, daily range): BP systolic 119–132; BP diastolic 61–66; PULSE 62–75; RESP 16–20
[2018-11-20] MEDS: hydrOXYzine HCL 25 MG TAB PO PRN ×3 (01:35→19:28)
[2018-11-20] MEDS: ACCU-CHEK XX SCH (02:00)
[2018-11-20] MEDS: LEVALBUTEROL (NEB) 0.63 MG/3 ML AMP HHN SCH ×4 (02:08→20:18)
[2018-11-20] MEDS: LORAZEPAM 0.5 MG TAB PO PRN (03:51)
[2018-11-20] MEDS: FUROSEMIDE 20 MG TAB PO SCH ×2 (05:18→17:44)
[2018-11-20] MEDS: ACETAMINOPHEN 325 MG TAB PO PRN ×2 (05:18→20:53)
[2018-11-20] MEDS: DEXTROSE 5%-0.45% NACL 1,000 ML IV SCH (05:19)
--- NOTE | 2018-11-20 07:23 | CONS ---
Assessment/Plan Assessment/Plan Hospital Course (Demo Recall) 1. Abnormal LFT -likely due to fatty liver -continue statin for now -monitor LFTs 2. Atrial fibrillation. 3. Pneumonia. 4. Diabetes mellitus. 5. Hypertension. 6. Sludge in the gallbladder without dilatation of the biliary tree. 7. Anemia -retics elevated at 3.3 Plan Encourage PO Low fat/low carb diet Education on lifestyle changes provided Monitor LFTs pending anemia work up Iron profile Pt examined and plan of care discussed with Dr. Chicas Consultation Date/Type/Reason Admit Date/Time Nov 09, 2018 at 17:20 Initial Consult Date 11/17/18 Requesting Provider: ELISABETH ENRIQUEZ MD Date/Time of Note DATE: 11/20/18 TIME: 07:19 24 HR Interval Summary Free Text/Dictation Poor appetite. no complaints. Exam/Review of Systems Exam Vitals Vital Signs Date Temp Pulse Resp B/P (MAP) Pulse Ox O2 O2 Flow FiO2 Time Delivery Rate 11/20/18 97.8 70 20 131/64 96 04:00 (86) 11/20/18 21 02:10 11/19/18 Room Air 15:06 11/19/18 2.0 08:07 Intake and Output 11/19/18 11/19/18 11/20/18 1515:00 23:00 07:00 IntakeIntake Total 800 ml 1470 ml BalanceBalance 800 ml 1470 ml Constitutional: alert Psych: no complaints Head: normocephalic Eyes: nl sclera, PERRL Respiratory: normal air movement Cardiovascular: regular rate and rhythm Gastrointestinal: soft Results Result Diagram: 11/19/18 0505 11/20/18 0500 Results 24hrs Laboratory Tests Test 11/19/18 07:56 11/19/18 12:00 11/19/18 17:17 11/19/18 17:38 Bedside Glucose 92 93 60 L 100 Test 11/19/18 20:09 11/20/18 04:29 11/20/18 05:00 Bedside Glucose 90 Absolute 0.117 H Reticulocyte Count Percent Reticulocyte 3.3 H Count Sodium Level 135 Potassium Level 3.9 Chloride Level 98 Carbon Dioxide Level 29 Anion Gap 8 Blood Urea Nitrogen 38 H Creatinine 1.20 H Est Glomerular Filtrat Rate mL/min Glucose Level 83 Calcium Level 8.2 L Total Bilirubin 0.5 Direct Bilirubin 0.00 Indirect Bilirubin 0.5 Aspartate Amino 85 H Transf (AST/SGOT) Alanine 100 H Aminotransferase (AL T/SGPT) Alkaline Phosphatase 164 H Total Protein 6.3 Albumin 2.8 L Globulin 3.50 H Albumin/Globulin 0.80 Ratio Medications Medication Current Medications IV Flush (NS 3 ml) 3 ml PER PROTOCOL IV ; Start 11/09/18 at 18:00 Ondansetron HCl (Zofran Inj) 4 mg Q6H PRN IV NAUSEA/VOMITING Last administered on 11/15/18 17:19; Admin Dose 4 MG; Start 11/09/18 at 18:00 Acetaminophen (Tylenol Tab) 650 mg Q6H PRN PO .PAIN 1-3 OR TEMP Last administered on 11/20/18 05:18; Admin Dose 650 MG; Start 11/09/18 at 18:00 Morphine Sulfate (morphine) 2 mg Q4H PRN IV .PAIN 7-10 Last administered on 11/09 23:08; Admin Dose 2 MG; Start 11/09/18 at 18:00 Bisacodyl (Dulcolax) 10 mg DAILY PRN PO CONSTIPATION Last administered on 11/19/18 21:27; Admin Dose 10 MG; Start 11/10/18 at 11:00 Cholecalciferol (Vitamin D) 2,000 unit DAILY PO Last administered on 11/19/18 09:01; Admin Dose 2,000 UNIT; Start 11/11/18 at 09:00 Docusate Sodium (Colace) 100 mg DAILY PO Last administered on 11/19/18 09:01; Admin Dose 100 MG; Start 11/11/18 at 09:00 Senna (Senokot) 1 tab DAILY PRN PO CONSTIPATION Last administered on 11/19/18 20:06; Admin Dose 1 TAB; Start 11/10/18 at 11:00 Zinc Sulfate (Zinc Sulfate) 220 mg DAILY PO Last administered on 11/19/18 09:01; Admin Dose 220 MG; Start 11/11/18 at 09:00 Miscellaneous Information 1 ea NOTE XX Last administered on 11/15/18 12:00; Admin Dose 1 EA; Start 11/10/18 at 11:30 Glucose (Glutose) 15 gm Q15M PRN PO DECREASED GLUCOSE; Start 11/10/18 at 11:30 Glucose (Glutose) 22.5 gm Q15M PRN PO DECREASED GLUCOSE; Start 11/10/18 at 11:30 Dextrose (D50w Syringe) 25 ml Q15M PRN IV DECREASED GLUCOSE Last administered on 11/11/18 13:22; Admin Dose 25 ML; Start 11/10/18 at 11:30 Dextrose (D50w Syringe) 50 ml Q15M PRN IV DECREASED GLUCOSE; Start 11/10/18 at 11:30 Glucagon (Glucagen) 1 mg Q15M PRN IM DECREASED GLUCOSE; Start 11/10/18 at 11:30 Glucose (Glutose) 15 gm Q15M PRN BUCCAL DECREASED GLUCOSE; Start 11/10/18 at 11:30 Atorvastatin Calcium (Lipitor) 20 mg QHS PO Last administered on 11/19/18 20:06; Admin Dose 20 MG; Start 11/11/18 at 21:00 Apixaban (Eliquis) 5 mg BID PO Last administered on 11/19/18 20:06; Admin Dose 5 MG; Start 11/11/18 at 21:00 Insulin Aspart (Novolog Insulin Pen) NOVOLOG *MILD* ALGORITHM WITH MEALS BEDTIME SC Last administered on 11/18/18 12:21; Admin Dose 1 UNIT; Start 11/11/18 at 17:55 Lorazepam (Ativan) 0.5 mg Q6H PRN PO ANXIETY Last administered on 11/20/18 03:51; Admin Dose 0.5 MG; Start 11/11/18 at 21:00 Diltiazem HCl (Cardizem Iv) 5 mg Q4 PRN IV HR>110 Hold SBP<100; Start 11/12/18 at 16:30 Mupirocin (Bactroban) 1 applic BID TOP Last administered on 11/19/18 21:27; Admin Dose 1 APPLIC; Start 11/12/18 at 21:00 Levalbuterol (Xopenex Neb) 0.63 mg Q6H RESP THERAPY HHN Last administered on 11/20/18 02:08; Admin Dose 0.63 MG; Start 11/13/18 at 02:00 Diagnostic Test (Pha) (Accu-Chek) 1 ea 02 XX Last administered on 11/17/18at 02:58; Admin Dose 1 EA; Start 11/14/18 at 02:00 Diltiazem HCl (Cardizem Cd) 180 mg BID PO Last administered on 11/19/18 20:05; Admin Dose 180 MG; Start 11/14/18 at 21:00 Metoprolol Tartrate (Lopressor) 75 mg BID PO Last administered on 11/19/18 20:05; Admin Dose 75 MG; Start 11/15/18 at 21:00 Insulin Aspart (Novolog Insulin Pen) 3 unit WITH MEALS SC Last administered on 11/19/18 13:00; Admin Dose 3 UNIT; Start 11/16/18 at 08:00 Insulin Glargine (Lantus) 30 units DAILY SC Last administered on 11/19/18 09:00; Admin Dose 30 UNITS; Start 11/16/18 at 09:00 Hydroxyzine HCl (Atarax) 25 mg Q6H PRN PO ITCHING Last administered on 11/20/18 01:35; Admin Dose 25 MG; Start 11/15/18 at 23:00 Furosemide (Lasix) 20 mg DAILY IV Last administered on 11/18/18 10:08; Admin Dose 20 MG; Start 11/17/18 at 09:00; Status Hold Dextrose/Sodium Chloride 1,000 ml @ 50 mls/hr Q20H IV Last administered on 11/20/18 05:19; Admin Dose 50 MLS/HR; Start 11/17/18 at 07:30 Zinc Acetate/ Diphenhydramine (Benadryl 2% Cr) 1 applic BID PRN TOP ITCHING Last administered on 11/19/18 21:27; Admin Dose 1 APPLIC; Start 11/18/18 at 12:00 Furosemide (Lasix) 20 mg BID DIURETICS PO Last administered on 11/20/18 05:18; Admin Dose 20 MG; Start 11/20/18 at 06:00 MIHAI POOLE Nov 20, 2018 07:23
[2018-11-20] MEDS: INSULIN ASPART [NOVOLOG] 3 ML PEN SC SCH ×7 (08:00→20:48)
[2018-11-20] MEDS: MUPIROCIN 2% 22 GM OINT TOP SCH ×2 (09:00→20:53)
[2018-11-20] MEDS: APIXABAN 5 MG TABLET PO SCH ×2 (09:14→20:55)
[2018-11-20] MEDS: ZINC SULFATE 220 MG CAP PO SCH (09:14)
[2018-11-20] MEDS: DILTIAZEM (CD) 180 MG CAP PO SCH ×2 (09:15→20:54)
[2018-11-20] MEDS: METOPROLOL 25 MG TAB PO SCH ×2 (09:15→20:54)
[2018-11-20] MEDS: DOCUSATE SODIUM 100 MG CAP PO SCH (09:16)
[2018-11-20] MEDS: CHOLECALCIFEROL 1,000 UNIT TAB PO SCH (09:16)
[2018-11-20] MEDS: INSULIN GLARGINE [LANTus] (100 UNITS/ML) SYG SC SCH (09:22)
--- NOTE | 2018-11-20 10:11 | CONS ---
Assessment/Plan Assessment/Plan Assessment/Plan (Daily) 1. acute Kidney injury 2. Pneumonia, 3. Pulmonary edema due to possible CHF exacerbation 4. Atrial fibrillation with rapid ventricular response 5. Diabetes 6. Hypertension 7. Transaminitis ?acute chetna Plan: BUN/Cr improved to 38/1.20- IV abx cefepime IVF D51/2 NS atr 50 cc.hr lasix 20mg pO BID Renally dose all abx and monitor electrolytes, replace as needed will follow up Consultation Date/Type/Reason Admit Date/Time Nov 09, 2018 at 17:20 Initial Consult Date 11/17/18 Type of Consult NEPHROLOGY Requesting Provider: ELISABETH ENRIQUEZ MD Date/Time of Note DATE: 11/20/18 TIME: 10:11 Exam/Review of Systems Exam Vitals Vital Signs Date Temp Pulse Resp B/P (MAP) Pulse Ox O2 O2 Flow FiO2 Time Delivery Rate 11/20/18 82 18 96 Nasal 21 08:35 Cannula 11/20/18 97.9 126/66 07:18 (86) 11/19/18 2.0 08:07 Intake and Output 11/19/18 11/19/18 11/20/18 1515:00 23:00 07:00 IntakeIntake Total 800 ml 1470 ml BalanceBalance 800 ml 1470 ml Exam Constitutional: alert Head: normocephalic Eyes: nl conjunctiva Neck: supple Respiratory: congested cough, diminished breath sounds Cardiovascular: regular rate and rhythm, nl pulses Gastrointestinal: soft, non-tender Neurological: ACCREDITATION COORDINATOR II-XII intact, nl mental status Results Result Diagram: 11/19/18 0505 11/20/18 0500 Results 24hrs Laboratory Tests Test 11/19/18 12:00 11/19/18 17:17 11/19/18 17:38 11/19/18 20:09 Bedside Glucose 93 60 L 100 90 Test 11/20/18 04:26 11/20/18 04:29 11/20/18 05:00 11/20/18 08:49 Iron Level 44 Total Iron Binding 219 L Capacity Percent Iron 20 L Saturation Absolute 0.117 H Reticulocyte Count Percent Reticulocyte 3.3 H Count Sodium Level 135 Potassium Level 3.9 Chloride Level 98 Carbon Dioxide Level 29 Anion Gap 8 Blood Urea Nitrogen 38 H Creatinine 1.20 H Est Glomerular Filtrat Rate mL/min Glucose Level 83 Calcium Level 8.2 L Total Bilirubin 0.5 Direct Bilirubin 0.00 Indirect Bilirubin 0.5 Aspartate Amino 85 H Transf (AST/SGOT) Alanine 100 H Aminotransferase (AL T/SGPT) Alkaline Phosphatase 164 H Total Protein 6.3 Albumin 2.8 L Globulin 3.50 H Albumin/Globulin 0.80 Ratio Bedside Glucose 83 Medications Medication Current Medications IV Flush (NS 3 ml) 3 ml PER PROTOCOL IV ; Start 11/09/18 at 18:00 Ondansetron HCl (Zofran Inj) 4 mg Q6H PRN IV NAUSEA/VOMITING Last administered on 11/15/18 17:19; Admin Dose 4 MG; Start 11/09/18 at 18:00 Acetaminophen (Tylenol Tab) 650 mg Q6H PRN PO .PAIN 1-3 OR TEMP Last administered on 11/20/18 05:18; Admin Dose 650 MG; Start 11/09/18 at 18:00 Morphine Sulfate (morphine) 2 mg Q4H PRN IV .PAIN 7-10 Last administered on 11/19/18 23:08; Admin Dose 2 MG; Start 11/09/18 at 18:00 Bisacodyl (Dulcolax) 10 mg DAILY PRN PO CONSTIPATION Last administered on 11/19/18 21:27; Admin Dose 10 MG; Start 11/10/18 at 11:00 Cholecalciferol (Vitamin D) 2,000 unit DAILY PO Last administered on 11/20/18 09:16; Admin Dose 2,000 UNIT; Start 11/11/18 at 09:00 Docusate Sodium (Colace) 100 mg DAILY PO Last administered on 11/20/18 09:16; Admin Dose 100 MG; Start 11/11/18 at 09:00 Senna (Senokot) 1 tab DAILY PRN PO CONSTIPATION Last administered on 11/19/18 20:06; Admin Dose 1 TAB; Start 11/10/18 at 11:00 Zinc Sulfate (Zinc Sulfate) 220 mg DAILY PO Last administered on 11/20/18 09:14; Admin Dose 220 MG; Start 11/11/18 at 09:00 Miscellaneous Information 1 ea NOTE XX Last administered on 11/15/18 12:00; Admin Dose 1 EA; Start 11/10/18 at 11:30 Glucose (Glutose) 15 gm Q15M PRN PO DECREASED GLUCOSE; Start 11/10/18 at 11:30 Glucose (Glutose) 22.5 gm Q15M PRN PO DECREASED GLUCOSE; Start 11/10/18 at 11:30 Dextrose (D50w Syringe) 25 ml Q15M PRN IV DECREASED GLUCOSE Last administered on 11/11/18 13:22; Admin Dose 25 ML; Start 11/10/18 at 11:30 Dextrose (D50w Syringe) 50 ml Q15M PRN IV DECREASED GLUCOSE; Start 11/10/18 at 11:30 Glucagon (Glucagen) 1 mg Q15M PRN IM DECREASED GLUCOSE; Start 11/10/18 at 11:30 Glucose (Glutose) 15 gm Q15M PRN BUCCAL DECREASED GLUCOSE; Start 11/10/18 at 11:30 Atorvastatin Calcium (Lipitor) 20 mg QHS PO Last administered on 11/19/18 20:06; Admin Dose 20 MG; Start 11/11/18 at 21:00 Apixaban (Eliquis) 5 mg BID PO Last administered on 11/20/18 09:14; Admin Dose 5 MG; Start 11/11/18 at 21:00 Insulin Aspart (Novolog Insulin Pen) NOVOLOG *MILD* ALGORITHM WITH MEALS BEDTIME SC Last administered on 11/18/18 12:21; Admin Dose 1 UNIT; Start 11/11/18 at 17:55 Lorazepam (Ativan) 0.5 mg Q6H PRN PO ANXIETY Last administered on 11/20/18 03:51; Admin Dose 0.5 MG; Start 11/11/18 at 21:00 Diltiazem HCl (Cardizem Iv) 5 mg Q4 PRN IV HR>110 Hold SBP<100; Start 11/12/18 at 16:30 Mupirocin (Bactroban) 1 applic BID TOP Last administered on 11/19/18 21:27; Admin Dose 1 APPLIC; Start 11/12/18 at 21:00 Levalbuterol (Xopenex Neb) 0.63 mg Q6H RESP THERAPY HHN Last administered on 11/20/18 08:35; Admin Dose 0.63 MG; Start 11/13/18 at 02:00 Diagnostic Test (Pha) (Accu-Chek) 1 ea 02 XX Last administered on 11/17/18 02:58; Admin Dose 1 EA; Start 11/14/18 at 02:00 Diltiazem HCl (Cardizem Cd) 180 mg BID PO Last administered on 11/20/18 09:15; Admin Dose 180 MG; Start 11/14/18 at 21:00 Metoprolol Tartrate (Lopressor) 75 mg BID PO Last administered on 11/20/18 09:15; Admin Dose 75 MG; Start 11/15/18 at 21:00 Insulin Aspart (Novolog Insulin Pen) 3 unit WITH MEALS SC Last administered on 11/20/18 08:54; Admin Dose 3 UNIT; Start 11/16/18 at 08:00 Insulin Glargine (Lantus) 30 units DAILY SC Last administered on 11/20/18 09:22; Admin Dose 30 UNITS; Start 11/16/18 at 09:00 Hydroxyzine HCl (Atarax) 25 mg Q6H PRN PO ITCHING Last administered on 11/20/18 01:35; Admin Dose 25 MG; Start 11/15/18 at 23:00 Furosemide (Lasix) 20 mg DAILY IV Last administered on 11/18/18 10:08; Admin Dose 20 MG; Start 11/17/18 at 09:00; Status Hold Zinc Acetate/ Diphenhydramine (Benadryl 2% Cr) 1 applic BID PRN TOP ITCHING Last administered on 11/19/18 21:27; Admin Dose 1 APPLIC; Start 11/18/18 at 12:00 Furosemide (Lasix) 20 mg BID DIURETICS PO Last administered on 11/20/18 05:18; Admin Dose 20 MG; Start 11/20/18 at 06:00 TERESA HERNANDEZ MD Nov 20, 2018 10:11
--- NOTE | 2018-11-20 14:19 | CONS ---
Assessment/Plan Assessment/Plan Hospital Course (Demo Recall) No acute changes patient is awake feels good denies pain, no fevers overnight Microbiology blood cultures remain negative MRSA swab positive Physical examination: Well-developed chronically ill-appearing elderly woman who is awake in no distress. Head atraumatic normocephalic sclera nonicteric vehicle mucosa dry neck is supple chest rise symmetrical breath sounds diminished bases. Heart: S1-S2 irregular abdomen soft bowel sounds present extremities without cyanosis Assessment: 1. S/p pneumonia, possible CHF exacerbation 2. Atrial fibrillation with rapid ventricular response 3. MRSA nares colonization 4. Diabetes 5. Hypertension 6. Transaminitis ?acute chetna Plan: Patient is clinically stable, off abx, pending repeat MRSA swab Consultation Date/Type/Reason Admit Date/Time Nov 09, 2018 at 17:20 Initial Consult Date Type of Consult id Requesting Provider: ELISABETH ENRIQUEZ MD Date/Time of Note DATE: 11/20/18 TIME: 14:18 Exam/Review of Systems Exam Vitals Vital Signs Date Temp Pulse Resp B/P (MAP) Pulse Ox O2 O2 Flow FiO2 Time Delivery Rate 11/20/18 97.8 72 16 132/66 98 11:17 (88) 11/20/18 Nasal 21 08:35 Cannula 11/20/18 2.0 08:30 Intake and Output 11/19/18 11/19/18 11/20/18 1515:00 23:00 07:00 IntakeIntake Total 800 ml 1470 ml BalanceBalance 800 ml 1470 ml Results Result Diagram: 11/19/18 0505 11/20/18 0500 Results 24hrs Laboratory Tests Test 11/19/18 17:17 11/19/18 17:38 11/19/18 20:09 11/20/18 04:26 Bedside Glucose 60 L 100 90 Iron Level 44 Total Iron Binding 219 L Capacity Percent Iron 20 L Saturation Test 11/20/18 04:28 11/20/18 04:29 11/20/18 05:00 11/20/18 08:49 Ferritin Pending Vitamin B12 Level 976 H Folate 7.4 Absolute 0.117 H Reticulocyte Count Percent Reticulocyte 3.3 H Count Sodium Level 135 Potassium Level 3.9 Chloride Level 98 Carbon Dioxide Level 29 Anion Gap 8 Blood Urea Nitrogen 38 H Creatinine 1.20 H Est Glomerular Filtrat Rate mL/min Glucose Level 83 Calcium Level 8.2 L Total Bilirubin 0.5 Direct Bilirubin 0.00 Indirect Bilirubin 0.5 Aspartate Amino 85 H Transf (AST/SGOT) Alanine 100 H Aminotransferase (AL T/SGPT) Alkaline Phosphatase 164 H Total Protein 6.3 Albumin 2.8 L Globulin 3.50 H Albumin/Globulin 0.80 Ratio Bedside Glucose 83 Test 11/20/18 11:54 Bedside Glucose 71 Medications Medication Current Medications IV Flush (NS 3 ml) 3 ml PER PROTOCOL IV ; Start 11/09/18 at 18:00 Ondansetron HCl (Zofran Inj) 4 mg Q6H PRN IV NAUSEA/VOMITING Last administered on 11/15/18 17:19; Admin Dose 4 MG; Start 11/09/18 at 18:00 Acetaminophen (Tylenol Tab) 650 mg Q6H PRN PO .PAIN 1-3 OR TEMP Last administered on 11/20/18 05:18; Admin Dose 650 MG; Start 11/09/18 at 18:00 Morphine Sulfate (morphine) 2 mg Q4H PRN IV .PAIN 7-10 Last administered on 11/19/18 23:08; Admin Dose 2 MG; Start 11/09/18 at 18:00 Bisacodyl (Dulcolax) 10 mg DAILY PRN PO CONSTIPATION Last administered on 11/19/18 21:27; Admin Dose 10 MG; Start 11/10/18 at 11:00 Cholecalciferol (Vitamin D) 2,000 unit DAILY PO Last administered on 11/20/18 09:16; Admin Dose 2,000 UNIT; Start 11/11/18 at 09:00 Docusate Sodium (Colace) 100 mg DAILY PO Last administered on 11/20/18 09:16; Admin Dose 100 MG; Start 11/11/18 at 09:00 Senna (Senokot) 1 tab DAILY PRN PO CONSTIPATION Last administered on 11/19/18 20:06; Admin Dose 1 TAB; Start 11/10/18 at 11:00 Zinc Sulfate (Zinc Sulfate) 220 mg DAILY PO Last administered on 11/20/18 09:14; Admin Dose 220 MG; Start 11/11/18 at 09:00 Miscellaneous Information 1 ea NOTE XX Last administered on 11/15/18 12:00; Admin Dose 1 EA; Start 11/10/18 at 11:30 Glucose (Glutose) 15 gm Q15M PRN PO DECREASED GLUCOSE; Start 11/10/18 at 11:30 Glucose (Glutose) 22.5 gm Q15M PRN PO DECREASED GLUCOSE; Start 11/10/18 at 11:30 Dextrose (D50w Syringe) 25 ml Q15M PRN IV DECREASED GLUCOSE Last administered on 11/11/18at 13:22; Admin Dose 25 ML; Start 11/10/18 at 11:30 Dextrose (D50w Syringe) 50 ml Q15M PRN IV DECREASED GLUCOSE; Start 11/10/18 at 11:30 Glucagon (Glucagen) 1 mg Q15M PRN IM DECREASED GLUCOSE; Start 11/10/18 at 11:30 Glucose (Glutose) 15 gm Q15M PRN BUCCAL DECREASED GLUCOSE; Start 11/10/18 at 11:30 Atorvastatin Calcium (Lipitor) 20 mg QHS PO Last administered on 11/19/18at 20:06; Admin Dose 20 MG; Start 11/11/18 at 21:00 Apixaban (Eliquis) 5 mg BID PO Last administered on 11/20/18 09:14; Admin Dose 5 MG; Start 11/11/18 at 21:00 Insulin Aspart (Novolog Insulin Pen) NOVOLOG *MILD* ALGORITHM WITH MEALS BEDTIME SC Last administered on 11/18/18 12:21; Admin Dose 1 UNIT; Start 11/11/18 at 17:55 Lorazepam (Ativan) 0.5 mg Q6H PRN PO ANXIETY Last administered on 11/20/18 03:51; Admin Dose 0.5 MG; Start 11/11/18 at 21:00 Diltiazem HCl (Cardizem Iv) 5 mg Q4 PRN IV HR>110 Hold SBP<100; Start 11/12/18 at 16:30 Mupirocin (Bactroban) 1 applic BID TOP Last administered on 11/20/18 09:00; Admin Dose 1 APPLIC; Start 11/12/18 at 21:00 Levalbuterol (Xopenex Neb) 0.63 mg Q6H RESP THERAPY HHN Last administered on 11/20/18at 08:35; Admin Dose 0.63 MG; Start 11/13/18 at 02:00 Diagnostic Test (Pha) (Accu-Chek) 1 ea 02 XX Last administered on 11/17/18 02:58; Admin Dose 1 EA; Start 11/14/18 at 02:00 Diltiazem HCl (Cardizem Cd) 180 mg BID PO Last administered on 11/20/18 09:15; Admin Dose 180 MG; Start 11/14/18 at 21:00 Metoprolol Tartrate (Lopressor) 75 mg BID PO Last administered on 11/20/18 09:15; Admin Dose 75 MG; Start 11/15/18 at 21:00 Insulin Aspart (Novolog Insulin Pen) 3 unit WITH MEALS SC Last administered on 11/20/18 12:01; Admin Dose 3 UNIT; Start 11/16/18 at 08:00 Insulin Glargine (Lantus) 30 units DAILY SC Last administered on 11/20/18 09:22; Admin Dose 30 UNITS; Start 11/16/18 at 09:00 Hydroxyzine HCl (Atarax) 25 mg Q6H PRN PO ITCHING Last administered on 11/20/18 01:35; Admin Dose 25 MG; Start 11/15/18 at 23:00 Furosemide (Lasix) 20 mg DAILY IV Last administered on 11/18/18 10:08; Admin Dose 20 MG; Start 11/17/18 at 09:00; Status Hold Zinc Acetate/ Diphenhydramine (Benadryl 2% Cr) 1 applic BID PRN TOP ITCHING Last administered on 11/19/18 21:27; Admin Dose 1 APPLIC; Start 11/18/18 at 12:00 Furosemide (Lasix) 20 mg BID DIURETICS PO Last administered on 11/20/18 05:18; Admin Dose 20 MG; Start 11/20/18 at 06:00 ZHEN ROSS NP Nov 20, 2018 14:19
--- NOTE | 2018-11-20 14:42 | CONS ---
Assessment/Plan Assessment/Plan Hospital Course (Demo Recall) IMPRESSION: 1. Atrial fibrillation/atrial flutter- neg trop x 3. Now with improved rate control. NL EF by echo 2. Hypertension, controlled. 3. Congestive heart failure, diastolic, acute on chronic. 4. Coagulopathy secondary to Eliquis. 5. ARF-now slowly improving 6. Increased liver function tests. 7. Increased BNP. 8. Anemia, mild, worsening. 9. abd pain Recc: -Tele -serial ecg's -Continiue BB and CCB and current doses and follow HR/BP closely -Contineu eliquis -Contneu abx's and f/u cx data -back on lasix 20 po bid. Follow volume status clsoely -Renal following Consultation Date/Type/Reason Admit Date/Time Nov 09, 2018 at 17:20 Initial Consult Date 11/12/18 Type of Consult Cardiology Reason for Consultation AF Requesting Provider: ELISABETH ENRIQUEZ MD Date/Time of Note DATE: 11/20/18 TIME: 14:40 Exam/Review of Systems Vital Signs Vitals Vital Signs Date Temp Pulse Resp B/P (MAP) Pulse Ox O2 O2 Flow FiO2 Time Delivery Rate 11/20/18 97.8 72 16 132/66 98 11:17 (88) 11/20/18 Nasal 21 08:35 Cannula 11/20/18 2.0 08:30 Intake and Output 11/19/18 11/19/18 11/20/18 1414:59 22:59 06:59 IntakeIntake Total 800 ml 1470 ml BalanceBalance 800 ml 1470 ml Exam Exam Review of Systems: CONSTITUTIONAL: No fevers, chills. PULMONARY: No sob CARDIOVASCULAR: No chest pain/palpitations GASTROINTESTINAL: No nausea/vomiting. GENITOURINARY: No hematuria/dysuria. MUSCULOSKELETAL: No myagias/arthalgias. PSYCHIATRIC: The patient denies depression. NEUROLOGIC: No weakness Constitutional: alert Psych: no complaints Head: normocephalic ENMT: mucosa pink and moist Neck: supple, jvd (9 cm wter) Respiratory: diminished breath sounds Cardiovascular: regular rate and rhythm Gastrointestinal: soft, non-tender Musculoskeletal: muscle tone (normal) Extremities: edema (none) Neurological: lethargic Labs Result Diagram: 11/19/18 0505 11/20/18 0500 Results 24hrs Laboratory Tests Test 11/19/18 17:17 11/19/18 17:38 11/19/18 20:09 11/20/18 04:26 Bedside Glucose 60 L 100 90 Iron Level 44 Total Iron Binding 219 L Capacity Percent Iron 20 L Saturation Test 11/20/18 04:28 11/20/18 04:29 11/20/18 05:00 11/20/18 08:49 Ferritin Pending Vitamin B12 Level 976 H Folate 7.4 Absolute 0.117 H Reticulocyte Count Percent Reticulocyte 3.3 H Count Sodium Level 135 Potassium Level 3.9 Chloride Level 98 Carbon Dioxide Level 29 Anion Gap 8 Blood Urea Nitrogen 38 H Creatinine 1.20 H Est Glomerular Filtrat Rate mL/min Glucose Level 83 Calcium Level 8.2 L Total Bilirubin 0.5 Direct Bilirubin 0.00 Indirect Bilirubin 0.5 Aspartate Amino 85 H Transf (AST/SGOT) Alanine 100 H Aminotransferase (AL T/SGPT) Alkaline Phosphatase 164 H Total Protein 6.3 Albumin 2.8 L Globulin 3.50 H Albumin/Globulin 0.80 Ratio Bedside Glucose 83 Test 11/20/18 11:54 Bedside Glucose 71 Medications Medications Current Medications IV Flush (NS 3 ml) 3 ml PER PROTOCOL IV ; Start 11/09/18 at 18:00 Ondansetron HCl (Zofran Inj) 4 mg Q6H PRN IV NAUSEA/VOMITING Last administered on 11/15/18 17:19; Admin Dose 4 MG; Start 11/09/18 at 18:00 Acetaminophen (Tylenol Tab) 650 mg Q6H PRN PO .PAIN 1-3 OR TEMP Last administered on 11/20/18at 05:18; Admin Dose 650 MG; Start 11/09/18 at 18:00 Morphine Sulfate (morphine) 2 mg Q4H PRN IV .PAIN 7-10 Last administered on 11/19/18at 23:08; Admin Dose 2 MG; Start 11/09/18 at 18:00 Bisacodyl (Dulcolax) 10 mg DAILY PRN PO CONSTIPATION Last administered on 11/19/18at 21:27; Admin Dose 10 MG; Start 11/10/18 at 11:00 Cholecalciferol (Vitamin D) 2,000 unit DAILY PO Last administered on 11/20/18at 09:16; Admin Dose 2,000 UNIT; Start 11/11/18 at 09:00 Docusate Sodium (Colace) 100 mg DAILY PO Last administered on 11/20/18 09:16; Admin Dose 100 MG; Start 11/11/18 at 09:00 Senna (Senokot) 1 tab DAILY PRN PO CONSTIPATION Last administered on 11/19/18 20:06; Admin Dose 1 TAB; Start 11/10/18 at 11:00 Zinc Sulfate (Zinc Sulfate) 220 mg DAILY PO Last administered on 11/20/18 09:14; Admin Dose 220 MG; Start 11/11/18 at 09:00 Miscellaneous Information 1 ea NOTE XX Last administered on 11/15/18 12:00; Admin Dose 1 EA; Start 11/10/18 at 11:30 Glucose (Glutose) 15 gm Q15M PRN PO DECREASED GLUCOSE; Start 11/10/18 at 11:30 Glucose (Glutose) 22.5 gm Q15M PRN PO DECREASED GLUCOSE; Start 11/10/18 at 11:30 Dextrose (D50w Syringe) 25 ml Q15M PRN IV DECREASED GLUCOSE Last administered on 11/11/18 13:22; Admin Dose 25 ML; Start 11/10/18 at 11:30 Dextrose (D50w Syringe) 50 ml Q15M PRN IV DECREASED GLUCOSE; Start 11/10/18 at 11:30 Glucagon (Glucagen) 1 mg Q15M PRN IM DECREASED GLUCOSE; Start 11/10/18 at 11:30 Glucose (Glutose) 15 gm Q15M PRN BUCCAL DECREASED GLUCOSE; Start 11/10/18 at 11:30 Atorvastatin Calcium (Lipitor) 20 mg QHS PO Last administered on 11/19/18 20:06; Admin Dose 20 MG; Start 11/11/18 at 21:00 Apixaban (Eliquis) 5 mg BID PO Last administered on 11/20/18 09:14; Admin Dose 5 MG; Start 11/11/18 at 21:00 Insulin Aspart (Novolog Insulin Pen) NOVOLOG *MILD* ALGORITHM WITH MEALS BEDTIME SC Last administered on 11/18/18 12:21; Admin Dose 1 UNIT; Start 11/11/18 at 17:55 Lorazepam (Ativan) 0.5 mg Q6H PRN PO ANXIETY Last administered on 11/20/18 03:51; Admin Dose 0.5 MG; Start 11/11/18 at 21:00 Diltiazem HCl (Cardizem Iv) 5 mg Q4 PRN IV HR>110 Hold SBP<100; Start 11/12/18 at 16:30 Mupirocin (Bactroban) 1 applic BID TOP Last administered on 11/20/18 09:00; Admin Dose 1 APPLIC; Start 11/12/18 at 21:00 Levalbuterol (Xopenex Neb) 0.63 mg Q6H RESP THERAPY HHN Last administered on 11/20/18 08:35; Admin Dose 0.63 MG; Start 11/13/18 at 02:00 Diagnostic Test (Pha) (Accu-Chek) 1 ea 02 XX Last administered on 11/17/18 02:58; Admin Dose 1 EA; Start 11/14/18 at 02:00 Diltiazem HCl (Cardizem Cd) 180 mg BID PO Last administered on 11/20/18 09:15; Admin Dose 180 MG; Start 11/14/18 at 21:00 Metoprolol Tartrate (Lopressor) 75 mg BID PO Last administered on 11/20/18 09:15; Admin Dose 75 MG; Start 11/15/18 at 21:00 Insulin Aspart (Novolog Insulin Pen) 3 unit WITH MEALS SC Last administered on 11/20/18 12:01; Admin Dose 3 UNIT; Start 11/16/18 at 08:00 Insulin Glargine (Lantus) 30 units DAILY SC Last administered on 11/20/18 09:22; Admin Dose 30 UNITS; Start 11/16/18 at 09:00 Hydroxyzine HCl (Atarax) 25 mg Q6H PRN PO ITCHING Last administered on 11/20/18 01:35; Admin Dose 25 MG; Start 11/15/18 at 23:00 Furosemide (Lasix) 20 mg DAILY IV Last administered on 11/18/18 10:08; Admin Dose 20 MG; Start 11/17/18 at 09:00; Status Hold Zinc Acetate/ Diphenhydramine (Benadryl 2% Cr) 1 applic BID PRN TOP ITCHING Last administered on 11/19/18 21:27; Admin Dose 1 APPLIC; Start 11/18/18 at 12:00 Furosemide (Lasix) 20 mg BID DIURETICS PO Last administered on 11/20/18at 05:18; Admin Dose 20 MG; Start 11/20/18 at 06:00 CASSIE URBINA Nov 20, 2018 14:42
[2018-11-20] MEDS: DIPHENHYDRAMINE 2%/ZINC 28.4 GM CR TOP PRN (15:21)
--- NOTE | 2018-11-20 16:00 | PN ---
Date/Time of Note Date/Time of Note DATE: 11/20/18 TIME: 15:55 Assessment/Plan VTE Prophylaxis Risk score (from Ns)>0 risk: 6 SCD applied (from Ns): Yes Pharmacological prophylaxis: apixaban Lines/Catheters IV [facility]ter Type (from [facility]): Peripheral IV Urinary Cath still in place: No Assessment/Plan Hospital Course Patient denies any chest pain, denies shortness of breath at rest, atrial fibrillation at controlled rate, patient is undergoing work-up for anemia and elevated liver enzymes. Assessment/Plan The patient is a 77-year-old female was brought from [facility] for tachycardia. -Pneumonia, continue antibiotics, breathing treatment. -Atrial fibrillation, continue Eliquis and metoprolol -Transaminitis, abdominal ultrasound with Sludge within the gallbladder, thickening of the gallbladder wall and questionable trace pericholecystic fluid. In the right clinical setting, this may suggest acute cholecystitis. No biliary duct dilatation, fatty liver. Dr. Chicas, gastroenterology consultation -Hypertension -Stage I diastolic dysfunction congestive heart failure with preserved ejection fraction -Cardiomegaly -MRSA of nares, Bactroban, contact isolation. -Diabetes mellitus type 2 with hemoglobin A1c of 6.1. Continue Lantus and NovoLog. -Neurocognitive disorder with depressed mood status post psychiatric evaluation. -Obesity with BMI of 35.3 Further recommendations based on clinical course. Plan of care discussed with Dr. Deutsch. Result Diagram: 11/19/18 0505 11/20/18 0500 Results 24hrs Laboratory Tests Test 11/19/18 17:17 11/19/18 17:38 11/19/18 20:09 11/20/18 04:26 Bedside Glucose 60 L 100 90 Iron Level 44 Total Iron Binding 219 L Capacity Percent Iron 20 L Saturation Test 11/20/18 04:28 11/20/18 04:29 11/20/18 05:00 11/20/18 08:49 Ferritin 1300.0 H Vitamin B12 Level 976 H Folate 7.4 Absolute 0.117 H Reticulocyte Count Percent Reticulocyte 3.3 H Count Sodium Level 135 Potassium Level 3.9 Chloride Level 98 Carbon Dioxide Level 29 Anion Gap 8 Blood Urea Nitrogen 38 H Creatinine 1.20 H Est Glomerular Filtrat Rate mL/min Glucose Level 83 Calcium Level 8.2 L Total Bilirubin 0.5 Direct Bilirubin 0.00 Indirect Bilirubin 0.5 Aspartate Amino 85 H Transf (AST/SGOT) Alanine 100 H Aminotransferase (AL T/SGPT) Alkaline Phosphatase 164 H Total Protein 6.3 Albumin 2.8 L Globulin 3.50 H Albumin/Globulin 0.80 Ratio Bedside Glucose 83 Test 11/20/18 11:54 Bedside Glucose 71 Exam/Review of Systems Exam Vitals Vital Signs Date Temp Pulse Resp B/P (MAP) Pulse Ox O2 O2 Flow FiO2 Time Delivery Rate 11/20/18 75 12:00 11/20/18 97.8 16 132/66 98 11:17 (88) 11/20/18 Nasal 21 08:35 Cannula 11/20/18 2.0 08:30 Intake and Output 11/19/18 11/19/18 11/20/18 1515:00 23:00 07:00 IntakeIntake Total 800 ml 1470 ml BalanceBalance 800 ml 1470 ml Exam Constitutional: alert, oriented Head: normocephalic Respiratory: diminished breath sounds Cardiovascular: irregular rhythm Gastrointestinal: soft, non-tender Musculoskeletal: nl extremities to inspection Extremities: normal pulses Results Results 24hrs Laboratory Tests Test 11/19/18 17:17 11/19/18 17:38 11/19/18 20:09 11/20/18 04:26 Bedside Glucose 60 L 100 90 Iron Level 44 Total Iron Binding 219 L Capacity Percent Iron 20 L Saturation Test 11/20/18 04:28 11/20/18 04:29 11/20/18 05:00 11/20/18 08:49 Ferritin 1300.0 H Vitamin B12 Level 976 H Folate 7.4 Absolute 0.117 H Reticulocyte Count Percent Reticulocyte 3.3 H Count Sodium Level 135 Potassium Level 3.9 Chloride Level 98 Carbon Dioxide Level 29 Anion Gap 8 Blood Urea Nitrogen 38 H Creatinine 1.20 H Est Glomerular Filtrat Rate mL/min Glucose Level 83 Calcium Level 8.2 L Total Bilirubin 0.5 Direct Bilirubin 0.00 Indirect Bilirubin 0.5 Aspartate Amino 85 H Transf (AST/SGOT) Alanine 100 H Aminotransferase (AL T/SGPT) Alkaline Phosphatase 164 H Total Protein 6.3 Albumin 2.8 L Globulin 3.50 H Albumin/Globulin 0.80 Ratio Bedside Glucose 83 Test 11/20/18 11:54 Bedside Glucose 71 Medications Medication Current Medications IV Flush (NS 3 ml) 3 ml PER PROTOCOL IV ; Start 11/09/18 at 18:00 Ondansetron HCl (Zofran Inj) 4 mg Q6H PRN IV NAUSEA/VOMITING Last administered on 11/15/18 17:19; Admin Dose 4 MG; Start 11/09/18 at 18:00 Acetaminophen (Tylenol Tab) 650 mg Q6H PRN PO .PAIN 1-3 OR TEMP Last ad ministered on 11/20/18 05:18; Admin Dose 650 MG; Start 11/09/18 at 18:00 Morphine Sulfate (morphine) 2 mg Q4H PRN IV .PAIN 7-10 Last administered on 11/19/18 23:08; Admin Dose 2 MG; Start 11/09/18 at 18:00 Bisacodyl (Dulcolax) 10 mg DAILY PRN PO CONSTIPATION Last administered on 11/19/18 21:27; Admin Dose 10 MG; Start 11/10/18 at 11:00 Cholecalciferol (Vitamin D) 2,000 unit DAILY PO Last administered on 11/20/18 09:16; Admin Dose 2,000 UNIT; Start 11/11/18 at 09:00 Docusate Sodium (Colace) 100 mg DAILY PO Last administered on 11/20/18 09:16; Admin Dose 100 MG; Start 11/11/18 at 09:00 Senna (Senokot) 1 tab DAILY PRN PO CONSTIPATION Last administered on 11/19/18 20:06; Admin Dose 1 TAB; Start 11/10/18 at 11:00 Zinc Sulfate (Zinc Sulfate) 220 mg DAILY PO Last administered on 11/20/18 0 9:14; Admin Dose 220 MG; Start 11/11/18 at 09:00 Miscellaneous Information 1 ea NOTE XX Last administered on 11/15/18 12:00; Admin Dose 1 EA; Start 11/10/18 at 11:30 Glucose (Glutose) 15 gm Q15M PRN PO DECREASED GLUCOSE; Start 11/10/18 at 11:30 Glucose (Glutose) 22.5 gm Q15M PRN PO DECREASED GLUCOSE; Start 11/10/18 at 11:30 Dextrose (D50w Syringe) 25 ml Q15M PRN IV DECREASED GLUCOSE Last administered on 11/11/18 13:22; Admin Dose 25 ML; Start 11/10/18 at 11:30 Dextrose (D50w Syringe) 50 ml Q15M PRN IV DECREASED GLUCOSE; Start 11/10/18 at 11:30 Glucagon (Glucagen) 1 mg Q15M PRN IM DECREASED GLUCOSE; Start 11/10/18 at 11:30 Glucose (Glutose) 15 gm Q15M PRN BUCCAL DECREASED GLUCOSE; Start 11/10/18 at 11:30 Atorvastatin Calcium (Lipitor) 20 mg QHS PO Last administered on 11/19/18 20:06; Admin Dose 20 MG; Start 11/11/18 at 21:00 Apixaban (Eliquis) 5 mg BID PO Last administered on 11/20/18 09:14; Admin Dose 5 MG; Start 11/11/18 at 21:00 Insulin Aspart (Novolog Insulin Pen) NOVOLOG *MILD* ALGORITHM WITH MEALS BEDTIME SC Last administered on 11/18/18 12:21; Admin Dose 1 UNIT; Start at 17:55 Lorazepam (Ativan) 0.5 mg Q6H PRN PO ANXIETY Last administered on 11/20/18 03:51; Admin Dose 0.5 MG; Start 11/11/18 at 21:00 Diltiazem HCl (Cardizem Iv) 5 mg Q4 PRN IV HR>110 Hold SBP<100; Start 11/12/18 at 16:30 Mupirocin (Bactroban) 1 applic BID TOP Last administered on 11/20/18 09:00; Admin Dose 1 APPLIC; Start 11/12/18 at 21:00 Levalbuterol (Xopenex Neb) 0.63 mg Q6H RESP THERAPY HHN Last administered on 11/20/18 14:43; Admin Dose 0.63 MG; Start 11/13/18 at 02:00 Diagnostic Test (Pha) (Accu-Chek) 1 ea 02 XX Last administered on 11/17/18 02:58; Admin Dose 1 EA; Start 11/14/18 at 02:00 Diltiazem HCl (Cardizem Cd) 180 mg BID PO Last administered on 11/20/18 09:15; Admin Dose 180 MG; Start 11/14/18 at 21:00 Metoprolol Tartrate (Lopressor) 75 mg BID PO Last administered on 11/20/18 09:15; Admin Dose 75 MG; Start 11/15/18 at 21:00 Insulin Aspart (Novolog Insulin Pen) 3 unit WITH MEALS SC Last administered on 11/20/18 12:01; Admin Dose 3 UNIT; Start 11/16/18 at 08:00 Insulin Glargine (Lantus) 30 units DAILY SC Last administered on 11/20/18 09:22; Admin Dose 30 UNITS; Start 11/16/18 at 09:00 Hydroxyzine HCl (Atarax) 25 mg Q6H PRN PO ITCHING Last administered on 11/09 15:20; Admin Dose 25 MG; Start 11/15/18 at 23:00 Furosemide (Lasix) 20 mg DAILY IV Last administered on 11/18/18 10:08; Admin Dose 20 MG; Start 11/17/18 at 09:00; Status Hold Zinc Acetate/ Diphenhydramine (Benadryl 2% Cr) 1 applic BID PRN TOP ITCHING Last administered on 11/20/18 15:21; Admin Dose 1 APPLIC; Start 11/18/18 at 12:00 Furosemide (Lasix) 20 mg BID DIURETICS PO Last administered on 11/20/18 05:18; Admin Dose 20 MG; Start 11/20/18 at 06:00 JAYY SMITH Nov 20, 2018 16:00
[2018-11-20] MEDS: ATORVASTATIN 20 MG TAB PO SCH (20:53)
[2018-11-20] MEDS: DIPHENHYDRAMINE 25 MG CAP PO PRN (22:45)
[2018-11-21] VITALS (9 sets, daily range): BP systolic 116–129; BP diastolic 57–78; PULSE 62–81; RESP 18–20
[2018-11-21] MEDS: hydrOXYzine HCL 25 MG TAB PO PRN ×2 (00:23→16:25)
[2018-11-21] MEDS: LORAZEPAM 0.5 MG TAB PO PRN (00:35)
[2018-11-21] MEDS: ACCU-CHEK XX SCH (02:00)
[2018-11-21] MEDS: LEVALBUTEROL (NEB) 0.63 MG/3 ML AMP HHN SCH ×3 (02:17→14:14)
[2018-11-21] MEDS: FUROSEMIDE 20 MG TAB PO SCH ×2 (06:34→17:41)
[2018-11-21] MEDS: INSULIN ASPART [NOVOLOG] 3 ML PEN SC SCH ×6 (08:00→17:44)
[2018-11-21] MEDS: MUPIROCIN 2% 22 GM OINT TOP SCH (08:48)
[2018-11-21] MEDS: METOPROLOL 25 MG TAB PO SCH (08:49)
[2018-11-21] MEDS: DIPHENHYDRAMINE 25 MG CAP PO PRN ×2 (08:50→14:00)
[2018-11-21] MEDS: APIXABAN 5 MG TABLET PO SCH (08:50)
[2018-11-21] MEDS: CHOLECALCIFEROL 1,000 UNIT TAB PO SCH (08:50)
[2018-11-21] MEDS: DIPHENHYDRAMINE 2%/ZINC 28.4 GM CR TOP PRN (08:51)
[2018-11-21] MEDS: INSULIN GLARGINE [LANTus] (100 UNITS/ML) SYG SC SCH (09:01)
[2018-11-21] MEDS: ACETAMINOPHEN 325 MG TAB PO PRN ×2 (09:12→16:25)
[2018-11-21] MEDS: DILTIAZEM (CD) 180 MG CAP PO SCH (09:14)
[2018-11-21] MEDS: DOCUSATE SODIUM 100 MG CAP PO SCH (09:14)
[2018-11-21] MEDS: ZINC SULFATE 220 MG CAP PO SCH (09:14)
--- NOTE | 2018-11-21 11:09 | DS ---
Date/Time of Note Date/Time of Note DATE: 11/21/18 TIME: 10:59 Discharge Summary Admission/Discharge Info Admit Date/Time Nov 09, 2018 at 17:20 Discharge Date/Time Patient Condition: Stable Hx of Present Illness The patient is a 77-year-old bedridden female was brought from [facility] for tachycardia. Hospital Course DC to [facility] -Pneumonia, completed treatment with antibiotics. -Atrial fibrillation, currently at controlled rate, continue Eliquis and metoprolol -Transaminitis most likely secondary to fatty liver. Abdominal ultrasound with Sludge within the gallbladder, thickening of the gallbladder wall and questionable trace pericholecystic fluid. In the right clinical setting, this may suggest acute cholecystitis. No biliary duct dilatation, fatty liver. Dr. Chicas, gastroenterology consultation. Patient is able to tolerate diet without any nausea, vomiting, or abdominal pain. -Hypertension, continue metoprolol and Cardizem -Stage I diastolic dysfunction congestive heart failure with preserved ejection fraction, status post IV Lasix currently converted to p.o., continue Lasix 20 mg p.o. twice daily. -Cardiomegaly -MRSA of nares, completed treatment with Bactroban -Diabetes mellitus type 2 with hemoglobin A1c of 6.1. Continue Lantus and NovoLog. -Neurocognitive disorder with depressed mood status post psychiatric evaluation. -Obesity Plan of care discussed with Dr. Deutsch. Home Meds Reported Medications Zinc Sulfate* (Zinc Sulfate*) 220 Mg Tablet, 220 MG PO DAILY, TAB 11/09/18 Cholecalciferol* (Vitamin D3*) 1,000 Unit Tablet, 2000 UNIT PO DAILY, TAB 11/09/18 Sennosides* (Senna Lax*) 8.6 Mg Tablet, 1 TAB PO DAILY PRN for CONSTIPATION, TAB 11/09/18 Hydrocodone/Acetaminophen ([place] 5-325 Tablet) 1 Each Tablet, 1 TAB PO Q4 PRN for PAIN LEVEL 7-10, TAB 11/09/18 Multivit-Min/Iron Fum/Folic AC (Fowbo-Xofobsn-Cpoywlqb Tablet) 1 Each Tablet, 1 TAB PO DAILY, TAB 11/09/18 Metoprolol Tartrate* (Lopressor*) 25 Mg Tablet, 25 MG PO BID, #60 TAB 11/09/18 Furosemide* (Lasix*) 20 Mg Tablet, 20 MG PO DAILY, TAB 11/09/18 Insulin Glargine* (Lantus*) 100 Unit/Ml Soln, 32 UNIT SC DAILY, #1 VIAL 11/09/18 Insulin Lispro (Humalog Kwikpen U-100) 100 Unit/1 Ml Insuln.pen, 1-12 UNIT SQ AC A for PER SLIDING SCALE, EA 11/09/18 Glipizide* (Glipizide*) 5 Mg Tablet, 5 MG PO BID, TAB 11/09/18 Apixaban* (Eliquis*) 5 Mg Tablet, 5 MG PO BID, TAB 11/09/18 Bisacodyl* (Dulcolax*) 5 Mg Tablet.dr, 10 MG PO DAILY PRN for CONSTIPATION, TAB 11/09/18 Docusate Sodium* (Docusate Sodium*) 100 Mg Capsule, 100 MG PO DAILY, #30 CAP 11/09/18 Diphenhydramine Hcl* (Diphenhydramine Hcl*) 25 Mg Capsule, 25 MG PO Q6 PRN for ITCHING, CAP 11/09/18 Carvedilol* (Coreg*) 6.25 Mg Tablet, 6.25 MG PO BID, #60 TAB 11/09/18 Atorvastatin* (Atorvastatin*) 40 Mg Tablet, 40 MG PO QHS, #30 TAB 11/09/18 Acetaminophen* (Acetaminophen*) 650 Mg Tablet, 650 MG PO Q4 PRN for PAIN AND OR ELEVATED TEMP, #30 TAB 11/09/18 Follow-up Plan CBC, CMP in 1 week Primary Care Provider Kvng Deutsch MD Time spent on discharge: > 30 minutes Pending Labs Laboratory Tests Test 11/20/18 11:54 11/20/18 17:38 11/20/18 20:47 11/21/18 06:09 Bedside 71 106 90 Glucose mg/dL (70-220) mg/dL (70-220) mg/dL (70-220) Sodium Level 133 mmol/L (135-14 4) Potassium 4.0 Level mmol/L (3.5-5. 1) Chloride Level 97 mmol/L (97-110 ) Carbon Dioxide 29 Level mmol/L (21-31) Anion Gap 7 (5-13) Blood Urea 37 Nitrogen mg/dl (7-20) Creatinine 1.38 mg/dl (0.44-1. 00) Est Glomerular mL/min (>60) Filtrat Rate mL/min Glucose Level 95 mg/dl (70-220) Calcium Level 8.6 mg/dl (8.4-10. 2) Total 0.7 Bilirubin mg/dl (0.2-1.3 ) Direct 0.00 Bilirubin mg/dl (0.00-0. 20) Indirect 0.7 Bilirubin mg/dl (0-1.1) Aspartate Amino 91 Transf (AST/SGO IU/L (15-46) T) Alanine 98 Aminotransferas IU/L (13-69) e (ALT/SGPT) Alkaline 171 Phosphatase IU/L (42-121) Total Protein 6.3 g/dl (6.1-8.1) Albumin 3.0 g/dl (3.3-4.9) Globulin 3.30 g/dl (1.3-3.2) Albumin/Globuli 0.90 n Ratio Test 11/21/18 08:46 Bedside 124 Glucose mg/dL (70-220) JAYY SMITH Nov 21, 2018 11:09
--- NOTE | 2018-11-21 11:43 | CONS ---
Assessment/Plan Assessment/Plan Hospital Course (Demo Recall) No acute changes, no fevers overnight Microbiology blood cultures remain negative MRSA swab positive Physical examination: Well-developed chronically ill-appearing elderly woman who is awake in no distress. Head atraumatic normocephalic sclera nonicteric vehicle mucosa dry neck is supple chest rise symmetrical breath sounds diminished bases. Heart: S1-S2 irregular abdomen soft bowel sounds present extremities without cyanosis Assessment: 1. S/p pneumonia, possible CHF exacerbation 2. Atrial fibrillation with rapid ventricular response 3. MRSA nares colonization 4. Diabetes 5. Hypertension 6. Transaminitis ?acute chetna Plan: Patient is clinically stable, off abx, pending dc Consultation Date/Type/Reason Admit Date/Time Nov 09, 2018 at 17:20 Initial Consult Date Type of Consult id Requesting Provider: ELISABETH ENRIQUEZ MD Date/Time of Note DATE: 11/21/18 TIME: 11:42 Exam/Review of Systems Exam Vitals Vital Signs Date Temp Pulse Resp B/P (MAP) Pulse Ox O2 O2 Flow FiO2 Time Delivery Rate 11/21/18 98.0 71 18 119/59 97 Room Air 11:20 (79) 11/21/18 21 09:51 11/20/18 2.0 08:30 Intake and Output 11/20/18 11/20/18 11/21/18 1515:00 23:00 07:00 IntakeIntake Total 1850 ml 400 ml BalanceBalance 1850 ml 400 ml Results Result Diagram: 11/19/18 0505 11/21/18 0609 Results 24hrs Laboratory Tests Test 11/20/18 11:54 11/20/18 17:38 11/20/18 20:47 11/21/18 06:09 Bedside Glucose 71 106 90 Sodium Level 133 L Potassium Level 4.0 Chloride Level 97 Carbon Dioxide Level 29 Anion Gap 7 Blood Urea Nitrogen 37 H Creatinine 1.38 H Est Glomerular Filtrat Rate mL/min Glucose Level 95 Calcium Level 8.6 Total Bilirubin 0.7 Direct Bilirubin 0.00 Indirect Bilirubin 0.7 Aspartate Amino 91 H Transf (AST/SGOT) Alanine 98 H Aminotransferase (AL T/SGPT) Alkaline Phosphatase 171 H Total Protein 6.3 Albumin 3.0 L Globulin 3.30 H Albumin/Globulin 0.90 Ratio Test 11/21/18 08:46 Bedside Glucose 124 Medications Medication Current Medications IV Flush (NS 3 ml) 3 ml PER PROTOCOL IV ; Start 11/09/18 at 18:00 Ondansetron HCl (Zofran Inj) 4 mg Q6H PRN IV NAUSEA/VOMITING Last administered on 11/15/18 17:19; Admin Dose 4 MG; Start 11/09/18 at 18:00 Acetaminophen (Tylenol Tab) 650 mg Q6H PRN PO .PAIN 1-3 OR TEMP Last administered on 11/21/18 09:12; Admin Dose 650 MG; Start 11/09/18 at 18:00 Morphine Sulfate (morphine) 2 mg Q4H PRN IV .PAIN 7-10 Last administered on 11/19/18 23:08; Admin Dose 2 MG; Start 11/09/18 at 18:00 Bisacodyl (Dulcolax) 10 mg DAILY PRN PO CONSTIPATION Last administered on 11/19/18 21:27; Admin Dose 10 MG; Start 11/10/18 at 11:00 Cholecalciferol (Vitamin D) 2,000 unit DAILY PO Last administered on 11/21/18 08:50; Admin Dose 2,000 UNIT; Start 11/11/18 at 09:00 Docusate Sodium (Colace) 100 mg DAILY PO Last administered on 11/21/18 09:14; Admin Dose 100 MG; Start 11/11/18 at 09:00 Senna (Senokot) 1 tab DAILY PRN PO CONSTIPATION Last administered on 11/19/18 20:06; Admin Dose 1 TAB; Start 11/10/18 at 11:00 Zinc Sulfate (Zinc Sulfate) 220 mg DAILY PO Last administered on 11/21/18 09:14; Admin Dose 220 MG; Start 11/11/18 at 09:00 Miscellaneous Information 1 ea NOTE XX Last administered on 11/15/18 12:00; Admin Dose 1 EA; Start 11/10/18 at 11:30 Glucose (Glutose) 15 gm Q15M PRN PO DECREASED GLUCOSE; Start 11/10/18 at 11:30 Glucose (Glutose) 22.5 gm Q15M PRN PO DECREASED GLUCOSE; Start 11/10/18 at 11:30 Dextrose (D50w Syringe) 25 ml Q15M PRN IV DECREASED GLUCOSE Last administered on 11/11/18 13:22; Admin Dose 25 ML; Start 11/10/18 at 11:30 Dextrose (D50w Syringe) 50 ml Q15M PRN IV DECREASED GLUCOSE; Start 11/10/18 at 11:30 Glucagon (Glucagen) 1 mg Q15M PRN IM DECREASED GLUCOSE; Start 11/10/18 at 11:30 Glucose (Glutose) 15 gm Q15M PRN BUCCAL DECREASED GLUCOSE; Start 11/10/18 at 11:30 Atorvastatin Calcium (Lipitor) 20 mg QHS PO Last administered on 11/20/18 20:53; Admin Dose 20 MG; Start 11/11/18 at 21:00 Apixaban (Eliquis) 5 mg BID PO Last administered on 11/21/18 08:50; Admin Dose 5 MG; Start 11/11/18 at 21:00 Insulin Aspart (Novolog Insulin Pen) NOVOLOG *MILD* ALGORITHM WITH MEALS BEDTIME SC Last administered on 11/18/18 12:21; Admin Dose 1 UNIT; Start 11/11/18 at 17:55 Lorazepam (Ativan) 0.5 mg Q6H PRN PO ANXIETY Last administered on 11/21/18 00:35; Admin Dose 0.5 MG; Start 11/11/18 at 21:00 Diltiazem HCl (Cardizem Iv) 5 mg Q4 PRN IV HR>110 Hold SBP<100; Start 11/12/18 at 16:30 Mupirocin (Bactroban) 1 applic BID TOP Last administered on 11/21/18 08:48; Admin Dose 1 APPLIC; Start 11/12/18 at 21:00 Levalbuterol (Xopenex Neb) 0.63 mg Q6H RESP THERAPY HHN Last administered on 11/21/18 09:50; Admin Dose 0.63 MG; Start 11/13/18 at 02:00 Diagnostic Test (Pha) (Accu-Chek) 1 ea 02 XX Last administered on 11/17/18 02:58; Admin Dose 1 EA; Start 11/14/18 at 02:00 Diltiazem HCl (Cardizem Cd) 180 mg BID PO Last administered on 11/21/18 09:14; Admin Dose 180 MG; Start 11/14/18 at 21:00 Metoprolol Tartrate (Lopressor) 75 mg BID PO Last administered on 11/21/18 08:49; Admin Dose 75 MG; Start 11/15/18 at 21:00 Insulin Aspart (Novolog Insulin Pen) 3 unit WITH MEALS SC Last administered on 11/21/18 09:17; Admin Dose 3 UNIT; Start 11/16/18 at 08:00 Insulin Glargine (Lantus) 30 units DAILY SC Last administered on 11/21/18 09:01; Admin Dose 30 UNITS; Start 11/16/18 at 09:00 Hydroxyzine HCl (Atarax) 25 mg Q6H PRN PO ITCHING Last administered on 11/21/18 00:23; Admin Dose 25 MG; Start 11/15/18 at 23:00 Furosemide (Lasix) 20 mg DAILY IV Last administered on 11/18/18 10:08; Admin Dose 20 MG; Start 11/17/18 at 09:00; Status Hold Zinc Acetate/ Diphenhydramine (Benadryl 2% Cr) 1 applic BID PRN TOP ITCHING Last administered on 11/21/18 08:51; Admin Dose 1 APPLIC; Start 11/18/18 at 12:00 Furosemide (Lasix) 20 mg BID DIURETICS PO Last administered on 11/21/18 06:34; Admin Dose 20 MG; Start 11/20/18 at 06:00 Diphenhydramine HCl (Benadryl) 25 mg Q6H PRN PO ITCHING Last administered on 11/21/18 08:50; Admin Dose 25 MG; Start 11/20/18 at 22:30 ZHEN ROSS NP Nov 21, 2018 11:43
--- NOTE | 2018-11-21 13:46 | CONS ---
Assessment/Plan Assessment/Plan Assessment/Plan (Daily) 1. acute Kidney injury 2. Pneumonia, 3. Pulmonary edema due to possible CHF exacerbation 4. Atrial fibrillation with rapid ventricular response 5. Diabetes 6. Hypertension 7. Transaminitis ?acute chetna Plan: BUN/Cr trended up to 37/1.38- IV abx cefepime IVF D51/2 NS atr 50 cc.hr lasix 20mg pO BID Renally dose all abx and monitor electrolytes, replace as needed will follow up Patient seen in collaboration with Dr Antonina Gomez. dw staff Consultation Date/Type/Reason Admit Date/Time Nov 09, 2018 at 17:20 Initial Consult Date 11/17/18 Type of Consult NEPHROLOGY Reason for Consultation KADEN Requesting Provider: ELISABETH ENRIQUEZ MD Date/Time of Note DATE: 11/21/18 TIME: 13:44 24 HR Interval Summary Free Text/Dictation NAD afebrile seems comfortable on supplemental oxygen alert; open eyes when called incontinent x 10 /24 hrs dw staff Patient seen in collaboration with Dr Antonina Gomez. dw staff Constitutional: requiring O2 Exam/Review of Systems Exam Vitals Vital Signs Date Temp Pulse Resp B/P (MAP) Pulse Ox O2 O2 Flow FiO2 Time Delivery Rate 11/21/18 98.0 71 18 119/59 97 Room Air 11:20 (79) 11/21/18 21 09:51 11/21/18 2.0 08:20 Intake and Output 11/20/18 11/20/18 11/21/18 1515:00 23:00 07:00 IntakeIntake Total 1850 ml 400 ml BalanceBalance 1850 ml 400 ml Constitutional: alert Psych: nl mood/affect Eyes: nl lids, nl sclera ENMT: nl external ears & nose Neck: non-tender Respiratory: clear to auscultation Cardiovascular: nl pulses, other (S1S2) Gastrointestinal: soft, non-tender Musculoskeletal: muscle weakness Extremities: normal pulses Neurological: confused Lymph: nontender Results Result Diagram: 11/19/18 0505 11/21/18 0609 Results 24hrs Laboratory Tests Test 11/20/18 17:38 11/20/18 20:47 11/21/18 06:09 11/21/18 08:46 Bedside Glucose 106 90 124 Sodium Level 133 L Potassium Level 4.0 Chloride Level 97 Carbon Dioxide Level 29 Anion Gap 7 Blood Urea Nitrogen 37 H Creatinine 1.38 H Est Glomerular Filtrat Rate mL/min Glucose Level 95 Calcium Level 8.6 Total Bilirubin 0.7 Direct Bilirubin 0.00 Indirect Bilirubin 0.7 Aspartate Amino 91 H Transf (AST/SGOT) Alanine 98 H Aminotransferase (AL T/SGPT) Alkaline Phosphatase 171 H Total Protein 6.3 Albumin 3.0 L Globulin 3.30 H Albumin/Globulin 0.90 Ratio Test 11/21/18 13:22 Bedside Glucose 118 Medications Medication Current Medications IV Flush (NS 3 ml) 3 ml PER PROTOCOL IV ; Start 11/09/18 at 18:00 Ondansetron HCl (Zofran Inj) 4 mg Q6H PRN IV NAUSEA/VOMITING Last administered on 11/15/18 17:19; Admin Dose 4 MG; Start 11/09/18 at 18:00 Acetaminophen (Tylenol Tab) 650 mg Q6H PRN PO .PAIN 1-3 OR TEMP Last administered on 11/21/18 09:12; Admin Dose 650 MG; Start 11/09/18 at 18:00 Morphine Sulfate (morphine) 2 mg Q4H PRN IV .PAIN 7-10 Last administered on 23:08; Admin Dose 2 MG; Start 11/09/18 at 18:00 Bisacodyl (Dulcolax) 10 mg DAILY PRN PO CONSTIPATION Last administered on 11/19/18 21:27; Admin Dose 10 MG; Start 11/10/18 at 11:00 Cholecalciferol (Vitamin D) 2,000 unit DAILY PO Last administered on 11/21/18 08:50; Admin Dose 2,000 UNIT; Start 11/11/18 at 09:00 Docusate Sodium (Colace) 100 mg DAILY PO Last administered on 11/21/18 09:14; Admin Dose 100 MG; Start 11/11/18 at 09:00 Senna (Senokot) 1 tab DAILY PRN PO CONSTIPATION Last administered on 11/19/18 20:06; Admin Dose 1 TAB; Start 11/10/18 at 11:00 Zinc Sulfate (Zinc Sulfate) 220 mg DAILY PO Last administered on 11/21/18 09:14; Admin Dose 220 MG; Start 11/11/18 at 09:00 Miscellaneous Information 1 ea NOTE XX Last administered on 11/15/18 12:00; Admin Dose 1 EA; Start 11/10/18 at 11:30 Glucose (Glutose) 15 gm Q15M PRN PO DECREASED GLUCOSE; Start 11/10/18 at 11:30 Glucose (Glutose) 22.5 gm Q15M PRN PO DECREASED GLUCOSE; Start 11/10/18 at 11:30 Dextrose (D50w Syringe) 25 ml Q15M PRN IV DECREASED GLUCOSE Last administered on 11/11/18 13:22; Admin Dose 25 ML; Start 11/10/18 at 11:30 Dextrose (D50w Syringe) 50 ml Q15M PRN IV DECREASED GLUCOSE; Start 11/10/18 at 11:30 Glucagon (Glucagen) 1 mg Q15M PRN IM DECREASED GLUCOSE; Start 11/10/18 at 11:30 Glucose (Glutose) 15 gm Q15M PRN BUCCAL DECREASED GLUCOSE; Start 11/10/18 at 11:30 Atorvastatin Calcium (Lipitor) 20 mg QHS PO Last administered on 11/20/18 20:53; Admin Dose 20 MG; Start 11/11/18 at 21:00 Apixaban (Eliquis) 5 mg BID PO Last administered on 11/21/18 08:50; Admin Dose 5 MG; Start 11/11/18 at 21:00 Insulin Aspart (Novolog Insulin Pen) NOVOLOG *MILD* ALGORITHM WITH MEALS BEDTIME SC Last administered on 11/18/18 12:21; Admin Dose 1 UNIT; Start 11/11/18 at 17:55 Lorazepam (Ativan) 0.5 mg Q6H PRN PO ANXIETY Last administered on 11/21/18 00:35; Admin Dose 0.5 MG; Start 11/11/18 at 21:00 Diltiazem HCl (Cardizem Iv) 5 mg Q4 PRN IV HR>110 Hold SBP<100; Start 11/12/18 at 16:30 Mupirocin (Bactroban) 1 applic BID TOP Last administered on 11/21/18 08:48; Admin Dose 1 APPLIC; Start 11/12/18 at 21:00 Levalbuterol (Xopenex Neb) 0.63 mg Q6H RESP THERAPY HHN Last administered on 11/21/18 09:50; Admin Dose 0.63 MG; Start 11/13/18 at 02:00 Diagnostic Test (Pha) (Accu-Chek) 1 ea 02 XX Last administered on 11/17/18 02:58; Admin Dose 1 EA; Start 11/14/18 at 02:00 Diltiazem HCl (Cardizem Cd) 180 mg BID PO Last administered on 11/21/18 09:14; Admin Dose 180 MG; Start 11/14/18 at 21:00 Metoprolol Tartrate (Lopressor) 75 mg BID PO Last administered on 11/21/18 08:49; Admin Dose 75 MG; Start 11/15/18 at 21:00 Insulin Aspart (Novolog Insulin Pen) 3 unit WITH MEALS SC Last administered on 11/21/18 13:29; Admin Dose 3 UNIT; Start 11/16/18 at 08:00 Insulin Glargine (Lantus) 30 units DAILY SC Last administered on 11/21/18 09:01; Admin Dose 30 UNITS; Start 11/16/18 at 09:00 Hydroxyzine HCl (Atarax) 25 mg Q6H PRN PO ITCHING Last administered on 11/21/18 00:23; Admin Dose 25 MG; Start 11/15/18 at 23:00 Furosemide (Lasix) 20 mg DAILY IV Last administered on 11/18/18 10:08; Admin Dose 20 MG; Start 11/17/18 at 09:00; Status Hold Zinc Acetate/ Diphenhydramine (Benadryl 2% Cr) 1 applic BID PRN TOP ITCHING Last administered on 11/21/18 08:51; Admin Dose 1 APPLIC; Start 11/18/18 at 12:00 Furosemide (Lasix) 20 mg BID DIURETICS PO Last administered on 11/21/18 06:34; Admin Dose 20 MG; Start 11/20/18 at 06:00 Diphenhydramine HCl (Benadryl) 25 mg Q6H PRN PO ITCHING Last administered on 11/21/18 08:50; Admin Dose 25 MG; Start 11/20/18 at 22:30 TARIK CONTEH Nov 21, 2018 13:46
[2018-11-21] MEDS ORDERED: SOD CHLORIDE 0.45% 1,000 ML IV SCH (14:00)
--- NOTE | 2018-11-21 14:09 | CONS ---
Assessment/Plan Assessment/Plan Hospital Course (Demo Recall) IMPRESSION: 1. Atrial fibrillation/atrial flutter- neg trop x 3. Now with improved rate control. NL EF by echo 2. Hypertension, controlled. 3. Congestive heart failure, diastolic, acute on chronic. 4. Coagulopathy secondary to Eliquis. 5. ARF-now slowly improving 6. Increased liver function tests. 7. Increased BNP. 8. Anemia, mild, worsening. 9. abd pain/increased LFT's Recc: -Tele -serial ecg's -Continiue BB and CCB and current doses and follow HR/BP closely -Contineu eliquis -Contneu abx's and f/u cx data -back on lasix 20 po bid. Follow volume status clsoely -Renal following -GI following Consultation Date/Type/Reason Admit Date/Time Nov 09, 2018 at 17:20 Initial Consult Date 11/12/18 Type of Consult Cardiology Reason for Consultation AF Requesting Provider: ELISABETH ENRIQUEZ MD Date/Time of Note DATE: 11/21/18 TIME: 14:07 Exam/Review of Systems Vital Signs Vitals Vital Signs Date Temp Pulse Resp B/P (MAP) Pulse Ox O2 O2 Flow FiO2 Time Delivery Rate 11/21/18 98.0 71 18 119/59 97 Room Air 11:20 (79) 11/21/18 21 09:51 11/21/18 2.0 08:20 Intake and Output 11/20/18 11/20/18 11/21/18 1515:00 23:00 07:00 IntakeIntake Total 1850 ml 400 ml BalanceBalance 1850 ml 400 ml Exam Exam Review of Systems: CONSTITUTIONAL: No fevers, chills. PULMONARY: No sob CARDIOVASCULAR: No chest pain/palpitations GASTROINTESTINAL: No nausea/vomiting. GENITOURINARY: No hematuria/dysuria. MUSCULOSKELETAL: No myagias/arthalgias. PSYCHIATRIC: The patient denies depression. NEUROLOGIC: No weakness Constitutional: alert Psych: no complaints Head: normocephalic ENMT: mucosa pink and moist Neck: supple, jvd (9 cm water) Respiratory: diminished breath sounds (at bases/B) Cardiovascular: irregular rhythm Gastrointestinal: soft, non-tender Musculoskeletal: muscle weakness (mild generalized) Extremities: edema (none) Neurological: other (No focal deficits) Labs Result Diagram: 11/19/18 0505 11/21/18 0609 Results 24hrs Laboratory Tests Test 11/20/18 17:38 11/20/18 20:47 11/21/18 06:09 11/21/18 08:46 Bedside Glucose 106 90 124 Sodium Level 133 L Potassium Level 4.0 Chloride Level 97 Carbon Dioxide Level 29 Anion Gap 7 Blood Urea Nitrogen 37 H Creatinine 1.38 H Est Glomerular Filtrat Rate mL/min Glucose Level 95 Calcium Level 8.6 Total Bilirubin 0.7 Direct Bilirubin 0.00 Indirect Bilirubin 0.7 Aspartate Amino 91 H Transf (AST/SGOT) Alanine 98 H Aminotransferase (AL T/SGPT) Alkaline Phosphatase 171 H Total Protein 6.3 Albumin 3.0 L Globulin 3.30 H Albumin/Globulin 0.90 Ratio Test 11/21/18 13:22 Bedside Glucose 118 Medications Medications Current Medications IV Flush (NS 3 ml) 3 ml PER PROTOCOL IV ; Start 11/09/18 at 18:00 Ondansetron HCl (Zofran Inj) 4 mg Q6H PRN IV NAUSEA/VOMITING Last administered on 11/15/18 17:19; Admin Dose 4 MG; Start 11/09/18 at 18:00 Acetaminophen (Tylenol Tab) 650 mg Q6H PRN PO .PAIN 1-3 OR TEMP Last administered on 11/21/18 09:12; Admin Dose 650 MG; Start 11/09/18 at 18:00 Morphine Sulfate (morphine) 2 mg Q4H PRN IV .PAIN 7-10 Last administered on 11/19/18at 23:08; Admin Dose 2 MG; Start 11/09/18 at 18:00 Bisacodyl (Dulcolax) 10 mg DAILY PRN PO CONSTIPATION Last administered on 11/19/18 21:27; Admin Dose 10 MG; Start 11/10/18 at 11:00 Cholecalciferol (Vitamin D) 2,000 unit DAILY PO Last administered on 11/21/18at 08:50; Admin Dose 2,000 UNIT; Start 11/11/18 at 09:00 Docusate Sodium (Colace) 100 mg DAILY PO Last administered on 11/21/18 09:14; Admin Dose 100 MG; Start 11/11/18 at 09:00 Senna (Senokot) 1 tab DAILY PRN PO CONSTIPATION Last administered on 11/19/18 20:06; Admin Dose 1 TAB; Start 11/10/18 at 11:00 Zinc Sulfate (Zinc Sulfate) 220 mg DAILY PO Last administered on 11/21/18 09:14; Admin Dose 220 MG; Start 11/11/18 at 09:00 Miscellaneous Information 1 ea NOTE XX Last administered on 11/15/18 12:00; Admin Dose 1 EA; Start 11/10/18 at 11:30 Glucose (Glutose) 15 gm Q15M PRN PO DECREASED GLUCOSE; Start 11/10/18 at 11:30 Glucose (Glutose) 22.5 gm Q15M PRN PO DECREASED GLUCOSE; Start 11/10/18 at 11:30 Dextrose (D50w Syringe) 25 ml Q15M PRN IV DECREASED GLUCOSE Last administered on 11/11/18 13:22; Admin Dose 25 ML; Start 11/10/18 at 11:30 Dextrose (D50w Syringe) 50 ml Q15M PRN IV DECREASED GLUCOSE; Start 11/10/18 at 11:30 Glucagon (Glucagen) 1 mg Q15M PRN IM DECREASED GLUCOSE; Start 11/10/18 at 11:30 Glucose (Glutose) 15 gm Q15M PRN BUCCAL DECREASED GLUCOSE; Start 11/10/18 at 11:30 Atorvastatin Calcium (Lipitor) 20 mg QHS PO Last administered on 11/20/18at 20:53; Admin Dose 20 MG; Start 11/11/18 at 21:00 Apixaban (Eliquis) 5 mg BID PO Last administered on 11/21/18 08:50; Admin Dose 5 MG; Start 11/11/18 at 21:00 Insulin Aspart (Novolog Insulin Pen) NOVOLOG *MILD* ALGORITHM WITH MEALS BE DTIME SC Last administered on 11/18/18 12:21; Admin Dose 1 UNIT; Start 11/11/18 at 17:55 Lorazepam (Ativan) 0.5 mg Q6H PRN PO ANXIETY Last administered on 11/21/18 00:35; Admin Dose 0.5 MG; Start 11/11/18 at 21:00 Diltiazem HCl (Cardizem Iv) 5 mg Q4 PRN IV HR>110 Hold SBP<100; Start 11/12/18 at 16:30 Mupirocin (Bactroban) 1 applic BID TOP Last administered on 11/21/18 08:48; Admin Dose 1 APPLIC; Start 11/12/18 at 21:00 Levalbuterol (Xopenex Neb) 0.63 mg Q6H RESP THERAPY HHN Last administered on 11/21/18 09:50; Admin Dose 0.63 MG; Start 11/13/18 at 02:00 Diagnostic Test (Pha) (Accu-Chek) 1 ea 02 XX Last administered on 11/17/18 02:58; Admin Dose 1 EA; Start 11/14/18 at 02:00 Diltiazem HCl (Cardizem Cd) 180 mg BID PO Last administered on 11/21/18 09:14; Admin Dose 180 MG; Start 11/14/18 at 21:00 Metoprolol Tartrate (Lopressor) 75 mg BID PO Last administered on 11/21/18 08:49; Admin Dose 75 MG; Start 11/15/18 at 21:00 Insulin Aspart (Novolog Insulin Pen) 3 unit WITH MEALS SC Last administered on 11/21/18 13:29; Admin Dose 3 UNIT; Start 11/16/18 at 08:00 Insulin Glargine (Lantus) 30 units DAILY SC Last administered on 11/21/18 09:01; Admin Dose 30 UNITS; Start 11/16/18 at 09:00 Hydroxyzine HCl (Atarax) 25 mg Q6H PRN PO ITCHING Last administered on 11/21/18 00:23; Admin Dose 25 MG; Start 11/15/18 at 23:00 Furosemide (Lasix) 20 mg DAILY IV Last administered on 11/18/18 10:08; Admin Dose 20 MG; Start 11/17/18 at 09:00; Status Hold Zinc Acetate/ Diphenhydramine (Benadryl 2% Cr) 1 applic BID PRN TOP ITCHING Last administered on 11/21/18 08:51; Admin Dose 1 APPLIC; Start 11/18/18 at 12:00 Furosemide (Lasix) 20 mg BID DIURETICS PO Last administered on 11/21/18 06:3 4; Admin Dose 20 MG; Start 11/20/18 at 06:00 Diphenhydramine HCl (Benadryl) 25 mg Q6H PRN PO ITCHING Last administered on 6/13/19at 14:00; Admin Dose 25 MG; Start 11/20/18 at 22:30 Sodium Chloride 1,000 ml @ 50 mls/hr Q20H IV ; Start 11/21/18 at 14:00 CASSIE URBINA Nov 21, 2018 14:09
--- NOTE | 2018-11-21 16:22 | CONS ---
Assessment/Plan Assessment/Plan Hospital Course (Demo Recall) 1. Abnormal LFT -likely due to fatty liver -continue statin for now -monitor LFTs 2. Atrial fibrillation. 3. Pneumonia. 4. Diabetes mellitus. 5. Hypertension. 6. Sludge in the gallbladder without dilatation of the biliary tree. 7. Anemia -retics elevated at 3.3 Plan Encourage PO feeding Low fat/low carb diet Education on lifestyle changes provided Monitor LFTs fob Pt examined and plan of care discussed with Dr. Chicas Consultation Date/Type/Reason Admit Date/Time Nov 09, 2018 at 17:20 Initial Consult Date 11/17/18 Requesting Provider: ELISABETH ENRIQUEZ MD Date/Time of Note DATE: 11/21/18 TIME: 16:15 24 HR Interval Summary Free Text/Dictation Pt c/o lower back pain. No c/o nausea or abd pain. Neg neumann's sign. Exam/Review of Systems Exam Vitals Vital Signs Date Temp Pulse Resp B/P (MAP) Pulse Ox O2 O2 Flow FiO2 Time Delivery Rate 11/21/18 97.9 81 18 116/66 99 Room Air 15:04 (83) 11/21/18 21 09:51 11/21/18 2.0 08:20 Intake and Output 11/20/18 11/20/18 11/21/18 1515:00 23:00 07:00 IntakeIntake Total 1850 ml 400 ml BalanceBalance 1850 ml 400 ml Constitutional: alert, oriented Psych: no complaints Head: normocephalic Eyes: nl sclera, PERRL Respiratory: normal air movement Cardiovascular: regular rate and rhythm Gastrointestinal: soft, non-tender, bowel sounds Musculoskeletal: muscle weakness Neurological: nl mental status Results Result Diagram: 11/19/18 0505 11/21/18 0609 Results 24hrs Laboratory Tests Test 11/20/18 17:38 11/20/18 20:47 11/21/18 06:09 11/21/18 08:46 Bedside Glucose 106 90 124 Sodium Level 133 L Potassium Level 4.0 Chloride Level 97 Carbon Dioxide Level 29 Anion Gap 7 Blood Urea Nitrogen 37 H Creatinine 1.38 H Est Glomerular Filtrat Rate mL/min Glucose Level 95 Calcium Level 8.6 Total Bilirubin 0.7 Direct Bilirubin 0.00 Indirect Bilirubin 0.7 Aspartate Amino 91 H Transf (AST/SGOT) Alanine 98 H Aminotransferase (AL T/SGPT) Alkaline Phosphatase 171 H Total Protein 6.3 Albumin 3.0 L Globulin 3.30 H Albumin/Globulin 0.90 Ratio Test 11/21/18 13:22 Bedside Glucose 118 Medications Medication Current Medications IV Flush (NS 3 ml) 3 ml PER PROTOCOL IV ; Start 11/09/18 at 18:00 Ondansetron HCl (Zofran Inj) 4 mg Q6H PRN IV NAUSEA/VOMITING Last administered on 11/15/18 17:19; Admin Dose 4 MG; Start 11/09/18 at 18:00 Acetaminophen (Tylenol Tab) 650 mg Q6H PRN PO .PAIN 1-3 OR TEMP Last administered on 11/21/18 09:12; Admin Dose 650 MG; Start 11/09/18 at 18:00 Morphine Sulfate (morphine) 2 mg Q4H PRN IV .PAIN 7-10 Last administered on 11/19/18 23:08; Admin Dose 2 MG; Start 11/09/18 at 18:00 Bisacodyl (Dulcolax) 10 mg DAILY PRN PO CONSTIPATION Last administered on 11/19/18 21:27; Admin Dose 10 MG; Start 11/10/18 at 11:00 Cholecalciferol (Vitamin D) 2,000 unit DAILY PO Last administered on 11/21/18 08:50; Admin Dose 2,000 UNIT; Start 11/11/18 at 09:00 Docusate Sodium (Colace) 100 mg DAILY PO Last administered on 11/21/18 09:14; Admin Dose 100 MG; Start 11/11/18 at 09:00 Senna (Senokot) 1 tab DAILY PRN PO CONSTIPATION Last administered on 11/19/18 20:06; Admin Dose 1 TAB; Start 11/10/18 at 11:00 Zinc Sulfate (Zinc Sulfate) 220 mg DAILY PO Last administered on 11/21/18 09:14; Admin Dose 220 MG; Start 11/11/18 at 09:00 Miscellaneous Information 1 ea NOTE XX Last administered on 11/15/18 12:00; Admin Dose 1 EA; Start 11/10/18 at 11:30 Glucose (Glutose) 15 gm Q15M PRN PO DECREASED GLUCOSE; Start 11/10/18 at 11:30 Glucose (Glutose) 22.5 gm Q15M PRN PO DECREASED GLUCOSE; Start 11/10/18 at 11:30 Dextrose (D50w Syringe) 25 ml Q15M PRN IV DECREASED GLUCOSE Last administered on 11/11/18 13:22; Admin Dose 25 ML; Start 11/10/18 at 11:30 Dextrose (D50w Syringe) 50 ml Q15M PRN IV DECREASED GLUCOSE; Start 11/10/18 at 11:30 Glucagon (Glucagen) 1 mg Q15M PRN IM DECREASED GLUCOSE; Start 11/10/18 at 11:30 Glucose (Glutose) 15 gm Q15M PRN BUCCAL DECREASED GLUCOSE; Start 11/10/18 at 11:30 Atorvastatin Calcium (Lipitor) 20 mg QHS PO Last administered on 11/20/18 20:53; Admin Dose 20 MG; Start 11/11/18 at 21:00 Apixaban (Eliquis) 5 mg BID PO Last administered on 11/21/18 08:50; Admin Dose 5 MG; Start 11/11/18 at 21:00 Insulin Aspart (Novolog Insulin Pen) NOVOLOG *MILD* ALGORITHM WITH MEALS BEDTI ME SC Last administered on 11/18/18 12:21; Admin Dose 1 UNIT; Start 11/11/18 at 17:55 Lorazepam (Ativan) 0.5 mg Q6H PRN PO ANXIETY Last administered on 11/21/18 00:35; Admin Dose 0.5 MG; Start 11/11/18 at 21:00 Diltiazem HCl (Cardizem Iv) 5 mg Q4 PRN IV HR>110 Hold SBP<100; Start 11/12/18 at 16:30 Mupirocin (Bactroban) 1 applic BID TOP Last administered on 11/21/18 08:48; Admin Dose 1 APPLIC; Start 11/12/18 at 21:00 Levalbuterol (Xopenex Neb) 0.63 mg Q6H RESP THERAPY HHN Last administered on 11/21/18 14:14; Admin Dose 0.63 MG; Start 11/13/18 at 02:00 Diagnostic Test (Pha) (Accu-Chek) 1 ea 02 XX Last administered on 11/17/18 02:58; Admin Dose 1 EA; Start 11/14/18 at 02:00 Diltiazem HCl (Cardizem Cd) 180 mg BID PO Last administered on 11/21/18 09:14; Admin Dose 180 MG; Start 11/14/18 at 21:00 Metoprolol Tartrate (Lopressor) 75 mg BID PO Last administered on 11/21/18 08:49; Admin Dose 75 MG; Start 11/15/18 at 21:00 Insulin Aspart (Novolog Insulin Pen) 3 unit WITH MEALS SC Last administered on 11/21/18 13:29; Admin Dose 3 UNIT; Start 11/16/18 at 08:00 Insulin Glargine (Lantus) 30 units DAILY SC Last administered on 11/21/18 09:01; Admin Dose 30 UNITS; Start 11/16/18 at 09:00 Hydroxyzine HCl (Atarax) 25 mg Q6H PRN PO ITCHING Last administered on 11/21/18 00:23; Admin Dose 25 MG; Start 11/15/18 at 23:00 Furosemide (Lasix) 20 mg DAILY IV Last administered on 11/18/18 10:08; Admin Dose 20 MG; Start 11/17/18 at 09:00; Status Hold Zinc Acetate/ Diphenhydramine (Benadryl 2% Cr) 1 applic BID PRN TOP ITCHING Last administered on 11/21/18 08:51; Admin Dose 1 APPLIC; Start 11/18/18 at 12:00 Furosemide (Lasix) 20 mg BID DIURETICS PO Last administered on 11/21/18 06:34; Admin Dose 20 MG; Start 11/20/18 at 06:00 Diphenhydramine HCl (Benadryl) 25 mg Q6H PRN PO ITCHING Last administered on 11/21/18 14:00; Admin Dose 25 MG; Start 11/20/18 at 22:30 MIHAI POOLE Nov 21, 2018 16:22
== END 2018-11-21 19:11 | DRG 193 ==
LOC: E/R 15:07 → TEL 17:20 → 6WM 11-12 13:03
PROVIDERS: ADMIT Internal Medicine; ATTEND Internal Medicine
DX: J18.9 Pneumonia, unspecified organism (principal); I50.43 Acute on chronic combined systolic (congestive) and diastolic (congestive) heart failure; I48.92 Unspecified atrial flutter; N17.9 Acute kidney failure, unspecified; I11.0 Hypertensive heart disease with heart failure; I48.2 Chronic atrial fibrillation; E11.8 Type 2 diabetes mellitus with unspecified complications; K76.0 Fatty (change of) liver, not elsewhere classified; E78.00 Pure hypercholesterolemia, unspecified; E66.9 Obesity, unspecified; Z68.26 Body mass index [BMI] 26.0-26.9, adult; Z74.01 Bed confinement status; S72.141D Displaced intertrochanteric fracture of right femur, subsequent encounter for closed fracture with routine healing; D64.9 Anemia, unspecified; N28.9 Disorder of kidney and ureter, unspecified; Z79.02 Long term (current) use of antithrombotics/antiplatelets; Z79.4 Long term (current) use of insulin; Z22.322 Carrier or suspected carrier of Methicillin resistant Staphylococcus aureus; R41.9 Unspecified symptoms and signs involving cognitive functions and awareness; F32.9 Major depressive disorder, single episode, unspecified; R32 Unspecified urinary incontinence
CPT/HCPCS: 71045; 76700; 80048; 80053; 80061; 82550; 82553; 82607; 82728; 82746; 82962; 83036; 83540; 83735; 83880; 84100; 84443; 84484; 85025; 85045; 85610; 85730; 86704; 86709; 86803; 87081; 87340; 92526; 92610; 93005; 93306; 94640; 94664; 96374; 96375; J0692; J1650; J1815; J1940; J2270; J2405; J2930; J3370; J7030; J7040; J7042